=== PATIENT | male | born 1960 | race Caucasian/White ===

== ENCOUNTER 2020-06-05 09:44 | Emergency (ER) | payer OTHER, SELFPAY ==
--- NOTE | 2020-06-05 08:49 | ED_ITS ---
HPI - Chest Pain General Chief Complaint: Chest Pain Stated Complaint: chest pain Time Seen by Provider: 06/05/20 10:30 Source: patient and EMS Mode of arrival: EMS Limitations: no limitations History of Present Illness MD complaint: chest pain Pertinent past history: other (PE) Onset (ago): minute(s) (60) Timing of current episode: constant Prior episodes: Yes Onset: during rest Pain location: left chest Pain radiation: none Severity: moderate Quality: sharp Relieving factors: nothing Exacerbating factors: nothing Context: other (INR 1.6 recently on 06/02 ) Associated symptoms: dyspnea Treatment prior to arrival: none Risk Factors Pulmonary embolism risk factors: history of pulmonary embolism Related Data Allergies Allergy/AdvReac Type Severity Reaction Status Date / Time codeine [CODEINE] Allergy Severe SEVERE Verified 06/05/20 08:52 PAIN/HYPOXIA W/HIGH DOSES meningococcal vaccine A,C,Y Allergy Intermediate HIVES Verified 06/05/20 08:52 and W-1 [MENINGOCOCCAL VACCINE A,C,Y AND W-1] SALMON Allergy Severe LT Uncoded 05/20/20 14:47 HEMIPARESIS salmon AdvReac Unknown hives Uncoded 04/22/20 00:00 Review of Systems Review of Systems: Constitutional : No Fever, No Chills ENT/Mouth : No sore throat, No Rhinorrhea, No Swallowing Difficulty Eyes: No Eye Pain, No Swelling, No Redness Cardiovascular : positive Chest Pain, positive SOB, No Orthopnea, positive Edema (chronic) Respiratory : No Cough, No Sputum, No Wheezing, positive dyspnea Gastrointestinal : No Nausea, No Vomiting, No Diarrhea, No abdominal Pain, No Hematochezia, No Melena Genitourinary : No Dysuria, No Urinary Frequency, No Hematuria Musculoskeletal : No joint pain, No Myalgias Skin : No Skin Lesions, No rash Neuro : No Weakness, No Numbness, No Dizziness, No Headache Psych : No Anxiety/Panic, No Depression Heme/Lymph: No Bruising, No Lymphadenopathy Endocrine : No Polyuria, No Polydipsia All other systems reviewed and are negative [facility] Past Medical History Medical History (Updated 06/05/20 @ 12:39 by Lisa Kenney DO) Depression DVT (deep venous thrombosis) HIV (human immunodeficiency virus infection) HTN (hypertension) Klinefelter syndrome Leg fracture, left Pulmonary embolus S/P ORIF (open reduction internal fixation) fracture Social History Social History (Updated 06/05/20 @ 08:51 by Lisa Kenney DO) Alcohol intake: unknown Smoking Status: Former smoker Smoked in Last 30 Days: No Use of substances other than those prescribed or required for medical reasons: No Advance Directives: No Advance Directives Information Provided: No Physical Exam Vital Signs and I&O and Narrative: Vital Signs and I&O: Vital Signs Temp 97.5 F 06/05/20 08:53 Pulse 54 06/05/20 08:53 Resp 10 L 06/05/20 08:53 BP 139/79 06/05/20 08:53 Pulse Ox 100 06/05/20 08:53 Intake & Output 06/04/20 06/05/20 06/05/20 18:59 06:59 18:59 Weight 125.191 kg Body Mass Index 31.8 Appearance: Alert. Oriented X3. No acute distress. Eyes: Pupils equal, round and reactive to light. ENT: Pharynx normal. Neck: Normal inspection. Neck supple. CVS: bradycardic. Pulses normal. Respiratory: No respiratory distress. Breath sounds normal. Abdomen: Soft and nontender. Skin: Skin warm and dry. Normal skin color. Normal skin turgor. Extremities: No lower extremity edema. mild non pitting LE edema ankles Neuro: Oriented X 3. No motor deficit. No sensory deficit. Course Reevaluation(s) Reevaluation #1: repeat troponin negative MDM - Chest Pain MDM Narrative Medical decision making narrative: patient with hx of DVT and PE recent INR 1.6 on 06/02 had abrupt onset L sided chest pain and dyspnea feels like prior PE, given this will need troponin x 2 and CTA:PE to r/o PE given high probability at this time HD stable has chronic bradycardia Lab Data Result diagrams: 06/05/20 09:18 06/05/20 09:18 Labs: Lab Results 06/05/20 06/05/20 06/05/20 Range/Units 09:18 09:18 09:18 WBC 4.2 L (4.8-10.8) X10*3/uL RBC 4.46 L (4.60-5.80) X10*6/uL Hgb 14.5 (14.0-18.0) g/dl Hct 42.8 (42-52) % MCV 96.0 (80-98) fL MCH 32.5 (27.0-33.0) pg MCHC 33.9 (31.0-36.0) g/dl RDW 12.4 (11.0-16.0) % Plt Count 150 L (160-400) X10*3/uL MPV 10.2 (9.4-12.4) fL Immature Gran % (Auto) 0.5 H (0.0-0.4) % Neut % (Auto) 59.7 (45-73) % Lymph % (Auto) 29.4 (20-40) % [place] % (Auto) 7.8 (2-11) % Eos % (Auto) 1.9 (0-4) % Baso % (Auto) 0.7 (0-2) % Neut # (Auto) 2.5 (2.0-8.3) X10*3/uL Lymph # (Auto) 1.2 (1.2-4.9) X10*3/uL [place] # (Auto) 0.3 (0.1-1.2) X10*3/uL Eos # (Auto) 0.1 (0.0-0.4) X10*3/uL Baso # (Auto) 0.0 (0.0-0.2) X10*3/uL Abs Immat Gran (auto) 0.02 (0.00-0.03) X10*3/uL Absolute Nucleated RBC 0.000 (0.0-0.012) X10*3/uL Nucleated RBC % (auto) 0.0 (0.0-0.2) /100WBC PT 33.6 H (10.8-13.0) SEC INR 2.8 H (0.9-1.1) APTT 42.9 H (24.1-38.0) SEC Sodium 141 (135-145) mmol/L Potassium 3.9 (3.3-5.1) mmol/l Chloride 107 (96-108) mmol/L Carbon Dioxide 28 (22-29) mmol/L Anion Gap 10 L (12-20) BUN 13 (9-16) mg/dL Creatinine 0.85 (0.5-1.4) mg/dL Estim Creat Clear Calc 138.8 Estimated GFR > 60 Random Glucose 132 H (60-115) mg/dL Calcium 8.6 (8.4-10.2) mg/dL Magnesium 2.1 (1.6-2.6) mg/dL Total Bilirubin 0.8 (0.0-1.0) mg/dL Direct Bilirubin 0.4 (0.0-0.5) mg/dL AST 50 H (5-37) U/L ALT 34 (0-40) U/L Alkaline Phosphatase 55 (39-117) U/L Troponin I High Sens (<3.5-35.0) ng/L B-Natriuretic Peptide (<100) pg/mL Total Protein 6.4 L (6.5-8.0) g/dL Albumin 3.9 (3.5-5.0) g/dL Lipase 35 (8-78) U/L 06/05/20 06/05/20 Range/Units 09:19 12:58 WBC (4.8-10.8) X10*3/uL RBC (4.60-5.80) X10*6/uL Hgb (14.0-18.0) g/dl Hct (42-52) % MCV (80-98) fL MCH (27.0-33.0) pg MCHC (31.0-36.0) g/dl RDW (11.0-16.0) % Plt Count (160-400) X10*3/uL MPV (9.4-12.4) fL Immature Gran % (Auto) (0.0-0.4) % Neut % (Auto) (45-73) % Lymph % (Auto) (20-40) % [place] % (Auto) (2-11) % Eos % (Auto) (0-4) % Baso % (Auto) (0-2) % Neut # (Auto) (2.0-8.3) X10*3/uL Lymph # (Auto) (1.2-4.9) X10*3/uL [place] # (Auto) (0.1-1.2) X10*3/uL Eos # (Auto) (0.0-0.4) X10*3/uL Baso # (Auto) (0.0-0.2) X10*3/uL Abs Immat Gran (auto) (0.00-0.03) X10*3/uL Absolute Nucleated RBC (0.0-0.012) X10*3/uL Nucleated RBC % (auto) (0.0-0.2) /100WBC PT (10.8-13.0) SEC INR (0.9-1.1) APTT (24.1-38.0) SEC Sodium (135-145) mmol/L Potassium (3.3-5.1) mmol/l Chloride (96-108) mmol/L Carbon Dioxide (22-29) mmol/L Anion Gap (12-20) BUN (9-16) mg/dL Creatinine (0.5-1.4) mg/dL Estim Creat Clear Calc Estimated GFR Random Glucose (60-115) mg/dL Calcium (8.4-10.2) mg/dL Magnesium (1.6-2.6) mg/dL Total Bilirubin (0.0-1.0) mg/dL Direct Bilirubin (0.0-0.5) mg/dL AST (5-37) U/L ALT (0-40) U/L Alkaline Phosphatase (39-117) U/L Troponin I High Sens < 3.5 < 3.5 (<3.5-35.0) ng/L B-Natriuretic Peptide 39 (<100) pg/mL Total Protein (6.5-8.0) g/dL Albumin (3.5-5.0) g/dL Lipase (8-78) U/L ECG Data ECG #1: Attestation: I personally reviewed and interpreted this ECG as follows: ECG interpretation date: 06/05/20 ECG interpretation time: 08:52 Interpretation: Rate: 47 Rhythm: sinus bradycardia [place]: normal Normal P waves. Normal JANE. Normal QRS complex. ST T wave : normal qTC: normal no ischemia The study has been interpreted contemporaneously by me. . Discharge Plan Discharge Clinical Impression: Atypical chest pain Patient Disposition: Home, Self-Care Instructions: Chest Pain (ED) Additional Instructions: INR 2.8 Referrals: Abdirahman Howell, [facility] [Primary Care Provider] - 3 days (if not better)
[2020-06-05 08:53] VITALS: BP 139/79; PULSE 54; RESP 10; TEMP 36.4; O2SAT 100; BMI 31.8
--- NOTE | 2020-06-05 08:55 | CT_ITS ---
EXAMINATION: CT CHEST PE STUDY CLINICAL INFORMATION: Pain and dyspnea. History of PE. COMPARISON: Chest x-ray dated 07/25/2017. TECHNIQUE: Prior to contrast administration, localization images were obtained. After the administration of 65 and mL of intravenous Omnipaque 350, multidetector CT volume acquisition of the chest was performed. 3-D postprocessing was performed with multiplanar reconstructions and MIP images obtained at the acquisition workstation under concurrent physician supervision. DLP: 390.35 mGy-cm. FINDINGS: Pulmonary arteries: The bolus timing on this study was acceptable for visualization of the pulmonary arterial tree. There are no intraluminal pulmonary arterial filling defects present to suggest pulmonary embolism in the main pulmonary artery, right and left main pulmonary artery, lobar and segmental branches. Lungs: Several scattered calcified granulomas are seen in the lungs. There is also a tiny 2 mm solid noncalcified nodule seen peripherally in the lateral segment of the right middle lobe (series 6, image 267) of doubtful clinical significance, possibly a noncalcified granuloma. No suspicious pulmonary nodules, masses, pleural effusion or pneumothorax. Mild dependent atelectasis in the lung bases bilaterally. The central airways are patent. Aorta and heart: The heart is normal in size. The aorta is normal. There is no pericardial effusion Lymphatic structures: There is no lymphadenopathy. Upper abdomen: Postcholecystectomy ellen are seen in the gallbladder fossa. Limited evaluation of the upper abdominal viscera demonstrates no focal abnormality. Bones: Moderate vertebral spondylosis in the mid and lower thoracic spine. IMPRESSION: 1. No evidence of pulmonary embolism. 2. Evidence of granulomatous lung disease. There is also a tiny 2 mm solid noncalcified pulmonary nodule in the lateral segment of the right middle lobe, possibly a noncalcified granuloma. Per the Fleischner criteria, if the patient has no underlying risk factors, no additional follow-up is required. If the patient has underlying risk factors, optional CT scan follow-up in 12 months could be obtained. VTE: Negative This CT examination was performed using dose optimization techniques as appropriate, variously including the following: *Automated exposure control *Adjustment of mA and/or kV according to patient size (this includes techniques or standardized protocols for targeted exams where dose is matched to indication/reason for exam; i.e. extremities or head) *Use of iterative reconstruction technique
--- NOTE | 2020-06-05 08:55 | ECG_ITS ---
Test Reason : CHEST PAIN Blood Pressure : / mmHG Vent. Rate : 047 BPM Atrial Rate : 047 BPM P-R Int : 186 ms QRS Dur : 096 ms QT Int : 454 ms P-R-T Axes : 015 031 043 degrees QTc Int : 401 ms Sinus bradycardia Otherwise normal ECG When compared with ECG of 31-DEC-2018 16:16, Vent. rate has decreased BY 45 BPM Nonspecific T wave abnormality no longer evident in Inferior leads T wave amplitude has increased in Lateral leads Referred By: Lisa Kenney Electronically Signed By:JANEEN GODDARD
[2020-06-05 09:25] LABS: MANUAL DIFF FLAG NO
[2020-06-05 09:27] VITALS: PULSE 54
[2020-06-05 09:27] LABS: Basophils Percent Auto 0.7 % (0-2); Eosinophils Absolute Auto 0.1 X10*3/uL (0.0-0.4); Eosinophils Percent Auto 1.9 % (0-4); Hematocrit 42.8 % (42-52); Hemoglobin 14.5 g/dl (14.0-18.0); Imm Gran Abs Auto 0.02 X10*3/uL (0.00-0.03); Imm Gran Pct Auto 0.5 % (0.0-0.4); Lymphocytes Absolute Auto 1.2 X10*3/uL (1.2-4.9); Lymphocytes Percent Auto 29.4 % (20-40); Mean Corpuscular HGB Conc 33.9 g/dl (31.0-36.0); Mean Corpuscular Hemoglobin 32.5 pg (27.0-33.0); Mean Platelet Volume 10.2 fL (9.4-12.4); Monocytes Absolute Auto 0.3 X10*3/uL (0.1-1.2); Monocytes Percent Auto 7.8 % (2-11); Neutrophils Absolute Auto 2.5 X10*3/uL (2.0-8.3); Neutrophils Percent Auto 59.7 % (45-73); Platelet Count 150 X10*3/uL (160-400); Red Blood Count 4.46 X10*6/uL (4.60-5.80); Red Cell Distribution Width 12.4 % (11.0-16.0); White Blood Count 4.2 X10*3/uL (4.8-10.8)
[2020-06-05 09:33] LABS: INTERNATIONAL NORM RATIO 2.8 (0.9-1.1); Prothrombin Time 33.6 SEC (10.8-13.0)
[2020-06-05 09:35] LABS: Partial Thromboplastin Time 42.9 SEC (24.1-38.0)
[2020-06-05 09:54] LABS: B Type Natriuretic Peptide 39 pg/mL (<100); Troponin-I High Sensitivity < 3.5 ng/L (<3.5-35.0)
[2020-06-05 09:55] LABS: Alanine Aminotransferase 34 U/L (0-40); Albumin Level 3.9 g/dL (3.5-5.0); Alkaline Phosphatase 55 U/L (39-117); Anion Gap 10 (12-20); Aspartate Amino Transferase 50 U/L (5-37); Bilirubin Direct 0.4 mg/dL (0.0-0.5); Bilirubin Total 0.8 mg/dL (0.0-1.0); Blood Urea Nitrogen 13 mg/dL (9-16); Calcium 8.6 mg/dL (8.4-10.2); Carbon Dioxide 28 mmol/L (22-29); Chloride 107 mmol/L (96-108); Creatinine Clr Calc Pharmacy 138.8; Estimated Glomerular Filt Rate > 60; Glucose Random 132 mg/dL (60-115); Lipase 35 U/L (8-78); Magnesium 2.1 mg/dL (1.6-2.6); Potassium 3.9 mmol/l (3.3-5.1); Sodium 141 mmol/L (135-145); Total Protein 6.4 g/dL (6.5-8.0)
[2020-06-05] MEDS: iohexoL 350 MG/ML 100 ML INFUS..BTL IV (10:25)
[2020-06-05 13:37] LABS: Troponin-I High Sensitivity < 3.5 ng/L (<3.5-35.0)
== END 2020-06-05 15:11 | disposition home or self-care (01) ==
PROVIDERS: Emergency Provider Emergency Medicine; PCP Nurse Practitioner Family
DX: R07.89 Other chest pain (principal); I10 Essential (primary) hypertension; Z86.718 Personal history of other venous thrombosis and embolism; Z21 Asymptomatic human immunodeficiency virus [HIV] infection status
CPT/HCPCS: 36415; 71275; 80048; 80076; 83690; 83735; 83880; 84484; 85025; 85610; 85730; 93005; 93010; 99284

== ENCOUNTER 2020-07-09 18:57 | Emergency (ER) | payer OTHER, SELFPAY ==
[2020-07-09 21:21] VITALS: BP 135/76; PULSE 75; RESP 16; TEMP 36.8; O2SAT 99; BMI 32.3
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
--- NOTE | 2020-07-09 22:38 | ED.EXTPRO ---
HPI - Extremity Problem General Chief complaint: Extremity Problem Stated complaint: dvt? Time Seen by Provider: 07/09/20 22:26 Source: patient Mode of arrival: ambulatory Limitations: no limitations History of Present Illness HPI Narrative: patient's history of DVT on Coumadin with INR of 2.33 weeks ago came here for right lower extremity redness around the denise area for last 3 days no fever no chills patient is HIV positive with undetectable viral load and normal CD4 count no swelling of the leg calf area and no significant pain no open wound in the leg MD Complaint: extremity pain Onset (ago): day(s) (3) Pain Consistency: constant Location: right and lower extremity Quality: dull Radiation: none Relieving factors: nothing Associated symptoms: denies other symptoms Related Data Previous Rx's Medication Instructions Recorded cephalexin [Keflex] 500 mg PO QID #40 cap 07/09/20 doxycycline hyclate 100 mg PO BID #20 cap 07/09/20 Allergies Allergy/AdvReac Type Severity Reaction Status Date / Time codeine [CODEINE] Allergy Severe SEVERE Verified 06/05/20 08:52 PAIN/HYPOXIA W/HIGH DOSES meningococcal vaccine A,C,Y Allergy Intermediate HIVES Verified 06/05/20 08:52 and W-1 [MENINGOCOCCAL VACCINE A,C,Y AND W-1] SALMON Allergy Severe LT Uncoded 05/20/20 14:47 HEMIPARESIS salmon AdvReac Unknown hives Uncoded 04/22/20 00:00 Review of Systems Review of Systems: REVIEW OF SYSTEMS: Pertinent positives and negatives are stated above in the history. GEN: no fevers, chills, fatigue HEENT: no nasal congestion, sore throat, ear pain NEURO: no headache, dizziness, focal weakness PULM: no cough, shortness of breath CV: no chest pain, palpitations, LE edema ABD: no abdominal pain, nausea, vomiting, diarrhea : no dysuria, urgency, frequency SKIN: erythematous rash right leg ROS otherwise negative x 10 PMFSH Past Medical History Medical History Depression DVT (deep venous thrombosis) HIV (human immunodeficiency virus infection) HTN (hypertension) Klinefelter syndrome Leg fracture, left Pulmonary embolus S/P ORIF (open reduction internal fixation) fracture Surgical History No pertinent past surgical history Family History Family History Father No problems noted. Mother No problems noted. Social History Social History Alcohol intake: unknown Smoking Status: Former smoker Advance Directives: No Advance Directives Information Provided: Yes Physical Exam Vital Signs: Vital Signs: Last Vital Signs Temp 98.2 F 07/09/20 21:21 Pulse 75 07/09/20 21:21 Resp 16 07/09/20 21:21 BP 135/76 07/09/20 21:21 Pulse Ox 99 07/09/20 21:21 Body Mass Index 32.3 Appearance: Alert. Oriented X3. No acute distress. Eyes: Pupils equal, round and reactive to light. ENT: Pharynx normal. Neck: Normal inspection. Neck supple. CVS: Normal heart rate and rhythm. Pulses normal. Respiratory: No respiratory distress. Breath sounds normal. Abdomen: Soft and nontender. Skin: Skin warm and dry. Normal skin color. Normal skin turgor. Extremities: No lower extremity edema. Good range of movement so small area of redness in the upper part of right leg denise with no significant swelling no open wound no calf tenderness Neuro: Oriented X 3. No motor deficit. No sensory deficit. MDM - Extremity (Nontraumatic) MDM Narrative Medical decision making narrative: patient with mild cellulitis of the right leg with normal therapeutic INR no signs of DVT no open wound no signs of significant infection will give him p.o. antibiotic doxycycline Keflex advised to follow up as outpatient Discharge Plan Discharge Clinical Impression: Cellulitis Patient Disposition: Home, Self-Care Instructions: Cellulitis (ED) Additional Instructions: take antibiotics as advised keep your right leg elevated. Report to the ER if fever or increased swelling or worsening of redness of right leg Prescriptions: New doxycycline hyclate 100 mg capsule 100 mg PO BID Qty: 20 RF: 0 cephalexin [Keflex] 500 mg capsule 500 mg PO QID Qty: 40 RF: 0
[2020-07-09] MEDS: cephALEXin 500 MG CAPSULE PO (23:18)
== END 2020-07-09 23:13 | disposition home or self-care (01) ==
PROVIDERS: Emergency Provider Internal Medicine; PCP Nurse Practitioner Family
DX: L03.115 Cellulitis of right lower limb (principal); Z86.718 Personal history of other venous thrombosis and embolism; Z79.01 Long term (current) use of anticoagulants; Z79.899 Other long term (current) drug therapy
CPT/HCPCS: 99283

== ENCOUNTER 2020-07-14 10:13 | Outpatient (REF) | payer OTHER, SELFPAY ==
[2020-07-14 12:21] LABS: MANUAL DIFF FLAG NO
[2020-07-14 12:43] LABS: Basophils Percent Auto 0.8 % (0-2); Eosinophils Absolute Auto 0.1 X10*3/uL (0.0-0.4); Eosinophils Percent Auto 2.6 % (0-4); Hematocrit 41.3 % (42-52); Hemoglobin 14.1 g/dl (14.0-18.0); Imm Gran Abs Auto 0.01 X10*3/uL (0.00-0.03); Imm Gran Pct Auto 0.3 % (0.0-0.4); Lymphocytes Absolute Auto 1.6 X10*3/uL (1.2-4.9); Lymphocytes Percent Auto 41.5 % (20-40); Mean Corpuscular HGB Conc 34.1 g/dl (31.0-36.0); Mean Corpuscular Hemoglobin 32.6 pg (27.0-33.0); Mean Corpuscular Volume 95.6 fL (80-98); Mean Platelet Volume 10.3 fL (9.4-12.4); Monocytes Absolute Auto 0.3 X10*3/uL (0.1-1.2); Monocytes Percent Auto 8.5 % (2-11); Neutrophils Absolute Auto 1.8 X10*3/uL (2.0-8.3); Neutrophils Percent Auto 46.3 % (45-73); Platelet Count 198 X10*3/uL (160-400); Red Blood Count 4.32 X10*6/uL (4.60-5.80); Red Cell Distribution Width 12.8 % (11.0-16.0); White Blood Count 3.9 X10*3/uL (4.8-10.8)
[2020-07-14 13:03] LABS: Alanine Aminotransferase 22 U/L (0-40); Albumin Level 3.8 g/dL (3.5-5.0); Alkaline Phosphatase 50 U/L (39-117); Aspartate Amino Transferase 22 U/L (5-37); Bilirubin Direct 0.2 mg/dL (0.0-0.5); Bilirubin Total 0.5 mg/dL (0.0-1.0); Blood Urea Nitrogen 16 mg/dL (9-16); Estimated Glomerular Filt Rate > 60; Glucose Random 94 mg/dL (60-115); Total Protein 6.4 g/dL (6.5-8.0)
[2020-07-14 13:11] LABS: Anion Gap 11 (12-20); Calcium 8.5 mg/dL (8.4-10.2); Carbon Dioxide 28 mmol/L (22-29); Chloride 102 mmol/L (96-108); Potassium 4.3 mmol/l (3.3-5.1); Sodium 137 mmol/L (135-145)
[2020-07-14 13:37] LABS: Syphilis Screen Reactive (Nonreactive)
[2020-07-15 17:07] LABS: Absolute CD3 Count 1227 cells/uL (840-3060); Absolute CD4 Count 782 cells/uL (490-1740); Absolute CD8 Count 453 cells/uL (180-1170); Absolute Lymphocytes 1666 cells/uL (850-3900); CD4 CD8 Ratio 1.72 (0.86-5.00); Percent CD3 Cells 74 % (57-85); Percent CD4 Cells 47 % (30-61); Percent CD8 Cells 27 % (12-42)
[2020-07-17 13:12] LABS: HIV RNA PCR Qn Copies <20 NOT DETECTED copies/mL (NOT DETECTED); HIV RNA PCR Qn Log Copies <1.30 NOT DETECTED (NOT DETECTED)
== END 2020-07-14 10:14 | disposition home or self-care (01) ==
LOC: HO.LAB 10:13
PROVIDERS: Absent Provider Internal Medicine; PCP Nurse Practitioner Family; Visit Provider Internal Medicine
DX: Z21 Asymptomatic human immunodeficiency virus [HIV] infection status (principal)
CPT/HCPCS: 36415; 80048; 80076; 85025; 85610; 86359; 86360; 86592; 86780; 87536

== ENCOUNTER 2020-07-15 12:26 | Outpatient (REF) | payer OTHER, SELFPAY ==
[2020-07-15 13:10] LABS: Hematocrit 43.3 % (42-52); Hemoglobin 14.5 g/dl (14.0-18.0); Mean Corpuscular HGB Conc 33.5 g/dl (31.0-36.0); Mean Corpuscular Hemoglobin 32.5 pg (27.0-33.0); Mean Corpuscular Volume 97.1 fL (80-98); Mean Platelet Volume 10.2 fL (9.4-12.4); Platelet Count 187 X10*3/uL (160-400); Red Blood Count 4.46 X10*6/uL (4.60-5.80); Red Cell Distribution Width 12.9 % (11.0-16.0); White Blood Count 4.9 X10*3/uL (4.8-10.8)
[2020-07-15 14:00] LABS: Prostate Specific Antigen 2.81 ng/mL (<0.05-4.0)
[2020-07-19 19:11] LABS: Testosterone, Free 82.7 pg/mL (35.0-155.0); Testosterone, Total 559 ng/dL (250-1100)
== END 2020-07-15 12:27 | disposition home or self-care (01) ==
LOC: HO.LAB 12:26
PROVIDERS: PCP Nurse Practitioner Family; Visit Provider Urology
DX: E29.1 Testicular hypofunction (principal)
CPT/HCPCS: 36415; 84153; 84402; 84403; 85027

== ENCOUNTER 2020-07-26 08:31 | Outpatient (REF) | payer OTHER, SELFPAY ==
--- NOTE | 2020-07-26 08:36 | XR_ITS ---
EXAMINATION: RIGHT HIP AND KNEE X-RAY CLINICAL INFORMATION: Pain COMPARISON: None TECHNIQUE: 4 views of the right knee. 2 views of the right hip. FINDINGS: Right knee: Bone alignment is normal. No fracture or dislocation is seen. There is mild arthritis at the medial femoral tibial joint with joint space narrowing and osteophyte formation. There is a no joint effusion. Right hip: Bone alignment is normal. No fracture or dislocation is seen. There is moderate arthritis of the right hip joint with joint space narrowing and osteophyte formation. Soft tissues are unremarkable. XR/XR knee RT 4V IMPRESSION: Right knee: Mild arthritis at the medial femoral tibial joint. Right hip: Moderate arthritis.
--- NOTE | 2020-07-26 08:36 | XR_ITS ---
EXAMINATION: RIGHT HIP AND KNEE X-RAY CLINICAL INFORMATION: Pain COMPARISON: None TECHNIQUE: 4 views of the right knee. 2 views of the right hip. FINDINGS: Right knee: Bone alignment is normal. No fracture or dislocation is seen. There is mild arthritis at the medial femoral tibial joint with joint space narrowing and osteophyte formation. There is a no joint effusion. Right hip: Bone alignment is normal. No fracture or dislocation is seen. There is moderate arthritis of the right hip joint with joint space narrowing and osteophyte formation. Soft tissues are unremarkable. XR/XR hip RT min 2V IMPRESSION: Right knee: Mild arthritis at the medial femoral tibial joint. Right hip: Moderate arthritis.
[2020-07-26 11:37] LABS: Alanine Aminotransferase 27 U/L (0-40); Albumin Level 3.9 g/dL (3.5-5.0); Alkaline Phosphatase 56 U/L (39-117); Anion Gap 9 (12-20); Aspartate Amino Transferase 25 U/L (5-37); Bilirubin Total 0.7 mg/dL (0.0-1.0); Blood Urea Nitrogen 10 mg/dL (9-16); Calcium 8.4 mg/dL (8.4-10.2); Carbon Dioxide 31 mmol/L (22-29); Chloride 103 mmol/L (96-108); Estimated Glomerular Filt Rate > 60; Glucose Random 95 mg/dL (60-115); Potassium 3.9 mmol/l (3.3-5.1); Sodium 139 mmol/L (135-145); Total Protein 6.5 g/dL (6.5-8.0)
[2020-07-26 11:55] LABS: Prostate Specific Antigen Scr 2.51 ng/mL (<0.05-4.0); TSH reflex Free T4 1.15 mIU/mL (0.32-4.0)
== END 2020-07-26 08:32 | disposition home or self-care (01) ==
LOC: HO.HMGCLDS 08:31
PROVIDERS: PCP Nurse Practitioner Family; Visit Provider Nurse Practitioner Family
DX: L03.90 Cellulitis, unspecified (principal); M25.551 Pain in right hip; M25.561 Pain in right knee; M25.562 Pain in left knee; M25.552 Pain in left hip
CPT/HCPCS: 73502; 73564; 80053; 84153; 84443

== ENCOUNTER 2020-08-09 15:00 | Outpatient (RCR) | payer OTHER, SELFPAY | END 2020-08-12 23:55 | disposition home or self-care (01) | LOC: HO.PAOS 15:00 | PROVIDERS: Visit Provider Psychologist | DX: F43.10 Post-traumatic stress disorder, unspecified (principal); F33.1 Major depressive disorder, recurrent, moderate | CPT/HCPCS: 90832; 90834 ==

== ENCOUNTER → 2020-08-25 10:02 | Outpatient (BNVA) | payer OTHER, SELFPAY | PROVIDERS: PCP Nurse Practitioner Family; Visit Provider Internal Medicine | DX: I26.99 Other pulmonary embolism without acute cor pulmonale (principal); Z79.01 Long term (current) use of anticoagulants; Z51.81 Encounter for therapeutic drug level monitoring | CPT/HCPCS: 85610; 99211 ==

== ENCOUNTER 2020-09-02 11:00 | Outpatient (RCR) | payer OTHER, SELFPAY ==
--- NOTE | 2020-08-11 12:33 | MHC.PT.EP ---
[facility] [place] Office [place] Office [place] Office [address] Skyler Ferreira [address] [phone] F: [phone] F: [phone] F: [phone] F: [phone] Physical Therapy Plan of Care Date of Evaluation: 08/11/20 Date of Surgery: Diagnosis: This is a 60 yo male presenting to skilled PT with a script for pain in R hip. Assessment: This is a 60 yo male presenting to skilled PT with a script for pain in R hip. Patient had a telehealth video (08/09) for R hip pain that has been radiating to the R knee. He has a history of arthritis in R hip (moderate) and R knee (mild) diagnosed via x-ray and was referred to PT. He reports that he also has spinal stenosis and states that he has chunks of my disc missing. He has tried PT, acupuncture, yoga, cupping, rolfing just to name a few things and pain has remained. He [place] [facility] [place] states [place]. Today he comes in reporting that his pain is located at the L lateral hip pain (described as achy) that radiates into the quad. He also reports B knees feel numb and swollen in the morning. His pain is constant and all the time. Functionally, he is limited with walking (can walk about 3 blocks) and yoga (used to like to do both but has not been able to do these things for 3 years). He is also limited in sleeping, standing (20 mins max), driving and household/work related tasks. His hip and knee pain has been a little more recently compared to his back. He is very anti surgery. He has a tens unit that he uses occasionally at home, uses CBD and marijuana for pain due to blood thinners and mineral bills for pain management at this time. He has a cane that he uses as needed. Assessment reveals pain that ranges from 3-10/10. He demos decreased lumbar and hip ROM, decreased hip and core strength, decreased gait and function associated with walking, standing, ADLs and driving. He is a good candidate for skilled PT 2x/wk for 5 wks based on age, physical and functional limitations and PT POC. Frequency and Duration: The patient will be seen 2x/wk for 5wks Short Term Goals: I in HEP Demo proper squatting mechanics without pain Demo proper core stab without cuing from PT Assisted Goals: Normal hip ROM and strength Improve LEFs by at least 10 points Improve pain to no more than 2/10 at the worst Demo normal gait pattern without pain Treatment Plan: Modalities to reduce pain, spasms and effusion. Manual therapy to restore motion and function. Therapeutic exercise to improve strength and flexibility. Neuromuscular re-education for posture and balance. Therapeutic activities to return to functional activities of daily living. Please sign and return to therapist. Thank you for your referral.
--- NOTE | 2020-09-06 16:32 | MHC.PT.DC ---
[facility] [place] Office [place] Office [place] Office [address] Skyler Ferreira [address] [phone] F: [phone] F: [phone] F: [phone] F: [phone] Physical Therapy Discharge Report Diagnosis: This is a 60 yo male presenting to skilled PT with a script for pain in R hip. Date of Surgery: Date of Evaluation: 08/11/20 Date of Discharge: 09/06/20 Treatments to Date: 4 Cancellations to Date: 2 No Shows to Date: 3 Discharge Status: Independent with HEP Visit Non-compliance Discharge Summary: Patient comes in after driving to [place] with little increase in pain. Unsure if patient is compliant with HEP, does not remember exercises and needs PT cuing at the last session. Fatigues quickly with dying bugs and shows decreased core strength with ther-ex. Finished with bolster under knees for lumbar traction and MH across low back which patient enjoyed. DC at this time due to lack of compliance with physical therapy appointments. DC to HEP Electronically signed by: Nena Ureña PT Please sign and return to therapist. Thank you for your referral.
== END 2020-09-06 16:33 | disposition home or self-care (01) ==
LOC: HO.PTCHIC 11:00
PROVIDERS: PCP Nurse Practitioner Family; Visit Provider Nurse Practitioner Family
DX: M25.551 Pain in right hip (principal)
CPT/HCPCS: 85610; 97110; 97140; 97162; 99211

== ENCOUNTER → 2020-10-12 10:15 | Outpatient (BNVA) | payer OTHER, SELFPAY | PROVIDERS: PCP Nurse Practitioner Family; Visit Provider Internal Medicine | DX: I26.99 Other pulmonary embolism without acute cor pulmonale (principal); Z51.81 Encounter for therapeutic drug level monitoring; Z79.01 Long term (current) use of anticoagulants | CPT/HCPCS: 85610; 99211 ==

== ENCOUNTER 2020-11-02 11:33 | Outpatient (REF) | payer OTHER, SELFPAY ==
[2020-11-02 14:30] LABS: Alanine Aminotransferase 21 U/L (0-40); Alkaline Phosphatase 53 U/L (39-117); Anion Gap 9 (12-20); Aspartate Amino Transferase 18 U/L (5-37); Bilirubin Total 1.1 mg/dL (0.0-1.0); Blood Urea Nitrogen 16 mg/dL (9-16); Calcium 8.8 mg/dL (8.4-10.2); Carbon Dioxide 30 mmol/L (22-29); Chloride 106 mmol/L (96-108); Cholesterol 194 mg/dL; Estimated Glomerular Filt Rate > 60; Glucose Fasting 96 mg/dL (60-99); HDL Cholesterol 44 mg/dL; LDL Cholesterol Calculated 132 mg/dl; Potassium 4.4 mmol/L (3.3-5.1); Sodium 141 mmol/L (135-145); Total Protein 6.6 g/dL (6.5-8.0); Triglycerides 93 mg/dL
[2020-11-02 14:53] LABS: TSH reflex Free T4 0.89 uIU/mL (0.32-4.0)
[2020-11-02 15:00] LABS: Prostate Specific Antigen Scr 3.17 ng/mL (<0.05-4.0)
[2020-11-03 08:40] LABS: Syphilis Screen Reactive (Nonreactive)
[2020-11-04 20:51] LABS: C. trachomatis RNA TMA NOT DETECTED (NOT DETECTED); N. gonorrhoeae RNA TMA NOT DETECTED (NOT DETECTED)
[2020-11-09 12:31] LABS: RPR Quantitative Non-Reactive (Nonreactive)
[2020-11-09 12:32] LABS: T.Pallidum Particle Agg Test Reactive (Nonreactive)
== END 2020-11-02 11:34 | disposition home or self-care (01) ==
LOC: HO.HMGCLDS 11:33
PROVIDERS: PCP Nurse Practitioner Family; Visit Provider Nurse Practitioner Family
DX: Z11.3 Encounter for screening for infections with a predominantly sexual mode of transmission (principal); Z12.5 Encounter for screening for malignant neoplasm of prostate
CPT/HCPCS: 36415; 80053; 80061; 84153; 84443; 86592; 86780; 87491; 87591

== ENCOUNTER → 2020-11-24 08:44 | Outpatient (BNVA) | payer OTHER, SELFPAY | PROVIDERS: PCP Nurse Practitioner Family; Visit Provider Internal Medicine | DX: I26.99 Other pulmonary embolism without acute cor pulmonale (principal); Z51.81 Encounter for therapeutic drug level monitoring; Z79.01 Long term (current) use of anticoagulants | CPT/HCPCS: 85610; 99211 ==

== ENCOUNTER → 2020-11-26 13:22 | Outpatient (BNVA) | payer OTHER, SELFPAY | PROVIDERS: PCP Nurse Practitioner Family; Visit Provider Internal Medicine | DX: I26.99 Other pulmonary embolism without acute cor pulmonale (principal); Z51.81 Encounter for therapeutic drug level monitoring; Z79.01 Long term (current) use of anticoagulants | CPT/HCPCS: 85610; 99211 ==

== ENCOUNTER → 2020-11-29 13:31 | Outpatient (BNVA) | payer OTHER, SELFPAY | PROVIDERS: PCP Nurse Practitioner Family; Visit Provider Internal Medicine | DX: I26.99 Other pulmonary embolism without acute cor pulmonale (principal); Z51.81 Encounter for therapeutic drug level monitoring; Z79.01 Long term (current) use of anticoagulants | CPT/HCPCS: 85610; 99211 ==

== ENCOUNTER → 2020-12-01 08:33 | Outpatient (BNVA) | payer OTHER, SELFPAY | PROVIDERS: PCP Nurse Practitioner Family; Visit Provider Internal Medicine | DX: I26.99 Other pulmonary embolism without acute cor pulmonale (principal); Z51.81 Encounter for therapeutic drug level monitoring; Z79.01 Long term (current) use of anticoagulants | CPT/HCPCS: 85610; 99211 ==

== ENCOUNTER → 2020-12-03 09:24 | Outpatient (BNVA) | payer OTHER, SELFPAY | PROVIDERS: PCP Nurse Practitioner Family; Visit Provider Internal Medicine | DX: I26.99 Other pulmonary embolism without acute cor pulmonale (principal); Z51.81 Encounter for therapeutic drug level monitoring; Z79.01 Long term (current) use of anticoagulants | CPT/HCPCS: 85610; 99211 ==

== ENCOUNTER 2020-12-13 11:34 | Outpatient (REF) | payer OTHER, SELFPAY ==
[2020-12-13 12:16] LABS: MANUAL DIFF FLAG NO
[2020-12-13 12:20] LABS: Basophils Percent Auto 0.8 % (0-2); Eosinophils Absolute Auto 0.1 X10*3/uL (0.0-0.4); Eosinophils Percent Auto 2.2 % (0-4); Hematocrit 42.5 % (42-52); Hemoglobin 14.9 g/dl (14.0-18.0); Lymphocytes Absolute Auto 1.7 X10*3/uL (1.2-4.9); Lymphocytes Percent Auto 46.4 % (20-40); Mean Corpuscular HGB Conc 35.1 g/dl (31.0-36.0); Mean Corpuscular Hemoglobin 33.7 pg (27.0-33.0); Mean Corpuscular Volume 96.2 fL (80-98); Monocytes Absolute Auto 0.3 X10*3/uL (0.1-1.2); Monocytes Percent Auto 7.8 % (2-11); Neutrophils Absolute Auto 1.5 X10*3/uL (2.0-8.3); Neutrophils Percent Auto 42.8 % (45-73); Platelet Count 180 X10*3/uL (160-400); Red Blood Count 4.42 X10*6/uL (4.60-5.80); White Blood Count 3.6 X10*3/uL (4.8-10.8)
[2020-12-13 13:16] LABS: Alanine Aminotransferase 34 U/L (0-40); Alkaline Phosphatase 51 U/L (39-117); Anion Gap 11 (12-20); Aspartate Amino Transferase 29 U/L (5-37); Bilirubin Direct 0.3 mg/dL (0.0-0.5); Bilirubin Total 0.7 mg/dL (0.0-1.0); Blood Urea Nitrogen 19 mg/dL (9-16); Calcium 8.9 mg/dL (8.4-10.2); Carbon Dioxide 27 mmol/L (22-29); Chloride 107 mmol/L (96-108); Estimated Glomerular Filt Rate > 60; Glucose Random 97 mg/dL (60-115); Potassium 4.4 mmol/L (3.3-5.1); Sodium 141 mmol/L (135-145); Total Protein 6.6 g/dL (6.5-8.0)
[2020-12-13 13:37] LABS: Syphilis Screen Reactive (Nonreactive)
[2020-12-14 13:36] LABS: Absolute CD3 Count 1161 cells/uL (840-3060); Absolute CD4 Count 729 cells/uL (490-1740); Absolute CD8 Count 446 cells/uL (180-1170); Absolute Lymphocytes 1699 cells/uL (850-3900); CD4 CD8 Ratio 1.64 (0.86-5.00); Percent CD3 Cells 68 % (57-85); Percent CD4 Cells 43 % (30-61); Percent CD8 Cells 26 % (12-42)
[2020-12-15 16:01] LABS: HIV RNA PCR Qn Copies <20 NOT DETECTED copies/mL (NOT DETECTED); HIV RNA PCR Qn Log Copies <1.30 NOT DETECTED (NOT DETECTED)
[2020-12-20 11:38] LABS: RPR Quantitative Non-Reactive (Nonreactive); T.Pallidum Particle Agg Test Reactive (Nonreactive)
== END 2020-12-13 11:35 | disposition home or self-care (01) ==
LOC: HO.LAB 11:34
PROVIDERS: PCP Internal Medicine; Visit Provider Internal Medicine
DX: Z21 Asymptomatic human immunodeficiency virus [HIV] infection status (principal)
CPT/HCPCS: 36415; 80048; 80076; 85025; 86359; 86360; 86592; 86780; 87536

== ENCOUNTER → 2020-12-17 09:01 | Outpatient (BNVA) | payer OTHER, SELFPAY | PROVIDERS: PCP Nurse Practitioner Family; Visit Provider Internal Medicine | DX: I26.99 Other pulmonary embolism without acute cor pulmonale (principal); Z79.01 Long term (current) use of anticoagulants; Z51.81 Encounter for therapeutic drug level monitoring | CPT/HCPCS: 85610; 99211; 99212 ==

== ENCOUNTER → 2020-12-27 09:00 | Outpatient (BNVA) | payer OTHER, SELFPAY | PROVIDERS: PCP Nurse Practitioner Family; Visit Provider Internal Medicine | DX: I26.99 Other pulmonary embolism without acute cor pulmonale (principal); Z51.81 Encounter for therapeutic drug level monitoring; Z79.01 Long term (current) use of anticoagulants | CPT/HCPCS: 85610; 99211 ==

== ENCOUNTER → 2021-01-28 08:48 | Outpatient (BNVA) | payer OTHER, SELFPAY | PROVIDERS: PCP Nurse Practitioner Family; Visit Provider Internal Medicine | DX: I26.99 Other pulmonary embolism without acute cor pulmonale (principal); Z51.81 Encounter for therapeutic drug level monitoring; Z79.01 Long term (current) use of anticoagulants | CPT/HCPCS: 85610; 99212 ==

== ENCOUNTER → 2021-02-01 09:38 | Outpatient (BNVA) | payer OTHER, SELFPAY | PROVIDERS: PCP Nurse Practitioner Family; Visit Provider Internal Medicine | DX: I26.99 Other pulmonary embolism without acute cor pulmonale (principal); Z51.81 Encounter for therapeutic drug level monitoring; Z79.01 Long term (current) use of anticoagulants | CPT/HCPCS: 85610; 99211 ==

== ENCOUNTER → 2021-02-17 09:30 | Outpatient (BNVA) | payer OTHER, SELFPAY | PROVIDERS: PCP Nurse Practitioner Family; Visit Provider Internal Medicine | DX: I26.99 Other pulmonary embolism without acute cor pulmonale (principal); Z51.81 Encounter for therapeutic drug level monitoring; Z79.01 Long term (current) use of anticoagulants | CPT/HCPCS: 85610; 99211 ==

== ENCOUNTER → 2021-02-21 10:09 | Outpatient (BNVA) | payer OTHER, SELFPAY | PROVIDERS: PCP Nurse Practitioner Family; Visit Provider Internal Medicine | DX: I26.99 Other pulmonary embolism without acute cor pulmonale (principal); Z51.81 Encounter for therapeutic drug level monitoring; Z79.01 Long term (current) use of anticoagulants | CPT/HCPCS: 85610; 99211 ==

== ENCOUNTER → 2021-02-25 10:14 | Outpatient (BNVA) | payer OTHER, SELFPAY | PROVIDERS: PCP Nurse Practitioner Family; Visit Provider Internal Medicine | DX: I26.99 Other pulmonary embolism without acute cor pulmonale (principal); Z51.81 Encounter for therapeutic drug level monitoring; Z79.01 Long term (current) use of anticoagulants | CPT/HCPCS: 85610; 99211 ==

== ENCOUNTER → 2021-03-08 10:46 | Outpatient (BNVA) | payer OTHER, SELFPAY | PROVIDERS: PCP Nurse Practitioner Family; Visit Provider Internal Medicine | DX: I26.99 Other pulmonary embolism without acute cor pulmonale (principal); Z51.81 Encounter for therapeutic drug level monitoring; Z79.01 Long term (current) use of anticoagulants | CPT/HCPCS: 85610; 99211 ==

== ENCOUNTER 2021-05-16 14:54 | Outpatient (REF) | payer OTHER, SELFPAY ==
[2021-05-16 16:09] LABS: Syphilis Screen Reactive (Nonreactive)
[2021-05-20 14:59] LABS: RPR Quantitative Non-Reactive (Nonreactive); T.Pallidum Particle Agg Test Reactive (Nonreactive)
== END 2021-05-16 14:55 | disposition home or self-care (01) ==
LOC: HO.LAB 14:54
PROVIDERS: PCP Nurse Practitioner Family; Visit Provider Internal Medicine
DX: Z11.3 Encounter for screening for infections with a predominantly sexual mode of transmission (principal)
CPT/HCPCS: 36415; 86592; 86780

== ENCOUNTER → 2021-06-27 15:51 | Outpatient (BNVA) | payer OTHER, SELFPAY | PROVIDERS: Visit Provider Internal Medicine ==

== ENCOUNTER 2021-06-30 11:29 | Emergency (ER) | payer OTHER, SELFPAY ==
--- NOTE | ~2021-06-30 | CT_ITS ---
EXAMINATION: CT ANGIOGRAM OF THE CHEST WITH AND WITHOUT CONTRAST (CT PULMONARY ANGIOGRAM FOR PE) CLINICAL INFORMATION: Reason for Exam Chest pain, SOB, on Xarelto, elev D-dimer h/o PE COMPARISON: June 05, 2020 TECHNIQUE: Prior to contrast administration, noncontrast localization images were obtained. Subsequently, multidetector volumetric imaging was performed from the thoracic inlet to below the diaphragms following the administration of 65 mL Omnipaque 350 intravenous contrast. No contrast reaction reported Sagittal, coronal, and MIP oblique sagittal reformatted images were obtained on the CT workstation, uploaded to PACS, and reviewed. This CT examination was performed using dose optimization techniques as appropriate, variously including the following: *Automated exposure control *Adjustment of mA and/or kV according to patient size (this includes techniques or standardized protocols for targeted exams where dose is matched to indication/reason for exam; i.e. extremities or head) *Use of iterative reconstruction technique Total exam dose-length product 177 mGy-cm FINDINGS: QUALITY OF STUDY/CONTRAST BOLUS: Satisfactory. PULMONARY ARTERIES: No central or segmental pulmonary emboli. THORACIC AORTA: No aneurysm or dissection. LUNG: Central airways are patent. No significant bronchial wall thickening is seen. No bronchiectasis is noted. No confluent parenchymal disease identified. A few bilateral calcified granulomas are present. There is some dependent atelectasis present bilaterally. There is discoid scarring is seen within the right middle lobe. A few scattered sub-4 mm densities are present. There is a 4 mm noncalcified nodule seen within the right middle lobe on image 355 of [phone] in series #8. PLEURA: No pleural effusion or pneumothorax. MEDIASTINUM: The heart is mildly enlarged.. No pericardial effusion. No hilar or mediastinal lymphadenopathy. No evidence of septal bowing or right heart strain. CHEST WALL/AXILLA: No axillary or internal mammary lymphadenopathy. OSSEOUS STRUCTURES: No acute or suspicious osseous abnormality. UPPER ABDOMEN: Unremarkable. No reflux of contrast into the hepatic veins to suggest elevated right heart pressures. Status post cholecystectomy. CT/CT angio chest PE protocol IMPRESSION: No evidence of acute pulmonary artery embolus. No evidence of thoracic aortic dissection. Old granulomatous disease. VTE: negative
[2021-06-30 11:36] VITALS: BP 102/62; PULSE 89; RESP 18; TEMP 36.4; O2SAT 99
--- NOTE | 2021-06-30 11:40 | ECG_ITS ---
Test Reason : SOB Blood Pressure : / mmHG Vent. Rate : 093 BPM Atrial Rate : 093 BPM P-R Int : 146 ms QRS Dur : 090 ms QT Int : 358 ms P-R-T Axes : 007 043 040 degrees QTc Int : 445 ms Normal sinus rhythm Normal ECG Heart rate has increased Referred By: Generic ED Physician Electronically Signed By:TONY ZAFAR MD
[2021-06-30 12:22] VITALS: BP 124/84; PULSE 99; RESP 26; TEMP 36.6; O2SAT 100
[2021-06-30] MEDS: LORazepam 2 MG/ML VIAL 1 MG IVPUSH (12:37)
--- NOTE | 2021-06-30 12:37 | ED.GENADULT ---
HPI - General Adult General Chief complaint: Dyspnea Stated complaint: diff breathing Time Seen by Provider: 06/30/21 12:19 Source: patient Mode of arrival: EMS Limitations: no limitations History of Present Illness HPI narrative: 61-year-old male who presents emergency department for evaluation of shortness of breath, lightheadedness, dizziness, cramping in his hands and feet bilaterally. The patient states he has a shift and he was at work. He states that he had a sudden onset of shortness of breath. He states he felt dizzy, lightheaded and then developed numbness in his hands and feet. He states that he felt he was going to pass out. The patient has a history multiple pulmonary emboli. He also is HIV positive. States he has been compliant with his Xarelto however is pharmacy was not able to get his HIV medications he has been off these medicines for approximately 1 week. The patient was transported by ambulance. On initial evaluation, the patient is hyperventilating, he has carpal pedal spasms. He is pleasant, cooperative but does appear to be anxious. Related Data Home Medications Medication Instructions Recorded Confirmed ascorbic acid (vitamin C) 500 mg 500 mg PO DAILY 07/20/20 06/20/21 tablet (Vitamin C) cholecalciferol (vitamin D3) 25 25 mcg PO DAILY 07/20/20 06/20/21 mcg (1,000 unit) tablet (Vitamin D3) chromium 200 mcg capsule 200 mcg PO DAILY 07/20/20 06/20/21 cyanocobalamin (vitamin B-12) 100 100 mcg PO DAILY 07/20/20 06/20/21 mcg tablet (Vitamin B-12) testosterone 20.25 mg/1.25 gram 3 pump TOPICAL DAILY 07/20/20 06/20/21 (1.62 %) transdermal gel pump zinc 100 mg tablet 100 mg PO DAILY 07/20/20 06/20/21 syringe with needle 1 mL 27 x 1/2 #1 ea 07/22/20 06/20/21 sertraline 25 mg tablet 25 mg PO DAILY 11/29/20 06/20/21 Previous Rx's Medication Instructions Recorded warfarin 5 mg tablet 5 mg PO DAILY #90 tab 07/14/20 trazodone 50 mg tablet 50 mg PO BEDTIME PRN 90 Days #90 07/15/20 tab tamsulosin 0.4 mg capsule (Flomax) 0.4 mg PO DAILY 90 Days #90 cap 11/29/20 testosterone cypionate 200 mg/mL 90 mg SUBCUT QWEEK 28 Days #2 ml 01/18/21 intramuscular oil (Depo-Testosterone) rivaroxaban 15 mg (42)-20 mg (9) See Rx Instructions .ROUTE 05/19/21 tablets in a starter pack (Xarelto .COMPLEX #1 ea DVT-PE Treat 30d Start) rivaroxaban 20 mg tablet 20 mg PO DAILY #90 tab 05/19/21 sertraline 50 mg tablet 50 mg PO DAILY #90 tab 06/13/21 dolutegravir 50 mg tablet (Tivicay) 50 mg PO DAILY 30 Days #30 tab 06/27/21 emtricitabine 200 mg-tenofovir 1 tab PO DAILY 30 Days #30 tab 06/27/21 alafenamide fumarate 25 mg tablet (Descovy) Allergies Allergy/AdvReac Type Severity Reaction Status Date / Time codeine [CODEINE] Allergy Severe SEVERE Verified 06/30/21 11:36 PAIN/HYPOXIA W/HIGH DOSES meningococcal vaccine A,C,Y Allergy Intermediate HIVES Verified 06/30/21 11:36 and W-1 [MENINGOCOCCAL VACCINE A,C,Y AND W-1] salmon oil Allergy Unknown hives Verified 06/30/21 11:36 SALMON Allergy Severe LT Uncoded 06/20/21 11:08 HEMIPARESIS Review of Systems Review of Systems: Yes all other systems are reviewed and are negative PMFSH Past Medical History Medical History DVT (deep venous thrombosis) HIV (human immunodeficiency virus infection) HTN (hypertension) Klinefelter syndrome Leg fracture, left On continuous oral anticoagulation Pulmonary embolus Right knee pain Surgical History History of angioplasty of vein History of umbilical hernia repair Hx of cholecystectomy Hx of left knee surgery S/P ORIF (open reduction internal fixation) fracture Family History Family History Father No problems noted. Mother No problems noted. Social History Social History Are you a primary animal care supervisor to a significant other at home: No Do you presently have visiting nurse or other home services: No Alcohol intake: former Patient Tobacco Use Status: Former Tobacco user Quit Date: 2004 Tobacco use type: Cigarette Cigarette Packs Per Day: 2 Substance Use Type: Marijuana Advance Directives: No Advance Directives Information Provided: Yes Physical Exam Vital Signs: Vital Signs: Last Vital Signs Temp 97.9 F 06/30/21 16:00 Pulse 80 06/30/21 16:00 Resp 15 06/30/21 16:00 BP 133/80 06/30/21 16:00 Pulse Ox 96 06/30/21 16:00 Body Mass Index 30.0 Const: Other: Very pleasant, cooperative male, he is hyperventilating, he has erythema of his face, he is able to talk in full sentences, he does appear to have spasm of his hands and feet. HENMT: Head: Yes normal to inspection, Yes normocephalic and Yes atraumatic Ears: external ears normal General nose exam: Normal external nose present Face and sinus: Yes normal facial exam Mouth: Normal oral and palatal mucosa present Throat: Yes posterior oropharynx normal Eyes: General: appearance normal, both eyes and all related structures Pupils: Equal, round and reactive pupils present Neck: Neck: Yes normal visual inspection, Yes no lymphadenopathy, Yes trachea midline and Yes supple Chest: Chest palpation & inspection: normal inspection of the chest and normal palpation of entire chest wall Resp: Effort & Inspection: normal respiratory effort and able to speak in complete sentences Auscultation: clear to auscultation bilaterally Cardio: Rate: regular rate Rhythm: regular rhythm Heart sounds: S1 normal heart sound present, S2 normal heart sound present and no murmurs GI: Inspection: Yes normal to inspection Palpation (GI): Soft to palpation, nontender and no guarding Auscultation: normal bowel sounds : General: Yes no CVA tenderness Back/Spine/Pelvis: Back: no CVA tenderness Skin: General skin exam: no rashes or lesions noted Neuro: Cranial nerves: Yes CN's II-XII intact bilaterally and Yes Equal, round and reactive pupils present Cognition (Neuro): normal cognition Motor exam (neuro): 5/5 motor strength present throughout Extrem: General: Yes normal to inspection Psych: Appearance: grossly normal Speech and movement: Normal speech and movement present Affect: normal affect Attitude: cooperative Thought process: Normal thought process present Thought content: Normal thought content present Course Course Course Narrative: 61-year-old male who presents emergency department for evaluation of sudden onset of shortness of breath, lightheadedness, dizziness, numbness in his hands and feet , the symptoms started while he was at work. Presentation to the emergency department the patient is hyperventilating. He does appear to be anxious. Vital signs revealed tachypnea with a respiratory rate of 26 otherwise vital signs were normal with an O2 saturation of 100% on room air. Lung exam unremarkable. I did order a laboratory evaluation includes CBC, troponin, liver panel COVID-19, PT/INR, PTT, D-dimer, urinalysis, EKG and chest x-ray. Patient was ordered to get Ativan 1 mg IV for anxiety and hyperventilation. 1655: The patient's laboratory evaluation revealed an elevated D-dimer of [address] pulmonary angiogram PE protocol did not reveal any pulmonary emboli, patient does have some granulomatous disease but otherwise CT scan was unremarkable. I did discuss these findings with the patient . The patient's presentation is consistent with hyperventilation syndrome. The patient was discharged home with printed and verbal instructions. Medical Decision Making Lab Data Result diagrams: 06/30/21 12:30 06/30/21 12:30 Labs: Lab Results 06/30/21 06/30/21 06/30/21 Range/Units 12:30 12:30 12:30 WBC 8.2 (4.8-10.8) X10*3/uL RBC 4.95 (4.60-5.80) X10*6/uL Hgb 16.3 (14.0-18.0) g/dl Hct 46.6 (42-52) % MCV 94.1 (80-98) fL MCH 32.9 (27.0-33.0) pg MCHC 35.0 (31.0-36.0) g/dl RDW 12.5 (11.0-16.0) % Plt Count 235 D (160-400) X10*3/uL MPV 10.0 (9.4-12.4) fL Immature Gran % (Auto) 0.4 (0.0-0.4) % Neut % (Auto) 53.8 (45-73) % Lymph % (Auto) 38.5 (20-40) % [place] % (Auto) 6.3 (2-11) % Eos % (Auto) 0.6 (0-4) % Baso % (Auto) 0.4 (0-2) % Lymph # (Auto) 3.2 (1.2-4.9) X10*3/uL [place] # (Auto) 0.5 (0.1-1.2) X10*3/uL Eos # (Auto) 0.1 (0.0-0.4) X10*3/uL Baso # (Auto) 0.0 (0.0-0.2) X10*3/uL Abs Immat Gran (auto) 0.03 (0.00-0.03) X10*3/uL Absolute Neuts (auto) 4.4 (2.0-8.3) X10*3/uL Absolute Nucleated RBC 0.000 (0.0-0.012) X10*3/uL Nucleated RBC % (auto) 0.0 (0.0-0.2) /100WBC PT (9.9-13.0) SEC INR (0.9-1.1) APTT (24.1-38.0) SEC D-Dimer NG/ML Sodium 141 (135-145) mmol/L Potassium 4.5 (3.3-5.1) mmol/L Chloride 108 (96-108) mmol/L Carbon Dioxide 18 L (22-29) mmol/L Anion Gap 20 (12-20) BUN 18 H (9-16) mg/dL Creatinine 1.37 (0.5-1.4) mg/dL Estim Creat Clear Calc 82.7 Estimated GFR 53 Random Glucose 106 (60-115) mg/dL Calcium 9.7 D (8.4-10.2) mg/dL Total Bilirubin 1.4 H (0.0-1.0) mg/dL Direct Bilirubin 0.4 (0.0-0.5) mg/dL AST 27 (5-37) U/L ALT 18 (0-40) U/L Alkaline Phosphatase 56 (39-117) U/L Troponin I High Sens 5.2 (<3.5-35.0) ng/L B-Natriuretic Peptide 22 (<100) pg/mL Total Protein 7.9 (6.5-8.0) g/dL Albumin 4.4 (3.5-5.0) g/dL Urine Color Urine Appearance Urine pH (5.0-8.0) Ur Specific [place] (1.005-1.025) Urine Protein (NEG-TRACE) MG/DL Urine Glucose (UA) (NEG) MG/DL Urine Ketones (NEG) MG/DL Urine Blood (NEG) Urine Nitrite (NEG) Ur Leukocyte Esterase (NEG) COVID-19 (EBEN) (Negative) COVID-19 Clin Com 06/30/21 06/30/21 06/30/21 Range/Units 12:30 12:31 16:28 WBC (4.8-10.8) X10*3/uL RBC (4.60-5.80) X10*6/uL Hgb (14.0-18.0) g/dl Hct (42-52) % MCV (80-98) fL MCH (27.0-33.0) pg MCHC (31.0-36.0) g/dl RDW (11.0-16.0) % Plt Count (160-400) X10*3/uL MPV (9.4-12.4) fL Immature Gran % (Auto) (0.0-0.4) % Neut % (Auto) (45-73) % Lymph % (Auto) (20-40) % [place] % (Auto) (2-11) % Eos % (Auto) (0-4) % Baso % (Auto) (0-2) % Lymph # (Auto) (1.2-4.9) X10*3/uL [place] # (Auto) (0.1-1.2) X10*3/uL Eos # (Auto) (0.0-0.4) X10*3/uL Baso # (Auto) (0.0-0.2) X10*3/uL Abs Immat Gran (auto) (0.00-0.03) X10*3/uL Absolute Neuts (auto) (2.0-8.3) X10*3/uL Absolute Nucleated RBC (0.0-0.012) X10*3/uL Nucleated RBC % (auto) (0.0-0.2) /100WBC PT 18.9 H (9.9-13.0) SEC INR 1.6 H (0.9-1.1) APTT 35.2 (24.1-38.0) SEC D-Dimer 593 NG/ML Sodium (135-145) mmol/L Potassium (3.3-5.1) mmol/L Chloride (96-108) mmol/L Carbon Dioxide (22-29) mmol/L Anion Gap (12-20) BUN (9-16) mg/dL Creatinine (0.5-1.4) mg/dL Estim Creat Clear Calc Estimated GFR Random Glucose (60-115) mg/dL Calcium (8.4-10.2) mg/dL Total Bilirubin (0.0-1.0) mg/dL Direct Bilirubin (0.0-0.5) mg/dL AST (5-37) U/L ALT (0-40) U/L Alkaline Phosphatase (39-117) U/L Troponin I High Sens (<3.5-35.0) ng/L B-Natriuretic Peptide (<100) pg/mL Total Protein (6.5-8.0) g/dL Albumin (3.5-5.0) g/dL Urine Color YELLOW Urine Appearance CLEAR Urine pH 6.0 (5.0-8.0) Ur Specific [place] 1.010 (1.005-1.025) Urine Protein TRACE (NEG-TRACE) MG/DL Urine Glucose (UA) NEG (NEG) MG/DL Urine Ketones 5 (NEG) MG/DL Urine Blood NEG (NEG) Urine Nitrite NEG (NEG) Ur Leukocyte Esterase NEG (NEG) COVID-19 (EBEN) Negative (Negative) COVID-19 Clin Com See Note Discharge Plan Discharge Clinical Impression: Acute hyperventilation syndrome Patient Disposition: Home, Self-Care Instructions: Hyperventilation (ED) Additional Instructions: Your blood work was unremarkable except for an elevated D-dimer. This is not a specific marker however whenever a D-dimer is elevated were concerned about blood clots in her lungs, we order a CT scan. The CT scan of your chest did not reveal any blood clots in your lungs which is very reassuring. Your symptoms and presentation are consistent with hyperventilation syndrome. Continue your medications as prescribed by your doctor. Follow-up with your doctor in 2 days. Please return to the emergency department if your symptoms get worse or if you develop any symptoms that are concerning to you. Prescriptions: No Action trazodone 50 mg tablet 50 mg PO BEDTIME PRN (Reason: insomnia) 90 Days Qty: 90 RF: 0 tamsulosin [Flomax] 0.4 mg capsule 0.4 mg PO DAILY 90 Days Qty: 90 RF: 2 testosterone cypionate [Depo-Testosterone] 200 mg/mL oil 90 mg subcut QWEEK 28 Days Qty: 2 RF: 5 Xarelto DVT-PE Treat 30d Start 15 mg (42)- 20 mg (9) Tablets,Dose Pack See Rx Instructions .ROUTE .COMPLEX Qty: 1 RF: 0 sertraline 50 mg tablet 50 mg PO DAILY Qty: 90 RF: 1 rivaroxaban 20 mg Tablet 20 mg PO DAILY Qty: 90 RF: 4 testosterone 20.25 mg/1.25 gram (1.62 %) gel in metered-dose pump 3 pump topical DAILY RF: 0 zinc 100 mg Tablet 100 mg PO DAILY RF: 0 cyanocobalamin (vitamin B-12) [Vitamin B-12] 100 mcg Tablet 100 mcg PO DAILY RF: 0 ascorbic acid (vitamin C) [Vitamin C] 500 mg Tablet 500 mg PO DAILY RF: 0 chromium 200 mcg Capsule 200 mcg PO DAILY RF: 0 cholecalciferol (vitamin D3) [Vitamin D3] 25 mcg (1,000 unit) Tablet 25 mcg PO DAILY RF: 0 (DME) BD Tuberculin Syringe 1 mL 27 x 1/2 syringe See Rx Instructions ea .ROUTE .MEDSUPPLY Qty: 1 RF: 0 sertraline 25 mg tablet 25 mg PO DAILY RF: 0 warfarin 5 mg tablet 5 mg PO DAILY Qty: 90 RF: 0 [place] 200-25 mg tablet 1 tab PO DAILY 30 Days Qty: 30 RF: 5 Tivicay 50 mg tablet 50 mg PO DAILY 30 Days Qty: 30 RF: 5
[2021-06-30 12:38] LABS: MANUAL DIFF FLAG NO
[2021-06-30 12:41] LABS: Basophils Percent Auto 0.4 % (0-2); Eosinophils Absolute Auto 0.1 X10*3/uL (0.0-0.4); Eosinophils Percent Auto 0.6 % (0-4); Hematocrit 46.6 % (42-52); Hemoglobin 16.3 g/dl (14.0-18.0); Imm Gran Abs Auto 0.03 X10*3/uL (0.00-0.03); Imm Gran Pct Auto 0.4 % (0.0-0.4); Lymphocytes Absolute Auto 3.2 X10*3/uL (1.2-4.9); Lymphocytes Percent Auto 38.5 % (20-40); Mean Corpuscular Hemoglobin 32.9 pg (27.0-33.0); Mean Corpuscular Volume 94.1 fL (80-98); Monocytes Absolute Auto 0.5 X10*3/uL (0.1-1.2); Monocytes Percent Auto 6.3 % (2-11); Neutrophils Absolute Auto 4.4 X10*3/uL (2.0-8.3); Neutrophils Percent Auto 53.8 % (45-73); Platelet Count 235 X10*3/uL (160-400); Red Blood Count 4.95 X10*6/uL (4.60-5.80); Red Cell Distribution Width 12.5 % (11.0-16.0); White Blood Count 8.2 X10*3/uL (4.8-10.8)
[2021-06-30 12:47] LABS: INTERNATIONAL NORM RATIO 1.6 (0.9-1.1); Prothrombin Time 18.9 SEC (9.9-13.0)
[2021-06-30 12:49] LABS: D Dimer 593 NG/ML; Partial Thromboplastin Time 35.2 SEC (24.1-38.0)
[2021-06-30 13:00] LABS: B Type Natriuretic Peptide 22 pg/mL (<100); Troponin-I High Sensitivity 5.2 ng/L (<3.5-35.0)
[2021-06-30 13:02] LABS: COVID-19 Test Negative (Negative)
[2021-06-30 13:08] LABS: Anion Gap 20 (12-20); Blood Urea Nitrogen 18 mg/dL (9-16); Calcium 9.7 mg/dL (8.4-10.2); Carbon Dioxide 18 mmol/L (22-29); Chloride 108 mmol/L (96-108); Creatinine Clr Calc Pharmacy 82.7; Estimated Glomerular Filt Rate 53; Glucose Random 106 mg/dL (60-115); Potassium 4.5 mmol/L (3.3-5.1); Sodium 141 mmol/L (135-145)
[2021-06-30 13:34] LABS: Alanine Aminotransferase 18 U/L (0-40); Albumin Level 4.4 g/dL (3.5-5.0); Alkaline Phosphatase 56 U/L (39-117); Aspartate Amino Transferase 27 U/L (5-37); Bilirubin Direct 0.4 mg/dL (0.0-0.5); Bilirubin Total 1.4 mg/dL (0.0-1.0); Total Protein 7.9 g/dL (6.5-8.0)
[2021-06-30] MEDS: iohexoL 350 MG/ML 100 ML INFUS..BTL 65 ML IV (15:30)
[2021-06-30 16:00] VITALS: BP 133/80; PULSE 80; RESP 15; TEMP 36.6; O2SAT 96
[2021-06-30 16:35] LABS: Appearance Urine CLEAR; Color Urine YELLOW; Glucose Urine UA NEG (NEG); Leukocyte Esterase Urine NEG (NEG); Nitrite Urine NEG (NEG); Urine Blood NEG (NEG); Urine Ketones 5 MG/DL (NEG); Urine Protein TRACE MG/DL (NEG-TRACE)
== END 2021-06-30 17:07 | disposition home or self-care (01) ==
PROVIDERS: Emergency Provider Emergency Medicine Emergency Medical Services; PCP Nurse Practitioner Family
DX: R06.4 Hyperventilation (principal); R06.02 Shortness of breath; B20 Human immunodeficiency virus [HIV] disease; Z86.718 Personal history of other venous thrombosis and embolism; Z79.01 Long term (current) use of anticoagulants; Z79.899 Other long term (current) drug therapy; Z87.891 Personal history of nicotine dependence; Z20.822 Contact with and (suspected) exposure to COVID-19
CPT/HCPCS: 36415; 71275; 80048; 80076; 81003; 83880; 84484; 85025; 85379; 85610; 85730; 87635; 93005; 96374; 99284; J2060; Q9967

== ENCOUNTER 2021-07-22 08:57 | Outpatient (REF) | payer OTHER, SELFPAY | END 2021-07-22 08:58 | disposition home or self-care (01) | LOC: HO.HMGCLDS 08:57 | PROVIDERS: Visit Provider Internal Medicine | DX: Z20.822 Contact with and (suspected) exposure to COVID-19 (principal) | CPT/HCPCS: C9803; U0003; U0005 ==

== ENCOUNTER 2021-09-05 12:06 | Outpatient (REF) | payer OTHER, SELFPAY ==
[2021-09-05 13:12] LABS: Alanine Aminotransferase 27 U/L (0-40); Albumin Level 4.1 g/dL (3.5-5.0); Alkaline Phosphatase 70 U/L (39-117); Anion Gap 9 (12-20); Aspartate Amino Transferase 24 U/L (5-37); Bilirubin Total 0.7 mg/dL (0.0-1.0); Blood Urea Nitrogen 19 mg/dL (9-16); Calcium 9.8 mg/dL (8.4-10.2); Carbon Dioxide 31 mmol/L (22-29); Chloride 105 mmol/L (96-108); Cholesterol 176 mg/dL; Estimated Glomerular Filt Rate > 60; Glucose Fasting 101 mg/dL (60-99); HDL Cholesterol 42 mg/dL; LDL Cholesterol Calculated 89 mg/dl; Potassium 4.3 mmol/L (3.3-5.1); Sodium 141 mmol/L (135-145); Total Protein 7.1 g/dL (6.5-8.0); Triglycerides 228 mg/dL; Uric Acid 5.2 mg/dL (3.4-7.0)
[2021-09-05 13:34] LABS: Prostate Specific Antigen Scr 3.18 ng/mL (<0.05-4.0); TSH reflex Free T4 1.06 uIU/mL (0.32-4.0)
[2021-09-05 13:45] LABS: Folate 9.2 ng/mL (> or = 4.0); Vitamin B12 609 pg/mL (200-900)
[2021-09-05 18:07] LABS: Appearance Urine CLEAR; Color Urine YELLOW; Glucose Urine UA NEG (NEG); Leukocyte Esterase Urine NEG (NEG); Nitrite Urine NEG (NEG); Specific Gravity - Urine >= 1.030 (1.005-1.025); Urine Blood NEG (NEG); Urine Ketones NEG (NEG); Urine Protein NEG (NEG-TRACE)
== END 2021-09-05 12:07 | disposition home or self-care (01) ==
LOC: HO.LAB 12:06
PROVIDERS: Absent Provider Internal Medicine; PCP Nurse Practitioner Family; Visit Provider Nurse Practitioner Family
DX: Z00.00 Encounter for general adult medical examination without abnormal findings (principal); Z12.5 Encounter for screening for malignant neoplasm of prostate; M79.673 Pain in unspecified foot; E53.8 Deficiency of other specified B group vitamins
CPT/HCPCS: 36415; 80053; 80061; 81003; 82607; 82746; 84153; 84443; 84550

== ENCOUNTER → 2021-09-07 08:33 | Outpatient (REF) | payer OTHER, SELFPAY ==
--- NOTE | 2021-09-07 08:36 | CA_ITS ---
Transthoracic Echocardiogram Patient (Last, First, Middle): Doroteo Nails J Gender: Male Date of : 1960 Age: 61 Procedure Date: 09/07/2021 Procedure Type: Transthoracic Echocardiogram Location: OP Height: 198.12 cm Weight: 106.6 kg BSA: 2.42 m2 Heart Rate: bpm BP: 132 / 80 mmHg [employer]: BON Smith MD: Abdirahman Howell [facility] [employer]ator: Jerry Farrell MD Symptoms: R01.1 - Cardiac murmur, unspecified Study Quality: Fair ECG Rhythm: Sinus Conclusions: - 1. Normal LV systolic and diastolic function 2. Normal cardiac valvular Doppler 3. Normal RV systolic pressure 4. No gross pericardial effusion Findings Left Ventricle Normal left ventricular size and systolic function. There is mildly increased left ventricular wall thickness. The visually estimated ejection fraction is between 55-60%. Spectral Doppler is indicative of a normal filling pattern. Right Ventricle Normal right ventricular cavity size and systolic function. Atria Both atria are normal in size. There is no evidence of interatrial shunt. Aortic Valve There is mild calcification of the aortic valve. There is no aortic valve stenosis. There is no aortic valve regurgitation. Mitral Valve There is mild anterior mitral leaflet thickening. There is mild mitral annular calcification. There is trace mitral valve regurgitation. There is no mitral valve stenosis. Pulmonic Valve The pulmonic valve was not well visualized. Tricuspid Valve Likely normal tricuspid valve structure and function. There is trace tricuspid valve regurgitation. The right ventricular systolic pressure is normal. The right ventricular systolic pressure is 21 mmHg. There is no evidence of pulmonary hypertension. Great Vessels All visible segments of the aorta are normal in size. The pulmonary artery was not well visualized. Venous The inferior vena cava is normal in size and collapses greater than 50% with inspiration. Pericardium/Pleural There is no evidence of pericardial effusion. Prior Study Comparison No prior study available for comparison. Measurements 2D Linear Measurements IVSd: 1.22 0.6-0.9/0.6-1.0 cm LVIDd: 5.29 3.9-5.3/4.2-5.9 cm LVIDd Index: 2.19 2.4-3.2/2.2-3.1 cm/m2 LVIDs: 3.32 2.0-3.6 cm LVPWd: 1.12 0.7-1.1 cm Ao Root: 3.40 2.1-3.5 cm LA Diam: 3.80 2.7-3.8/3.0-4.0 cm LAIDs Index: 1.57 1.5-2.3 cm/m2 LV Mass: 308.01 67-162/88-224 g LV Mass Index: 127.27 43-95/49-115 g/m2 LVOT Diam: 2.40 3.0+(-)1.3 cm 2D Systolic Function EF 4C: 53.90 >55% EF 2C: 61.80 >55% EF BiP: 57.40 >55% Mitral Valve MV Pk E: 0.90 MV PK A: 0.70 MV Decel Time: 335.00 E/A: 1.30 E'Lateral: 10.30 E'Medial: 8.70 E/E' Med: 10.40 E/E' Lat: 8.80 PHT: 98.00 MVA PHT: 2.24 Decel [place]: 2.70 Aortic Valve AoV Pk Ivan: 2.12 AoV Mn Ivan: 1.52 AoV VTI: 0.42 AoV Pk Grad: 18.00 Aov Mn Grad: 10.00 TELMA Cont.VTI: 3.25 LVOT LVOT Pk Ivan: 1.45 LVOT Mn Ivan: 1.06 LVOT VTI: 0.30 LVOT Pk Grad: 8.00 LVOT Mn Grad: 5.00 LVOT Diam: 2.40 LVOT Area: 4.52 Diastolic Function MV Pk E: 0.90 MV Pk A: 0.70 E/A: 1.30 E'Medial: 8.70 E/E' Med: 10.40 E' Laterial: 10.30 E/E' Lat: 8.80 Right Ventricle TAPSE (mm): 2.44 TVS' Ivan: 13.40 Tricuspid Valve TR Pk Ivan: 2.13 TR Pk Grad: 18.00 RA Press: 3.00 RVSP: 21.00 Great Vessels Aorta Ao Root-2D: 3.40 2.0-3.7 cm Ao Asc: 3.70 2.1-3.4 cm Ao Arch: 3.10 Updated in Other Vendor System with Status of Final Jerry Farrell MD electronically signed on 09/07/2021 1:37:10 PM with status of Final
== END ==
LOC: HO.CARD 08:33
PROVIDERS: Visit Provider Nurse Practitioner Family
DX: R01.1 Cardiac murmur, unspecified (principal)
CPT/HCPCS: 93306

== ENCOUNTER 2021-10-04 09:30 | Outpatient (REF) | payer OTHER, SELFPAY ==
[2021-10-04 11:18] LABS: MANUAL DIFF FLAG NO
[2021-10-04 12:08] LABS: Basophils Percent Auto 0.5 % (0-2); Eosinophils Absolute Auto 0.1 X10*3/uL (0.0-0.4); Eosinophils Percent Auto 1.8 % (0-4); Hematocrit 41.9 % (42.0-52.0); Hemoglobin 13.9 g/dl (14.0-18.0); Imm Gran Abs Auto 0.02 X10*3/uL (0.00-0.03); Imm Gran Pct Auto 0.3 % (0.0-0.4); Lymphocytes Absolute Auto 1.9 X10*3/uL (1.2-4.9); Lymphocytes Percent Auto 30.4 % (20-40); Mean Corpuscular HGB Conc 33.2 g/dl (31.0-36.0); Mean Corpuscular Hemoglobin 31.8 pg (27.0-33.0); Mean Corpuscular Volume 95.9 fL (80.0-98.0); Mean Platelet Volume 10.1 fL (9.4-12.4); Monocytes Absolute Auto 0.6 X10*3/uL (0.1-1.2); Monocytes Percent Auto 9.9 % (2-11); Neutrophils Absolute Auto 3.6 x10*3/uL (2.0-8.3); Neutrophils Percent Auto 57.1 % (45-73); Platelet Count 219 X10*3/uL (160-400); Red Blood Count 4.37 X10*6/uL (4.60-5.80); Red Cell Distribution Width 12.8 % (11.0-16.0); White Blood Count 6.3 X10*3/uL (4.8-10.8)
[2021-10-04 12:36] LABS: Alanine Aminotransferase 28 U/L (0-40); Albumin Level 3.8 g/dL (3.5-5.0); Alkaline Phosphatase 78 U/L (39-117); Anion Gap 9 (12-20); Aspartate Amino Transferase 24 U/L (5-37); Bilirubin Total 0.8 mg/dL (0.0-1.0); Blood Urea Nitrogen 20 mg/dL (9-16); Calcium 9.7 mg/dL (8.4-10.2); Carbon Dioxide 31 mmol/L (22-29); Chloride 107 mmol/L (96-108); Estimated Glomerular Filt Rate > 60; Glucose Random 100 mg/dL (60-115); Potassium 4.7 mmol/L (3.3-5.1); Sodium 142 mmol/L (135-145); Total Protein 7.3 g/dL (6.5-8.0)
[2021-10-04 12:55] LABS: Thyroid Stimulating Hormone 0.58 uIU/mL (0.32-4.0)
== END 2021-10-04 09:31 | disposition home or self-care (01) ==
LOC: HO.LAB 09:30
PROVIDERS: PCP Nurse Practitioner Family; Visit Provider Physician Assistant
DX: K59.09 Other constipation (principal); K62.5 Hemorrhage of anus and rectum; Z79.01 Long term (current) use of anticoagulants
CPT/HCPCS: 36415; 80053; 84443; 85025; 99202

== ENCOUNTER 2021-10-04 11:27 | Outpatient (REF) | payer OTHER, SELFPAY ==
[2021-10-04 11:48] LABS: Binax Internal Control QC Valid; Binax Now Covid-19 Ag Negative (Negative)
== END 2021-10-04 11:28 | disposition home or self-care (01) ==
LOC: HO.LAB 11:27
PROVIDERS: PCP Nurse Practitioner Family; Visit Provider Internal Medicine
DX: Z13.89 Encounter for screening for other disorder (principal)

== ENCOUNTER 2021-12-14 11:56 | Day surgery (SDC) | payer OTHER, SELFPAY ==
[2021-12-08 17:25] VITALS: BMI 27.0
--- NOTE | 2021-12-13 12:50 | HO.ANESPROP2 ---
Documented by User: Britt Torres NP 12/13/21 12:52 HPI - Anesthesia Eval Consult details Narrative: 61yo M for Colonoscopy Xarelto for Factor V/hx DVT PMFSH Active Problems Active Problems: All Active Problems (Updated 10/20/21 @ 15:38 by Abdirahman Howell, [facility]) Rectal bleeding (Acute) GI bleed (Acute) Dyslipidemia (Acute) Plantar warts (Acute) Foot pain (Acute) Systolic murmur (Acute) B12 deficiency (Acute) Screening PSA (prostate specific antigen) (Acute) Physical exam (Acute) HIV (human immunodeficiency virus infection) (Acute) Current use of anticoagulant therapy (Acute) Hypogonadism in male (Acute) Left hip pain (Acute) Left knee pain (Acute) Cellulitis (Acute) Right hip pain (Acute) Screening examination for sexually transmitted disease (Acute) Chronic back pain (Acute) Screening PSA (prostate specific antigen) (Acute) History of DVT (deep vein thrombosis) (Chronic) Right knee pain (Acute) Past Medical History Medical History DVT (deep venous thrombosis) Factor 5 Leiden mutation, heterozygous HIV (human immunodeficiency virus infection) HTN (hypertension) Klinefelter syndrome Leg fracture, left On continuous oral anticoagulation Pulmonary embolus Right knee pain Family History Family History Father No problems noted. Mother No problems noted. Surgical History Surgical History History of angioplasty of vein History of umbilical hernia repair Hx of cholecystectomy Hx of left knee surgery S/P ORIF (open reduction internal fixation) fracture Social History Social History Housing: House Are you a primary administrator health care facility to a significant other at home: No Do you presently have visiting nurse or other home services: No Alcohol intake: former Patient Tobacco Use Status: Former Tobacco user Quit Date: 2004 Tobacco use type: Cigarette Cigarette Packs Per Day: 2 Smoked in Last 30 Days: No e-Cigarette/Vaping Use: Never Used Second Hand Smoke Exposure: Yes Use of substances other than those prescribed or required for medical reasons: Yes Substance Use Type: Marijuana Substance Use Frequency: Daily Are you DNR?: No Advance Directives: No Advance Directives Information Provided: Yes service: Yes (Down ) Current occupational status: employed Current occupation: [employer] Current occupational exposures/hazards: No Meds Allergies Allergy/AdvReac Type Severity Reaction Status Date / Time codeine [CODEINE] Allergy Severe SEVERE Verified 12/14/21 12:16 PAIN/HYPOXIA W/HIGH DOSES meningococcal vaccine A,C,Y Allergy Intermediate HIVES Verified 12/14/21 12:16 and W-1 [MENINGOCOCCAL VACCINE A,C,Y AND W-1] salmon oil Allergy Unknown hives Verified 12/14/21 12:16 SALMON Allergy Severe LT Uncoded 06/20/21 11:08 HEMIPARESIS Home Medications Medication Instructions Recorded Confirmed Last Taken Type ascorbic acid (vitamin C) 500 mg 500 mg PO DAILY 07/20/20 07/12/21 Unknown History tablet (Vitamin C) cholecalciferol (vitamin D3) 25 25 mcg PO DAILY 07/20/20 07/12/21 Unknown History mcg (1,000 unit) tablet (Vitamin D3) chromium 200 mcg capsule 200 mcg PO DAILY 07/20/20 07/12/21 Unknown History cyanocobalamin (vitamin B-12) 100 100 mcg PO DAILY 07/20/20 07/12/21 Unknown History mcg tablet (Vitamin B-12) zinc 100 mg tablet 100 mg PO DAILY 07/20/20 07/12/21 Unknown History syringe with needle 1 mL 27 x 1/2 #1 ea 07/22/20 06/20/21 Unknown History Exam Exam Date and Time: December 13, 2021 1250 Height,Weight and Vital Signs: Height 6 ft 6 in Weight 106.141 kg Pertinent Lab Results Pertinent Lab Results: Laboratory Tests 10/04/21 10/04/21 11:16 11:16 WBC 6.3 Hgb 13.9 L Hct 41.9 L Plt Count 219 Sodium 142 Potassium 4.7 Chloride 107 Carbon Dioxide 31 H BUN 20 H Creatinine 0.91 Assessment and Plan Assessment Anesthesia Assessment: Chart Reviewed Documented by User: Angella Knott MD 12/14/21 12:38 [facility] Past Medical History Medical History DVT (deep venous thrombosis) Factor 5 Leiden mutation, heterozygous HIV (human immunodeficiency virus infection) HTN (hypertension) Klinefelter syndrome Leg fracture, left On continuous oral anticoagulation Pulmonary embolus Right knee pain Family History Family History Father No problems noted. Mother No problems noted. Surgical History Surgical History History of angioplasty of vein History of umbilical hernia repair Hx of cholecystectomy Hx of left knee surgery S/P ORIF (open reduction internal fixation) fracture History of Problems with Anesthesia: No Social History Social History Housing: House Are you a primary administrator health care facility to a significant other at home: No Do you presently have visiting nurse or other home services: No Alcohol intake: former Patient Tobacco Use Status: Former Tobacco user Quit Date: 2004 Tobacco use type: Cigarette Cigarette Packs Per Day: 2 Smoked in Last 30 Days: No e-Cigarette/Vaping Use: Never Used Second Hand Smoke Exposure: Yes Use of substances other than those prescribed or required for medical reasons: Yes Substance Use Type: Marijuana Substance Use Frequency: Daily Are you DNR?: No Advance Directives: No Advance Directives Information Provided: Yes service: Yes (Down ) Current occupational status: employed Current occupation: [employer] Current occupational exposures/hazards: No Meds Allergies Allergy/AdvReac Type Severity Reaction Status Date / Time codeine [CODEINE] Allergy Severe SEVERE Verified 12/14/21 12:16 PAIN/HYPOXIA W/HIGH DOSES meningococcal vaccine A,C,Y Allergy Intermediate HIVES Verified 12/14/21 12:16 and W-1 [MENINGOCOCCAL VACCINE A,C,Y AND W-1] salmon oil Allergy Unknown hives Verified 12/14/21 12:16 SALMON Allergy Severe LT Uncoded 06/20/21 11:08 HEMIPARESIS Home Medications Medication Instructions Recorded Confirmed Last Taken Type ascorbic acid (vitamin C) 500 mg 500 mg PO DAILY 07/20/20 07/12/21 Unknown History tablet (Vitamin C) cholecalciferol (vitamin D3) 25 25 mcg PO DAILY 07/20/20 07/12/21 Unknown History mcg (1,000 unit) tablet (Vitamin D3) chromium 200 mcg capsule 200 mcg PO DAILY 07/20/20 07/12/21 Unknown History cyanocobalamin (vitamin B-12) 100 100 mcg PO DAILY 07/20/20 07/12/21 Unknown History mcg tablet (Vitamin B-12) zinc 100 mg tablet 100 mg PO DAILY 07/20/20 07/12/21 Unknown History syringe with needle 1 mL 27 x 1/2 #1 ea 07/22/20 06/20/21 Unknown History Exam Airway Mallampati Class: II TM Dist: >3cm Neck ROM: Full Denture: Upper Loose/Missing/Broken Teeth: Yes and Upper Heart: RRR Lungs: CTA Assessment and Plan Assessment Anesthesia Assessment: Anesthesia Plan Discussed Final Anesthetic Review History of Problems with Anesthesia: No NPO: Yes ASA Class: III Final Preanesthetic Review: Meds/Allgs Chart Reviewed, Consent Obtained/Reviewed and Anes Risks/Benef Reviewed Patient Risk: Intermediate Procedure Risk: Low Anesthetic Plan Anesthetic Plan: MAC: Disposition: Standard PACU
[2021-12-14 12:21] VITALS: BP 135/74; PULSE 59; RESP 16; TEMP 36.7; O2SAT 99
[2021-12-14 12:27] VITALS: BMI 29.5
[2021-12-14] MEDS: Lactated Ringers 1,000 ML 100 ML IVCONT (12:42)
--- NOTE | 2021-12-14 12:59 | P.HPSUR_ITS ---
Pre-Procedural Eval Section A Date of Service: 12/14/21 Section B Chief Complaint: rectal bleeding Relevant Family History (Specify if Yes): No Relevant Social History: None Present Medications: see Short Stay Collaborative assessment Medical History: Significant History (DVT (deep venous thrombosis) Factor 5 Leiden mutation, heterozygous HIV (human immunodeficiency virus infection) HTN (hypertension) Klinefelter syndrome Leg fracture, left On continuous oral anticoagulation Pulmonary embolus Right knee pain) History of Previous Operations: Relevant previous surgery/procedure and date(s) (History of angioplasty of vein History of umbilical hernia repair Hx of cholecystectomy Hx of left knee surgery S/P ORIF (open reduction internal fixation) fracture) Allergies: Allergies Allergy/AdvReac Type Severity Reaction Status Date / Time codeine [CODEINE] Allergy Severe SEVERE Verified 12/14/21 12:16 PAIN/HYPOXIA W/HIGH DOSES meningococcal vaccine A,C,Y Allergy Intermediate HIVES Verified 12/14/21 12:16 and W-1 [MENINGOCOCCAL VACCINE A,C,Y AND W-1] salmon oil Allergy Unknown hives Verified 12/14/21 12:16 SALMON Allergy Severe LT Uncoded 06/20/21 11:08 HEMIPARESIS Review of Systems Sugical H&P ROS: Negative: Constitution, Cardiovascular, Respiratory, Neurological, Psychiatric, Hem-Onc, Allergic/Immunologic, Gastrointestinal, Genitourinary, Musculoskeletal, Integumentary, Endocrine and Eyes/Ears/Nose/ Throat Exam Surgical H&P Exam: Normal: HEENT, Normal: Heart, Normal: Lungs, Normal: Extremities, Normal: Abdomen, Normal: Skin and Normal: Neurological Plan Diagnosis/Plan: Unchanged I have reviewed the history and physical and performed a pertinent physical examination on my patient. No changes have occurred unless specified.
--- NOTE | 2021-12-14 13:00 | PM.OP ---
Brief Operative Note Date of Service: 12/14/21 Pre-op diagnosis: rectal bleeding Post-op diagnosis: same Procedure: see op note Surgeon: Low Melton MD Anesthesia: MAC Was an Demurrage Man used for this Procedure?: No Estimated blood loss (mL): 0 Condition: stable Disposition: PACU
--- NOTE | 2021-12-14 13:01 | P.OP_ITS ---
Operative Note Operative Note Date of Service: 12/14/21 Narrative: Operative Information Procedure Description: Colonoscopy Indication: rectal bleeding Anesthesia: MAC COLONOSCOPY Instrument: Olympus variable stiffness pediatric scope 190L Colonoscopy Monitoring: Vital signs and clinical assessment, continuous EKG monitoring, Pulse oximetry, Carbon Dioxide monitoring and blood pressure monitoring were done throughout the procedure. Colon withdrawal time was 17 minutes. Procedure: The patient was placed in the left lateral decubitis position and pre-procedure medications were administered. After a digital rectal examination of the ano-rectum, the video colonoscope was inserted into the rectum and advanced through the colon to the cecum/TI. The colonoscope was slowly withdrawn in a retrograde panoramic fashion and the colon mucosa was carefully examined including a retroflexed view of the rectum. Findings and interventions are described below. Procedure Difficulty: easy Findings: Terminal Ileum-normal right sided retroflexion was normal Cecum:normal Ascending Colon: normal Transverse Colon -normal Descending Colon:normal Sigmoid Colon: normal Rectum: Retroflexion with small inflammed internal hemorrhoids, grade I, some induration around the distal rectoanal area, so biopsy taken. in proximal rectum 11-13 mm sessile polyp removed with cold snare. X2 clips applied for hemostasis. Anorectum - normal Colon preparation: [place] Bowel Preparation Scale Right colon; 3 Transverse colon: 3 Left colon; 2 (0 = Unprepared colon segment with mucosa not seen due to solid stool that cannot be cleared. 1 = Portion of mucosa of the colon segment seen, but other areas of the colon segment not well seen due to staining, residual stool and/or opaque liquid. 2 = Minor amount of residual staining, small fragments of stool and/or opaque liquid, but mucosa of colon segment seen well. 3 = Entire mucosa of colon segment seen well with no residual staining, small fragments of stool or opaque liquid) Impression and Post Procedure Diagnosis: polyp internal hemorrhoids Plan: High fiber diet leaflet Avoid straining at stool, epsom salts and sitz bath, anusol supps or cream Repeat Colonoscopy in 3-5 years or earlier if clinically indicated make sure he is up to date with anal pap smears Above findings were reviewed with the patient and relevant handouts were provided if indicated.
[2021-12-14 13:44] VITALS: BP 117/76; PULSE 60; RESP 16; TEMP 36.3; O2SAT 99
[2021-12-14 14:04] VITALS: BP 151/90; PULSE 51; RESP 18; TEMP 36.3; O2SAT 99
== END 2021-12-14 14:20 ==
LOC: HO.SSS 11:56
PROVIDERS: PCP Nurse Practitioner Family; Visit Provider Internal Medicine Gastroenterology
PROC: 0DJD8ZZ Inspection of Lower Intestinal Tract, Via Natural or Artificial Opening Endoscopic (ICD-10-PCS; CPT 45378; principal; 2021-12-14 13:10)
DX: K62.5 Hemorrhage of anus and rectum (principal); D12.8 Benign neoplasm of rectum; K64.0 First degree hemorrhoids; Q98.4 Klinefelter syndrome, unspecified; B20 Human immunodeficiency virus [HIV] disease; I10 Essential (primary) hypertension; I82.409 Acute embolism and thrombosis of unspecified deep veins of unspecified lower extremity; I26.99 Other pulmonary embolism without acute cor pulmonale; Z79.01 Long term (current) use of anticoagulants; Z88.8 Allergy status to other drugs, medicaments and biological substances; Z86.16 Personal history of COVID-19; Z98.890 Other specified postprocedural states; Z87.891 Personal history of nicotine dependence
CPT/HCPCS: 45385; 45380; 88305

== ENCOUNTER 2021-12-26 11:11 | Emergency (ER) | payer OTHER, SELFPAY ==
--- NOTE | ~2021-12-26 | CT_ITS ---
EXAM: Noncontrast CT scan of the head and cervical spine. INDICATION: Fall. Head injury. Positive anticoagulation. COMPARISON: Head CT 07/25/2017 TECHNIQUE: Axial slices were obtained from skull base to vertex and displayed. This was followed by helical, multislice, multidetector axial images from the occiput to the upper thorax. Coronal and sagittal reformats of the cervical spine in addition to coronal reformats of the head were obtained at the technologist workstation. DLP: 765 mGy-cm FINDINGS: HEAD: There is no evidence of acute intracranial hemorrhage or territorial infarction. No abnormal mass effect or midline shift is appreciated. Flores-white differentiation is well preserved. No extra-axial fluid collections. The ventricular system and cortical sulci are normal in size. There are mild areas of low density in the periventricular and subcortical white matter, most consistent with sequelae of microvascular ischemic change. The osseous structures and soft tissues are normal. The visualized paranasal sinuses and mastoid air cells are well aerated. SPINE: The cervical spine is visualized in its entirety. There is minimal retrolisthesis of C4 on C5. Alignment is otherwise unremarkable. Normal C1/C2 articulation. Cervical vertebral body heights are maintained. There is mild narrowing of the C3/C4 and C4/C5 disc space height. Small osteophytes are noted predominantly from C3 through C5. Mild bilateral facet hypertrophy diffusely. Visualized lung apices are well aerated. CT/CT cervical spine wo con IMPRESSION: 1. No acute intracranial pathology. 2. No fractures or dislocations of the cervical spine. This CT examination was performed using dose optimization techniques as appropriate, variously including the following: *Automated exposure control *Adjustment of mA and/or kV according to patient size (this includes techniques or standardized protocols for targeted exams where dose is matched to indication/reason for exam; i.e. extremities or head) *Use of iterative reconstruction technique
--- NOTE | ~2021-12-26 | XR_ITS ---
EXAMINATION: XR WRIST, LEFT CLINICAL INFORMATION: Fall, trauma, pain COMPARISON: None TECHNIQUE: Left wrist is imaged in 4 views. FINDINGS: There is no fracture or dislocation or destructive process. The pronator quadratus fat pad appears normal. The ulnar variance is neutral. No joint narrowing or erosive change or chondrocalcinosis. Normal bony mineralization. XR/XR wrist LT min 3V IMPRESSION: No fracture or dislocation.
--- NOTE | ~2021-12-26 | XR_ITS ---
EXAMINATION: XR LUMBOSACRAL SPINE CLINICAL INFORMATION: Fall, trauma, pain COMPARISON: Radiographs lumbar spine 09/24/2019 TECHNIQUE: Three views of the lumbosacral spine. FINDINGS: There is vertebral segmentation anomaly with partial left sacralization at L5 similar to prior exam 09/24/2019. There is levocurvature lumbar spine with normal lumbar lordosis. There are prominent degenerative disc changes at L4-L5 and L5-S1 with asymmetric disc narrowing and endplate sclerosis and partly bridging osteophytes. The vertebral bodies and endplate contours are not well visualized on the lateral view due to the degenerative change and slight patient obliquity. There is no focal vertebral compression or spondylolisthesis. The SI joints and visualized sacrum are unremarkable. There are surgical clips right upper quadrant abdomen. There are 2 metallic anchor-like devices overlying the rectum of uncertain significance, each approximately 1.8 cm. Bowel gas unremarkable. XR/XR lumbar spine 2-3V IMPRESSION: -Congenital left hemisacralization L5. -Prominent degenerative disc changes L3-L4 and L4-L5. -No vertebral compression or spondylolisthesis. Lateral views are limited due to the lumbar curvature and degenerative changes. -Two metallic anchor-like devices overlying the rectum of uncertain significance.
[2021-12-26 11:24] VITALS: BP 139/70; PULSE 88; RESP 18; TEMP 36.1; O2SAT 98; BMI 28.8
--- NOTE | 2021-12-26 12:22 | ED.FALL ---
HPI - Fall General Chief Complaint: Fall Stated Complaint: l arm inj at work Time Seen by Provider: 12/26/21 11:31 Source: patient Mode of arrival: ambulatory Limitations: no limitations History of Present Illness HPI Narrative: Patient presents to the emergency department after mechanical slip and fall while at work. 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 He does report that he struck his head on the ground but there is no loss of consciousness. He is anticoagulated on Xarelto. He reports generalized head discomfort, denies any neck pain, lightheadedness, dizziness, vision changes, numbness or tingling of the extremities, generalized weakness. Denies chest pain, palpitations, shortness of breath, difficulty breathing, nausea, vomiting, abdominal pain. Reporting pain described as burning and swelling to the left wrist without decreased range of motion. Left elbow discomfort without loss of range of motion. Right knee pain without swelling, redness or loss of range of motion. Related Data Home Medications Medication Instructions Recorded Confirmed ascorbic acid (vitamin C) 500 mg 500 mg PO DAILY 07/20/20 07/12/21 tablet (Vitamin C) cholecalciferol (vitamin D3) 25 25 mcg PO DAILY 07/20/20 07/12/21 mcg (1,000 unit) tablet (Vitamin D3) chromium 200 mcg capsule 200 mcg PO DAILY 07/20/20 07/12/21 cyanocobalamin (vitamin B-12) 100 100 mcg PO DAILY 07/20/20 07/12/21 mcg tablet (Vitamin B-12) zinc 100 mg tablet 100 mg PO DAILY 07/20/20 07/12/21 syringe with needle 1 mL 27 x 1/2 #1 ea 07/22/20 06/20/21 Previous Rx's Medication Instructions Recorded rivaroxaban 15 mg (42)-20 mg (9) See Rx Instructions .ROUTE 05/19/21 tablets in a starter pack (Xarelto .COMPLEX #1 ea DVT-PE Treat 30d Start) rivaroxaban 20 mg tablet 20 mg PO DAILY #90 tab 05/19/21 sertraline 50 mg tablet 50 mg PO DAILY #90 tab 06/13/21 dolutegravir 50 mg tablet (Tivicay) 50 mg PO DAILY 30 Days #30 tab 06/27/21 emtricitabine 200 mg-tenofovir 1 tab PO DAILY 30 Days #30 tab 06/27/21 alafenamide fumarate 25 mg tablet (Descovy) tamsulosin 0.4 mg capsule (Flomax) 0.4 mg PO DAILY 90 Days #90 cap 07/08/21 testosterone cypionate 200 mg/mL 90 mg (0.45 mL) SUBCUT QWEEK 28 07/12/21 intramuscular oil Days #2 ml (Depo-Testosterone) atorvastatin 20 mg tablet 20 mg PO BEDTIME 90 Days #90 tab 09/17/21 triamcinolone acetonide 0.5 % 1 appl TOPICAL DAILY 30 Days #15 g 09/17/21 topical cream bisacodyl 10 mg rectal suppository 10 mg NC DAILY PRN 30 Days #12 ea 09/20/21 bisacodyl 5 mg tablet,delayed 10 mg PO ONCE 1 Days #2 tab 10/07/21 release (Dulcolax (bisacodyl)) polyethylene glycol 3350 17 238 g PO ONCE 1 Days #238 g 10/07/21 gram/dose oral powder (Miralax) trazodone 50 mg tablet 50 mg PO BEDTIME PRN 90 Days #90 12/11/21 tab Allergies Allergy/AdvReac Type Severity Reaction Status Date / Time codeine [CODEINE] Allergy Severe SEVERE Verified 12/14/21 12:16 PAIN/HYPOXIA W/HIGH DOSES meningococcal vaccine A,C,Y Allergy Intermediate HIVES Verified 12/14/21 12:16 and W-1 [MENINGOCOCCAL VACCINE A,C,Y AND W-1] salmon oil Allergy Unknown hives Verified 12/14/21 12:16 SALMON Allergy Severe LT Uncoded 06/20/21 11:08 HEMIPARESIS Review of Systems Review of Systems: Constitutional: No weight loss, fever, chills, weakness or fatigue. Skin: No rash or itching. Eye: No vision changes Cardiovascular: No chest pain, chest pressure or chest discomfort. No palpitations Respiratory: No shortness of breath, cough or sputum production. Gastrointestinal: No anorexia, nausea, vomiting or diarrhea. No abdominal pain Genitourinary: No burning micturition. No urinary frequency or incontinence. Musculoskeletal: Positive left wrist pain. Positive left elbow pain. Positive right knee pain. Positive lower back pain Neurologic: Positive headache. No dizziness. No lightheadedness. No syncope. No loss of consciousness. No numbness. No tingling. No bowel or bladder dysfunction Yes all other systems are reviewed and are negative COUNTS INCLUDE 234 BEDS AT THE [facility] Past Medical History Attestation statement: The following information was validated with the patient. Source: old records reviewed Medical History DVT (deep venous thrombosis) Factor 5 Leiden mutation, heterozygous HIV (human immunodeficiency virus infection) HTN (hypertension) Klinefelter syndrome Leg fracture, left On continuous oral anticoagulation Pulmonary embolus Right knee pain Surgical History History of angioplasty of vein History of umbilical hernia repair Hx of cholecystectomy Hx of colonoscopy Hx of left knee surgery S/P ORIF (open reduction internal fixation) fracture Family History Family History Father No problems noted. Mother No problems noted. Social History Social History Housing: House Are you a primary child care associate to a significant other at home: No Do you presently have visiting nurse or other home services: No Alcohol intake: former Patient Tobacco Use Status: Former Tobacco user Quit Date: 2004 Tobacco use type: Cigarette Cigarette Packs Per Day: 2 e-Cigarette/Vaping Use: Never Used Second Hand Smoke Exposure: Yes Substance Use Type: Marijuana Advance Directives: No Advance Directives Information Provided: No service: Yes ([employer] ) Current occupational status: employed Current occupation: [employer] Current occupational exposures/hazards: No Physical Exam Vital Signs: Vital Signs: Last Vital Signs Temp 97.0 F 12/26/21 11:24 Pulse 88 12/26/21 11:24 Resp 18 12/26/21 12:55 BP 139/70 12/26/21 11:24 Pulse Ox 98 12/26/21 11:24 BMI result Body Mass Index 28.8 Vital signs have been reviewed as normal and appeared to be correct. Blood pressure normal.? Heart rate normal.? Respiration rate normal. Temperature normal.? Oxygen saturation normal. Appearance: Alert.?Oriented to person, place and time. No acute distress.?Normal affect. Head: Normocephalic, atraumatic Eyes: Pupils equal, round and reactive to light.?EOMi. No Nystagmus ENT: Pharynx normal.?? Neck: Normal inspection.? Neck supple.??No palpable midline C-spine tenderness, step-offs, deformities CVS: Heart sounds normal. Normal heart rate and rhythm.? Pulses normal.?? Respiratory: No respiratory distress.? Lung sounds clear to auscultation bilaterally?? Abdomen: Soft and non-tender. Normoactive bowel sounds. Skin: Skin warm and dry.? Normal skin color.? Normal skin turgor.?? Back: Palpable midline lumbar and paraspinal tenderness. No step-offs or deformities Extremities: Left volar wrist with erythema, warmth, mild localized swelling, 2+ radial pulses palpable, full AROM, neurovascularly intact distally. Right knee with no obvious deformity, abrasions, erythema, full AROM. Neuro: Moves all extremities spontaneously. Sensation intact bilaterally. CN II-XII intact. No focal neuro deficits. Ambulates with normal steady gait. Course Course Course Narrative: Patient is a 61-year-old male with a past medical history of DVT/PE, factor 5 Leiden mutation on Xarelto, HIV, hypertension, Klinefelter syndrome, spinal stenosis. He presents to the emergency department today for evaluation after a mechanical slip and fall. Given that he is anticoagulated and there was head strike will obtain CT of the head and cervical spine to evaluate for ICH/SAH/cervical fracture dislocation. XR of the lumbar spine to evaluate fracture dislocation. X ray of the left wrist to be obtained to evaluate for fracture dislocation. Ice applied to the left wrist. Will provide Tylenol for pain at this time. Disposition pending results. Reevaluation(s) Reevaluation #1: CT of the head reveals no acute intracranial pathology, CT of the cervical spine without any acute fracture dislocation. X-ray obtained of the left wrist without acute fracture or dislocation, consistent with sprain of the left wrist, advised RICE and wrist splint. lumbar spine x-ray reveals prominent degenerative disc changes. Reviewed all findings with patient, advised outpatient follow-up with primary care provider as needed, reasons to return to the emergency department were discussed, provided with a return to work note and 2 days. Patient was discharged home in stable condition all questions were answered. Time: 15:02 MDM - Fall Medical Records Attestation: I reviewed the patient's medical records. Imaging Data XR lumbar spine: Radiologist's impression: XR/XR lumbar spine 2-3V IMPRESSION: -Congenital left hemisacralization L5. -Prominent degenerative disc changes L3-L4 and L4-L5. -No vertebral compression or spondylolisthesis. Lateral views are limited due to the lumbar curvature and degenerative changes. -Two metallic anchor-like devices overlying the rectum of uncertain significance. XR L wrist: Radiologist's impression: FINDINGS: There is no fracture or dislocation or destructive process. The pronator quadratus fat pad appears normal. The ulnar variance is neutral. No joint narrowing or erosive change or chondrocalcinosis. Normal bony mineralization.? XR/XR wrist LT min 3V IMPRESSION: No fracture or dislocation. ? CT scan - head: Radiologist's impression: CT/CT head/brain wo con IMPRESSION: 1. No acute intracranial pathology. 2. No fractures or dislocations of the cervical spine. Discharge Plan Discharge Clinical Impression: Fall, Left wrist sprain Patient Disposition: Home, Self-Care Instructions: Wrist Sprain (ED) Additional Instructions: Use Tylenol as needed for pain. Apply ice to the left wrist. Follow-up with your primary care provider as needed. Return to the emergency department any new or worsening symptoms or concerns. Prescriptions: No Action Xarelto DVT-PE Treat 30d Start 15 mg (42)- 20 mg (9) Tablets,Dose Pack See Rx Instructions .ROUTE .COMPLEX Qty: 1 0RF Rx Instructions: Take one-15 mg tablet twice daily for 21 days, then one-20 mg tablet once daily; must take with meal/food sertraline 50 mg tablet 50 mg PO DAILY Qty: 90 1RF tamsulosin [Flomax] 0.4 mg capsule 0.4 mg PO DAILY 90 Days Qty: 90 1RF testosterone cypionate [Depo-Testosterone] 200 mg/mL oil 90 mg subcut QWEEK 28 Days Qty: 2 5RF triamcinolone acetonide 0.5 % cream 1 appl topical DAILY 30 Days Qty: 15 1RF atorvastatin 20 mg tablet 20 mg PO BEDTIME 90 Days Qty: 90 0RF bisacodyl 10 mg suppository 10 mg NC DAILY PRN (Reason: constipation) 30 Days Qty: 12 0RF trazodone 50 mg tablet 50 mg PO BEDTIME PRN (Reason: insomnia) 90 Days Qty: 90 0RF rivaroxaban 20 mg Tablet 20 mg PO DAILY Qty: 90 4RF Rx Instructions: must administer with evening meal zinc 100 mg Tablet 100 mg PO DAILY 0RF cyanocobalamin (vitamin B-12) [Vitamin B-12] 100 mcg Tablet 100 mcg PO DAILY 0RF ascorbic acid (vitamin C) [Vitamin C] 500 mg Tablet 500 mg PO DAILY 0RF chromium 200 mcg Capsule 200 mcg PO DAILY 0RF cholecalciferol (vitamin D3) [Vitamin D3] 25 mcg (1,000 unit) Tablet 25 mcg PO DAILY 0RF (DME) BD Tuberculin Syringe 1 mL 27 x 1/2 syringe See Rx Instructions ea .ROUTE .MEDSUPPLY Qty: 1 0RF Rx Instructions: As directed Descovy 200-25 mg tablet 1 tab PO DAILY 30 Days Qty: 30 5RF Tivicay 50 mg tablet 50 mg PO DAILY 30 Days Qty: 30 5RF bisacodyl [Dulcolax (bisacodyl)] 5 mg tablet,delayed release (DR/EC) 10 mg PO ONCE 1 Days Qty: 2 0RF Rx Instructions: Take 2 tablets by mouth at 12:00pm the day before your procedure. polyethylene glycol 3350 [Miralax] 17 gram/dose powder 238 g PO ONCE 1 Days Qty: 238 0RF Rx Instructions: Take as directed by mouth the day before your procedure. Stand Alone Forms: Work/School Release
[2021-12-26] MEDS: Acetaminophen 325 MG TABLET 975 MG PO (12:31)
[2021-12-26 12:55] VITALS: RESP 18
== END 2021-12-26 15:09 | disposition home or self-care (01) ==
PROVIDERS: Emergency Provider Emergency Medicine; PCP Nurse Practitioner Family
DX: S63.502A Unspecified sprain of left wrist, initial encounter (principal); S09.90XA Unspecified injury of head, initial encounter; M54.50 Low back pain, unspecified; M54.2 Cervicalgia; F17.210 Nicotine dependence, cigarettes, uncomplicated; W01.0XXA Fall on same level from slipping, tripping and stumbling without subsequent striking against object, initial encounter; Y93.9 Activity, unspecified; Y92.511 Restaurant or cafe as the place of occurrence of the external cause; Y99.0 Civilian activity done for income or pay; Z71.6 Tobacco abuse counseling; Z86.718 Personal history of other venous thrombosis and embolism; Z79.899 Other long term (current) drug therapy; Z79.01 Long term (current) use of anticoagulants
CPT/HCPCS: 29125; 70450; 72100; 72125; 73110; 99284

== ENCOUNTER → 2021-12-27 07:26 | Outpatient (BNVA) | payer OTHER, SELFPAY | PROVIDERS: PCP Nurse Practitioner Family; Visit Provider Physician Assistant | DX: D12.8 Benign neoplasm of rectum (principal); Z98.890 Other specified postprocedural states | CPT/HCPCS: 99202 ==

== ENCOUNTER → 2022-01-13 11:39 | Outpatient (BNVA) | payer OTHER, SELFPAY | PROVIDERS: PCP Nurse Practitioner Family; Visit Provider Urology | DX: Z13.89 Encounter for screening for other disorder (principal) ==

== ENCOUNTER 2022-01-18 08:45 | Outpatient (REF) | payer OTHER, SELFPAY ==
[2022-01-18 09:24] LABS: Estimated Average Glucose 105 mg/dL; Hemoglobin A1c % 5.3 %
[2022-01-18 09:47] LABS: Prostate Specific Antigen 3.72 ng/mL (<0.05-4.0)
[2022-01-24 12:56] LABS: Testosterone, Total 1405 ng/dL (250-1100)
== END 2022-01-18 08:46 | disposition home or self-care (01) ==
LOC: HO.LAB 08:45
PROVIDERS: PCP Nurse Practitioner Family; Visit Provider Urology
DX: Z12.5 Encounter for screening for malignant neoplasm of prostate (principal); E29.1 Testicular hypofunction
CPT/HCPCS: 36415; 83036; 84153; 84403; 85014

== ENCOUNTER 2022-07-04 08:49 | Outpatient (REF) | payer MEDICARE, SELFPAY ==
[2022-07-04 10:22] LABS: Prostate Specific Antigen 4.14 ng/mL (<0.05-4.0)
[2022-07-08 12:36] LABS: Testosterone, Total 471 ng/dL (250-1100)
== END 2022-07-04 08:50 | disposition home or self-care (01) ==
LOC: HO.LAB 08:49
PROVIDERS: PCP Nurse Practitioner Family; Visit Provider Urology
DX: Z12.5 Encounter for screening for malignant neoplasm of prostate (principal); E29.1 Testicular hypofunction
CPT/HCPCS: 36415; 84153; 84403

== ENCOUNTER 2022-08-21 16:18 | Emergency (ER) | payer MEDICARE, MEDICAID, SELFPAY ==
--- NOTE | ~2022-08-21 | US_ITS ---
EXAMINATION: US SCROTUM CLINICAL INFORMATION: Left testicular pain and swelling.. COMPARISON: None TECHNIQUE: A sonogram of the scrotum was performed assessing kan-scale appearance and color Doppler flow. Spectral Doppler analysis of the arterial and venous flow were performed in the testes bilaterally. FINDINGS: RIGHT: Right testicle measures 1.8 x 1.0 x 1.5 cm, volume 1.4 mL. The right testes is heterogeneous in echotexture with no focal testicular parenchymal lesions visualized. Spectral Doppler analysis of the arterial flow is normal in the right testis. The venous flow is not visualized well. Right epididymal head is normal in size. There is an anechoic cyst in the right epididymal body measuring 0.4 x 0.3 x 0.3 cm. No right hydrocele or varicocele is seen. Right epididymal Doppler flow is normal. LEFT: Left testicle measures 2.0 x 1.3 x 1.4 cm, volume 1.8 mL. No focal testicular parenchymal lesions are visualized. Spectral Doppler analysis of the arterial and venous flow is normal in the left testis. Left epididymal head is a slight increase in size with increased vascularity suspicious of epididymitis. No left hydrocele or varicocele is seen. There is left scrotal wall thickening. Right scrotal wall appears normal. US/US scrotum doppler IMPRESSION: Suspect left epididymitis. Increased left scrotal wall thickening compared to right. Heterogeneous bilateral testes without focal lesion or increased vascularity. Small right epididymal body cyst
--- NOTE | ~2022-08-21 | US_ITS ---
EXAMINATION: US SCROTUM CLINICAL INFORMATION: Left testicular pain and swelling.. COMPARISON: None TECHNIQUE: A sonogram of the scrotum was performed assessing kan-scale appearance and color Doppler flow. Spectral Doppler analysis of the arterial and venous flow were performed in the testes bilaterally. FINDINGS: RIGHT: Right testicle measures 1.8 x 1.0 x 1.5 cm, volume 1.4 mL. The right testes is heterogeneous in echotexture with no focal testicular parenchymal lesions visualized. Spectral Doppler analysis of the arterial flow is normal in the right testis. The venous flow is not visualized well. Right epididymal head is normal in size. There is an anechoic cyst in the right epididymal body measuring 0.4 x 0.3 x 0.3 cm. No right hydrocele or varicocele is seen. Right epididymal Doppler flow is normal. LEFT: Left testicle measures 2.0 x 1.3 x 1.4 cm, volume 1.8 mL. No focal testicular parenchymal lesions are visualized. Spectral Doppler analysis of the arterial and venous flow is normal in the left testis. Left epididymal head is a slight increase in size with increased vascularity suspicious of epididymitis. No left hydrocele or varicocele is seen. There is left scrotal wall thickening. Right scrotal wall appears normal. US/US scrotum IMPRESSION: Suspect left epididymitis. Increased left scrotal wall thickening compared to right. Heterogeneous bilateral testes without focal lesion or increased vascularity. Small right epididymal body cyst
--- NOTE | 2022-08-21 16:27 | ED.MALEGU ---
HPI - Male Genitourinary General Chief complaint: Urogenital-Male Stated complaint: urinating blood Related Data Home Medications Medication Instructions Recorded Confirmed ascorbic acid (vitamin C) 500 mg 500 mg PO DAILY 07/20/20 01/13/22 tablet (Vitamin C) cholecalciferol (vitamin D3) 25 25 mcg PO DAILY 07/20/20 01/13/22 mcg (1,000 unit) tablet (Vitamin D3) chromium 200 mcg capsule 200 mcg PO DAILY 07/20/20 01/13/22 cyanocobalamin (vitamin B-12) 100 100 mcg PO DAILY 07/20/20 01/13/22 mcg tablet (Vitamin B-12) zinc 100 mg tablet 100 mg PO DAILY 07/20/20 01/13/22 syringe with needle 1 mL 27 x 12 #1 ea 07/22/20 01/13/22 sildenafil 100 mg tablet 100 mg PO 07/17/22 tamsulosin 0.4 mg capsule 0.4 mg PO DAILY 07/17/22 terazosin 5 mg capsule 5 mg PO BEDTIME 07/17/22 Previous Rx's Medication Instructions Recorded rivaroxaban 15 mg (42)-20 mg (9) See Rx Instructions .Route 05/19/21 tablets in a starter pack (Xarelto .COMPLEX #1 ea DVT-PE Treatment 30-Day Starter) sertraline 50 mg tablet 50 mg PO DAILY #90 tabs 06/13/21 dolutegravir 50 mg tablet (Tivicay) 50 mg PO DAILY 30 days #30 tabs 06/27/21 emtricitabine 200 mg-tenofovir 1 tab PO DAILY 30 days #30 tabs 06/27/21 alafenamide fumarate 25 mg tablet (Descovy) bisacodyl 10 mg rectal suppository 10 mg ME DAILY PRN constipation 30 09/20/21 days #12 ea triamcinolone acetonide 0.5 % 1 appl topical DAILY 30 days #15 01/21/22 topical cream grams testosterone cypionate 200 mg/mL 90 mg (0.45 mL) subcut QWEEK 4 01/27/22 intramuscular oil weeks #2 mL (Depo-Testosterone) alfuzosin 10 mg tablet,extended 10 mg PO BEDTIME 30 days #30 tabs 05/26/22 release 24 hr rivaroxaban 20 mg tablet 20 mg PO DAILY #90 tabs 05/26/22 atorvastatin 20 mg tablet 20 mg PO BEDTIME 90 days #90 tabs 05/27/22 trazodone 50 mg tablet 50 mg PO BEDTIME PRN insomnia 90 05/27/22 days #90 tabs Allergies Allergy/AdvReac Type Severity Reaction Status Date / Time codeine [CODEINE] Allergy Severe SEVERE Verified 07/17/22 14:48 PAIN/HYPOXIA W/HIGH DOSES meningococcal vaccine A,C,Y Allergy Intermediate HIVES Verified 07/17/22 14:48 and W-1 [MENINGOCOCCAL VACCINE A,C,Y AND W-1] salmon oil Allergy Unknown hives Verified 07/17/22 14:48 SALMON Allergy Severe LT Uncoded 07/17/22 14:48 HEMIPARESIS PMFSH Past Medical History Medical History DVT (deep venous thrombosis) Factor 5 Leiden mutation, heterozygous HIV (human immunodeficiency virus infection) HTN (hypertension) Klinefelter syndrome Leg fracture, left On continuous oral anticoagulation Pulmonary embolus Right knee pain Surgical History History of angioplasty of vein History of umbilical hernia repair Hx of cholecystectomy Hx of colonoscopy Hx of left knee surgery S/P ORIF (open reduction internal fixation) fracture Family History Family History Father No problems noted. Mother No problems noted. Social History Social History Housing: House Are you a primary plant care worker to a significant other at home: No Do you presently have visiting nurse or other home services: No Alcohol intake: former Patient Tobacco Use Status: Former Tobacco user Quit Date: 2004 Tobacco use type: Cigarette Cigarette Packs Per Day: 2 e-Cigarette/Vaping Use: Never Used Second Hand Smoke Exposure: Yes Substance Use Type: Marijuana Advance Directives: No Advance Directives Information Provided: No service: Yes ([employer] ) Current occupational status: employed Current occupation: [employer] Current occupational exposures/hazards: No Physical Exam Vital Signs: Vital Signs: Last Vital Signs Temp 98.3 F 08/21/22 16:33 Pulse 72 08/21/22 16:33 Resp 20 08/21/22 16:33 BP 120/70 08/21/22 16:33 Pulse Ox 97 08/21/22 16:33 O2 Del Method 08/21/22 16:33 BMI result Body Mass Index 31.6 Course Course Course Narrative: RME: Patient is a 62-year-old male with a past medical history of DVT/PE on Xarelto, HIV, hypertension, Klinefelter syndrome who presents to the emergency department for hematuria, left testicular swelling, onset 3 days ago without pain, began having pain yesterday which is increasing today. Denies fevers, chills, nausea, vomiting, abdominal pain. Followed by Urology, Dr. Guerra, called their office today and advised to come to ED, currently prescribed terazosin and tamsulosin. Plan: Labs, urinalysis, scrotal ultrasound. Medical Decision Making Lab Data Result Diagrams: 08/21/22 18:54 08/21/22 18:54 Labs: Lab Results 08/21/22 08/21/22 08/21/22 Range/Units 18:54 18:54 18:54 WBC 5.9 (4.8-10.8) X10*3/uL RBC 4.00 L (4.60-5.80) X10*6/uL Hgb 13.0 L (14.0-18.0) g/dl Hct 38.5 L (42.0-52.0) % MCV 96.3 (80.0-98.0) fL MCH 32.5 (27.0-33.0) pg MCHC 33.8 (31.0-36.0) g/dl RDW 13.1 (11.0-16.0) % Plt Count 196 (160-400) X10*3/uL MPV 9.9 (9.4-12.4) fL Immature Gran % (Auto) 0.7 H (0.0-0.4) % Neut % (Auto) 56.6 (45-73) % Lymph % (Auto) 33.5 (20-40) % [place] % (Auto) 6.8 (2-11) % Eos % (Auto) 1.7 (0-4) % Baso % (Auto) 0.7 (0-2) % Lymph # (Auto) 2.0 (1.2-4.9) X10*3/uL [place] # (Auto) 0.4 (0.1-1.2) X10*3/uL Eos # (Auto) 0.1 (0.0-0.4) X10*3/uL Baso # (Auto) 0.0 (0.0-0.2) X10*3/uL Abs Immat Gran (auto) 0.04 H (0.00-0.03) X10*3/uL Absolute Neuts (auto) 3.4 (2.0-8.3) x10*3/uL Absolute Nucleated RBC 0.000 (0.0-0.012) X10*3/uL Nucleated RBC % (auto) 0.0 (0.0-0.2) /100WBC PT 15.0 H (10.0-13.1) SEC INR 1.3 H (0.9-1.1) APTT 31.9 (26.0-36.4) SEC Sodium 143 (135-145) mmol/L Potassium 4.1 (3.3-5.1) mmol/L Chloride 105 (96-108) mmol/L Carbon Dioxide 31 H (22-29) mmol/L Anion Gap 11 L (12-20) BUN 16 (9-16) mg/dL Creatinine 0.88 (0.5-1.4) mg/dL Estim Creat Clear Calc 123.7 Estimated GFR > 60 Random Glucose 117 H (60-115) mg/dL Calcium 9.2 (8.4-10.2) mg/dL Total Bilirubin 0.4 (0.0-1.0) mg/dL AST 17 (5-37) U/L ALT 22 (0-40) U/L Alkaline Phosphatase 68 (39-117) U/L Total Protein 6.7 (6.5-8.0) g/dL Albumin 3.9 (3.5-5.0) g/dL Discharge Plan Discharge Clinical Impression: Pain in testicle Patient Disposition: Elopement Prescriptions: No Action Xarelto DVT-PE Treat 30d Start 15 mg (42)- 20 mg (9) Tablets,Dose Pack See Rx Instructions .ROUTE .COMPLEX Qty: 1 0RF Rx Instructions: Take one-15 mg tablet twice daily for 21 days, then one-20 mg tablet once daily; must take with meal/food sertraline 50 mg tablet 50 mg PO DAILY Qty: 90 1RF bisacodyl 10 mg suppository 10 mg ME DAILY PRN (Reason: constipation) 30 Days Qty: 12 0RF triamcinolone acetonide 0.5 % cream 1 appl topical DAILY 30 Days Qty: 15 1RF testosterone cypionate [Depo-Testosterone] 200 mg/mL oil 90 mg subcut QWEEK 28 Days Qty: 2 5RF alfuzosin 10 mg tablet extended release 24 hr 10 mg PO BEDTIME 30 Days Qty: 30 1RF Rx Instructions: administer after the same meal each day rivaroxaban 20 mg Tablet 20 mg PO DAILY Qty: 90 4RF Rx Instructions: must administer with evening meal atorvastatin 20 mg tablet 20 mg PO BEDTIME 90 Days Qty: 90 0RF trazodone 50 mg tablet 50 mg PO BEDTIME PRN (Reason: insomnia) 90 Days Qty: 90 0RF zinc 100 mg Tablet 100 mg PO DAILY cyanocobalamin (vitamin B-12) [Vitamin B-12] 100 mcg Tablet 100 mcg PO DAILY ascorbic acid (vitamin C) [Vitamin C] 500 mg Tablet 500 mg PO DAILY chromium 200 mcg Capsule 200 mcg PO DAILY cholecalciferol (vitamin D3) [Vitamin D3] 25 mcg (1,000 unit) Tablet 25 mcg PO DAILY (DME) BD Tuberculin Syringe 1 mL 27 x 1/2 syringe See Rx Instructions .ROUTE .MEDSUPPLY Qty: 1 Rx Instructions: As directed Descovy 200-25 mg tablet 1 tab PO DAILY 30 Days Qty: 30 5RF Tivicay 50 mg tablet 50 mg PO DAILY 30 Days Qty: 30 5RF sildenafil 100 mg tablet 100 mg PO terazosin 5 mg capsule 5 mg PO BEDTIME tamsulosin 0.4 mg capsule 0.4 mg PO DAILY Discharge Date/Time: 08/21/22 22:39
[2022-08-21 16:33] VITALS: BP 120/70; PULSE 72; RESP 20; TEMP 36.8; O2SAT 97; BMI 31.6
[2022-08-21 19:01] LABS: Basophils Percent Auto 0.7 % (0-2); Eosinophils Absolute Auto 0.1 X10*3/uL (0.0-0.4); Eosinophils Percent Auto 1.7 % (0-4); Hematocrit 38.5 % (42.0-52.0); Imm Gran Abs Auto 0.04 X10*3/uL (0.00-0.03); Imm Gran Pct Auto 0.7 % (0.0-0.4); Lymphocytes Percent Auto 33.5 % (20-40); MANUAL DIFF FLAG NO; Mean Corpuscular HGB Conc 33.8 g/dl (31.0-36.0); Mean Corpuscular Hemoglobin 32.5 pg (27.0-33.0); Mean Corpuscular Volume 96.3 fL (80.0-98.0); Mean Platelet Volume 9.9 fL (9.4-12.4); Monocytes Absolute Auto 0.4 X10*3/uL (0.1-1.2); Monocytes Percent Auto 6.8 % (2-11); Neutrophils Absolute Auto 3.4 x10*3/uL (2.0-8.3); Neutrophils Percent Auto 56.6 % (45-73); Platelet Count 196 X10*3/uL (160-400); Red Cell Distribution Width 13.1 % (11.0-16.0); White Blood Count 5.9 X10*3/uL (4.8-10.8)
[2022-08-21 19:06] LABS: INTERNATIONAL NORM RATIO 1.3 (0.9-1.1)
[2022-08-21 19:09] LABS: Partial Thromboplastin Time 31.9 SEC (26.0-36.4)
[2022-08-21 19:49] LABS: Alanine Aminotransferase 22 U/L (0-40); Albumin Level 3.9 g/dL (3.5-5.0); Alkaline Phosphatase 68 U/L (39-117); Anion Gap 11 (12-20); Aspartate Amino Transferase 17 U/L (5-37); Bilirubin Total 0.4 mg/dL (0.0-1.0); Blood Urea Nitrogen 16 mg/dL (9-16); Calcium 9.2 mg/dL (8.4-10.2); Carbon Dioxide 31 mmol/L (22-29); Chloride 105 mmol/L (96-108); Creatinine Clr Calc Pharmacy 123.7; Estimated Glomerular Filt Rate > 60; Glucose Random 117 mg/dL (60-115); Potassium 4.1 mmol/L (3.3-5.1); Sodium 143 mmol/L (135-145); Total Protein 6.7 g/dL (6.5-8.0)
== END 2022-08-21 22:39 | disposition left against medical advice (07) ==
PROVIDERS: Nurse Practitioner Family; Emergency Provider Emergency Medicine; PCP Nurse Practitioner Family
DX: N50.812 Left testicular pain (principal); N50.811 Right testicular pain; R10.30 Lower abdominal pain, unspecified; R31.9 Hematuria, unspecified; Z79.01 Long term (current) use of anticoagulants; Z79.899 Other long term (current) drug therapy; Z87.891 Personal history of nicotine dependence
CPT/HCPCS: 36415; 76870; 80053; 85025; 85610; 85730; 93975; 99281; 99284

== ENCOUNTER → 2022-08-31 15:04 | Outpatient (BNVA) | payer MEDICARE, MEDICAID, SELFPAY | PROVIDERS: PCP Nurse Practitioner Family; Visit Provider Urology | DX: Q98.4 Klinefelter syndrome, unspecified (principal); B20 Human immunodeficiency virus [HIV] disease | CPT/HCPCS: 99212 ==

== ENCOUNTER 2022-10-19 09:59 | Outpatient (REF) | payer MEDICARE, MEDICAID, SELFPAY ==
[2022-10-19 11:24] LABS: MANUAL DIFF FLAG NO
[2022-10-19 11:30] LABS: Basophils Percent Auto 0.6 % (0-2); Eosinophils Absolute Auto 0.1 X10*3/uL (0.0-0.4); Eosinophils Percent Auto 1.2 % (0-4); Hematocrit 39.2 % (42.0-52.0); Hemoglobin 13.6 g/dl (14.0-18.0); Imm Gran Abs Auto 0.02 X10*3/uL (0.00-0.03); Imm Gran Pct Auto 0.4 % (0.0-0.4); Lymphocytes Absolute Auto 0.7 X10*3/uL (1.2-4.9); Lymphocytes Percent Auto 12.9 % (20-40); Mean Corpuscular HGB Conc 34.7 g/dl (31.0-36.0); Mean Corpuscular Hemoglobin 31.8 pg (27.0-33.0); Mean Corpuscular Volume 91.6 fL (80.0-98.0); Mean Platelet Volume 10.4 fL (9.4-12.4); Monocytes Percent Auto 19.1 % (2-11); Neutrophils Absolute Auto 3.4 x10*3/uL (2.0-8.3); Neutrophils Percent Auto 65.8 % (45-73); Platelet Count 185 X10*3/uL (160-400); Red Blood Count 4.28 X10*6/uL (4.60-5.80); White Blood Count 5.2 X10*3/uL (4.8-10.8)
[2022-10-19 12:10] LABS: Alanine Aminotransferase 168 U/L (0-40); Albumin Level 3.7 g/dL (3.5-5.0); Alkaline Phosphatase 103 U/L (39-117); Anion Gap 14 (12-20); Aspartate Amino Transferase 61 U/L (5-37); Blood Urea Nitrogen 25 mg/dL (9-16); Calcium 9.1 mg/dL (8.4-10.2); Carbon Dioxide 25 mmol/L (22-29); Chloride 103 mmol/L (96-108); Estimated Glomerular Filt Rate 55; Glucose Random 119 mg/dL (60-115); Potassium 3.1 mmol/L (3.3-5.1); Sodium 139 mmol/L (135-145); Total Protein 6.5 g/dL (6.5-8.0)
== END 2022-10-19 10:00 | disposition home or self-care (01) ==
LOC: HO.HMGCLDS 09:59
PROVIDERS: PCP Nurse Practitioner Family; Visit Provider Internal Medicine
DX: R19.7 Diarrhea, unspecified (principal); R42 Dizziness and giddiness; R11.0 Nausea
CPT/HCPCS: 36415; 80053; 85025

== ENCOUNTER 2022-11-01 16:00 | Outpatient (REF) | payer MEDICARE, MEDICAID, SELFPAY ==
[2022-11-01 18:07] LABS: CDiff Gene PCR NEGATIVE (Negative)
[2022-11-01 18:16] LABS: Leukocytes Stool Qualitative NEGATIVE (NEGATIVE)
== END 2022-11-01 16:01 | disposition home or self-care (01) ==
LOC: HO.LNP 16:00
PROVIDERS: Visit Provider Internal Medicine
DX: R19.7 Diarrhea, unspecified (principal); R42 Dizziness and giddiness; R11.0 Nausea
CPT/HCPCS: 87493; 89055

== ENCOUNTER 2022-11-15 08:41 | Outpatient (REF) | payer MEDICARE, MEDICAID, SELFPAY ==
--- NOTE | ~2022-11-15 | US_ITS ---
EXAMINATION: US ABDOMEN COMPLETE CLINICAL INFORMATION: Elevated liver enzymes. COMPARISON: X-ray K[facility] 01/04/2019. CT abdomen and pelvis 12/31/2018. TECHNIQUE: Real-time imaging of the abdominal viscera. Technically limited study secondary to body habitus. FINDINGS: Evaluation is limited secondary to patient body habitus and shadowing from overlying bowel gas. PANCREAS: The proximal pancreas is within normal limits. The tail is obscured by overlying bowel gas. ABDOMINAL AORTA: Visualized portions are normal. INFERIOR VENA CAVA: Visualized portions are normal. LIVER: The liver is normal in size. The liver contour is normal. Equivocal increased heterogeneity of the parenchyma. No focal hepatic lesion. There is no intrahepatic biliary duct dilatation seen. GALLBLADDER: Surgically absent. COMMON BILE DUCT: Borderline dilated measuring 0.8 cm in diameter, likely related with post cholecystectomy state and patient's age. RIGHT KIDNEY: Normal. No hydronephrosis. No renal calculi or focal parenchymal lesions. The kidney measures 10.4 cm in maximum dimension. LEFT KIDNEY: Normal. No hydronephrosis. No renal calculi or focal parenchymal lesions. The kidney measures 11.1 cm in maximum dimension. SPLEEN: Normal. The spleen measures 11.5 cm in maximum dimension. FREE FLUID: None. US/US abdomen complete IMPRESSION: 1. Equivocal increased heterogeneity of the liver parenchyma, which is nonspecific and could be seen in the setting of steatosis or hepatocellular disease. 2. Status post cholecystectomy.
== END 2022-11-15 08:42 | disposition home or self-care (01) ==
LOC: HO.US 08:41
PROVIDERS: PCP Nurse Practitioner Family; Visit Provider Nurse Practitioner Family
DX: R74.8 Abnormal levels of other serum enzymes (principal)
CPT/HCPCS: 76700

== ENCOUNTER → 2023-02-15 11:13 | Outpatient (BNVA) | payer MEDICARE, MEDICAID, SELFPAY | PROVIDERS: PCP Nurse Practitioner Family; Visit Provider Urology | DX: E29.1 Testicular hypofunction (principal); N52.01 Erectile dysfunction due to arterial insufficiency; Q98.4 Klinefelter syndrome, unspecified | CPT/HCPCS: Q3014 ==

== ENCOUNTER 2023-06-21 12:49 | Outpatient (AMB) | payer MEDICARE, MEDICAID, SELFPAY ==
--- NOTE | 2023-06-21 12:50 | MHC.PC.OV ---
Intake Visit Reasons: AWV Allergies codeine [CODEINE] Allergy (Severe, Verified 02/15/23 11:15) SEVERE PAIN/HYPOXIA W/HIGH DOSES meningococcal vaccine A,C,Y and W-1 [MENINGOCOCCAL VACCINE A,C,Y AND W-1] Allergy (Intermediate, Verified 02/15/23 11:15) HIVES salmon oil Allergy (Unknown, Verified 02/15/23 11:15) hives SALMON Allergy (Severe, Uncoded 02/15/23 11:15) LT HEMIPARESIS Tobacco use date assessed: 07/12/21 [facility] Medical History DVT (deep venous thrombosis) Factor 5 Leiden mutation, heterozygous HIV (human immunodeficiency virus infection) HTN (hypertension) Klinefelter syndrome Leg fracture, left On continuous oral anticoagulation Pulmonary embolus Right knee pain Surgical History History of angioplasty of vein History of umbilical hernia repair Hx of cholecystectomy Hx of colonoscopy Hx of left knee surgery S/P ORIF (open reduction internal fixation) fracture Family History Father No problems noted. Mother No problems noted. Social History Housing: House Are you a primary home care consultant to a significant other at home: No Do you presently have visiting nurse or other home services: No Alcohol intake: former Patient Tobacco Use Status: Former Tobacco user Quit Date: 2004 Tobacco use type: Cigarette Cigarette Packs Per Day: 2 e-Cigarette/Vaping Use: Never Used Second Hand Smoke Exposure: Yes Substance Use Type: Marijuana service: Yes ([employer] ) Current occupational status: employed Current occupation: [employer] Current occupational exposures/hazards: No Questionnaire Thrive Questionnaire Date Thrive assessed: 07/12/21 Physical exam (Primary Care) Tobacco/Smoking Status: Tobacco use Status Tobacco use date assessed 07/12/21 07/12/21 11:48 Patient Tobacco Use Status Former Tobacco user 10/19/22 09:24 Tobacco use type Cigarette 12/14/21 12:27 e-Cigarette/Vaping Use Never Used 07/12/21 11:48 Thrive Assessment: Date of Thrive Assessment Date Thrive assessed 07/12/21 07/12/21 11:54 Coding
[2023-06-21 12:56] VITALS: BP 100/60; PULSE 79; O2SAT 97; BMI 27.7
--- NOTE | 2023-06-21 12:58 | AM.OFFVISMDC ---
Intake Vital Signs 06/21/23 12:56 06/21/23 13:00 Height 6 ft 6 in Weight 240 lb BMI 27.7 27.7 BP 100/60 Blood Pressure Location Rt brachial Position Sitting Pulse 79 Pulse Source Pulse Oximeter Pulse Oximetry (%) 97 Intake Visit Reasons: AWV Allergies codeine [CODEINE] Allergy (Severe, Verified 06/21/23 12:56) SEVERE PAIN/HYPOXIA W/HIGH DOSES meningococcal vaccine A,C,Y and W-1 [MENINGOCOCCAL VACCINE A,C,Y AND W-1] Allergy (Intermediate, Verified 06/21/23 12:56) HIVES salmon oil Allergy (Unknown, Verified 06/21/23 12:56) hives SALMON Allergy (Severe, Uncoded 06/21/23 12:56) LT HEMIPARESIS Do you need a note to return to daycare/school/sports/work: No HPI AWV HPI Details Pt is here for an AWV. Denies fever, chills, and dizziness. [place] of care in scan pile. PPP will be scanned in chart and copy will be given to pt. Refused to fill out DNR/DNI and healthcare proxy. Pt sees a urologist. Refuses any vaccines. Pt would like a hearing test, will refer. Pt denies any symptoms, but did request STD testing [facility] Medical History (Reviewed 02/15/23 @ 11:15 by Constance Baez [facility]) DVT (deep venous thrombosis) Factor 5 Leiden mutation, heterozygous HIV (human immunodeficiency virus infection) HTN (hypertension) Klinefelter syndrome Leg fracture, left On continuous oral anticoagulation Pulmonary embolus Right knee pain Surgical History Hx of colonoscopy History of angioplasty of vein Hx of left knee surgery History of umbilical hernia repair Hx of cholecystectomy S/P ORIF (open reduction internal fixation) fracture Family History Father No problems noted. Mother No problems noted. Social History Housing: House Are you a primary personal care attendant to a significant other at home: No Do you presently have visiting nurse or other home services: No Alcohol intake: former Patient Tobacco Use Status: Former Tobacco user Quit Date: 2004 Tobacco use type: Cigarette Cigarette Packs Per Day: 2 e-Cigarette/Vaping Use: Never Used Second Hand Smoke Exposure: Yes Substance Use Type: Marijuana service: Yes ([employer] ) Current occupational status: employed Current occupation: [employer] Current occupational exposures/hazards: No Questionnaire Medicare Wellness Checkup [age] What gender do you identify with?: male During the past 4 weeks, how much have you been bothered by emotional problems such as feeling anxious, depressed, irritable, sad or downhearted, and blue?: moderately During the past 4 weeks, has your physical & emotional health limited your social activities with family, friends, neighbors, or groups?: moderately During the past 4 weeks, how much bodily pain have you generally had?: severe pain During the past 4 weeks, was someone available to help you if you needed & wanted help?: no, not at all During the past 4 weeks, what was the hardest physical activity you could do for at least 2 minutes?: moderate Can you get to places out of walking distance without help? (For eg., can you travel alone on buses, taxis or drive your car?): Yes Can you go shopping for groceries or clothes without someone's help?: Yes Can you prepare your own meals?: Yes Can you do your housework without help?: Yes Because of any health problems, do you need the help of another person with your personal care needs such as eating, bathing, dressing or getting around the house?: No Can you handle your own money without help?: No During the past 4 weeks, how would you rate your health in general?: good During the past 4 weeks how have things been going for you?: good & bad parts about equal During past 4 weeks, have you been bothered by the following: never: Problems using the telephone?, seldom: Falling or dizzy when standing up, sometimes: Trouble eating well? ( foods really expensive ) and Tiredness or fatigue? and often: Sexual problems? ( needs pills for erections ) and Teeth or denture problems? Have you fallen 2 or more times in the past year?: Yes Are you afraid of falling?: Yes Are you a smoker?: no During the past 4 weeks, how many drinks of wine, beer, or other alcoholic beverages did you have?: no alcohol at all Do you exercise for about 20 minutes 3 or more times a week?: yes, some of the time Have you been given information to help with the following?: yes: Hazards in your house that might hurt you? and yes: Keeping track of your medications? How often do you have trouble taking medicines the way you have been told to take them?: sometimes I take medicine as prescribed How confident are you that you can control & manage most of your health problems?: not very confident Mini Mental State Exam (MMSE) Orientation What is the (year) (season) (date) (day) (month)?: year (2022) Where are we (state) (county) (town or city) (hospital) (floor)?: state (ct) Registration Name of 3 unrelated objects clearly and slowly, then ask patient to repeat all 3 of them. (1st repeat determines score. Make sure they can repeat all three): object 1, object 2 and object 3 Attention & Calculation (CHOOSE ONE) Spell WORLD backwards (DLROW): 3 letters Recall Ask patient to repeat the 3 items from question #3.: object 1, object 2 and object 3 Language Show patient a wristwatch & ask what it is. Repeat for pencil.: watch and pencil Ask the patient to repeat the phrase 'No ifs, ands, or buts' after you.: correct Ask the patient to 'take a piece of paper with their right hand' 'fold paper in half' 'place paper on floor': take paper in right hand, fold paper in half and place paper on floor Print the sentence 'CLOSE YOUR EYES' on a piece. If patient actually closes eyes then score.: followed written direction Give patient a blank piece of paper & ask to write a sentence. Score if it contains a noun & verb.: sentence contains subject and verb Ask patient to copy figure of intersecting pentagons exactly. Score if all 10 angles & 2 intersects are included.: all 10 angles present & 2 are intersected Score Score: 20 Activity of Daily Living Bathing - sponge bath, tub bath or shower: receives no assistance (gets in/out by self, if usual bathing means Dressing - getting clothes from closets & drawers, including inner/outer garments & fasteners.: gets clothes & gets completely dressed without help Toileting - going to the 'toilet room' for urine/bowel elimination & cleaning self/arranging clothes: goes to toilet room, cleans self, arranges clothes without help Transfer: moves in & out of bed and chair without help (may use support object) Continence: controls urination/bowel movements completely by self Feeding: feeds self without help Total Score: 0 Information obtained from: patient Using telephone: independent Traveling: independent Shopping: independent Preparing meals: independent Housework: independent Taking medicine: independent Managing money: independent PHQ-9 Over the last 2 weeks, how often have you been bothered by any of the following problems? 1. Little interest or pleasure in doing things: more than half the days 2. Feeling down, depressed, or hopeless: several days 3. Trouble falling or staying asleep, or sleeping too much: not at all 4. Feeling tired or having little energy: several days 5. Poor appetite or overeating: several days 6. Feeling bad about yourself - or that you are a failure or have let yourself or your family down: not at all 7. Trouble concentrating on things, such as reading the newspaper or watching television: more than half the days 8. Moving or speaking so slowly that other people could have noticed. Or the opposite - being so fidgety or restless that you have been moving around a lot more than usual: more than half the days 9. Thoughts that you would be better off or of hurting yourself in some way: not at all Total score: 9 Depression Screening Interpretation: Negative Depression Screening Done: Yes 42703 - PHQ-9 Billing: Yes Source: Developed by Drs. Sedrick Wilde, Yovana Hicks, Ernesto Marks and colleagues, with an educational erendira from [email or web address]. Review of Systems Const Reports as per HPI Physical Exam Vital Signs: Last Vital Signs Pulse 79 06/21/23 12:56 BP 100/60 06/21/23 12:56 Pulse Ox 97 06/21/23 12:56 BMI result Body Mass Index 27.7 Const General: cooperative Orientation/consciousness: patient oriented x3 Neuro Other: - romberg, can tandem walk, can walk and turn, can rise from sitting to standing, passed whisper test General: patient oriented x3 Psych Appearance: grossly normal Mental Status: mental status grossly normal Speech and movement: Normal speech and movement present Affect: normal affect Attitude: cooperative Thought process: Normal thought process present Thought content: Normal thought content present Insight: Good insight present (Psych) Judgement: Good judgement present (Psych) Assessment & Plan Assessment & Plan (1) Screening examination for sexually transmitted disease: Code(s): Z11.3 - Encounter for screening for infections with a predominantly sexual mode of transmission Plan: STD testing ordered (2) Loss of hearing: Code(s): H91.90 - Unspecified hearing loss, unspecified ear Plan: Referred for hearing screen (3) Encounter for annual wellness visit (AWV) in Medicare patient: Code(s): Z00.00 - Encounter for general adult medical examination without abnormal findings Plan: Forms offered to pt, refused Plan The patient agreed to the use of a medical scientific officer for this encounter. Scribed for KIMMY López by Yenni Luong medical scientific officer, on 06/21/2023 at 13:10 EST Orders: Orders Syphilis Screen Today Z11.3 - Encounter for screening for infections with a predominantly sexual mode of transmission CT NG by PCR Today Z11.3 - Encounter for screening for infections with a predominantly sexual mode of transmission Hepatitis A,B,C Profile Today Z11.3 - Encounter for screening for infections with a predominantly sexual mode of transmission Referrals Speech and Hearing Referral H91.90 - Unspecified hearing loss, unspecified ear Quality Reporting (2019) Depression/Bipolar (159/160/161/177) PHQ-9: Total score: 9 Coding Level of Care Code Medicare First (G0438) Diagnoses Screening examination for sexually transmitted disease Z11.3 Loss of hearing H91.90 Encounter for annual wellness visit (AWV) in Medicare patient Z00.00 CPT Codes Advance Care Planning - Time spent: 1-15 minutes, not on file ([id number]) Advance Care Planning Forms completed: Health Care Proxy (refused), MOLST (refused) and Living will Time spent: 1-15 minutes, not on file
[2023-06-21 13:00] VITALS: BMI 27.7
== END 2023-06-21 13:43 | disposition home or self-care (01) ==
PROVIDERS: PCP Nurse Practitioner Family; Visit Provider Nurse Practitioner Family
DX: Z00.00 Encounter for general adult medical examination without abnormal findings (principal); Z11.3 Encounter for screening for infections with a predominantly sexual mode of transmission; H91.93 Unspecified hearing loss, bilateral
CPT/HCPCS: 1124F; G0438

== ENCOUNTER 2023-07-03 15:03 | Emergency (ER) | payer MEDICARE, SELFPAY ==
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
[2023-07-03 15:08] VITALS: BP 158/62; BP 184/66; PULSE 77; PULSE 78; RESP 19; TEMP 36.7; O2SAT 96; BMI 29.8
== END 2023-07-03 17:49 | disposition left against medical advice (07) ==
PROVIDERS: Emergency Provider Emergency Medicine
DX: S89.92XA Unspecified injury of left lower leg, initial encounter (principal); V13.4XXA Pedal cycle driver injured in collision with car, pick-up truck or van in traffic accident, initial encounter; M25.562 Pain in left knee; B20 Human immunodeficiency virus [HIV] disease; I10 Essential (primary) hypertension; Q98.4 Klinefelter syndrome, unspecified; D68.51 Activated protein C resistance; F12.90 Cannabis use, unspecified, uncomplicated; Z86.711 Personal history of pulmonary embolism; Z86.718 Personal history of other venous thrombosis and embolism; Z87.891 Personal history of nicotine dependence; Z79.01 Long term (current) use of anticoagulants; Z79.899 Other long term (current) drug therapy; Y93.55 Activity, bike riding; Y92.414 Local residential or business street as the place of occurrence of the external cause; Y99.9 Unspecified external cause status
CPT/HCPCS: 70450; 73564; 99281; 99284

== ENCOUNTER 2023-08-31 14:46 | Outpatient (REF) | payer MEDICARE, SELFPAY ==
[2023-08-31 15:05] LABS: Hematocrit 38.2 % (42.0-52.0); Hemoglobin 13.1 g/dl (14.0-18.0); Mean Corpuscular HGB Conc 34.3 g/dl (31.0-36.0); Mean Corpuscular Hemoglobin 31.7 pg (27.0-33.0); Mean Corpuscular Volume 92.5 fL (80.0-98.0); Mean Platelet Volume 9.9 fL (9.4-12.4); Platelet Count 155 X10*3/uL (160-400); Red Blood Count 4.13 X10*6/uL (4.60-5.80); Red Cell Distribution Width 13.2 % (11.0-16.0); White Blood Count 5.8 X10*3/uL (4.8-10.8)
[2023-08-31 15:56] LABS: Prostate Specific Antigen 0.65 ng/mL (<0.05-4.0)
[2023-09-05 11:33] LABS: Testosterone, Total 21 ng/dL (250-1100)
== END 2023-08-31 14:47 | disposition home or self-care (01) ==
LOC: HO.LAB 14:46
PROVIDERS: Absent Provider Nurse Practitioner Family; PCP Nurse Practitioner Family; Visit Provider Urology
DX: E29.1 Testicular hypofunction (principal); Z12.5 Encounter for screening for malignant neoplasm of prostate
CPT/HCPCS: 36415; 84153; 84403; 85027

== ENCOUNTER 2023-09-04 15:58 | Outpatient (REF) | payer MEDICARE, SELFPAY ==
[2023-09-04 16:16] LABS: MANUAL DIFF FLAG NO
[2023-09-04 16:21] LABS: Basophils Percent Auto 0.6 % (0-2); Eosinophils Absolute Auto 0.1 X10*3/uL (0.0-0.4); Eosinophils Percent Auto 1.2 % (0-4); Hematocrit 36.8 % (42.0-52.0); Hemoglobin 12.8 g/dl (14.0-18.0); Imm Gran Abs Auto 0.01 X10*3/uL (0.00-0.03); Imm Gran Pct Auto 0.2 % (0.0-0.4); Lymphocytes Absolute Auto 2.2 X10*3/uL (1.2-4.9); Lymphocytes Percent Auto 44.6 % (20-40); Mean Corpuscular HGB Conc 34.8 g/dl (31.0-36.0); Mean Corpuscular Hemoglobin 31.8 pg (27.0-33.0); Mean Corpuscular Volume 91.5 fL (80.0-98.0); Mean Platelet Volume 9.4 fL (9.4-12.4); Monocytes Absolute Auto 0.4 X10*3/uL (0.1-1.2); Monocytes Percent Auto 7.9 % (2-11); Neutrophils Absolute Auto 2.2 x10*3/uL (2.0-8.3); Neutrophils Percent Auto 45.5 % (45-73); Platelet Count 168 X10*3/uL (160-400); Red Blood Count 4.02 X10*6/uL (4.60-5.80); Red Cell Distribution Width 13.1 % (11.0-16.0); White Blood Count 4.8 X10*3/uL (4.8-10.8)
[2023-09-05 04:40] LABS: Syphilis Screen Reactive (Nonreactive)
[2023-09-05 05:11] LABS: HBS Num1 > 1000.00 mIU/mL (0-7.99); HBc Num1 6.47 S/CO (0.00-0.79); HBsAGNum1 0.25 S/CO (0.00-0.99); Hepatitis A Antibody IgM 0.15 Index (0-0.79); Hepatitis B Surface Antigen Negative (Negative); ~Hepatitis A Antibody IgM Nonreactive (Nonreactive); ~Hepatitis B Surface Antibody REACTIVE (Nonreactive); ~Hepatitis C Antibody Nonreactive (Nonreactive)
[2023-09-05 05:54] LABS: HBc Num2 6.58 S/CO; HBc Num3 6.38 S/CO; Hepatitis B Core Antibody Reactive (Nonreactive)
[2023-09-10 15:30] LABS: RPR Quantitative Reactive 1:1 (Nonreactive); T.Pallidum Particle Agg Test Reactive (Nonreactive)
== END 2023-09-04 15:59 | disposition home or self-care (01) ==
LOC: HO.LAB 15:58
PROVIDERS: PCP Nurse Practitioner Family; Visit Provider Nurse Practitioner Family
DX: D64.9 Anemia, unspecified (principal); R74.8 Abnormal levels of other serum enzymes; Z20.2 Contact with and (suspected) exposure to infections with a predominantly sexual mode of transmission; Z11.59 Encounter for screening for other viral diseases; Z72.89 Other problems related to lifestyle
CPT/HCPCS: 36415; 85025; 86592; 86704; 86706; 86709; 86780; 86803; 87340

== ENCOUNTER 2023-10-31 09:50 | Outpatient (AMB) | payer MEDICARE, SELFPAY ==
--- NOTE | 2023-10-31 10:27 | A.OFFVIS_ITS ---
Intake Intake Visit Reasons: follow up labs(set) Intake Note: Patient presents today for a follow-up Meds- Testosterone, Terazosin, Tadalafil, Tamsulosin Allergies to Antibiotic- No Known Allergies Blood Thinner- None Post Void Residual: Patient Symptoms: Patient stated he has not been using the testosterone in 3 months, due to the pharmacy dispensing wrong dose (per patient), the dose has been fluctuating until the pharmacy does not want to dispense anymore. Patient needs refills on Tamsulosin an d the dose to be increased due to the current dose is not working. Masticator Required: No Accompanied by: Self / Same As Patient Allergies codeine [CODEINE] Allergy (Severe, Verified 10/31/23 10:32) SEVERE PAIN/HYPOXIA W/HIGH DOSES meningococcal vaccine A,C,Y and W-1 [MENINGOCOCCAL VACCINE A,C,Y AND W-1] Allergy (Intermediate, Verified 10/31/23 10:32) HIVES salmon oil Allergy (Unknown, Verified 10/31/23 10:32) hives SALMON Allergy (Severe, Uncoded 10/31/23 10:32) LT HEMIPARESIS Medication List - Last Reconciled 10/31/23 by Sunny Guerra MD alfuzosin ER 10 mg PO BEDTIME 30 days ascorbic acid (vitamin C) (Vitamin C) 500 mg PO DAILY atorvastatin 20 mg PO BEDTIME 90 days bisacodyl 10 mg IA DAILY PRN 30 days cholecalciferol (vitamin D3) (Vitamin D3) 25 mcg PO DAILY chromium 200 mcg PO DAILY cyanocobalamin (vitamin B-12) (Vitamin B-12) 100 mcg PO DAILY dolutegravir (Tivicay) 50 mg PO DAILY 30 days emtricitabine-tenofovir alafen 200-25 mg (Descovy) 1 tab PO DAILY 30 days needle (disp) 18 G (BD Regular [place]) To draw up medication needle (disp) 22 G To inject Testosterone prednisone 20 mg PO DAILY 5 days rivaroxaban (Xarelto DVT-PE Treatment 30-Day Starter) Take one-15 mg tablet twice daily for 21 days, then one-20 mg tablet once daily; must take with meal/food rivaroxaban 20 mg PO DAILY sertraline 50 mg PO DAILY sildenafil 100 mg PO sulfamethoxazole-trimethoprim 800-160 mg (Bactrim DS) 1 tab PO BID 14 days syringe (disposable) (BD Luer-Ellen Syringe) Testosterone injection weekly syringe with needle As directed tadalafil 20 mg PO ONCE PRN 30 days tadalafil 10 mg PO DAILY 90 days tamsulosin 0.4 mg PO DAILY terazosin 5 mg PO BEDTIME testosterone cypionate (Depo-Testosterone) 90 mg (0.45 mL) subcut QWEEK 4 weeks trazodone 50 mg PO BEDTIME PRN 90 days triamcinolone acetonide 0.5% 1 appl topical DAILY 30 days zinc 100 mg PO DAILY HPI HPI Comments History of Present Illness Details Doroteo GANDHI is a very pleasant male. He is a patient of Dr. Ahumada. He is seen for the following urologic conditions - lower urinary tract symptoms - hypogonadism - Klinefelter syndrome - erectile dysfunction Six-month review 08/25 T 21 Refilled testosterone New syringes and needles provided Discussed erectile issues Has had prior information regarding penile prosthetic, vacuum pump Will try maximizing daily tadalafil with on demand Hypogonadism:?Has had some fatigue secondary to COVID stress ?Can increase testosterone to 0.45 per week ?Also discussed ED ?Had difficulty with Cialis in past, Viagra 200 mg non effective ?Has use Tri Mix previously Injection Day : Sunday Lab Day: Sun/ ? He presents today for?further evaluation and followup of his hypogonadism.? Initial symptoms include? erectile dysfunction ?Yes ? decreased libido ?Yes ? change in mood/depression ?Yes ? in muscle size/strength ?Yes ? increased fatigue/malaise ?Yes ? increased abdominal fat ?No ? tender breasts/gynecomastia ?No ? hair loss ?No ? osteopenia ?No ? The onset of symptoms has been?gradual.? Associate conditions include? obstructive sleep apnea ?No ? CAD ?No ? obesity ?No ? stress - financial, family, employment ?No ? heavy alcohol or illicit drug use ?No ? Laboratory results?04/21 PSA 2 ?06/21 T 83 - of T for 4 weeks ?12/21 T475, 01/22 P 3.7 T 1400, 07/25 T 471 P 4.1 ? Current therapy includes?injectable exogenous testosterone ?06/21 weekly injection ?12/21 0.4cc subcut ? Prior therapy includes?testosterone, injectable.? Diagnosis based on history and laboratory results?combined testicular insufficiency.? Lower Urinary Tract Symptoms:? Current visit is for?further evaluation of, lower urinary tract symptoms, predominate obstructive symptoms.? Current treatment includes?alpha natividad.? Prostate Symptom Score?10/22 , , Moderate (9-19), Bother 3.? Symptoms include?10/22 , incomplete emptying, weak stream, nocturia (>2), and are progressing.? Associated conditions? CAD ?No ? CVA ?No ? diabetes ?No ? elevated PSA ?No ? erectile dysfunction ?No ? hematuria ?No ? renal insufficiency ?No ? urge incontinence ?No ? urinary retention ?No ? urinary tract infection ?No ? psychiatric diagnosis ?No ? Treatment plan?continue with current medications PFSH Medical History Factor 5 Leiden mutation, heterozygous Right knee pain On continuous oral anticoagulation Leg fracture, left Klinefelter syndrome Pulmonary embolus HTN (hypertension) HIV (human immunodeficiency virus infection) DVT (deep venous thrombosis) Surgical History Hx of colonoscopy History of angioplasty of vein Hx of left knee surgery History of umbilical hernia repair Hx of cholecystectomy S/P ORIF (open reduction internal fixation) fracture Family History Father No problems noted. Mother No problems noted. Social History Housing: House Are you a primary student career development specialist to a significant other at home: No Do you presently have visiting nurse or other home services: No Alcohol intake: former Patient Tobacco Use Status: Former Tobacco user Quit Date: 2004 Tobacco use type: Cigarette Cigarette Packs Per Day: 2 e-Cigarette/Vaping Use: Never Used Second Hand Smoke Exposure: Yes Substance Use Type: Marijuana service: Yes ([employer] ) Current occupational status: employed Current occupation: [employer] Current occupational exposures/hazards: No Review of Systems Const Denies chills and Denies fever(s) Card Reports no additional complaints and Denies syncope Resp Denies cough GI Denies abdominal pain and Denies heartburn Reports as per HPI and Denies change in libido Neuro Denies syncope Psych Denies change in libido Endo Denies change in libido Physical Exam Const General: cooperative, healthy appearing, comfortable and no acute distress Orientation/consciousness: patient oriented x3 HEENT Face and sinus: Yes normal facial exam Mouth: moist mucous membranes Neck Neck: Yes normal visual inspection, Yes full ROM and Yes trachea midline Chest Chest palpation & inspection: normal inspection of the chest Resp Effort & Inspection: normal respiratory effort, able to speak in complete sentences and no respiratory distress GI Inspection: Yes normal to inspection Back/Spine/Pelvis Cervical Spine: normal cervical lordosis Thoracic/Lumbar Spine: thoracic and lumbar spine normal to inspection Skin General skin exam: no rashes or lesions noted Neuro General: patient oriented x3, gait normal, tone normal and moves all extremities Extrem General: Yes normal to inspection and Yes capillary refill normal Assessment & Plan Assessment & Plan (1) Erectile dysfunction due to arterial insufficiency: Code(s): N52.01 - Erectile dysfunction due to arterial insufficiency (2) Klinefelter syndrome: Code(s): Q98.4 - Klinefelter syndrome, unspecified Plan Six-month follow-up lab work Orders: Orders Complete Blood Count no Diff 6 Months E29.1 - Testicular hypofunction Prostate Specific Antigen 6 Months E29.1 - Testicular hypofunction Testosterone, Total 6 Months E29.1 - Testicular hypofunction Patient Instructions: Imaging studies, laboratory and physical exam results were discussed and reviewed in detail. No major barriers to patient understanding were identified. An opportunity to ask questions regarding the treatment plan was provided. All questions were answered. The patient expressed understanding and agreement with the above treatment plan. The patient is aware they should contact our office by phone for worsening of their current condition or the appearance of new urologic symptoms. Compliance is encouraged with any medications and followup testing that is ordered. It is a privilege to participate in the urologic care of your patient. If you have any questions or concerns regarding treatment for the above conditions, or other urologic issues, please do not hesitate to contact me. The office telephone contact is [phone]. This note is constructed using voice recognition software. While every effort has been made to ensure accuracy heart specialist errors may have been included. Yours sincerely, Dr Sunny Guerra MD, [facility] Providers of Expert, Compassionate Care for the Genitourinary System Coding Level of Care Code Est Pt Level 4 (30873) Diagnoses Erectile dysfunction due to arterial insufficiency N52.01 Klinefelter syndrome Q98.4
== END 2023-10-31 11:07 | disposition home or self-care (01) ==
PROVIDERS: Visit Provider Urology
DX: N52.01 Erectile dysfunction due to arterial insufficiency (principal); Q98.4 Klinefelter syndrome, unspecified
CPT/HCPCS: 99214

== ENCOUNTER → 2023-10-31 09:50 | Outpatient (BNVA) | payer MEDICARE, SELFPAY | PROVIDERS: Visit Provider Urology | DX: N52.01 Erectile dysfunction due to arterial insufficiency (principal); Q98.4 Klinefelter syndrome, unspecified | CPT/HCPCS: 99212 ==

== ENCOUNTER 2023-11-06 10:50 | Outpatient (AMB) | payer MEDICARE, SELFPAY ==
--- NOTE | 2023-11-06 11:15 | MHC.OFFVIS ---
Intake Vital Signs 11/06/23 11:17 Height 6 ft 4 in Weight 245 lb BMI 29.8 Intake Visit Reasons: per patient had injury to knee want checked Intake Note: Follow up Left LE issues s/p Hx of Right Venaseal 08/02/2018, Left GSV RFA 06/07/18, Left LE micro w/ wound debridement and skin sub 10/28/18 and Left LE debridement 08/12/18. About 3 mo ago Left LE numbness, skin discoloration and some issues he had prior to VV treatments Accompanied by: Self / Same As Patient Allergies codeine [CODEINE] Allergy (Severe, Verified 11/06/23 11:21) SEVERE PAIN/HYPOXIA W/HIGH DOSES meningococcal vaccine A,C,Y and W-1 [MENINGOCOCCAL VACCINE A,C,Y AND W-1] Allergy (Intermediate, Verified 11/06/23 11:21) HIVES salmon oil Allergy (Unknown, Verified 11/06/23 11:21) hives SALMON Allergy (Severe, Uncoded 11/06/23 11:21) LT HEMIPARESIS HPI per patient had injury to knee want checked HPI Details Very pleasant 63-year-old gentleman presents for evaluation regarding venous disease. Had actually seen us back in 2019 where he had a left lower extremity pretibial ulcer. At that time he was treated for venous disease. He now notes increasing swelling and pain of the lower extremities. Of note he does have a prior history of DVT/PE He is being maintained on Xarelto. He now presents to us for vascular evaluation. [facility] Medical History Factor 5 Leiden mutation, heterozygous Right knee pain On continuous oral anticoagulation Leg fracture, left Klinefelter syndrome Pulmonary embolus HTN (hypertension) HIV (human immunodeficiency virus infection) DVT (deep venous thrombosis) Surgical History Hx of colonoscopy History of angioplasty of vein Hx of left knee surgery History of umbilical hernia repair Hx of cholecystectomy S/P ORIF (open reduction internal fixation) fracture Family History Father No problems noted. Mother No problems noted. Social History Housing: House Are you a primary specialist wound care to a significant other at home: No Do you presently have visiting nurse or other home services: No Alcohol intake: former Patient Tobacco Use Status: Former Tobacco user Quit Date: 2004 Tobacco use type: Cigarette Cigarette Packs Per Day: 2 e-Cigarette/Vaping Use: Never Used Second Hand Smoke Exposure: Yes Substance Use Type: Marijuana service: Yes ([employer] ) Current occupational status: employed Current occupation: [employer] Current occupational exposures/hazards: No Review of Systems Const Reports as per HPI ENT Reports no additional complaints Card Denies chest pain, Denies chest pain at rest and Denies chest pain with activity Resp Denies chest congestion and Denies cough GI Reports no additional complaints Musc Details: pain over varicosities, aching of lower extremities, swelling, cramping, heaviness and tiredness, itching Denies abnormal gait Skin/Breast Reports pruritus and Denies wounds Neuro Reports no additional complaints and Denies abnormal gait Psych Denies no additional complaints Physical Exam Vital Signs: BMI result Body Mass Index 29.8 Const General: cooperative, healthy appearing and comfortable Orientation/consciousness: oriented to person, oriented to place and oriented to time Neck Carotids: no bruits Chest Chest palpation & inspection: normal inspection of the chest and normal palpation of entire chest wall Resp Effort & Inspection: normal respiratory effort and able to speak in complete sentences Cardio Rate: regular rate Heart sounds: S1 normal heart sound present and S2 normal heart sound present Peripheral pulses: Peripheral pulses 2+ throughout GI Inspection: Yes normal to inspection Skin Other: +2 edema, large rope-like varicosities greater than 4 mm CEAP Classification C4 - skin color changes Ep - Etiology Primary As - superficial veins P - reflux General skin exam: dry skin Neuro General: oriented to person, oriented to place and oriented to time Extrem Right lower extremity: full ROM, normal capillary refill and edema Left lower extremity: full ROM, normal capillary refill and edema Psych Mental Status: mental status grossly normal Assessment & Plan Assessment & Plan (1) Varicose veins of right lower extremity with inflammation: Code(s): I83.11 - Varicose veins of right lower extremity with inflammation Plan: In short patient has recurrent venous disease. We did discuss routine conservative measures including compression, elevation, exercise. I have taken the liberty of ordering venous insufficiency testing. Will follow up with us after testing. Thank you for allowing us to assist in his care. If there are any questions or concerns please do not hesitate to contact us. Orders: Orders US venous insuf bilat 1 Week I83.11 - Varicose veins of right lower extremity with inflammation Coding Level of Care Code New Pt Level 4 (26995) Diagnoses Varicose veins of right lower extremity with inflammation I83.11
[2023-11-06 11:17] VITALS: BMI 29.8
== END 2023-11-06 11:37 | disposition home or self-care (01) ==
PROVIDERS: PCP Nurse Practitioner Family; Visit Provider Surgery Vascular Surgery
DX: I83.11 Varicose veins of right lower extremity with inflammation (principal)
CPT/HCPCS: 99213

== ENCOUNTER → 2023-11-06 10:50 | Outpatient (BNVA) | payer MEDICARE, OTHER, SELFPAY | PROVIDERS: PCP Nurse Practitioner Family; Visit Provider Surgery Vascular Surgery | DX: I83.11 Varicose veins of right lower extremity with inflammation (principal) | CPT/HCPCS: 99212 ==

== ENCOUNTER 2023-11-16 10:36 | Outpatient (REF) | payer MEDICARE, OTHER, SELFPAY ==
--- NOTE | ~2023-11-16 | US_ITS ---
EXAMINATION: US LOWER EXTREMITY VENOUS (REFLUX EXAM), BILATERAL CLINICAL INFORMATION: Chronic venous insufficiency with lower extremity varicose veins and pain. History of right lower extremity venous radial and left lower extremity radiofrequency ablation COMPARISON: Ultrasounds from 05/01/2017 and 03/21/2018 TECHNIQUE: Color flow triplex imaging and compression Doppler was performed to evaluate both the deep and the superficial systems bilaterally. To evaluate the superficial system, the examination was performed in the upright position. Color-flow Doppler ultrasound and compression ultrasound were utilized. In addition, maneuvers were utilized to demonstrate reflux. FINDINGS: 1. DEEP VENOUS ULTRASOUND OF THE RIGHT LOWER EXTREMITY: Common Femoral Vein: Compressible, normal respiratory variation and augmented flow. Femoral Vein: Compressible, normal color flow and augmentation. Popliteal Vein: Compressible, normal augmentation. Deep Reflux: There is no evidence of reflux in the deep system in either the common femoral vein, superficial femoral or the popliteal vein. There is no evidence of a Lucia's cyst. 2. SUPERFICIAL ULTRASOUND WITH DOPPLER OF RIGHT LOWER EXTREMITY: GREAT SAPHENOUS VEIN: Saphenofemoral Junction: 0.7 cm; Reflux: 0 ms Proximal Thigh: 0.7 cm; Reflux: 1504 ms Mid Thigh: Occluded Distal Thigh: Partially occluded with recanalization. Measuring 0.7 cm; Reflux: 1992 ms At Knee: Partially occluded with recanalization. Measuring 0.7 cm; Reflux: 2308 ms Proximal Calf: Partially occluded with recanalization. Measuring 0.6 cm; Reflux: 884 ms Mid Calf: 0.3 cm; Reflux: 2316 ms Distal Calf: 0.4 cm; Reflux: 2456 ms DUPLICATED MEDIAL GREAT SAPHENOUS VEIN: Diameter: None imaged Reflux: NA DUPLICATED LATERAL GREAT SAPHENOUS VEIN: Diameter: 0.5 cm Reflux: 1284 ms SMALL SAPHENOUS VEIN: Saphenopopliteal Junction: 0.5 cm; Reflux: 0 ms Proximal: 0.3 cm; Reflux: 0 ms Distal: 0.4 cm; Reflux: 0 ms VEIN OF GIACOMINI: Size: NA Reflux: NA PERFORATORS: Location: Proximal calf extending to the great saphenous vein Size: 0.3 cm Reflux: 2296 ms VARICOSITIES: Location: Large varicosity arising from the residual great saphenous vein in the proximal thigh extending throughout the thigh Size: 0.5 to 0.8 cm Reflux: Ranging from 988 ms to 2388 ms VARICOSITIES: Location: Varicose veins in the distal thigh, knee and calf off the residual great saphenous vein Size: Ranging from 0.3 to 0.6 cm Reflux: Ranging from 2384 ms to 2640 ms 3. DEEP VENOUS ULTRASOUND OF THE LEFT LOWER EXTREMITY: Common Femoral Vein: Compressible, normal respiratory variation and augmented flow. Femoral Vein: Compressible, normal color flow and augmentation. Popliteal Vein: Partially compressible with linear synechiae consistent with chronic deep venous thrombosis which is unchanged compared to multiple prior exams Deep Reflux: Deep venous reflux is seen in the mid superficial femoral vein and popliteal veins ranging from 1428 ms to 1916 ms There is no evidence of a Lucia's cyst. 4. SUPERFICIAL ULTRASOUND WITH DOPPLER OF LEFT LOWER EXTREMITY: GREAT SAPHENOUS VEIN: Saphenofemoral Junction: 0.7 cm; Reflux: 0 ms Proximal Thigh: 0.4 cm; Reflux: 2144 ms Mid Thigh: Partially occluded with recanalized flow. Measuring 0.5 cm; Reflux: 1540 ms Distal Thigh: 0.5 cm; Reflux: 1888 ms At Knee: 0.3 cm; Reflux: 0 ms Proximal Calf: 0.4 cm; Reflux: 1252 ms Mid Calf: Noncompressible Distal Calf: Noncompressible DUPLICATED MEDIAL GREAT SAPHENOUS VEIN: Diameter: 0.5 cm Reflux: 1664 ms DUPLICATED LATERAL GREAT SAPHENOUS VEIN: Diameter: None imaged. Reflux: NA SMALL SAPHENOUS VEIN: Saphenopopliteal Junction: 0.3 cm; Reflux: 0 ms Proximal: 0.4 cm; Reflux: 0 ms Distal: 0.3 cm; Reflux: 916 ms VEIN OF GIACOMINI: Size: NA Reflux: NA PERFORATORS: Location: None imaged Size: NA Reflux: NA VARICOSITIES: Location: Posterior calf off the mid and distal small saphenous vein Size: 0.4 cm Reflux: 492 ms VARICOSITIES: Location: Medial thigh extending into the proximal calf off the medial duplicated great saphenous vein Size: Ranging from 0.3 to 0.5 cm Reflux: Ranging from 1276 ms to 2040 ms VARICOSITIES: Location: Medial thigh off the residual great saphenous vein Size: 0.3 to 0.5 cm Reflux: 1600 ms US/US venous insuf bilat IMPRESSION: Right: Recanalization flow within the great saphenous vein with reflux as described above. Dilated lateral duplicated great saphenous vein within the thigh with severe reflux. There are multiple varicose veins throughout the thigh and calf arising from the residual great saphenous vein and lateral duplicated great saphenous vein as described above Left: Recanalized flow within the great saphenous vein with reflux as described above. Dilated medial duplicated great saphenous vein with severe reflux as described above. Segmental reflux in the distal small saphenous vein. Multiple varicose veins arising from of the small saphenous vein, medial duplicated great saphenous vein and residual great saphenous vein. Stable chronic deep venous thrombosis in the left popliteal vein. Deep venous reflux seen in the left superficial femoral vein and popliteal vein as described above
== END 2023-11-16 10:37 | disposition home or self-care (01) ==
LOC: HO.US 10:36
PROVIDERS: PCP Nurse Practitioner Family; Visit Provider Surgery Vascular Surgery
DX: I83.11 Varicose veins of right lower extremity with inflammation (principal)
CPT/HCPCS: 93970

== ENCOUNTER 2023-12-11 12:49 | Outpatient (AMB) | payer MEDICARE, OTHER, SELFPAY ==
[2023-12-11 12:56] VITALS: BMI 30.4
--- NOTE | 2023-12-11 12:56 | A.OFFVIS_ITS ---
Intake Vital Signs 12/11/23 12:56 Height 6 ft 4 in Weight 250 lb BMI 30.4 Intake Visit Reasons: follow up 11/16/2023 Intake Note: Pt presents to the office today for a follow up 11/16/23. Pt states he is still getting numbness in his feet sometimes and he also states he has skin discoloration. Allergies codeine [CODEINE] Allergy (Severe, Verified 12/11/23 12:57) SEVERE PAIN/HYPOXIA W/HIGH DOSES meningococcal vaccine A,C,Y and W-1 [MENINGOCOCCAL VACCINE A,C,Y AND W-1] Allergy (Intermediate, Verified 12/11/23 12:57) HIVES salmon oil Allergy (Unknown, Verified 12/11/23 12:57) hives SALMON Allergy (Severe, Uncoded 12/11/23 12:57) LT HEMIPARESIS HPI follow up 11/16/2023 HPI Details Very pleasant 63-year-old gentleman presents for follow-up regarding venous insufficiency. He has had actually prior bilateral venous procedures and he has had significant varicosities that have recurred. Now presents to us for follow-up. [facility] Medical History Factor 5 Leiden mutation, heterozygous Right knee pain On continuous oral anticoagulation Leg fracture, left Klinefelter syndrome Pulmonary embolus HTN (hypertension) HIV (human immunodeficiency virus infection) DVT (deep venous thrombosis) Surgical History Hx of colonoscopy History of angioplasty of vein Hx of left knee surgery History of umbilical hernia repair Hx of cholecystectomy S/P ORIF (open reduction internal fixation) fracture Family History Father No problems noted. Mother No problems noted. Social History Housing: House Are you a primary healthcare administrative assistant to a significant other at home: No Do you presently have visiting nurse or other home services: No Alcohol intake: former Patient Tobacco Use Status: Former Tobacco user Quit Date: 2004 Tobacco use type: Cigarette Cigarette Packs Per Day: 2 e-Cigarette/Vaping Use: Never Used Second Hand Smoke Exposure: Yes Substance Use Type: Marijuana service: Yes ([employer] ) Current occupational status: employed Current occupation: [employer] Current occupational exposures/hazards: No Review of Systems Const Reports as per HPI ENT Reports no additional complaints Card Denies chest pain, Denies chest pain at rest and Denies chest pain with activity Resp Denies chest congestion and Denies cough GI Reports no additional complaints Musc Details: pain over varicosities, aching of lower extremities, swelling, cramping, heaviness and tiredness, itching Denies abnormal gait Skin/Breast Reports pruritus and Denies wounds Neuro Reports no additional complaints and Denies abnormal gait Psych Denies no additional complaints Physical Exam Vital Signs: BMI result Body Mass Index 30.4 Const General: cooperative, healthy appearing and comfortable Orientation/consciousness: oriented to person, oriented to place and oriented to time Neck Carotids: no bruits Chest Chest palpation & inspection: normal inspection of the chest and normal palpation of entire chest wall Resp Effort & Inspection: normal respiratory effort and able to speak in complete sentences Cardio Rate: regular rate Heart sounds: S1 normal heart sound present and S2 normal heart sound present Peripheral pulses: Peripheral pulses 2+ throughout GI Inspection: Yes normal to inspection Skin Other: +2 edema, large rope-like varicosities greater than 4 mm CEAP Classification C4 - skin color changes Ep - Etiology Primary As - superficial veins P - reflux General skin exam: dry skin Neuro General: oriented to person, oriented to place and oriented to time Extrem Right lower extremity: full ROM, normal capillary refill and edema Left lower extremity: full ROM, normal capillary refill and edema Psych Mental Status: mental status grossly normal Results Reviewed Results Reviewed: Brief summary of venous insufficiency testing is as follows: right great saphenous vein: Positive right small saphenous vein: negative right accessory vein: none present left great saphenous vein: Positive left small saphenous vein: negative left accessory vein: none present Please note there is no evidence of any venous aneurysms or significant tortuosity Assessment & Plan Assessment & Plan (1) Varicose veins of right lower extremity with inflammation: Comment: July 2018 - right great saphenous vein Cyanoacralate ablation Code(s): I83.11 - Varicose veins of right lower extremity with inflammation Plan: See below (2) Varicose veins of left lower extremity with inflammation: Comment: June 2018 - left great saphenous vein radiofrequency ablation Code(s): I83.12 - Varicose veins of left lower extremity with inflammation Plan: This patient has varicose veins with inflammation. They continue to be a source of discomfort for the patient. The patient has tried conservative treatment with compression, leg elevation and exercise program for over 3 months time. They have been compliant with all treatment. This has provided minimal relief for the patient. I do not anticipate this course of treatment will alter the underlying etiology. The patient has been scheduled for lower extremity venous treatment inclusive of --- left great saphenous vein Cyanoacralate ablation. Risks, benefits, and complications of this procedure has been discussed in detail with the patient including but not limited to bleeding, infection, and the development of a DVT. The patient has demonstrated a clear understanding and has consented. We will schedule the patient as soon as polly noel. Thank you for allowing us to participate in this patient's care. If there are any questions or concerns please do not hesitate to contact us. Coding Level of Care Code Est Pt Level 4 (28713) Diagnoses Varicose veins of right lower extremity with inflammation I83.11 Varicose veins of left lower extremity with inflammation I83.12
== END 2023-12-11 13:40 | disposition home or self-care (01) ==
PROVIDERS: PCP Nurse Practitioner Family; Visit Provider Surgery Vascular Surgery
DX: I83.11 Varicose veins of right lower extremity with inflammation (principal); I83.12 Varicose veins of left lower extremity with inflammation
CPT/HCPCS: 99214

== ENCOUNTER → 2023-12-11 12:49 | Outpatient (BNVA) | payer MEDICARE, OTHER, SELFPAY | PROVIDERS: PCP Nurse Practitioner Family; Visit Provider Surgery Vascular Surgery | DX: I83.11 Varicose veins of right lower extremity with inflammation (principal); I83.12 Varicose veins of left lower extremity with inflammation | CPT/HCPCS: 99212 ==

== ENCOUNTER 2023-12-14 12:05 | Outpatient (AMB) | payer MEDICARE, OTHER, SELFPAY ==
--- NOTE | 2023-12-14 12:36 | MHC.OFFVIS ---
Intake Vital Signs 12/14/23 12:37 Height 6 ft 4 in Weight 240 lb BMI 29.2 Intake Visit Reasons: Left GSV Venaseal Accompanied by: Self / Same As Patient Allergies codeine [CODEINE] Allergy (Severe, Verified 12/14/23 12:37) SEVERE PAIN/HYPOXIA W/HIGH DOSES meningococcal vaccine A,C,Y and W-1 [MENINGOCOCCAL VACCINE A,C,Y AND W-1] Allergy (Intermediate, Verified 12/14/23 12:37) HIVES salmon oil Allergy (Unknown, Verified 12/14/23 12:37) hives SALMON Allergy (Severe, Uncoded 12/11/23 12:57) LT HEMIPARESIS PFSH Medical History Factor 5 Leiden mutation, heterozygous Right knee pain On continuous oral anticoagulation Leg fracture, left Klinefelter syndrome Pulmonary embolus HTN (hypertension) HIV (human immunodeficiency virus infection) DVT (deep venous thrombosis) Surgical History Hx of colonoscopy History of angioplasty of vein Hx of left knee surgery History of umbilical hernia repair Hx of cholecystectomy S/P ORIF (open reduction internal fixation) fracture Family History Father No problems noted. Mother No problems noted. Social History Housing: House Are you a primary coronary care unit nurse to a significant other at home: No Do you presently have visiting nurse or other home services: No Alcohol intake: former Patient Tobacco Use Status: Former Tobacco user Quit Date: 2004 Tobacco use type: Cigarette Cigarette Packs Per Day: 2 e-Cigarette/Vaping Use: Never Used Second Hand Smoke Exposure: Yes Substance Use Type: Marijuana service: Yes ([employer] ) Current occupational status: employed Current occupation: [employer] Current occupational exposures/hazards: No Physical Exam Vital Signs: BMI result Body Mass Index 29.2 Office Procedures Vascular Office Procedure Details Details: Diagnosis: Left Leg varicose veins with inflammation Procedure: Endovenous Ablation of the left Great Saphenous Vein with VenaSeal Closure System Anesthesia: Local infiltration 5 cc, Estimated Blood Loss: min Specimen: none Duplex ultrasound was used to map out the insufficient saphenous vein, and access was determined and marked on the overlying skin. The depth and diameter of the vein(s) to be treated was documented. The patient was placed supine on the procedure table and the leg was prepped and draped using sterile technique. Ultasound guidance was again used to localize the access site. 1% lidocaine was injected as a local anesthetic in the subcutaneous tissues at the target location in the GSV in the lower leg. Using ultrasound guidance, access was gained at this location with the 19 gauge thin walled access needle and followed by introduction of a short guidewire, location confirmed with ultrasound. A small, 3 mm incision was made at the access site to allow for introduction and placement of the 7 Fr x7cm introducer/dilator. The dilator and guidewire were removed. The 0.035 guidewire from the VenaSeal kit was then introduced and positioned at the saphenofemoral junction using ultrasound guidance. The 80 cm 7 Fr introducer sheath/dilator was positioned 5cm from the saphenofemoral junction. The guidewire and dilator were removed, and the remaining sheath was flushed with sterile saline, with the syringe remaining in place prior to the next steps. The cyanoacrylate adhesive was precisely primed into the 5 F delivery catheter and this catheter/syringe combination was attached within the dispenser gun. This assembly was introduced through the 7F sheath and positioned 5 cm caudal of the saphenofemoral junction under ultrasound guidance. The steps from the IFU were followed for dispensing amounts, locations and compression times, 2 aliquots proximally with 3 minutes of compression, and 1 aliquot every 3 cm distally with 30 sec of compression along the course of the vessel. Following the last injection and compression sequence, the catheter and introducer sheath were pulled out from the access site. Hemostasis was achieved with manual compression and an adhesive bandage was applied to the incision. Ultrasound confirmed complete coaptation and closure of the treated segments of the GSV, and the absence of any DVT at the saphenofemoral junction. Treatment time was approximately 8 minutes and the vein length treated was 50 cm. The drapes were removed and the patient cleaned and prepared for discharge. Post op ultrasound check is scheduled for 48-72 hours and the patient was given written post-op instructions. [id number] - Endoven Ther Chem Adhes 1st All charges added?: Procedure code (CPT) selection complete Assessment & Plan Assessment & Plan (1) Varicose veins of left lower extremity with inflammation: Comment: June 2018 - left great saphenous vein radiofrequency ablation 12/14/2023 - left great saphenous vein Cyanoacralate ablation Code(s): I83.12 - Varicose veins of left lower extremity with inflammation Plan: See op note Coding Level of Care Code Procedure Only Diagnoses Varicose veins of left lower extremity with inflammation I83.12 CPT Codes Details - Vascular 3: 97615 - Endoven Ther Chem Adhes 1st ([id number])
[2023-12-14 12:37] VITALS: BMI 29.2
== END 2023-12-14 14:00 | disposition home or self-care (01) ==
PROVIDERS: PCP Nurse Practitioner Family; Visit Provider Surgery Vascular Surgery
DX: I83.12 Varicose veins of left lower extremity with inflammation (principal)
CPT/HCPCS: 36482

== ENCOUNTER → 2023-12-14 12:05 | Outpatient (BNVA) | payer MEDICARE, OTHER, SELFPAY | PROVIDERS: PCP Nurse Practitioner Family; Visit Provider Surgery Vascular Surgery | DX: I83.12 Varicose veins of left lower extremity with inflammation (principal) | CPT/HCPCS: 36482 ==

== ENCOUNTER 2023-12-25 14:16 | Outpatient (REF) | payer MEDICARE, OTHER, SELFPAY ==
--- NOTE | ~2023-12-25 | US_ITS ---
EXAMINATION: US VENOUS ULTRASOUND WITH DOPPLER LOWER EXTREMITY, LEFT CLINICAL INFORMATION: Left LE s/p Left GSV Venaseal COMPARISON: Venous insufficiency exam bilateral November 16, 2023. TECHNIQUE: Ultrasound of the deep veins is performed from the hip to the calf with compression sonography and color and pulse Doppler assessment. Spectral analysis with color-flow imaging is performed. FINDINGS: Venaseal present in the greater saphenous vein 1.6 cm from the superficial femoral vein junction. There is normal venous compression and respiratory variation and augmented flow. The visualized common femoral vein, superficial femoral vein, profunda femoral vein, popliteal vein, and the trifurcation region shows no evidence of deep venous thrombosis. There is no significant popliteal fossa cyst. If the patient's symptoms persist, followup ultrasound in 5 days 7 days might be of value to exclude proximal propagation from a non-visualized calf vein. US/US venous duplex LE LT IMPRESSION: No DVT demonstrated in the left lower extremity.
== END 2023-12-25 14:17 | disposition home or self-care (01) ==
LOC: HO.US 14:16
PROVIDERS: PCP Nurse Practitioner Family; Visit Provider Surgery Vascular Surgery
DX: M79.605 Pain in left leg (principal)
CPT/HCPCS: 93971

== ENCOUNTER 2024-01-15 09:05 | Outpatient (AMB) | payer MEDICARE, OTHER, SELFPAY ==
--- NOTE | 2024-01-15 09:06 | MHC.OFFVIS ---
Vital Signs 01/15/24 09:10 Height 6 ft 4 in Weight 241 lb BMI 29.3 Intake Visit Reasons: Follow up Left SSV Venaseal 12/14/2023 Intake Note: Patient presents for follow up left ssv venaseal. No complaints. Accompanied by: Self / Same As Patient Allergies codeine [CODEINE] Allergy (Severe, Verified 01/15/24 09:07) SEVERE PAIN/HYPOXIA W/HIGH DOSES meningococcal vaccine A,C,Y and W-1 [MENINGOCOCCAL VACCINE A,C,Y AND W-1] Allergy (Intermediate, Verified 01/15/24 09:07) HIVES salmon oil Allergy (Unknown, Verified 01/15/24 09:07) hives SALMON Allergy (Severe, Uncoded 12/11/23 12:57) LT HEMIPARESIS HPI HPI Follow up Left SSV Venaseal 12/14/2023: Details: Very pleasant 63-year-old gentleman who has undergone multiple venous procedures by us presents for follow-up status post left small saphenous vein ablation. Reports overall good result from the ablation. He does have prominent varicosities which have been a source of pain and discomfort for him. He now presents to us for follow-up. [facility] Medical History Factor 5 Leiden mutation, heterozygous Right knee pain On continuous oral anticoagulation Leg fracture, left Klinefelter syndrome Pulmonary embolus HTN (hypertension) HIV (human immunodeficiency virus infection) DVT (deep venous thrombosis) Surgical History Hx of colonoscopy History of angioplasty of vein Hx of left knee surgery History of umbilical hernia repair Hx of cholecystectomy S/P ORIF (open reduction internal fixation) fracture Family History Father No problems noted. Mother No problems noted. Social History Housing: House Are you a primary caretaker grounds to a significant other at home: No Do you presently have visiting nurse or other home services: No Alcohol intake: former Patient Tobacco Use Status: Former Tobacco user Quit Date: 2004 Tobacco use type: Cigarette Cigarette Packs Per Day: 2 e-Cigarette/Vaping Use: Never Used Second Hand Smoke Exposure: Yes Substance Use Type: Marijuana service: Yes ([employer] ) Current occupational status: employed Current occupation: [employer] Current occupational exposures/hazards: No Review of Systems Const Reports as per HPI ENT Reports no additional complaints Card Denies chest pain, Denies chest pain at rest and Denies chest pain with activity Resp Denies chest congestion and Denies cough GI Reports no additional complaints Musc Details: pain over varicosities, aching of lower extremities, swelling, cramping, heaviness and tiredness, itching Denies abnormal gait Skin/Breast Reports pruritus and Denies wounds Neuro Reports no additional complaints and Denies abnormal gait Psych Denies no additional complaints Physical Exam Vital Signs: BMI result Body Mass Index 29.3 Const General: cooperative, healthy appearing and comfortable Orientation/consciousness: oriented to person, oriented to place and oriented to time Neck Carotids: no bruits Chest Chest palpation & inspection: normal inspection of the chest and normal palpation of entire chest wall Resp Effort & Inspection: normal respiratory effort and able to speak in complete sentences Cardio Rate: regular rate Heart sounds: S1 normal heart sound present and S2 normal heart sound present Peripheral pulses: Peripheral pulses 2+ throughout GI Inspection: Yes normal to inspection Skin Other: +2 edema, large rope-like varicosities greater than 4 mm right calf and thigh CEAP Classification C4 - skin color changes Ep - Etiology Primary As - superficial veins P - reflux General skin exam: dry skin Neuro General: oriented to person, oriented to place and oriented to time Extrem Right lower extremity: full ROM, normal capillary refill and edema Left lower extremity: full ROM, normal capillary refill and edema Psych Mental Status: mental status grossly normal Assessment & Plan Assessment & Plan (1) Varicose veins of left lower extremity with inflammation: Comment: June 2018 - left great saphenous vein radiofrequency ablation 12/14/2023 - left great saphenous vein Cyanoacralate ablation Code(s): I83.12 - Varicose veins of left lower extremity with inflammation Category: Medical Plan: See below (2) Varicose veins of right lower extremity with inflammation: Comment: July 2018 - right great saphenous vein Cyanoacralate ablation Code(s): I83.11 - Varicose veins of right lower extremity with inflammation Category: Medical Plan: This patient has varicose veins with inflammation. They continue to be a source of discomfort for the patient. The patient has tried conservative treatment with compression, leg elevation and exercise program for over 3 months time. They have been compliant with all treatment. This has provided minimal relief for the patient. I do not anticipate this course of treatment will alter the underlying etiology. The patient has been scheduled for lower extremity venous treatment inclusive of --- right leg microphlebectomy. Risks, benefits, and complications of this procedure has been discussed in detail with the patient including but not limited to bleeding, infection, and the development of a DVT. The patient has demonstrated a clear understanding and has consented. We will schedule the patient as soon as possible. Thank you for allowing us to participate in this patient's care. If there are any questions or concerns please do not hesitate to contact us. Coding Level of Care Code Est Pt Level 4 (36722) Diagnoses Varicose veins of left lower extremity with inflammation I83.12 Varicose veins of right lower extremity with inflammation I83.11
[2024-01-15 09:10] VITALS: BMI 29.3
== END 2024-01-15 10:06 | disposition home or self-care (01) ==
PROVIDERS: PCP Nurse Practitioner Family; Visit Provider Surgery Vascular Surgery
DX: I83.12 Varicose veins of left lower extremity with inflammation (principal); I83.11 Varicose veins of right lower extremity with inflammation
CPT/HCPCS: 99214

== ENCOUNTER → 2024-01-15 09:05 | Outpatient (BNVA) | payer MEDICARE, OTHER, SELFPAY | PROVIDERS: PCP Nurse Practitioner Family; Visit Provider Surgery Vascular Surgery | DX: I83.12 Varicose veins of left lower extremity with inflammation (principal); I83.11 Varicose veins of right lower extremity with inflammation; Z98.890 Other specified postprocedural states | CPT/HCPCS: 99212 ==

== ENCOUNTER 2024-02-25 08:54 | Day surgery (SDC) | payer MEDICARE, OTHER, SELFPAY ==
[2024-01-31 15:28] VITALS: BMI 29.3
--- NOTE | 2024-02-21 13:45 | HO.ANESPROP2 ---
Documented by User: Britt Torres NP 02/21/24 13:47 HPI - Anesthesia Eval Consult details Narrative: 63yo M for Right MicroPhlebectomy Xarelto for Factor V/Hx DVT and PE PMFSH Active Problems Active Problems: All Active Problems Varicose veins of left lower extremity with inflammation (Acute) Varicose veins of right lower extremity with inflammation (Acute) Exposure to syphilis (Acute) Anemia (Acute) Encounter for annual wellness visit (AWV) in Medicare patient (Acute) Loss of hearing (Acute) Erectile dysfunction due to arterial insufficiency (Acute) Elevated liver enzymes (Acute) Nausea (Acute) Dizziness (Acute) Diarrhea (Acute) Klinefelter syndrome (Acute) Tubular adenoma (Acute) Family hx of ALS (amyotrophic lateral sclerosis) (Acute) Rectal bleeding (Acute) GI bleed (Acute) Dyslipidemia (Acute) Plantar warts (Acute) Foot pain (Acute) Systolic murmur (Acute) B12 deficiency (Acute) Screening PSA (prostate specific antigen) (Acute) Physical exam (Acute) HIV (human immunodeficiency virus infection) (Acute) Current use of anticoagulant therapy (Acute) Hypogonadism in male (Acute) Left hip pain (Acute) Left knee pain (Acute) Cellulitis (Acute) Right hip pain (Acute) Screening examination for sexually transmitted disease (Acute) Chronic back pain (Acute) Screening PSA (prostate specific antigen) (Acute) History of DVT (deep vein thrombosis) (Chronic) Right knee pain (Acute) Past Medical History Medical History (Updated 02/25/24 @ 11:31 by Latasha Licona MD) Factor 5 Leiden mutation, heterozygous Right knee pain On continuous oral anticoagulation Leg fracture, left Klinefelter syndrome Pulmonary embolus HTN (hypertension) HIV (human immunodeficiency virus infection) DVT (deep venous thrombosis) Family History Family History Father No problems noted. Mother No problems noted. Surgical History Surgical History Hx of colonoscopy History of angioplasty of vein Hx of left knee surgery History of umbilical hernia repair Hx of cholecystectomy S/P ORIF (open reduction internal fixation) fracture History of Problems with Anesthesia: No Social History Social History Housing: House Are you a primary career consultant to a significant other at home: No Do you presently have visiting nurse or other home services: No Alcohol intake: former Patient Tobacco Use Status: Former Tobacco user Tobacco use type: Cigarette Cigarette Packs Per Day: 2 e-Cigarette/Vaping Use: Never Used Second Hand Smoke Exposure: Yes Substance Use Type: Marijuana Advance Directives: No Advance Directives Information Provided: Yes service: Yes ([employer] ) Current occupational status: employed Current occupation: [employer] Current occupational exposures/hazards: No Meds Allergies Allergy/AdvReac Type Severity Reaction Status Date / Time codeine [CODEINE] Allergy Severe SEVERE Verified 02/25/24 09:48 PAIN/HYPOXIA W/HIGH DOSES meningococcal vaccine A,C,Y Allergy Intermediate HIVES Verified 02/25/24 09:48 and W-1 [MENINGOCOCCAL VACCINE A,C,Y AND W-1] salmon oil Allergy Unknown hives Verified 02/25/24 09:48 SALMON Allergy Severe LT Uncoded 02/25/24 09:48 HEMIPARESIS Home Medications ?Medication ?Instructions ?Recorded ?Confirmed ?Last Taken ?Type ascorbic acid (vitamin C) 500 mg 500 mg PO DAILY 07/20/20 02/25/24 Unknown History tablet (Vitamin C) cholecalciferol (vitamin D3) 25 25 mcg PO DAILY 07/20/20 02/25/24 Unknown History mcg (1,000 unit) tablet (Vitamin D3) chromium 200 mcg capsule 200 mcg PO DAILY 07/20/20 02/25/24 Unknown History cyanocobalamin (vitamin B-12) 100 100 mcg PO DAILY 07/20/20 02/25/24 Unknown History mcg tablet (Vitamin B-12) zinc 100 mg tablet 100 mg PO DAILY 07/20/20 02/25/24 Unknown History syringe with needle 1 mL 27 x 1/2 #1 ea 07/22/20 10/31/23 Unknown History sildenafil 100 mg tablet 100 mg PO 07/17/22 10/31/23 Unknown History tamsulosin 0.4 mg capsule 0.4 mg PO DAILY 07/17/22 02/25/24 Unknown History Exam Height,Weight and Vital Signs: Height 6 ft 4 in Weight 109.316 kg Pertinent Lab Results Pertinent Lab Results: Laboratory Tests 09/04/23 16:14 WBC 4.8 Hgb 12.8 L Hct 36.8 L Plt Count 168 Assessment and Plan Assessment Anesthesia Assessment: Chart Reviewed Final Anesthetic Review History of Problems with Anesthesia: No Documented by User: Latasha Licona MD 02/25/24 11:37 [facility] Active Problems Active Problems: All Active Problems Varicose veins of left lower extremity with inflammation (Acute) Varicose veins of right lower extremity with inflammation (Acute) Exposure to syphilis (Acute) Anemia (Acute) Encounter for annual wellness visit (AWV) in Medicare patient (Acute) Loss of hearing (Acute) Erectile dysfunction due to arterial insufficiency (Acute) Elevated liver enzymes (Acute) Nausea (Acute) Dizziness (Acute) Diarrhea (Acute) Klinefelter syndrome (Acute) Tubular adenoma (Acute) Family hx of ALS (amyotrophic lateral sclerosis) (Acute) Rectal bleeding (Acute) GI bleed (Acute) Dyslipidemia (Acute) Plantar warts (Acute) Foot pain (Acute) Systolic murmur (Acute) B12 deficiency (Acute) Screening PSA (prostate specific antigen) (Acute) Physical exam (Acute) HIV (human immunodeficiency virus infection) (Acute) Current use of anticoagulant therapy (Acute) for h/o DVT x3 and pulmonary embolus. On xarelto. Last dose 02/23/24 Hypogonadism in male (Acute) Left hip pain (Acute) Left knee pain (Acute) Cellulitis (Acute) Right hip pain (Acute) Screening examination for sexually transmitted disease (Acute) Chronic back pain (Acute) Screening PSA (prostate specific antigen) (Acute) History of DVT (deep vein thrombosis) (Chronic) Right knee pain (Acute) H/o drug abuse- cocaine, crystal meth, hashish many years ago. Now daily marijuana. Last used yesterday H/o admission for depression Past Medical History Medical History (Updated 02/25/24 @ 11:31 by Latasha Licona MD) Factor 5 Leiden mutation, heterozygous Right knee pain On continuous oral anticoagulation Leg fracture, left Klinefelter syndrome Pulmonary embolus HTN (hypertension) HIV (human immunodeficiency virus infection) DVT (deep venous thrombosis) Family History Family History Father No problems noted. Mother No problems noted. Family history of problems with anesthesia: No Surgical History Surgical History Hx of colonoscopy History of angioplasty of vein Hx of left knee surgery History of umbilical hernia repair Hx of cholecystectomy S/P ORIF (open reduction internal fixation) fracture History of Problems with Anesthesia: No Social History Social History Housing: House Are you a primary career consultant to a significant other at home: No Do you presently have visiting nurse or other home services: No Alcohol intake: former Patient Tobacco Use Status: Former Tobacco user Tobacco use type: Cigarette Cigarette Packs Per Day: 2 e-Cigarette/Vaping Use: Never Used Second Hand Smoke Exposure: Yes Substance Use Type: Marijuana Advance Directives: No Advance Directives Information Provided: Yes service: Yes ([employer] ) Current occupational status: employed Current occupation: [employer] Current occupational exposures/hazards: No Meds Allergies Allergy/AdvReac Type Severity Reaction Status Date / Time codeine [CODEINE] Allergy Severe SEVERE Verified 02/25/24 09:48 PAIN/HYPOXIA W/HIGH DOSES meningococcal vaccine A,C,Y Allergy Intermediate HIVES Verified 02/25/24 09:48 and W-1 [MENINGOCOCCAL VACCINE A,C,Y AND W-1] salmon oil Allergy Unknown hives Verified 02/25/24 09:48 SALMON Allergy Severe LT Uncoded 02/25/24 09:48 HEMIPARESIS Home Medications ?Medication ?Instructions ?Recorded ?Confirmed ?Last Taken ?Type ascorbic acid (vitamin C) 500 mg 500 mg PO DAILY 07/20/20 02/25/24 Unknown History tablet (Vitamin C) cholecalciferol (vitamin D3) 25 25 mcg PO DAILY 07/20/20 02/25/24 Unknown History mcg (1,000 unit) tablet (Vitamin D3) chromium 200 mcg capsule 200 mcg PO DAILY 07/20/20 02/25/24 Unknown History cyanocobalamin (vitamin B-12) 100 100 mcg PO DAILY 07/20/20 02/25/24 Unknown History mcg tablet (Vitamin B-12) zinc 100 mg tablet 100 mg PO DAILY 07/20/20 02/25/24 Unknown History syringe with needle 1 mL 27 x 1/2 #1 ea 07/22/20 10/31/23 Unknown History sildenafil 100 mg tablet 100 mg PO 07/17/22 10/31/23 Unknown History tamsulosin 0.4 mg capsule 0.4 mg PO DAILY 07/17/22 02/25/24 Unknown History Exam Height,Weight and Vital Signs: Height 6 ft 4 in Weight 109.316 kg Vital Signs Temp Pulse Resp BP Pulse Ox O2 Del Method 02/25/24 09:56 99.6 F 72 16 143/81 H 94 Room Air Airway Mallampati Class: II TM Dist: >3cm Neck ROM: Full Denture: Upper Loose/Missing/Broken Teeth: Yes (Full denture top. Only few teeth bottom front. Denies any broken or loose) Heart: RRR with loud systolic murmur Lungs: CTAB Assessment and Plan Assessment Anesthesia Assessment: Anesthesia Plan Discussed and Chart Reviewed Final Anesthetic Review Family History of Problems with Anesthesia: No History of Problems with Anesthesia: No NPO: Yes ASA Class: III Final Preanesthetic Review: No Changes in Pt Med Stat, Meds/Allgs Chart Reviewed, Consent Obtained/Reviewed and Anes Risks/Benef Reviewed Patient Risk: Intermediate Procedure Risk: Low Assessment/Block/Sedation in SS: Assess/Block/Sedation-SS Anesthetic Plan Anesthetic Plan: GA Disposition: Standard PACU
--- NOTE | 2024-02-25 07:36 | MHC.SHP ---
Pre-Procedural Eval Section A - 24 Hr Update-Section A only Date of Service: 02/25/24 The patient is an INPATIENT: No Changes since office visit: Yes Patient answered all questions The patient has been examined within 24 hours of the surgical procedure. The History & Physical has been completed within 30 days and I have reviewed it.: Yes Section B - Complete if H&P > 30 days Chief Complaint: Varicose veins of left lower extremity with inflam Allergies: Allergies Allergy/AdvReac Type Severity Reaction Status Date / Time codeine [CODEINE] Allergy Severe SEVERE Verified 01/15/24 09:07 PAIN/HYPOXIA W/HIGH DOSES meningococcal vaccine A,C,Y Allergy Intermediate HIVES Verified 01/15/24 09:07 and W-1 [MENINGOCOCCAL VACCINE A,C,Y AND W-1] salmon oil Allergy Unknown hives Verified 01/15/24 09:07 SALMON Allergy Severe LT Uncoded 12/11/23 12:57 HEMIPARESIS Plan I have reviewed the history and physical and performed a pertinent physical examination on my patient. No changes have occurred unless specified. Time Spent With Patient Time: Total time managing care of this patient today ____ minutes.
[2024-02-25 09:56] VITALS: BP 143/81; PULSE 72; RESP 16; TEMP 37.6; O2SAT 94
--- NOTE | 2024-02-25 12:12 | W.PM.OPN ---
Operative Note Operative Note Date of Service: 02/25/24 Narrative: Operative note by [facility] Preoperative diagnosis: Right leg varicose veins with inflammation Postoperative diagnosis: Same Procedure:1. Right leg microphlebectomy X27 2. Ligation of venous clusters of right leg x2 Surgeon:Rishi Smith M.D. Cosmetic Manager: None Anesthesia: General Specimens: 1 Drains: None Estimated blood loss: 100 mL Indications: Pleasant 63-year-old gentleman with history of venous disease has significantly large varicosities throughout the right leg. They have been a source of pain and discomfort for him. Now presents for removal of these varicose veins. The patient has signed the informed consent after reviewing risks, complications, benefits, and alternatives previously discussed with the patient. The patient was given the opportunity to ask any additional questions or voice any concerns. All questions were answered to the patient's satisfaction. Procedure in detail: Varicose veins were marked in the standing position on the right leg and the patient was then placed in the supine position. The right lower extremity was prepared and draped to allow knee flexion in the sterile field. The patient had large superficial varicose veins with significant symptoms of pain. It was therefore determined to perform microphlebectomies of the clusters of varicose veins. The patient had bulging varicose veins which were previously marked in the standing position. A small stab incision was made longitudinally directly overlying the varicose vein in the calf and the varicose vein was grasped with a hemostat aided by a vein hook. It was then dissected as far proximally and distally as possible and avulsed. A total of 27 stab incisions were made and the procedure of stab phlebectomies was repeated 27 times. Once this was accomplished there was a large venous cluster from the right medial thigh and the right anterior tibial surface. We 1st approached the right medial thigh we made an incision using an 11 blade got down to the base ligated this with a 3-0 Polysorb suture. And residual varicosities were removed. In a similar fashion on the anterior tibial surface a large cluster was identified we ligated the base and remove the residual varicosities. Pressure was used for hemostasis. Hemostasis was checked and stab incision sites were closed with steri-strips and sterile dressing was given with gauze and krilex wrap followed by an edgar bandage. There were no complications and blood loss was minimal. Post-Op instructions were given and a follow-up appointment was recommended. This note is constructed using voice recognition software. While every effort has been made to ensure accuracy, pickling machine operator errors may have been included. Thank you for allowing me to participate in the care of your patient. Yours sincerely, Rishi Smith MD, FACS, R.P.V.I.
[2024-02-25 12:17] VITALS: BP 153/80; PULSE 58; RESP 12; TEMP 36.6; O2SAT 99
[2024-02-25 12:22] VITALS: BP 150/79; PULSE 59; RESP 12; O2SAT 99
[2024-02-25 12:27] VITALS: BP 148/75; PULSE 58; RESP 14; O2SAT 98
[2024-02-25 12:32] VITALS: BP 156/79; PULSE 59; RESP 16; O2SAT 98
[2024-02-25 12:47] VITALS: BP 130/94; PULSE 63; RESP 16; TEMP 36.6; O2SAT 98
== END 2024-02-25 13:26 | disposition home or self-care (01) ==
PROVIDERS: PCP Nurse Practitioner Family; Visit Provider Surgery Vascular Surgery
PROC: (CPT 37766; principal; 2024-02-25 10:50)
DX: I83.11 Varicose veins of right lower extremity with inflammation (principal); Z88.5 Allergy status to narcotic agent; D68.51 Activated protein C resistance; I82.409 Acute embolism and thrombosis of unspecified deep veins of unspecified lower extremity; B20 Human immunodeficiency virus [HIV] disease; I26.99 Other pulmonary embolism without acute cor pulmonale; Q98.4 Klinefelter syndrome, unspecified; I10 Essential (primary) hypertension; Z79.899 Other long term (current) drug therapy; Z79.01 Long term (current) use of anticoagulants; Z98.890 Other specified postprocedural states; Z87.891 Personal history of nicotine dependence
CPT/HCPCS: 37766; 37785; 88304; A4364; J0131; J0690; J1100; J1885; J2250; J2405; J2704; J2795; J3010

== ENCOUNTER → 2024-02-25 08:54 | Outpatient (BNV) | payer MEDICARE, OTHER, SELFPAY | PROVIDERS: PCP Nurse Practitioner Family; Visit Provider Surgery Vascular Surgery | DX: I83.11 Varicose veins of right lower extremity with inflammation (principal) | CPT/HCPCS: 37766; 37785 ==

== ENCOUNTER 2024-03-13 14:50 | Outpatient (AMB) | payer MEDICARE, OTHER, SELFPAY ==
--- NOTE | 2024-03-13 15:26 | A.OFFVIS_ITS ---
Vital Signs 03/13/24 15:30 Height 6 ft 4 in Weight 234 lb BMI 28.5 BP 152/82 H Blood Pressure Location Lt brachial Position Sitting Pulse 75 Intake Visit Reasons: wound check (Sarah pt) Intake Note: Patient is seen in office for wound check, refer by Dr Smith. Pt c/o: admits to redness, swelling, increase pain, had sugery with Dr Smith on 02/28/24, currently on antbx since Sunday, pass out, denies fever, chills, nausea, vomit [employer] Required: No Accompanied by: Self / Same As Patient Allergies codeine [CODEINE] Allergy (Severe, Verified 03/13/24 15:30) SEVERE PAIN/HYPOXIA W/HIGH DOSES meningococcal vaccine A,C,Y and W-1 [MENINGOCOCCAL VACCINE A,C,Y AND W-1] Allergy (Intermediate, Verified 03/13/24 15:30) HIVES salmon oil Allergy (Unknown, Verified 03/13/24 15:30) hives SALMON Allergy (Severe, Uncoded 03/13/24 15:30) LT HEMIPARESIS Medication List - Last Reconciled 03/14/24 by Abdirahman Cardona MD alfuzosin ER 10 mg PO BEDTIME 30 days ascorbic acid (vitamin C) (Vitamin C) 500 mg PO DAILY cephalexin 500 mg PO Q8H 10 days cholecalciferol (vitamin D3) (Vitamin D3) 25 mcg PO DAILY chromium 200 mcg PO DAILY cyanocobalamin (vitamin B-12) (Vitamin B-12) 100 mcg PO DAILY dolutegravir (Tivicay) 50 mg PO DAILY 30 days doxycycline hyclate 100 mg PO BID emtricitabine-tenofovir alafen 200-25 mg (Descovy) 1 tab PO DAILY 30 days needle (disp) 18 G (BD Regular Bevel [place]) To draw up medication needle (disp) 22 G To inject Testosterone rivaroxaban 20 mg PO DAILY sertraline 50 mg PO DAILY sildenafil 100 mg PO syringe (disposable) (BD Luer-Ellen Syringe) Testosterone injection weekly syringe with needle As directed tadalafil 10 mg PO DAILY 90 days tadalafil 20 mg PO ONCE PRN 30 days tamsulosin 0.4 mg PO DAILY terazosin 5 mg PO BEDTIME testosterone cypionate (Depo-Testosterone) 90 mg (0.45 mL) subcut QWEEK 4 weeks trazodone 50 mg PO BEDTIME PRN 90 days triamcinolone acetonide 0.5% 1 appl topical DAILY 30 days zinc 100 mg PO DAILY HPI Comments Details: 63-year-old male patient returning for wound check following phlebectomy of right leg. He noted increased redness, pain and swelling in the right leg over the past week. He was started on Keflex last weekend with some improvement but continued redness and pain. He has difficulty walking due to the pain. One of the incisions is noted to have opened in his producing some discharge. [facility] Medical History Factor 5 Leiden mutation, heterozygous Right knee pain On continuous oral anticoagulation Leg fracture, left Klinefelter syndrome Pulmonary embolus HTN (hypertension) HIV (human immunodeficiency virus infection) DVT (deep venous thrombosis) Surgical History Hx of colonoscopy History of angioplasty of vein Hx of left knee surgery History of umbilical hernia repair Hx of cholecystectomy S/P ORIF (open reduction internal fixation) fracture Family History Father No problems noted. Mother No problems noted. Social History Housing: House Are you a primary career placement services counselor to a significant other at home: No Do you presently have visiting nurse or other home services: No Alcohol intake: former Patient Tobacco Use Status: Former Tobacco user Tobacco use type: Cigarette Cigarette Packs Per Day: 2 e-Cigarette/Vaping Use: Never Used Second Hand Smoke Exposure: Yes Substance Use Type: Marijuana service: Yes ([employer] ) Current occupational status: employed Current occupation: [employer] Current occupational exposures/hazards: No Physical Exam Vital Signs: Last Vital Signs Pulse 75 03/13/24 15:30 BP 152/82 H 03/13/24 15:30 BMI result Body Mass Index 28.5 Const General: cooperative Nutritional Appearance: well nourished Orientation/consciousness: patient oriented x3 Resp Effort & Inspection: normal respiratory effort Neuro General: patient oriented x3 Extrem Other: Right leg with multiple phlebectomy incisions with intact Steri-Strips. There is a wide area of erythema along the denise extending laterally with no palpable fluctuance. There is tenderness to palpation. Erythema extends to just above the ankle and just below the knee. No calf tenderness is noted. Findings are suggestive of a cellulitis. Assessment & Plan Assessment & Plan (1) Varicose veins of left lower extremity with inflammation: Comment: June 2018 - left great saphenous vein radiofrequency ablation 12/14/2023 - left great saphenous vein Cyanoacralate ablation Code(s): I83.12 - Varicose veins of left lower extremity with inflammation Category: Medical Plan 63-year-old male patient status post right leg phlebectomy now with cellulitis. There was some improvement with the Keflex however he continues to have a wide area of erythema and tenderness. I will broaden his coverage add doxycycline. He will return in 1 week for wound examination. He should keep his leg elevated as much as possible when not ambulating. He expressed understanding and agrees with the plan. Medications: New doxycycline hyclate 100 mg PO BID 30 tabs 0RF I83.12 - Varicose veins of left lower extremity with inflammation Coding Level of Care Code Est Pt Level 3 (22699) Diagnoses Varicose veins of left lower extremity with inflammation I83.12
[2024-03-13 15:30] VITALS: BP 152/82; PULSE 75; BMI 28.5
== END 2024-03-13 15:39 | disposition home or self-care (01) ==
PROVIDERS: PCP Nurse Practitioner Family; Visit Provider Surgery
DX: I83.12 Varicose veins of left lower extremity with inflammation (principal)
CPT/HCPCS: 99213

== ENCOUNTER → 2024-03-13 14:50 | Outpatient (BNVA) | payer MEDICARE, OTHER, SELFPAY | PROVIDERS: PCP Nurse Practitioner Family; Visit Provider Surgery | DX: I83.12 Varicose veins of left lower extremity with inflammation (principal); Z79.2 Long term (current) use of antibiotics | CPT/HCPCS: 99212 ==

== ENCOUNTER 2024-03-20 13:54 | Outpatient (AMB) | payer MEDICARE, OTHER, SELFPAY ==
[2024-03-20 13:55] VITALS: BMI 28.5
--- NOTE | 2024-03-20 13:55 | MHC.OFFVIS ---
Vital Signs 03/20/24 13:55 Height 6 ft 4 in Weight 234 lb BMI 28.5 Intake Visit Reasons: Follow Up 02/24 Micro OR Intake Note: follow up Right LE Micro 02/25/24, pt was seen by general surgery and given Abx Accompanied by: Self / Same As Patient Allergies codeine [CODEINE] Allergy (Severe, Verified 03/20/24 14:02) SEVERE PAIN/HYPOXIA W/HIGH DOSES meningococcal vaccine A,C,Y and W-1 [MENINGOCOCCAL VACCINE A,C,Y AND W-1] Allergy (Intermediate, Verified 03/20/24 14:02) HIVES salmon oil Allergy (Unknown, Verified 03/20/24 14:02) hives SALMON Allergy (Severe, Uncoded 03/20/24 14:02) LT HEMIPARESIS HPI HPI Follow Up 02/24 Micro OR: Details: Complex 63-year-old gentleman presents for follow-up status post phlebectomy of the right leg. He had increased redness and discomfort. Had actually seen my covering physician Dr. Cardona in the interim. He was placed on Keflex in addition he was started on doxycycline. He reports in general the redness and discomfort have significantly decreased. Does still have a fair amount of edema on the leg. There are still some Steri-Strips intact. Now presents for postprocedure follow-up. [facility] Medical History Factor 5 Leiden mutation, heterozygous Right knee pain On continuous oral anticoagulation Leg fracture, left Klinefelter syndrome Pulmonary embolus HTN (hypertension) HIV (human immunodeficiency virus infection) DVT (deep venous thrombosis) Surgical History Hx of colonoscopy History of angioplasty of vein Hx of left knee surgery History of umbilical hernia repair Hx of cholecystectomy S/P ORIF (open reduction internal fixation) fracture Family History Father No problems noted. Mother No problems noted. Social History Housing: House Are you a primary school childcare attendant to a significant other at home: No Do you presently have visiting nurse or other home services: No Alcohol intake: former Patient Tobacco Use Status: Former Tobacco user Tobacco use type: Cigarette Cigarette Packs Per Day: 2 e-Cigarette/Vaping Use: Never Used Second Hand Smoke Exposure: Yes Substance Use Type: Marijuana service: Yes ([employer] ) Current occupational status: employed Current occupation: [employer] Current occupational exposures/hazards: No Review of Systems Const All systems reviewed & are unremarkable except as noted in HPI and below Reports no additional complaints ENT Reports Normal hearing present Card Denies chest pain, Denies chest pain at rest, Denies chest pain with activity and Denies pedal edema Resp Denies cough GI Denies abdominal pain Musc Denies abnormal gait, Denies muscle cramps and Denies radiating pain into limb Skin/Breast Denies skin ulcer and Denies wounds Neuro Reports Normal hearing present and Denies abnormal gait Psych Reports no additional complaints Physical Exam Vital Signs: BMI result Body Mass Index 28.5 Const General: cooperative, healthy appearing and comfortable Orientation/consciousness: oriented to person, oriented to place and oriented to time HEENT Head: Yes normal to inspection Neck Neck: Yes normal visual inspection Carotids: no bruits Chest Chest palpation & inspection: normal inspection of the chest Resp Effort & Inspection: normal respiratory effort and able to speak in complete sentences Auscultation: clear to auscultation bilaterally, no crackles, no rales, no rhonchi and no wheezes Cardio Rate: regular rate Rhythm: regular rhythm Heart sounds: S1 normal heart sound present and S2 normal heart sound present Bruits: no carotid bruits Peripheral pulses: Peripheral pulses 2+ throughout GI Inspection: Yes normal to inspection Skin Other: Right lower extremity +2 edema. Steri-Strips were removed along with 2 sutures that were remaining. There is some dry excoriated skin along with very mild reactive skin minimal erythema. Wounds: no wounds Hair: normal Neuro General: oriented to person, oriented to place and oriented to time Cranial nerves: Yes CN's II-XII intact bilaterally and Yes Normal hearing present Cognition (Neuro): normal cognition Motor exam (neuro): 5/5 motor strength present throughout Extrem Other: venous exam: No significant superficial varicosities or spider telangiectasias, minimal edema General: No clubbing, No cyanosis and No edema Psych Appearance: grossly normal Mental Status: mental status grossly normal Speech and movement: Normal speech and movement present Assessment & Plan Assessment & Plan (1) Varicose veins of right lower extremity with inflammation: Comment: July 2018 - right great saphenous vein Cyanoacralate ablation 02/25/2024 - right leg microphlebectomy Code(s): I83.11 - Varicose veins of right lower extremity with inflammation Category: Medical Plan: In short patient is seems to be improving with his right lower extremity microphlebectomy. The antibiotic regimen appears to have controlled whatever questionable infection there was. I did discuss with him that a lot of these are normal findings. We did discuss conservative measures including compression elevation and mild exercise as tolerated. I did approve him to start with some yoga but no extensive bike riding. In addition we did give him tubigrips. I did discuss with him need for elevation. Will complete his regimen of antibiotics. I do not believe that this should be a further issue but he will follow up with us in approximately 2 weeks time to ensure that this is progressing well. Thank you for allowing us to assist in his care. If there are any questions or concerns please do not hesitate to contact us. Coding Level of Care Code Est Pt Level 4 (44430) Diagnoses Varicose veins of right lower extremity with inflammation I83.11
== END 2024-03-20 14:27 | disposition home or self-care (01) ==
PROVIDERS: PCP Nurse Practitioner Family; Visit Provider Surgery Vascular Surgery
DX: I83.11 Varicose veins of right lower extremity with inflammation (principal)
CPT/HCPCS: 99024

== ENCOUNTER → 2024-03-20 13:54 | Outpatient (BNVA) | payer MEDICARE, OTHER, SELFPAY | PROVIDERS: PCP Nurse Practitioner Family; Visit Provider Surgery Vascular Surgery | DX: I83.11 Varicose veins of right lower extremity with inflammation (principal) | CPT/HCPCS: 99212 ==

== ENCOUNTER 2024-03-28 16:29 | Outpatient (REF) | payer MEDICARE, OTHER, SELFPAY ==
[2024-03-28 17:07] LABS: Hematocrit 41.6 % (42.0-52.0); Hemoglobin 14.3 g/dl (14.0-18.0); Mean Corpuscular HGB Conc 34.4 g/dl (31.0-36.0); Mean Corpuscular Hemoglobin 32.6 pg (27.0-33.0); Mean Platelet Volume 10.3 fL (9.4-12.4); Platelet Count 211 X10*3/uL (160-400); Red Blood Count 4.38 X10*6/uL (4.60-5.80); Red Cell Distribution Width 13.7 % (11.0-16.0); White Blood Count 5.4 X10*3/uL (4.8-10.8)
[2024-04-05 15:54] LABS: Testosterone, Total 2727 ng/dL (250-1100)
== END 2024-03-28 16:30 | disposition home or self-care (01) ==
LOC: HO.LAB 16:29
PROVIDERS: PCP Nurse Practitioner Family; Visit Provider Urology
DX: E29.1 Testicular hypofunction (principal); Z12.5 Encounter for screening for malignant neoplasm of prostate
CPT/HCPCS: 36415; 84153; 84403; 85027

== ENCOUNTER 2024-04-03 09:51 | Outpatient (AMB) | payer MEDICARE, OTHER, SELFPAY ==
--- NOTE | 2024-04-03 10:49 | A.OFFVIS_ITS ---
Intake Visit Reasons: 6M Follow Up-PSA/Testosterone(Pending) Intake Note: Patient is Present for Follow Up PSA/Testosterone/Med Review Urology Medication: Tadalafil, Sildenafil, Terazosin,Testosterone,alfuzosin Antibiotic Allergies: Blood Thinners: Rivaroxaban Patient states that he will like to discuss medications, reports he experiences alot of frequency during nighttime and medications has not been helping C Web Developer Required: No Allergies codeine [CODEINE] Allergy (Severe, Verified 06/23/24 13:24) SEVERE PAIN/HYPOXIA W/HIGH DOSES meningococcal vaccine A,C,Y and W-1 [MENINGOCOCCAL VACCINE A,C,Y AND W-1] Allergy (Intermediate, Verified 06/23/24 13:24) HIVES salmon oil Allergy (Unknown, Verified 06/23/24 13:24) hives SALMON Allergy (Severe, Uncoded 05/28/24 10:19) LT HEMIPARESIS HPI Comments Details: Doroteo GANDHI is a very pleasant male. He is a patient of Dr. Ahumada. He is seen for the following urologic conditions - lower urinary tract symptoms - hypogonadism - Klinefelter syndrome - erectile dysfunction Six-month review Issue with injection timing 03/26 T 2700 PSA 5.9 Refilled testosterone New syringes and needles provided Discussed erectile issues Has had prior information regarding penile prosthetic, vacuum pump Will try maximizing daily tadalafil with on demand Hypogonadism:?Has had some fatigue secondary to COVID stress ?Can increase testosterone to 0.45 per week ?Also discussed ED ?Had difficulty with Cialis in past, Viagra 200 mg non effective ?Has use Tri Mix previously Injection Day : Sunday Lab Day: Sun/ ? He presents today for?further evaluation and followup of his hypogonadism.? Initial symptoms include? erectile dysfunction ?Yes ? decreased libido ?Yes ? change in mood/depression ?Yes ? in muscle size/strength ?Yes ? increased fatigue/malaise ?Yes ? increased abdominal fat ?No ? tender breasts/gynecomastia ?No ? hair loss ?No ? osteopenia ?No ? The onset of symptoms has been?gradual.? Associate conditions include? obstructive sleep apnea ?No ? CAD ?No ? obesity ?No ? stress - financial, family, employment ?No ? heavy alcohol or illicit drug use ?No ? Laboratory results?04/21 PSA 2 ?06/21 T 83 - of T for 4 weeks ?12/21 T475, 01/22 P 3.7 T 1400, 07/25 T 471 P 4.1 ? Current therapy includes?injectable exogenous testosterone ?06/21 weekly injection ?12/21 0.4cc subcut ? Prior therapy includes?testosterone, injectable.? Diagnosis based on history and laboratory results?combined testicular insufficiency.? Lower Urinary Tract Symptoms:? Current visit is for?further evaluation of, lower urinary tract symptoms, predominate obstructive symptoms.? Current treatment includes?alpha natividad.? Prostate Symptom Score?10/22 , , Moderate (9-19), Bother 3.? Symptoms include?10/22 , incomplete emptying, weak stream, nocturia (>2), and are progressing.? Associated conditions? CAD ?No ? CVA ?No ? diabetes ?No ? elevated PSA ?No ? erectile dysfunction ?No ? hematuria ?No ? renal insufficiency ?No ? urge incontinence ?No ? urinary retention ?No ? urinary tract infection ?No ? psychiatric diagnosis ?No ? Treatment plan?continue with current medications [facility] Medical History (Updated 06/23/24 @ 14:05 by Abdirahman Howell, [facility]) Factor 5 Leiden mutation, heterozygous Right knee pain On continuous oral anticoagulation Leg fracture, left Klinefelter syndrome Pulmonary embolus HTN (hypertension) HIV (human immunodeficiency virus infection) DVT (deep venous thrombosis) Surgical History Hx of colonoscopy History of angioplasty of vein Hx of left knee surgery History of umbilical hernia repair Hx of cholecystectomy S/P ORIF (open reduction internal fixation) fracture Family History Father No problems noted. Mother No problems noted. Social History Housing: House Are you a primary health care administrator to a significant other at home: No Do you presently have visiting nurse or other home services: No Alcohol intake: former Patient Tobacco Use Status: Former Tobacco user Tobacco use type: Cigarette Cigarette Packs Per Day: 2 e-Cigarette/Vaping Use: Never Used Second Hand Smoke Exposure: Yes Substance Use Type: Marijuana service: Yes ([employer] ) Current occupational status: employed Current occupation: [employer] Current occupational exposures/hazards: No Review of Systems Const Denies chills and Denies fever(s) Card Reports no additional complaints and Denies syncope Resp Denies cough GI Denies abdominal pain and Denies heartburn Reports as per HPI and Denies change in libido Neuro Denies syncope Psych Denies change in libido Endo Denies change in libido Physical Exam Const General: cooperative, healthy appearing, comfortable and no acute distress Orientation/consciousness: patient oriented x3 HEENT Face and sinus: Yes normal facial exam Mouth: moist mucous membranes Neck Neck: Yes normal visual inspection, Yes full ROM and Yes trachea midline Chest Chest palpation & inspection: normal inspection of the chest Resp Effort & Inspection: normal respiratory effort, able to speak in complete sentences and no respiratory distress GI Inspection: Yes normal to inspection Back/Spine/Pelvis Cervical Spine: normal cervical lordosis Thoracic/Lumbar Spine: thoracic and lumbar spine normal to inspection Skin General skin exam: no rashes or lesions noted Neuro General: patient oriented x3, gait normal, tone normal and moves all extremities Extrem General: Yes normal to inspection and Yes capillary refill normal Assessment & Plan Assessment & Plan (1) Erectile dysfunction due to arterial insufficiency: Code(s): N52.01 - Erectile dysfunction due to arterial insufficiency Category: Medical (2) Hypogonadism in male: Code(s): E29.1 - Testicular hypofunction Category: Medical (3) Klinefelter syndrome: Code(s): Q98.4 - Klinefelter syndrome, unspecified Category: Medical Plan Six-month follow-up labs Patient Instructions: Imaging studies, laboratory and physical exam results were discussed and reviewed in detail. No major barriers to patient understanding were identified. An opportunity to ask questions regarding the treatment plan was provided. All questions were answered. The patient expressed understanding and agreement with the above treatment plan. The patient is aware they should contact our office by phone for worsening of their current condition or the appearance of new urologic symptoms. Compliance is encouraged with any medications and followup testing that is ordered. It is a privilege to participate in the urologic care of your patient. If you have any questions or concerns regarding treatment for the above conditions, or other urologic issues, please do not hesitate to contact me. The office telephone contact is [phone]. This note is constructed using voice recognition software. While every effort has been made to ensure accuracy production support supervisor errors may have been included. Yours sincerely, Dr Sunny Guerra MD, [facility] - Urology Providers of Expert, Compassionate Care for the Genitourinary System Coding Level of Care Code Est Pt Level 3 (50262) Diagnoses Erectile dysfunction due to arterial insufficiency N52.01 Hypogonadism in male E29.1 Klinefelter syndrome Q98.4
== END 2024-04-03 11:59 | disposition home or self-care (01) ==
PROVIDERS: Visit Provider Urology
DX: N52.01 Erectile dysfunction due to arterial insufficiency (principal); E29.1 Testicular hypofunction; Q98.4 Klinefelter syndrome, unspecified
CPT/HCPCS: 99213

== ENCOUNTER → 2024-04-03 09:51 | Outpatient (BNVA) | payer MEDICARE, OTHER, SELFPAY | PROVIDERS: Visit Provider Urology | DX: N52.9 Male erectile dysfunction, unspecified (principal); E29.1 Testicular hypofunction | CPT/HCPCS: 99212 ==

== ENCOUNTER 2024-04-24 10:40 | Outpatient (AMB) | payer MEDICARE, OTHER, SELFPAY ==
--- NOTE | 2024-04-24 10:47 | MHC.OFFVIS ---
Intake Visit Reasons: 4 week leg check Intake Note: Patient presents for 4 week leg check. States his legs are feeling better . He is experiencing knee pain. Wounds are healing just fine . Allergies codeine [CODEINE] Allergy (Severe, Verified 04/24/24 10:51) SEVERE PAIN/HYPOXIA W/HIGH DOSES meningococcal vaccine A,C,Y and W-1 [MENINGOCOCCAL VACCINE A,C,Y AND W-1] Allergy (Intermediate, Verified 04/24/24 10:51) HIVES salmon oil Allergy (Unknown, Verified 04/24/24 10:51) hives SALMON Allergy (Severe, Uncoded 04/03/24 10:55) LT HEMIPARESIS HPI HPI 4 week leg check: Details: Very pleasant 64-year-old gentleman presents for follow-up status post phlebectomy. He had increased redness and discomfort and had undergone a course of antibiotics. At the current time it appears to be all resolved. He appears to be doing significantly better. Now for routine follow-up. [facility] Medical History Factor 5 Leiden mutation, heterozygous Right knee pain On continuous oral anticoagulation Leg fracture, left Klinefelter syndrome Pulmonary embolus HTN (hypertension) HIV (human immunodeficiency virus infection) DVT (deep venous thrombosis) Surgical History Hx of colonoscopy History of angioplasty of vein Hx of left knee surgery History of umbilical hernia repair Hx of cholecystectomy S/P ORIF (open reduction internal fixation) fracture Family History Father No problems noted. Mother No problems noted. Social History Housing: House Are you a primary medicare interviewer to a significant other at home: No Do you presently have visiting nurse or other home services: No Alcohol intake: former Patient Tobacco Use Status: Former Tobacco user Tobacco use type: Cigarette Cigarette Packs Per Day: 2 e-Cigarette/Vaping Use: Never Used Second Hand Smoke Exposure: Yes Substance Use Type: Marijuana service: Yes ([employer] ) Current occupational status: employed Current occupation: [employer] Current occupational exposures/hazards: No Review of Systems Const All systems reviewed & are unremarkable except as noted in HPI and below Reports no additional complaints ENT Reports Normal hearing present Card Denies chest pain, Denies chest pain at rest, Denies chest pain with activity and Denies pedal edema Resp Denies cough GI Denies abdominal pain Musc Denies abnormal gait, Denies muscle cramps and Denies radiating pain into limb Skin/Breast Denies skin ulcer and Denies wounds Neuro Reports Normal hearing present and Denies abnormal gait Psych Reports no additional complaints Physical Exam Const General: cooperative, healthy appearing and comfortable Orientation/consciousness: oriented to person, oriented to place and oriented to time HEENT Head: Yes normal to inspection Neck Neck: Yes normal visual inspection Carotids: no bruits Chest Chest palpation & inspection: normal inspection of the chest Resp Effort & Inspection: normal respiratory effort and able to speak in complete sentences Auscultation: clear to auscultation bilaterally, no crackles, no rales, no rhonchi and no wheezes Cardio Rate: regular rate Rhythm: regular rhythm Heart sounds: S1 normal heart sound present and S2 normal heart sound present Bruits: no carotid bruits Peripheral pulses: Peripheral pulses 2+ throughout GI Inspection: Yes normal to inspection Skin Other: Skin incisions all appeared healed. No evidence of erythema. Wounds: no wounds Hair: normal Neuro General: oriented to person, oriented to place and oriented to time Cranial nerves: Yes CN's II-XII intact bilaterally and Yes Normal hearing present Cognition (Neuro): normal cognition Motor exam (neuro): 5/5 motor strength present throughout Extrem Other: venous exam: No significant superficial varicosities or spider telangiectasias, minimal edema General: No clubbing, No cyanosis and No edema Psych Appearance: grossly normal Mental Status: mental status grossly normal Speech and movement: Normal speech and movement present Assessment & Plan Assessment & Plan (1) Varicose veins of left lower extremity with inflammation: Comment: June 2018 - left great saphenous vein radiofrequency ablation 12/14/2023 - left great saphenous vein Cyanoacralate ablation Code(s): I83.12 - Varicose veins of left lower extremity with inflammation Category: Medical Plan: The patient has done extremely well with all venous treatments. Patient's may often experience postprocedure phlebitic episodes and I have discussed with the patient use of warm compresses and NSAIDS if tolerated for pain discomfort. In addition, I have discussed continued conservative measures including use of compression, leg elevation, and exercise. The patient was also given an information sheet regarding appropriate use of compression stockings and future purchases. Thank you for allowing us to care for your patient with venous disease. (2) Varicose veins of right lower extremity with inflammation: Comment: July 2018 - right great saphenous vein Cyanoacralate ablation 02/25/2024 - right leg microphlebectomy Code(s): I83.11 - Varicose veins of right lower extremity with inflammation Category: Medical Plan: See above Coding Level of Care Code Est Pt Level 3 (73073) Diagnoses Varicose veins of left lower extremity with inflammation I83.12 Varicose veins of right lower extremity with inflammation I83.11
== END 2024-04-24 11:11 | disposition home or self-care (01) ==
PROVIDERS: PCP Nurse Practitioner Family; Visit Provider Surgery Vascular Surgery
DX: I83.12 Varicose veins of left lower extremity with inflammation (principal); I83.11 Varicose veins of right lower extremity with inflammation
CPT/HCPCS: 99024

== ENCOUNTER → 2024-04-24 10:40 | Outpatient (BNVA) | payer MEDICARE, OTHER, SELFPAY | PROVIDERS: PCP Nurse Practitioner Family; Visit Provider Surgery Vascular Surgery | DX: I83.12 Varicose veins of left lower extremity with inflammation (principal); I83.11 Varicose veins of right lower extremity with inflammation; Z98.890 Other specified postprocedural states | CPT/HCPCS: 99212 ==

== ENCOUNTER 2024-04-30 10:37 | Outpatient (AMB) | payer MEDICARE, OTHER, SELFPAY ==
--- NOTE | 2024-04-30 10:54 | A.OFFVIS_ITS ---
Intake Visit Reasons: cysto Intake Note: Patient is Present for Cystoscopy Urology Med: Tadalafil, Terazosin, Alfuzosin, Sildenafil Antibiotic Allergy: None Blood Thinner: Rivaroxaban URO- G Disposable Cystoscope lot: [id number] exp: 10/18/2026 Thread Singer Required: No Accompanied by: Self / Same As Patient Allergies codeine [CODEINE] Allergy (Severe, Verified 04/30/24 11:05) SEVERE PAIN/HYPOXIA W/HIGH DOSES meningococcal vaccine A,C,Y and W-1 [MENINGOCOCCAL VACCINE A,C,Y AND W-1] Allergy (Intermediate, Verified 04/30/24 11:05) HIVES salmon oil Allergy (Unknown, Verified 04/30/24 11:05) hives SALMON Allergy (Severe, Uncoded 04/30/24 11:05) LT HEMIPARESIS HPI Comments Details: Doroteo GANDHI is a very pleasant male. He is a patient of Dr. Ahumada. He is seen for the following urologic conditions - lower urinary tract symptoms - hypogonadism - Klinefelter syndrome - long-term testosterone - erectile dysfunction Has been on medications bladder stability Cystoscopy today shows trabeculation grade 2, mucosal irritation particularly anterior prostate surface Recommend 3 months of low-dose Bactrim Does have elevated PSA which would be consistent with persistent inflammation Discussed high testosterone was taken 24 hours after initial injection On daily tadalafil Would like to add on demand sildenafil Prescription provided Hypogonadism:?Has had some fatigue secondary to COVID stress ?Can increase testosterone to 0.45 per week ?Also discussed ED ?Had difficulty with Cialis in past, Viagra 200 mg non effective ?Has use Tri Mix previously Injection Day : Sunday Lab Day: Sun/ ? He presents today for?further evaluation and followup of his hypogonadism.? Initial symptoms include? erectile dysfunction ?Yes ? decreased libido ?Yes ? change in mood/depression ?Yes ? in muscle size/strength ?Yes ? increased fatigue/malaise ?Yes ? increased abdominal fat ?No ? tender breasts/gynecomastia ?No ? hair loss ?No ? osteopenia ?No ? The onset of symptoms has been?gradual.? Associate conditions include? obstructive sleep apnea ?No ? CAD ?No ? obesity ?No ? stress - financial, family, employment ?No ? heavy alcohol or illicit drug use ?No ? Laboratory results?04/21 PSA 2 ?06/21 T 83 - of T for 4 weeks ?12/21 T475, 01/22 P 3.7 T 1400, 07/25 T 471 P 4.1 ? Current therapy includes?injectable exogenous testosterone ?06/21 weekly injection ?12/21 0.4cc subcut ? Prior therapy includes?testosterone, injectable.? Diagnosis based on history and laboratory results?combined testicular insufficiency.? Lower Urinary Tract Symptoms:? Current visit is for?further evaluation of, lower urinary tract symptoms, predominate obstructive symptoms.? Current treatment includes?alpha natividad.? Prostate Symptom Score?10/22 , , Moderate (9-19), Bother 3.? Symptoms include?10/22 , incomplete emptying, weak stream, nocturia (>2), and are progressing.? Treatment plan?continue with current medications Cystoscopy 04/2624 grade 2 trabeculation, cystitis - trial three-month Bactrim - discussed bladder stability medications [facility] Medical History Factor 5 Leiden mutation, heterozygous Right knee pain On continuous oral anticoagulation Leg fracture, left Klinefelter syndrome Pulmonary embolus HTN (hypertension) HIV (human immunodeficiency virus infection) DVT (deep venous thrombosis) Surgical History Hx of colonoscopy History of angioplasty of vein Hx of left knee surgery History of umbilical hernia repair Hx of cholecystectomy S/P ORIF (open reduction internal fixation) fracture Family History Father No problems noted. Mother No problems noted. Social History Housing: House Are you a primary summer child caregiver to a significant other at home: No Do you presently have visiting nurse or other home services: No Alcohol intake: former Patient Tobacco Use Status: Former Tobacco user Tobacco use type: Cigarette Cigarette Packs Per Day: 2 e-Cigarette/Vaping Use: Never Used Second Hand Smoke Exposure: Yes Substance Use Type: Marijuana service: Yes ([employer] ) Current occupational status: employed Current occupation: [employer] Current occupational exposures/hazards: No Review of Systems Const Denies chills and Denies fever(s) Card Reports no additional complaints and Denies syncope Resp Denies cough GI Denies abdominal pain and Denies heartburn Reports as per HPI and Denies change in libido Neuro Denies syncope Psych Denies change in libido Endo Denies change in libido Physical Exam Const General: cooperative, healthy appearing, comfortable and no acute distress Orientation/consciousness: patient oriented x3 HEENT Face and sinus: Yes normal facial exam Mouth: moist mucous membranes Neck Neck: Yes normal visual inspection, Yes full ROM and Yes trachea midline Chest Chest palpation & inspection: normal inspection of the chest Resp Effort & Inspection: normal respiratory effort, able to speak in complete sentences and no respiratory distress GI Inspection: Yes normal to inspection Back/Spine/Pelvis Cervical Spine: normal cervical lordosis Thoracic/Lumbar Spine: thoracic and lumbar spine normal to inspection Skin General skin exam: no rashes or lesions noted Neuro General: patient oriented x3, gait normal, tone normal and moves all extremities Extrem General: Yes normal to inspection and Yes capillary refill normal Office Procedures Cystoscopy Consent Discussed risk and benefit or proposed procedure with the patient. Information consent for procedure given to the patient. Discussed technical aspects, risks, benefits and alternatives in full. Addressed all of the patient's questions and concerns regarding the procedure. The patient demonstrated knowledge and understanding. They wish to proceed with this procedure. Preparation The patient was prepped in the usual manner. A devulcanizer charger was present and in the room. Genitalia was prepped with betadine solution in a sterile manner. Lidocaine Jelly 2% was placed into the urethra and 16Fr flexible Olympus cystoscope was inserted into the meatus after adequate lubrication. Procedure Cystoscopy performed using a disposable Urovue digital 16 Kittitian cystoscope. Meatus circumcised - Khurram Benedicto ring defect Urethra anteroposterior through normal Prostatic Urethra unremarkable short secondary to Klinefelter's Bladder examination with retroflexion of cystoscope Bladder Orifices normal shape and position Bladder Capacity median Trabeculations grade 2 Cellule Formation - Diverticulum Formation - Mucosal Erythema has some injected mucosa particularly round anterior aspect prostate Bladder Tumor - [id number] DISPOSABLE SCOPE URO-G FLEXIBLE SCOPE Procedure code (CPT) selection complete Office Meds lidocaine HCl 2 % mucosal jelly in applicator Performing Provider: Sunny Guerra MD Performing Location: [facility] Administered by: Paul Mcelroy LPN on 04/30/24 11:23 Dose Route Admin Location Dispensed Lot Number Expiration Date ND Chemical Manager 10 mL intra-urethral 10 mL nitrofurantoin monohydrate/macrocrystals 100 mg capsule Performing Provider: Sunny Guerra MD Performing Location: [facility] Administered by: Paul Mcelroy LPN on 04/30/24 11:23 Dose Route Admin Location Dispensed Lot Number Expiration Date NDC Chemical Manager 100 mg PO 1 cap naproxen 500 mg tablet Performing Provider: Sunny Guerra MD Performing Location: [facility] Administered by: Paul Mcelroy LPN on 04/30/24 11:23 Dose Route Admin Location Dispensed Lot Number Expiration Date ND Chemical Manager 500 mg PO 1 tab Results AMB Urinalysis, Automated UA Leukoctes 0 Masood/uL Last Edit by ARISTIDES Leyva on 04/30/24 11:18 UA Nitrite Negative Last Edit by ARISTIDES Leyva on 04/30/24 11:18 UA Urobilinogen 0.2 mg/dL Last Edit by ARISTIDES Leyva on 04/30/24 11:1 8 UA Protein 15 mg/dL Last Edit by TAIWO LeyvaA on 04/30/24 11:18 UA pH 6.0 Last Edit by Constance Baez RMA on 04/30/24 11:18 UA Blood 0 Rolly/uL Last Edit by Constance Baez, RMA on 04/30/24 11:18 UA Specific [place] 1.020 Last Edit by Constance Baez, RMA on 04/30/24 11: 18 UA Ketone Negative Last Edit by Constance Baez RMA on 04/30/24 11:18 UA Bilirubin 0 mg/dL Last Edit by Constance Baez RMA on 04/30/24 11:18 UA Glucose 0 mg/dL Last Edit by Constance Baez A on 04/30/24 11:18 Results Reviewed Results Reviewed: Laboratory Last Values Urine pH (Auto) 6.0 04/30/24 11:12 Specific [place] (Auto) 1.020 04/30/24 11:12 Urine Protein (Auto) 15 mg/dL 04/30/24 11:12 Glucose (UA)(Auto) 0 mg/dL 04/30/24 11:12 Urine Ketones (Auto) Negative 04/30/24 11:12 Urine Blood (Auto) 0 Rolly/uL 04/30/24 11:12 Urine Nitrite (Auto) Negative 04/30/24 11:12 Urine Bilirubin (Auto) 0 mg/dL 04/30/24 11:12 Urine Urobilinogen (Auto) 0.2 mg/dL 04/30/24 11:12 Leukocyte Esterase (Auto) 0 Masood/uL 04/30/24 11:12 Assessment & Plan Assessment & Plan (1) Cystitis: Code(s): N30.90 - Cystitis, unspecified without hematuria Category: Medical Plan Three-month follow-up Orders: Orders AMB Urinalysis Automated Today Z13.9 - Encounter for screening, unspecified AMB Cystoscopy Today E29.1 - Testicular hypofunction Medications: New sulfamethoxazole-trimethoprim 400-80 mg (Bactrim) 1 tab PO BEDTIME 90 days 90 tabs 0RF N30.90 - Cystitis, unspecified without hematuria, N39.0 - Urinary tract infection, site not specified sildenafil administer 60 minutes before intended activity 100 mg PO ONCE 30 days PRN 30 tabs 1RF sexual activity N52.01 - Erectile dysfunction due to arterial insu fficiency Patient Instructions: Imaging studies, laboratory and physical exam results were discussed and reviewed in detail. No major barriers to patient understanding were identified. An opportunity to ask questions regarding the treatment plan was provided. All questions were answered. The patient expressed understanding and agreement with the above treatment plan. The patient is aware they should contact our office by phone for worsening of their current condition or the appearance of new urologic symptoms. Compliance is encouraged with any medications and followup testing that is ordered. It is a privilege to participate in the urologic care of your patient. If you have any questions or concerns regarding treatment for the above conditions, or other urologic issues, please do not hesitate to contact me. The office telephone contact is [phone]. This note is constructed using voice recognition software. While every effort has been made to ensure accuracy termite treater errors may have been included. Yours sincerely, Dr Sunny Guerra MD, [facility] - Urology Providers of Expert, Compassionate Care for the Genitourinary System Coding Level of Care Code Est Pt Level 4 (54232) Diagnoses Cystitis N30.90 CPT Codes Cystoscopy - CPT: 34992-Pyptaixunr ([id number])
== END 2024-04-30 11:47 | disposition home or self-care (01) ==
PROVIDERS: Visit Provider Urology
DX: N30.90 Cystitis, unspecified without hematuria (principal); E29.1 Testicular hypofunction; Z13.9 Encounter for screening, unspecified
CPT/HCPCS: 52000; 99214

== ENCOUNTER → 2024-04-30 10:37 | Outpatient (BNVA) | payer MEDICARE, OTHER, SELFPAY | PROVIDERS: Visit Provider Urology | DX: N30.90 Cystitis, unspecified without hematuria (principal); N52.01 Erectile dysfunction due to arterial insufficiency | CPT/HCPCS: 52000; 81003; 99212 ==

== ENCOUNTER 2024-05-28 09:37 | Outpatient (AMB) | payer MEDICARE, OTHER, SELFPAY ==
[2024-05-28 09:38] VITALS: BP 138/90; PULSE 87; O2SAT 96; BMI 29.3
--- NOTE | 2024-05-28 09:38 | A.OFFPC_ITS ---
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 Accompanied by: Self / Same As Patient Allergies codeine [CODEINE] Allergy (Severe, Verified 05/28/24 10:19) SEVERE PAIN/HYPOXIA W/HIGH DOSES meningococcal vaccine A,C,Y and W-1 [MENINGOCOCCAL VACCINE A,C,Y AND W-1] Allergy (Intermediate, Verified 05/28/24 10:19) HIVES salmon oil Allergy (Unknown, Verified 05/28/24 10:19) hives SALMON Allergy (Severe, Uncoded 05/28/24 10:19) LT HEMIPARESIS Medication List - Last Reconciled 05/28/24 by ERIC Borges- alfuzosin ER 10 mg PO BEDTIME 30 days ascorbic acid (vitamin C) (Vitamin C) 500 mg PO DAILY cholecalciferol (vitamin D3) (Vitamin D3) 25 mcg PO DAILY chromium 200 mcg PO DAILY cyanocobalamin (vitamin B-12) (Vitamin B-12) 100 mcg PO DAILY dolutegravir (Tivicay) 50 mg PO DAILY 30 days emtricitabine-tenofovir alafen 200-25 mg (Descovy) 1 tab PO DAILY 30 days needle (disp) 18 G (BD Regular [employer]) To draw up medication needle (disp) 22 G To inject Testosterone rivaroxaban 20 mg PO DAILY sertraline 50 mg PO DAILY sildenafil 100 mg PO ONCE PRN 30 days sulfamethoxazole-trimethoprim 400-80 mg (Bactrim) 1 tab PO BEDTIME syringe (disposable) (BD Luer-Ellen Syringe) Testosterone injection weekly syringe with needle As directed tadalafil 10 mg PO DAILY 90 days tamsulosin 0.4 mg PO DAILY terazosin 5 mg PO BEDTIME testosterone cypionate (Depo-Testosterone) 90 mg (0.45 mL) subcut QWEEK 4 weeks trazodone 50 mg PO BEDTIME PRN 90 days zinc 100 mg PO DAILY Tobacco use date assessed: 05/28/24 Dental Screening Dental Screen Date: 05/28/24 Did you have a dental visit in the last 12 months?: Yes Did you have a dental problem in the last 6 months where you did not have access to dental care?: No Was dental information given to patient?: Patient has dentist HPI Back, hip and knee pain HPI Details Pt reports for the past 6 months he has anterior right hip pain. Worse with weight bearing, it feels like it is going to pop out, the pain is so bad . #2 He further reports right knee pain, constant mellow pain pt describes. Pt reports intermittent swelling of his right knee. Pt further reports clicking of his right knee with associated pain, i haven't done yoga in 3 months because of the pain, i cant get up . [facility] Medical History Factor 5 Leiden mutation, heterozygous Right knee pain On continuous oral anticoagulation Leg fracture, left Klinefelter syndrome Pulmonary embolus HTN (hypertension) HIV (human immunodeficiency virus infection) DVT (deep venous thrombosis) Surgical History Hx of colonoscopy History of angioplasty of vein Hx of left knee surgery History of umbilical hernia repair Hx of cholecystectomy S/P ORIF (open reduction internal fixation) fracture Family History Father No problems noted. Mother No problems noted. Social History Housing: House Are you a primary youth career specialist to a significant other at home: No Do you presently have visiting nurse or other home services: No Alcohol intake: former Patient Tobacco Use Status: Former Tobacco user Tobacco use type: Cigarette Cigarette Packs Per Day: 2 e-Cigarette/Vaping Use: Never Used Second Hand Smoke Exposure: Yes Substance Use Type: Marijuana service: Yes ([employer] ) Current occupational status: employed Current occupation: [employer] Current occupational exposures/hazards: No Questionnaire PHQ-9 Over the last 2 weeks, how often have you been bothered by any of the following problems? 06918 - PHQ-9 Billing: Patient declined-do not bill Source: Developed by Drs. Sedrick L. AndryYovana anthony, Ernesto Marks and colleagues, with an educational erendira from [employer]. Thrive Questionnaire Date Thrive assessed: 05/28/24 I am a: Patient What is your living situation today?: I choose not to answer this question Within the past 12 months, did the food you bought not last and you didn't have the money to get more?: I choose not to answer this question Within the past 12 months, did you worry whether your food would run out before you got money to buy more?: I choose not to answer this question Do you have trouble paying for medicines?: I choose not to answer this question Do you have trouble getting transportation to medical appointments?: I choose not to answer this question Do you have trouble paying your heating and electricity bill?: I choose not to answer this question Do you have trouble taking care of your child, family member or friend?: I choose not to answer this question Do you have trouble with day-to-day activities such as bathing, preparing meals, shopping, managing finances, etc.?: I choose not to answer this question Are you currently unemployed and looking for a job?: I choose not to answer this question Are you interested in more education?: I choose not to answer this question Please select the resources that you would like help with: None Currently or been in a relationship where the following occur: I choose not to answer THRIVE Score: 0 AUDIT C Alcohol Use Questionnaire (AUDIT-C) 1. How often do you have a drink containing alcohol?: Never Total Score: 0 Score Reviewed/Action Taken: Yes ARINA-7 AMB Questionnaire ARINA-7 Date ARINA - 7 assessed: 05/28/24 Source: Developed by Drs. Sedrick Wilde, Yovana Hicks, Ernesto Marks and colleagues, with an educational erendira from [employer]. ARINA-7 Assessment Billing ARINA-7 Assessment Tool: pt declined-do not bill Physical exam (Primary Care) Vital Signs: Last Vital Signs Pulse 87 05/28/24 09:38 BP 138/90 H 05/28/24 09:38 Pulse Ox 96 05/28/24 09:38 Oxygen Delivery Method Room Air 05/28/24 09:38 BMI result Body Mass Index 29.3 Tobacco/Smoking Status: Tobacco use Status Tobacco use date assessed 05/28/24 05/28/24 09:43 Patient Tobacco Use Status Former Tobacco user 05/28/24 09:43 Tobacco use type Cigarette 05/28/24 09:43 e-Cigarette/Vaping Use Never Used 05/28/24 09:43 Thrive Assessment: Date of Thrive Assessment Date Thrive assessed 05/28/24 05/28/24 09:43 Currently or been in a relationship where the following occur: I choose not to answer Const General: cooperative Orientation/consciousness: oriented to person Resp Effort & Inspection: normal respiratory effort Auscultation: clear to auscultation bilaterally Cardio Rate: regular rate Rhythm: regular rhythm Heart sounds: S1 normal heart sound present and S2 normal heart sound present Neuro General: oriented to person Extrem Other: right hip pain with pt in supine position with moving right knee to chest. no popping or clicking noted. unable to perform lydia's test due to pain. swelling to right knee noted. Right lower extremity: knee (neg lachmans, extension and flexion causes pain) Details: Cayetano's Test and crepitus Psych Appearance: grossly normal Affect: normal affect Attitude: cooperative Thought process: Normal thought process present Thought content: Normal thought content present Insight: Good insight present (Psych) Judgement: Good judgement present (Psych) Assessment and Plan Assessment & Plan (1) Right knee pain: Code(s): M25.561 - Pain in right knee (2) Right hip pain: Code(s): M25.551 - Pain in right hip Orders: Orders XR hip RT min 2V Today M25.551 - Pain in right hip XR knee RT 3V Today M25.561 - Pain in right knee Coding Level of Care Code Est Pt Level 3 (14256) Diagnoses Right knee pain M25.561 Right hip pain M25.551
== END 2024-05-28 14:08 | disposition home or self-care (01) ==
PROVIDERS: Visit Provider Nurse Practitioner Family
DX: M25.561 Pain in right knee (principal); M25.551 Pain in right hip

== ENCOUNTER → 2024-05-28 09:37 | Outpatient (BNVA) | payer MEDICARE, OTHER, SELFPAY | PROVIDERS: Visit Provider Nurse Practitioner Family ==

== ENCOUNTER 2024-05-28 10:19 | Outpatient (REF) | payer MEDICARE, OTHER, SELFPAY ==
--- NOTE | ~2024-05-28 | XR_ITS ---
EXAMINATION: XR KNEE, RIGHT CLINICAL INFORMATION: M25.561 - Pain in right knee COMPARISON: July 26, 2020 TECHNIQUE: Four views of the right knee. FINDINGS: Submitted for interpretation on August 04, 2024. No acute cortical disruption or malalignment. No lytic or blastic lesions. Osteopenia versus osteoporosis. No suprapatellar bursa joint effusion. XR/XR knee RT 4V IMPRESSION: No acute fracture or dislocation. Electronically signed by: Adonis Pitt MD 08/04/2024 01:18 PM EST
--- NOTE | ~2024-05-28 | XR_ITS ---
EXAMINATION: XR HIP, RIGHT CLINICAL INFORMATION: M25.551 - Pain in right hip COMPARISON: X-ray dated July 26, 2020 TECHNIQUE: Two views of the right hip. FINDINGS: Submitted for interpretation on August 04, 2024. There is foreshortening of the epiphysis and neck and osteophyte formation of the right femur without acute cortical disruption or malalignment. Asymmetric joint space narrowing, right coxofemoral joint. No lytic or blastic lesions. XR/XR hip RT min 2V IMPRESSION: Osteoarthrosis. No acute fracture or dislocation, right hip. Electronically signed by: Adonis Pitt MD 08/04/2024 03:20 PM XIMENA
== END 2024-05-28 10:20 | disposition home or self-care (01) ==
LOC: HO.HMGCX 10:19
PROVIDERS: PCP Nurse Practitioner Family; Visit Provider Nurse Practitioner Family
DX: M25.561 Pain in right knee (principal); M25.551 Pain in right hip
CPT/HCPCS: 73502; 73564; 99212

== ENCOUNTER → 2024-05-28 10:24 | Outpatient (BNV) | payer MEDICARE, OTHER, SELFPAY | PROVIDERS: PCP Nurse Practitioner Family; Visit Provider Radiology Diagnostic Radiology | DX: M25.561 Pain in right knee (principal); M25.551 Pain in right hip | CPT/HCPCS: 73502; 73564 ==

== ENCOUNTER 2024-06-23 12:59 | Outpatient (AMB) | payer MEDICARE, OTHER, SELFPAY ==
--- NOTE | 2024-06-23 13:19 | A.OFFVIS_ITS ---
"Intake Vital Signs 06/23/24 13:22 Height 6 ft 4 in Weight 242 lb BMI 29.5 BP 138/82 Blood Pressure Location Rt brachial Position Sitting Pulse 80 Pulse Source Pulse Oximeter Pulse Oximetry (%) 98 Oxygen Delivery Method Room Air Intake Visit Reasons: SWV G0439 Intake Note: pt is here for MWV White Sugar Boiler Required: No Accompanied by: Self / Same As Patient Allergies codeine [CODEINE] Allergy (Severe, Verified 06/23/24 13:24) SEVERE PAIN/HYPOXIA W/HIGH DOSES meningococcal vaccine A,C,Y and W-1 [MENINGOCOCCAL VACCINE A,C,Y AND W-1] Allergy (Intermediate, Verified 06/23/24 13:24) HIVES salmon oil Allergy (Unknown, Verified 06/23/24 13:24) hives SALMON Allergy (Severe, Uncoded 05/28/24 10:19) LT HEMIPARESIS Do you need a note to return to daycare/school/sports/work: No HPI SWV G0439 HPI Details Pt is here for an SWV. Denies fever, chills, and dizziness. [place] of care in scan pile. PPP will be scanned in chart and copy will be given to pt. HPI Comments History of Present Illness Details HTN: Blood pressure is stable. Denies chest pain, shortness of breath, headache, dizziness, and blurred vision. Pt reports hearing loss. Will refer for hearing screen. Pt also reports blurred vision. Will refer to optometry. [facility] Medical History (Updated 06/23/24 @ 14:05 by Abdirahman Howell, [facility]) Factor 5 Leiden mutation, heterozygous Right knee pain On continuous oral anticoagulation Leg fracture, left Klinefelter syndrome Pulmonary embolus HTN (hypertension) HIV (human immunodeficiency virus infection) DVT (deep venous thrombosis) Surgical History Hx of colonoscopy History of angioplasty of vein Hx of left knee surgery History of umbilical hernia repair Hx of cholecystectomy S/P ORIF (open reduction internal fixation) fracture Family History Father No problems noted. Mother No problems noted. Social History Housing: House Are you a primary physician locums urgent care to a significant other at home: No Do you presently have visiting nurse or other home services: No Alcohol intake: former Patient Tobacco Use Status: Former Tobacco user Tobacco use type: Cigarette Cigarette Packs Per Day: 2 e-Cigarette/Vaping Use: Never Used Second Hand Smoke Exposure: Yes Substance Use Type: Marijuana service: Yes (Traveler | VIP ) Current occupational status: employed Current occupation: [employer] Current occupational exposures/hazards: No Questionnaire Medicare Wellness Checkup What [age] What gender do you identify with?: male During the past 4 weeks, how much have you been bothered by emotional problems such as feeling anxious, depressed, irritable, sad or downhearted, and blue?: slightly During the past 4 weeks, has your physical & emotional health limited your social activities with family, friends, neighbors, or groups?: slightly During the past 4 weeks, how much bodily pain have you generally had?: severe pain During the past 4 weeks, was someone available to help you if you needed & wanted help?: no, not at all During the past 4 weeks, what was the hardest physical activity you could do for at least 2 minutes?: light Can you get to places out of walking distance without help? (For eg., can you travel alone on buses, taxis or drive your car?): Yes Can you go shopping for groceries or clothes without someone's help?: No Can you prepare your own meals?: Yes Can you do your housework without help?: No Because of any health problems, do you need the help of another person with your personal care needs such as eating, bathing, dressing or getting around the house?: No Can you handle your own money without help?: No During the past 4 weeks, how would you rate your health in general?: very good During the past 4 weeks how have things been going for you?: pretty well Are you having difficulties driving your car?: sometimes Do you always fasten your seat belt when you are in a car?: yes, usually During past 4 weeks, have you been bothered by the following: never: Trouble eating well? and Problems using the telephone?, seldom: Falling or dizzy when standing up and Tiredness or fatigue? and always: Sexual problems? and Teeth or denture problems? Have you fallen 2 or more times in the past year?: Yes Are you afraid of falling?: Yes Are you a smoker?: no During the past 4 weeks, how many drinks of wine, beer, or other alcoholic beverages did you have?: no alcohol at all Do you exercise for about 20 minutes 3 or more times a week?: yes, most of the time Have you been given information to help with the following?: yes: Hazards in your house that might hurt you? and yes: Keeping track of your medications? How often do you have trouble taking medicines the way you have been told to take them?: I always take medicine as prescribed How confident are you that you can control & manage most of your health problems?: very confident What is your race?: White Mini Mental State Exam (MMSE) Orientation What is the (year) (season) (date) (day) (month)?: year, season, date, day and month Where are we (state) (county) (town or city) (hospital) (floor)?: state, county, town or city, hospital/clinic and floor Registration Name of 3 unrelated objects clearly and slowly, then ask patient to repeat all 3 of them. (1st repeat determines score. Make sure they can repeat all three): object 1, object 2 and object 3 Attention & Calculation (CHOOSE ONE) Spell WORLD backwards (DLROW): 4 letters Recall Ask patient to repeat the 3 items from question #3.: object 1, object 2 and object 3 Language Show patient a wristwatch & ask what it is. Repeat for pencil.: watch and pencil Ask the patient to repeat the phrase 'No ifs, ands, or buts' after you.: correct Ask the patient to 'take a piece of paper with their right hand' 'fold paper in half' 'place paper on floor': take paper in right hand, fold paper in half and place paper on floor Print the sentence 'CLOSE YOUR EYES' on a piece. If patient actually closes eyes then score.: followed written direction Give patient a blank piece of paper & ask to write a sentence. Score if it contains a noun & verb.: sentence contains subject and verb Ask patient to copy figure of intersecting pentagons exactly. Score if all 10 angles & 2 intersects are included.: all 10 angles present & 2 are intersected Score Score: 29 Activity of Daily Living Bathing - sponge bath, tub bath or shower: receives no assistance (gets in/out by self, if usual bathing means Dressing - getting clothes from closets & drawers, including inner/outer garments & fasteners.: gets clothes & gets completely dressed without help Toileting - going to the 'toilet room' for urine/bowel elimination & cleaning self/arranging clothes: goes to toilet room, cleans self, arranges clothes without help Transfer: moves in & out of bed and chair without help (may use support object) Continence: controls urination/bowel movements completely by self Total Score: 0 Information obtained from: patient Using telephone: independent Traveling: independent Shopping: independent Preparing meals: independent Housework: independent Taking medicine: independent Managing money: independent PHQ-9 Over the last 2 weeks, how often have you been bothered by any of the following problems? 47154 - PHQ-9 Billing: Patient declined-do not bill Source: Developed by Drs. Sedrick Wilde, Yovana Hicks, Ernesto Marks and colleagues, with an educational erendira from [employer]. Review of Systems Const Reports as per HPI Physical Exam Vital Signs: Last Vital Signs Pulse 80 06/23/24 13:22 BP 138/82 06/23/24 13:22 Pulse Ox 98 06/23/24 13:22 Oxygen Delivery Method Room Air 06/23/24 13:22 BMI result Body Mass Index 29.5 Const General: cooperative Orientation/consciousness: patient oriented x3 Resp Effort & Inspection: normal respiratory effort Auscultation: clear to auscultation bilaterally Cardio Rate: regular rate Rhythm: regular rhythm Heart sounds: S1 normal heart sound present, S2 normal heart sound present and Murmur heart sound present systolic Neuro Other: - romberg, can tandem walk, can walk and turn, can rise from sitting to standing, did not pass whisper test General: patient oriented x3 Extrem Right lower extremity: no edema Left lower extremity: no edema Psych Appearance: grossly normal Mental Status: mental status grossly normal Speech and movement: Normal speech and movement present Affect: normal affect Attitude: cooperative Thought process: Normal thought process present Thought content: Normal thought content present Insight: Good insight present (Psych) Judgement: Good judgement present (Psych) Immunizations pneumoc 20-jefferson conj-dip cr(PF) 0.5 mL IM syringe Performing Provider: KIMMY Borges Performing Location: [facility] Administered by: Pan Mario CMA on 06/23/24 14:20 Dose Route Admin Location Dispensed Lot Number Expiration Date NDC Outdoor Education Teacher 0.5 mL IM Left Deltoid 0.5 mL [id number] 08/22/25 8894-9116-08 WYETH/PFIZER VIS Given Date VIS Provided VIS Publication Date 06/23/24 Single Vaccine 21 Eligibility Eligibility Date Funding Source Not [facility] Eligible 06/23/24 Private Assessment & Plan Assessment & Plan (1) HTN (hypertension): Code(s): I10 - Essential (primary) hypertension Plan: Stable, labs ordered (2) Loss of hearing: Code(s): H91.90 - Unspecified hearing loss, unspecified ear Plan: Referred for hearing screen (3) Blurred vision: Code(s): H53.8 - Other visual disturbances Plan: Referred to optometry Plan The patient agreed to the use of a medical records supervisor for this encounter. Scribed for KIMMY López by Yenni Luong medical records supervisor, on 06/23/2024 at 13:40 EST. Orders: Orders Comprehensive [place]. Panel Fast Today I10 - Essential (primary) hypertension TSH reflex Free T4 Today I10 - Essential (primary) hypertension Lipid Panel Today I10 - Essential (primary) hypertension Pneumococcal 20 Immunization Today Z23 - Encounter for immunization Complete Blood Count Auto Diff Today I10 - Essential (primary) hypertension UA CC w/rflx Micro + Cult Today I10 - Essential (primary) hypertension Referrals Speech and Hearing Referral H91.90 - Unspecified hearing loss, unspecified ear Optometry Referral H53.8 - Other visual disturbances Coding Level of Care Code Medicare Subsequent (G0439) Est Pt Level 3 (22822) Diagnoses HTN (hypertension) I10 Loss of hearing H91.90 Blurred vision H53.8 CPT Codes Advance Care Planning - Time spent: 1-15 minutes, on File ([id number]) Advance Care Planning Forms completed: Health Care Proxy (refused), MOLST and Living will (pt reported i did that already ) Time spent: 1-15 minutes, on File Actual minutes spent: 15"
[2024-06-23 13:22] VITALS: BP 138/82; PULSE 80; O2SAT 98; BMI 29.5
== END 2024-06-23 15:58 | disposition home or self-care (01) ==
PROVIDERS: Visit Provider Nurse Practitioner Family
DX: Z00.00 Encounter for general adult medical examination without abnormal findings (principal); I10 Essential (primary) hypertension; H91.93 Unspecified hearing loss, bilateral; H53.8 Other visual disturbances; Z23 Encounter for immunization

== ENCOUNTER → 2024-06-23 12:59 | Outpatient (BNVA) | payer MEDICARE, OTHER, SELFPAY | PROVIDERS: Visit Provider Nurse Practitioner Family | DX: I10 Essential (primary) hypertension (principal); H91.90 Unspecified hearing loss, unspecified ear; H53.8 Other visual disturbances; Z23 Encounter for immunization | CPT/HCPCS: 90471; 90677; 99212 ==

== ENCOUNTER 2024-08-04 11:17 | Outpatient (REF) | payer OTHER, MEDICARE, SELFPAY ==
[2024-08-08 16:27] LABS: Testosterone, Free 136.4 pg/mL (35.0-155.0); Testosterone, Total 1392 ng/dL (250-1100)
== END 2024-08-04 11:18 | disposition home or self-care (01) ==
LOC: HO.LAB 11:17
PROVIDERS: PCP Nurse Practitioner Family; Visit Provider Urology
DX: E29.1 Testicular hypofunction (principal)
CPT/HCPCS: 36415; 84402; 84403

== ENCOUNTER 2024-08-08 11:18 | Outpatient (AMB) | payer OTHER, MEDICARE, SELFPAY ==
--- NOTE | 2024-08-08 11:19 | MHC.OFFVIS ---
Intake Visit Reasons: [facility] Testo(lab?) Intake Note: Patient is Present for [facility] TESTO Urology Med: Tadalafil, Terazosin, Alfuzosin, Sildenafil,VITAMIN B12,TESTOSTERONE Antibiotic Allergy: None Blood Thinner: Rivaroxaban General Car Yard Supervisor Required: No Accompanied by: Self / Same As Patient Allergies codeine [CODEINE] Allergy (Severe, Verified 06/23/24 13:24) SEVERE PAIN/HYPOXIA W/HIGH DOSES meningococcal vaccine A,C,Y and W-1 [MENINGOCOCCAL VACCINE A,C,Y AND W-1] Allergy (Intermediate, Verified 06/23/24 13:24) HIVES salmon oil Allergy (Unknown, Verified 06/23/24 13:24) hives SALMON Allergy (Severe, Uncoded 05/28/24 10:19) LT HEMIPARESIS HPI Comments Details: Doroteo GANDHI is a very pleasant male. He is a patient of Dr. Ahumada. He is seen for the following urologic conditions - lower urinary tract symptoms - hypogonadism - Klinefelter syndrome - long-term testosterone - erectile dysfunction Telemedicine Evaluation 15 min Consultation [employer] Carla Video Has had difficulty with injectable testosterone Had previously been on gel which came off secondary to insurance Upon review today should qualify for gel Prescription provided Three-month follow-up labs for confirmation Has been on medications bladder stability Prior cystoscopy shows trabeculation grade 2, mucosal irritation particularly anterior prostate surface Improvement from low-dose Bactrim On daily tadalafil Would like to add on demand sildenafil Prescription provided Hypogonadism:?Has had some fatigue secondary to COVID stress ?Can increase testosterone to 0.45 per week ?Also discussed ED ?Had difficulty with Cialis in past, Viagra 200 mg non effective ?Has use Tri Mix previously Injection Day : Sunday Lab Day: Sun/ ? He presents today for?further evaluation and followup of his hypogonadism.? Initial symptoms include? erectile dysfunction ?Yes ? decreased libido ?Yes ? change in mood/depression ?Yes ? in muscle size/strength ?Yes ? increased fatigue/malaise ?Yes ? increased abdominal fat ?No ? tender breasts/gynecomastia ?No ? hair loss ?No ? osteopenia ?No ? The onset of symptoms has been?gradual.? Associate conditions include? obstructive sleep apnea ?No ? CAD ?No ? obesity ?No ? stress - financial, family, employment ?No ? heavy alcohol or illicit drug use ?No ? Laboratory results?04/21 PSA 2 ?06/21 T 83 - of T for 4 weeks ?12/21 T475, 01/22 P 3.7 T 1400, 07/25 T 471 P 4.1 ? Current therapy includes?injectable exogenous testosterone ?06/21 weekly injection ?12/21 0.4cc subcut ? Prior therapy includes?testosterone, injectable.? Diagnosis based on history and laboratory results?combined testicular insufficiency.? Lower Urinary Tract Symptoms:? Current visit is for?further evaluation of, lower urinary tract symptoms, predominate obstructive symptoms.? Current treatment includes?alpha natividad.? Prostate Symptom Score?10/22 , , Moderate (9-19), Bother 3.? Symptoms include?10/22 , incomplete emptying, weak stream, nocturia (>2), and are progressing.? Treatment plan?continue with current medications [facility] Medical History (Updated 06/23/24 @ 14:05 by Abdirahman Howell, [facility]) Factor 5 Leiden mutation, heterozygous Right knee pain On continuous oral anticoagulation Leg fracture, left Klinefelter syndrome Pulmonary embolus HTN (hypertension) HIV (human immunodeficiency virus infection) DVT (deep venous thrombosis) Surgical History Hx of colonoscopy History of angioplasty of vein Hx of left knee surgery History of umbilical hernia repair Hx of cholecystectomy S/P ORIF (open reduction internal fixation) fracture Family History Father No problems noted. Mother No problems noted. Social History Housing: House Are you a primary hospice care transitions coordinator to a significant other at home: No Do you presently have visiting nurse or other home services: No Alcohol intake: former Patient Tobacco Use Status: Former Tobacco user Tobacco use type: Cigarette Cigarette Packs Per Day: 2 e-Cigarette/Vaping Use: Never Used Second Hand Smoke Exposure: Yes Substance Use Type: Marijuana service: Yes ([employer] ) Current occupational status: employed Current occupation: [employer] Current occupational exposures/hazards: No Review of Systems Const All systems reviewed & are unremarkable except as noted in HPI and below Reports no additional complaints Resp Reports no additional complaints GI Reports no additional complaints Reports as per HPI Musc Reports no additional complaints Physical Exam Telemedicine evaluation Appropriate responses Regular breathing rate and rhythm HEENT Head: Yes normal to inspection Ears: hearing grossly normal bilaterally Eyes General: appearance normal, both eyes and all related structures Neck Neck: Yes normal visual inspection Chest Chest palpation & inspection: normal inspection of the chest Resp Effort & Inspection: normal respiratory effort and able to speak in complete sentences Telehealth Telehealth Telehealth Platform: [facility] Location of provider rendering services: practice address Location of patient: address on file Patient Identification confirmed using: Name, : Yes Telehealth method: video Patient verbally consented to treatment: Yes Patient verbally consented to billing insurance company: Yes Patient informed of any privacy concerns related to visit: Yes Minutes spent on Phone/Video with Pt.: 15 Assessment & Plan Assessment & Plan (1) Erectile dysfunction due to arterial insufficiency: Code(s): N52.01 - Erectile dysfunction due to arterial insufficiency Category: Medical (2) Cystitis: Code(s): N30.90 - Cystitis, unspecified without hematuria Category: Medical (3) Klinefelter syndrome: Code(s): Q98.4 - Klinefelter syndrome, unspecified Category: Medical (4) Hypogonadism in male: Code(s): E29.1 - Testicular hypofunction Category: Medical Plan Three-month follow-up testosterone labs Orders: Orders Testosterone, Free/Total 08/04/24 E29.1 - Testicular hypofunction Testosterone, Total 08/04/24 E29.1 - Testicular hypofunction Testosterone, Total 3 Months E29.1 - Testicular hypofunction Complete Blood Count no Diff 3 Months E29.1 - Testicular hypofunction Prostate Specific Antigen 3 Months E29.1 - Testicular hypofunction Medications: New testosterone apply 1 packet daily 50 mg transdermal DAILY 30 days 150 grams 5RF E29.1 - Testicular hypofunction testosterone apply 2 pumps over max area - alternate shoulders on alternate days 2 pumps topical DAILY 30 days 75 grams 2RF E29.1 - Testicular hypofunction, R79.89 - Other specified abnormal findings of blood chemistry Refilled terazosin 5 mg PO BEDTIME 90 caps 3RF E29.1 - Testicular hypofunction Patient Instructions: Imaging studies, laboratory and physical exam results were discussed and reviewed in detail. No major barriers to patient understanding were identified. An opportunity to ask questions regarding the treatment plan was provided. All questions were answered. The patient expressed understanding and agreement with the above treatment plan. The patient is aware they should contact our office by phone for worsening of their current condition or the appearance of new urologic symptoms. Compliance is encouraged with any medications and followup testing that is ordered. It is a privilege to participate in the urologic care of your patient. If you have any questions or concerns regarding treatment for the above conditions, or other urologic issues, please do not hesitate to contact me. The office telephone contact is [phone]. This note is constructed using voice recognition software. While every effort has been made to ensure accuracy generation engineer errors may have been included. Yours sincerely, Dr Sunny Guerra MD, [facility] - Urology Providers of Expert, Compassionate Care for the Genitourinary System Coding Level of Care Code Tele Est Pt Level 3 (48724) Diagnoses Erectile dysfunction due to arterial insufficiency N52.01 Cystitis N30.90 Klinefelter syndrome Q98.4 Hypogonadism in male E29.1
--- OUTSIDE RECORDS SUMMARY | 2024-08-13 07:53 | XMS_ITS | Continuity of Care Document ---
Author Organization [facility] are Address [address] [place] [address] Phone Care Team Providers Care Lamp Stack Developer Name Role Phone Serafin Olivo MD Unavailable Unavailable Procedures Procedure Date Office/outpatient visit,[facility] 2008 Advance Directives Directive Yes / No Effective Date File Name No Information Encounters Encounter Description Practice Location Reason(s) For Visit Diagnoses Date Provider Office/outpatie nt visit,[facility], [address], [place], [id number], tel:[phone] DO IC PS No Information 009 Geovani Betancourt. [address] [place], [address]. tel:[phone] [facility], [address], [place], [id number], tel:[phone] DO IC PS No Information 008 Briana Gary. [address], [place], [id number], . tel:[phone] Family History Family Member Type Diagnosis Age At Onset No Information Payers Payer name Insurance type Covered constitution party ID Authoriza tion(s) Blue Shield Comm DO HMO CI [id number] Social History Type Description Quantity Date Captured Comments Sex Male Smoking Status No Information Chief Complaint And Reason For Visit No Information History Of Present Illness Encounter Date Complaint History Of Prese nt Illness No Information Instructions Date Instruction Additional Infor mation No Information Assessments Type Assessment Date No Information
--- OUTSIDE RECORDS SUMMARY | 2024-08-13 07:53 | XMS_ITS | Continuity of Care Document ---
Author Organization [facility] Address [address] [place] [address] Phone Care Team Providers Care Financial Planning Assistant Name Role Phone Leti Moe DO Unavailable Unavailable Procedures Procedure Date Extremity veins study, limited 16 Advance Directives Directive Yes / No Effective Date File Name No Information Encounters Encounter Description Practice Location Reason(s) For Visit Diagnoses Date Provider [facility], [address], [place], [place], [id number], [place] tel:[phone] [facility] No Information 2015 [address]. [address], [address], [place], [address], [place]. tel:[phone] Family History Family Member Type Diagnosis Age At Onset No Information Payers Payer name Insurance type Covered alliance party ID Authoriza timilton(s) [facility] [place] [id number] Social History Type Description Quantity Date Captured Comments Sex Male Smoking Status No Information Chief Complaint And Reason For Visit No Information History Of Present Illness Encounter Date Complaint History Of Prese nt Illness No Information Instructions Date Instruction Additional Infor mation No Information Assessments Type Assessment Date No Information
== END 2024-08-08 12:23 | disposition home or self-care (01) ==
LOC: HO.HUSH 11:18
PROVIDERS: PCP Nurse Practitioner Family; Visit Provider Urology
DX: N52.01 Erectile dysfunction due to arterial insufficiency (principal); N30.90 Cystitis, unspecified without hematuria; Q98.4 Klinefelter syndrome, unspecified
CPT/HCPCS: 99213

== ENCOUNTER → 2024-08-08 11:18 | Outpatient (BNVA) | payer OTHER, MEDICARE, SELFPAY | PROVIDERS: PCP Nurse Practitioner Family; Visit Provider Urology ==

== ENCOUNTER 2024-10-31 11:50 | Outpatient (REF) | payer OTHER, MEDICARE, SELFPAY ==
[2024-10-31 12:42] LABS: Hematocrit 43.1 % (42.0-52.0); Hemoglobin 14.7 g/dl (14.0-18.0); Mean Corpuscular HGB Conc 34.1 g/dl (31.0-36.0); Mean Corpuscular Hemoglobin 32.1 pg (27.0-33.0); Mean Corpuscular Volume 94.1 fL (80.0-98.0); Mean Platelet Volume 10.3 fL (9.4-12.4); Platelet Count 178 X10*3/uL (160-400); Red Blood Count 4.58 X10*6/uL (4.60-5.80); Red Cell Distribution Width 12.9 % (11.0-16.0); White Blood Count 4.4 X10*3/uL (4.8-10.8)
[2024-10-31 13:28] LABS: Prostate Specific Antigen 3.08 ng/mL (<0.05-4.0)
--- OUTSIDE RECORDS SUMMARY | 2024-10-31 14:10 | XMS_ITS | Data Portability ---
Author Organization [facility], Main Office Address [address] [place] [phone] Assessment Encounter Date Assessment Date Assessment LastModified by Organization Details LastModified Time 07/29/2024 07/29/2024 AUDIO. telehealth. 19 min pt home in [place] [email or web address] Not available 08/01/2024 13:07:28 Plan of Treatment Reminders Order Date Submit Date Provider Last Modified By Organization Details Last Modified Time Details Appointments None recorded. Lab CBC w/ diff 2023 [email or web address] [facility] (Centralized Electronic Ordering - All Locations), Patient Can Go To The Location Of Their Choice, [id number] 4 09:16:54 ALT (alanine aminotransf erase), serum or plasma 2023 024 [email or web address] [facility] (Centralized Electronic Ordering - All Locations), Patient Can Go To The Location Of Their Choice, [id number] 4 09:16:55 AST/SGOT (aspartate aminotransf erase), serum or plasma 2023 024 [email or web address] [facility] (Centralized Electronic Ordering - All Locations), Patient Can Go To The Location Of Their Choice, [address] 4 09:16:55 CT + NG DNA, PCR, unspecified specimen 2023 024 [email or web address] [facility] (Centralized Electronic Ordering - All Locations), Patient Can Go To The Location Of Their Choice, [address] 4 09:16:55 creatinine w/ estimated GFR (eGFR), serum or plasma 2023 024 [email or web address] [facility] (Centralized Electronic Ordering - All Locations), Patient Can Go To The Location Of Their Choice, 4 09:16:55 hepatitis C virus Ab, serum 2023 [email or web address] [facility] (Centralized Electronic Ordering - All Locations), Patient Can Go To The Location Of Their Choice, 4 09:16:55 HIV-1 RNA, quantitativ e, PCR, serum or plasma 2023 [email or web address] [facility] (Centralized Electronic Ordering - All Locations), Patient Can Go To The Location Of Their Choice, 4 09:16:55 RPR (rapid plasma reagin), serum 2023 [email or web address] [facility] (Centralized Electronic Ordering - All Locations), Patient Can Go To The Location Of Their Choice, 09:16:55 unlisted lab - genosure archive(R) 2023 [email or web address] [facility] (Centralized Electronic Ordering - All Locations), Patient Can Go To The Location Of Their Choice, 09:16:55 cd4 T-cells, blood 2023 [email or web address] [facility] (Centralized Electronic Ordering - All Locations), Patient Can Go To The Location Of Their Choice, 4 09:16:55 HBsAg (hepatitis B surface Ag), EIA, serum 2023 [email or web address] [facility] (Centralized Electronic Ordering - All Locations), Patient Can Go To The Location Of Their Choice, 4 09:16:55 chlamydia trachomatis + neisseria gonorrhoeae rRNA panel, EBEN+probe, nasopharynx 2023 [email or web address] [facility] (Centralized [facility] Ordering - All Locations), Patient Can Go To The Location Of Their Choice, 4 12:50:42 CT + NG RNA, PCR, unspecified specimen 2023 [email or web address] [facility] (Centralized Electronic Ordering - All Locations), Patient Can Go To The Location Of Their Choice, 4 12:49:44 chlamydia trachomatis + neisseria gonorrhoeae rRNA panel, EBEN+probe, nasopharynx 2023 [email or web address] [facility] (Centralized Electronic Ordering - All Locations), Patient Can Go To The Location Of Their Choice, [address] 4 09:54:58 CT + NG RNA, rectal 2023 [email or web address] [facility] (Centralized Electronic Ordering - All Locations), Patient Can Go To The Location Of Their Choice, [address] 4 14:31:08 ALT (alanine aminotransf erase), serum or plasma 2023 [email or web address] [facility] (Centralized Electronic Ordering - All Locations), Patient Can Go To The Location Of Their Choice, 09:54:57 AST/SGOT (aspartate aminotransf erase), serum or plasma 2023 [email or web address] [facility] (Centralized Electronic Ordering - All Locations), Patient Can Go To The Location Of Their Choice, [address] 09:54:57 CT + NG DNA, PCR, unspecified specimen 2023 [email or web address] [facility] (Centralized [facility] Ordering - All Locations), Patient Can Go To The Location Of Their Choice, 09:54:57 creatinine w/ estimated GFR (eGFR), serum or plasma 2023 [email or web address] [facility] (Centralized Electronic Ordering - All Locations), Patient Can Go To The Location Of Their Choice, 4 09:54:57 hepatitis C virus Ab, serum 2023 [email or web address] [facility] (Centralized Electronic Ordering - All Locations), Patient Can Go To The Location Of Their Choice, 4 09:54:58 HIV-1 RNA, quantitativ e, PCR, serum or plasma 2023 024 [email or web address] [facility] (Centralized Electronic Ordering - All Locations), Patient Can Go To The Location Of Their Choice, 4 09:54:58 RPR (rapid plasma reagin), serum 2023 024 [email or web address] [facility] ([facility]ized Electronic Ordering - All Locations), Patient Can Go To The Location Of Their Choice, [address] 4 09:54:58 T-cell regulatory subsets panel, blood 2023 024 [email or web address] [facility] ([facility]ized [facility] Ordering - All Locations), Patient Can Go To The Location Of Their Choice, [address] 4 09:54:58 bacterial vaginosis + vaginitis panel, vaginal 2023 024 [email or web address] [facility] (Centralized [facility] Ordering - All Locations), Patient Can Go To The Location Of Their Choice, [address] 4 14:35:00 HIV 1 proviral DNA, genotype, blood mononuclear cells - Archive proviral resistance test 2023 024 [email or web address] [facility] (Centralized Electronic Ordering - All Locations), Patient Can Go To The Location Of Their Choice, [address] 4 09:54:58 hsv (1+2) igg Ab, serum 2023 024 [email or web address] [facility] (Centralized Electronic Ordering - All Locations), Patient Can Go To The Location Of Their Choice, [address] 4 09:54:58 Referral None recorded. Procedures None recorded. Surgeries None recorded. Imaging None recorded. Medication Orders vitamin E mixed 400 unit capsule 2023 [facility], [address] [place] [address], [address], 4 12:01:45 doxycycline hyclate 100 mg capsule 2023 024 [facility], [address] [place] [address], [address], 4 17:55:39 Cabenuva 600 mg/3 mL-900 mg/3 mL IM suspension, extended release 2023 [address] [email or web address], [place], [address], 18:22:04 Patient TargetsNo targets recorded. Patient InstructionsNo instructions recorded. Reason for Referral None Reported. Results Created Date Observation Date Name Description Value Unit Range Abnormal Flag Note LastModifiedBy Organization Detail LastModifiedTime 04/10/20 24 04/11/2024 CHLAM YDIA DNA URINE chlamydia DNA urine NEGATI VE negati ve Not Available [facility] [address] [place] [address], [address], 04/11/2024 10:41:20 04/10/20 24 04/11/2024 GC DNA URINE GC DNA urine NEGATI VE negati ve Not Available [facility] [address] [place] [address], [address], 04/11/2024 10:41:21 04/10/20 24 04/11/2024 GC DNA URINE performing lab Perfor susan [facility], maribell arroyo r of [facility] h Of [address] [place] [address] Medic al Direc pepito jimenez MD Not Available [facility] [address] [place] [address], [address], 04/11/2024 10:41:21 04/10/20 24 04/11/2024 CHLAM YDIA DNA SWAB chlamydia DNA swab NEGATI VE negati ve This speci men type has not been evalu ated for this metho d. Inter pret resul ts with cauti on. Speci men is Oral Not Available [facility] [address] [place] [address], [address], 04/11/2024 11:05:18 04/10/20 24 04/11/2024 GC DNA SWAB GC DNA swab NEGATI VE negati ve This speci men type has not been evalu ated for this metho d. Inter pret resul ts with cauti on. Speci men is Oral Not Available [facility] [address] [place] [address], [address], 04/11/2024 11:05:19 04/10/20 24 04/11/2024 GC DNA SWAB performing lab Perfor susan [facility] atoremmy paige a membe r of [facility] [address] [place] [address] Medic al [facility] Not Available [facility] [address] [place] [address], [address], 04/11/2024 11:05:19 04/10/20 24 04/12/2024 CHLAM YDIA DNA SWAB chlamydia DNA swab TNP negati ve Unabl e to obtai n a valid resul t. Inter ferin g subst ances may be prese nt in this speci men. Submi t new speci men. Not Available [facility] [address] [place] [address], [address], 04/12/2024 08:07:56 04/10/20 24 04/12/2024 GC DNA SWAB GC DNA swab TNP negati ve Unabl e to obtai n a valid resul t. Inter ferin g subst ances may be prese nt in this speci men. Submi t new speci men. Not Available [facility] [address] [place] [address], [address], 04/12/2024 08:07:57 04/10/2004/12/2024 GC DNA SWAB performing lab Perfor susan [facility] kev paige a membe r of [facility] [address] [place] [address] Medic al [facility] MD Not Available [facility] [address] [place] [address], [address], 04/12/2024 08:07:57 05/06/20 24 05/07/2024 GLOM FILT RATE, ESTIM ATED creatinine 1.05 mg/dL 0.76-1 .27 normal Not Available [facility] ([facility]) [address] [facility], [place], [address], 05/09/2024 16:06:51 05/06/20 24 05/07/2024 GLOM FILT RATE, ESTIM ATED eGFR 80 mL/mi n/1.7 3 >59 normal Not Available [facility] ([facility]) [address] [place], [address], 05/09/2024 16:06:51 05/06/20 24 05/09/2024 RNA, REAL TIME PCR (NON- GRAPH ) HIV-1 RNA by PCR <20 copie s/mL HIV-1 RNA not detec gab The repor table range for this assay is 20 to 10,00 0,000 copie s HIV-1 RNA/m L. Not Available [facility] ([facility]) [address] [facility], [place], [address], 05/09/2024 16:06:52 05/06/20 24 05/09/2024 RNA, REAL TIME PCR (NON- GRAPH ) log10 HIV-1 RNA COMMEN T log10 copy/ mL Unabl e to calcu late resul t since non-n umeri c resul t obtai antonino for compo nent test. Not Available [facility] ([facility]) [address] [facility], [place], [address], 05/09/2024 16:06:52 05/06/20 24 05/07/2024 RPR, RFX QN RPR/C ONFIR M TP RPR Non Reacti ve non reacti ve Not Available [facility] ([facility]) [address] [place], [address], 05/09/2024 16:06:52 05/06/20 24 05/07/2024 AST (SGOT ) AST (SGOT) 20 IU/L 0-40 normal Not Available [facility] ([facility]) [address] [place], [address], 05/09/2024 16:06:52 05/06/20 24 05/07/2024 ALT (SGPT ) ALT (SGPT) 17 IU/L 0-44 normal Not Available [facility] ([facility]) [address] [place], [address], 05/09/2024 16:06:53 05/12/20 24 05/13/2024 CHLAM YDIA DNA URINE chlamydia DNA urine NEGATI VE negati ve Not Available [facility] [address] [place] [address], [address], 05/13/2024 10:03:08 05/12/20 24 05/13/2024 GC DNA URINE GC DNA urine NEGATI VE negati ve Not Available [facility] [address] [place] [address], [address], 05/13/2024 10:03:09 05/12/20 24 05/13/2024 GC DNA URINE performing lab Perfor susan [facility] at[facility], a membe r of [address] [place] [address] Medic al [facility] pepito jimenez MD Not Available [facility] [address] [place] [address], [address], 05/13/2024 10:03:09 05/12/20 24 05/13/2024 CHLAM YDIA DNA SWAB chlamydia DNA swab NEGATI VE negati ve This speci men type has not been evalu ated for this metho d. Inter pret resul ts with cauti on. Speci men is Oral Not Available [facility] [address] [place] [address], [address], 05/13/2024 10:19:09 05/12/20 24 05/13/2024 GC DNA SWAB GC DNA swab NEGATI VE negati ve This speci men type has not been evalu ated for this metho d. Inter pret resul ts with cauti on. Speci men is Oral Not Available [facility] [address] [place] [address], [address], 05/13/2024 10:19:10 05/12/20 24 05/13/2024 GC DNA SWAB performing lab Perfor susan [facility], a membe r of [facility] [address] [place] [address] Medic al Direc pepito jimenez MD Not Available [facility] [address], [place], [address], 05/13/2024 10:19:10 09/23/19 25 09/26/2024 PREP: RPR W/REF TATI TITER +TPAB RPR Non Reacti ve non reacti ve Not Available [facility] ([facility]) [address] [facility], [place], [address], 09/26/2024 08:08:12 09/23/19 25 09/26/2024 HCV ANTIB LAQUITA hep C virus Ab Non Reacti ve non reacti ve HCV antib laquita alone does not diffe renti ate betwe en previ ously resol karlo infec tion and activ e infec tion. Equiv ocal and React corrine HCV antib laquita resul ts shoul d be follo wed up with an HCV RNA test to suppo rt the diagn osis of activ e HCV infec tion. Not Available [facility] ([facility]) [address] [facility], [place], [address], 09/26/2024 08:08:13 09/23/1909/26/2024 HBSAG SCREE N HBsAg screen Negati ve negati ve Not Available [facility] ([facility]) [address] [facility], [place], [address], 09/26/2024 08:08:13 09/23/19 25 09/24/2024 CBC/D /PLT W/ REFLE X SIGRID TIN WBC 4.0 x10e3 /uL 3.4-10 .8 normal Not Available [facility] ([facility]) [address] [facility], [place], [address], 10/23/2024 13:10:16 09/23/1909/24/2024 CBC/D /PLT W/ REFLE X SIGRID TIN RBC 4.44 x10e6 /uL 4.14-5 .80 normal Not Available [facility] ([facility]) [address] [facility], [place], [address], 10/23/2024 13:10:16 09/23/19 25 09/24/2024 CBC/D /PLT W/ REFLE X SIGRID TIN hemoglobin 14.5 g/dL 13.0-1 7.7 normal Not Available [facility] ([facility]) [address] [facility], [place], [address], 10/23/2024 13:10:16 09/23/19 25 09/24/2024 CBC/D /PLT W/ REFLE X SIGRID TIN hematocrit 43.6 % 37.5-5 1.0 normal Not Available [facility] ([facility]) [address] [facility], [place], [address], 10/23/2024 13:10:16 09/23/19 25 09/24/2024 CBC/D /PLT W/ REFLE X SIGRID TIN MCV 98 fL 79-97 above high normal Not Available [facility] ([facility]) [address] [place], [address], 10/23/2024 13:10:16 09/23/19 25 09/24/2024 CBC/D /PLT W/ REFLE X SIGRID TIN MCH 32.7 pg 26.6-3 3.0 normal Not Available [facility] ([facility]) [address] [place], [address], 10/23/2024 13:10:16 09/23/19 25 09/24/2024 CBC/D /PLT W/ REFLE X SIGRID TIN MCHC 33.3 g/dL 31.5-3 5.7 normal Not Available [facility] ([facility]) [address] [place], [address], 10/23/2024 13:10:16 09/23/19 25 09/24/2024 CBC/D /PLT W/ REFLE X SIGRID TIN RDW 13.4 % 11.6-1 5.4 Not Available [facility] ([facility]) [address] [facility], [place], [address], 10/23/2024 13:10:16 09/23/19 25 09/24/2024 CBC/D /PLT W/ REFLE X SIGRID TIN platelets 177 x10e3 /uL 150-45 0 normal Not Available [facility] ([facility]) [address] [facility], [place], [address], 10/23/2024 13:10:16 09/23/19 25 09/24/2024 CBC/D /PLT W/ REFLE X SIGRID TIN neutrophils 57 % not estab. normal Not Available [facility] ([facility]) [address] [facility], [place], [address], 10/23/2024 13:10:16 09/23/19 25 09/24/2024 CBC/D /PLT W/ REFLE X SIGRID TIN lymphs 31 % not estab. normal Not Available [facility] ([facility]) [address] [facility], [place], [address], 10/23/2024 13:10:16 09/23/19 25 09/24/2024 CBC/D /PLT W/ REFLE X SIGRID TIN monocytes 9 % not estab. normal Not Available [facility] ([facility]) [address] [facility], [place], [address], 10/23/2024 13:10:16 09/23/19 25 09/24/2024 CBC/D /PLT W/ REFLE X SIGRID TIN eos 2 % not estab. normal Not Available [facility] ([facility]) [address] [facility], [place], [address], 10/23/2024 13:10:16 09/23/19 25 09/24/2024 CBC/D /PLT W/ REFLE X SIGRID TIN basos 1 % not estab. normal Not Available [facility] ([facility]) [address] [facility], [place], [address], 10/23/2024 13:10:16 09/23/19 25 09/24/2024 CBC/D /PLT W/ REFLE X SIGRID TIN immature cells [employer] Not Available [facility] ([facility]) [address] [place], [address], 10/23/2024 13:10:16 09/23/19 25 09/24/2024 CBC/D /PLT W/ REFLE X SIGRID TIN neutrophils (absolute) 2.3 x10e3 /uL 1.4-7. 0 normal Not Available [facility] ([facility]) [address] [place], [address], 10/23/2024 13:10:16 09/23/19 25 09/24/2024 CBC/D /PLT W/ REFLE X SIGRID TIN lymphs (absolute) 1.3 x10e3 /uL 0.7-3. 1 normal Not Available [facility] ([facility]) [address] [place], [address], 10/23/2024 13:10:16 09/23/19 25 09/24/2024 CBC/D /PLT W/ REFLE X SIGRID TIN monocytes(ab solute) 0.4 x10e3 /uL 0.1-0. 9 normal Not Available [facility] ([facility]) [address] [place], [address], 10/23/2024 13:10:16 09/23/19 25 09/24/2024 CBC/D /PLT W/ REFLE X SIGRID TIN eos (absolute) 0.1 x10e3 /uL 0.0-0. 4 normal Not Available [facility] ([facility]) [address] [place], [address], 10/23/2024 13:10:16 09/23/19 25 09/24/2024 CBC/D /PLT W/ REFLE X SIGRID TIN baso (absolute) 0.0 x10e3 /uL 0.0-0. 2 normal Not Available [facility] ([facility]) [address] [facility], [place], [address], 10/23/2024 13:10:16 09/23/19 25 09/24/2024 CBC/D /PLT W/ REFLE X SIGRID TIN immature granulocytes 0 % not estab. Not Available [facility] ([facility]) [address] [facility], [place], [address], 10/23/2024 13:10:16 09/23/19 25 09/24/2024 CBC/D /PLT W/ REFLE X SIGRID TIN immature grans (abs) 0.0 x10e3 /uL 0.0-0. 1 Not Available [facility] ([facility]) [address] [facility], [place], [address], 10/23/2024 13:10:16 09/23/19 25 09/24/2024 CBC/D /PLT W/ REFLE X SIGRID TIN NRBC [employer] Not Available [facility] ([facility]) [address] [facility], [place], [address], 10/23/2024 13:10:16 09/23/19 25 09/24/2024 CBC/D /PLT W/ REFLE X SIGRID TIN hematology comments: [employer] Not Available [facility] ([facility]) [address] [facility], [place], [address], 10/23/2024 13:10:16 09/23/19 25 09/24/2024 HELPE R T-LYM PH-CD 4 absolute cd 4 helper 562 /uL 359-15 19 Not Available [facility] ([facility]) [address] [facility], [place], [address], 10/23/2024 13:10:16 09/23/19 25 09/24/2024 HELPE R T-LYM PH-CD 4 % cd 4 pos. lymph. 43.2 % 30.8-5 8.5 Not Available [facility] ([facility]) [address] [facility], [place], [address], 10/23/2024 13:10:16 09/23/19 25 10/23/2024 GENOS URE ARCHI VE(R) pdf Not applic able Not Available [facility] [address] [facility] [place], [address], 10/23/2024 13:10:17 09/23/19 25 10/23/2024 GENOS URE ARCHI VE(R) HIV genosure archive TNP See comme nts GenoS ure Archi ve Resul ts: Non-R eport able HIV-1 Subty pe: Not Avail able Insuf ficie nt HIV-i nfect ed cells or cell- assoc iated DNA targe ts may be a cause of assay failu re. This may be relat ed to durat ion of virol ogic suppr essio n, immun e statu s, and other facto rs. Prime r incom patib ility or the prese nce of inhib itory subst ances in the blood may also contr ibute to assay failu re. Not Available [facility] [address] [place], [address], 10/23/2024 13:10:17 09/23/19 25 10/23/2024 GENOS URE ARCHI VE(R) HIV genosure archive Not applic able Not Available [facility] [address] [place], [address], 10/23/2024 13:10:17 09/23/19 25 10/23/2024 GENOS URE ARCHI VE(R) HIV genosure archive interp Commen t For more infor elfego farrell on inter preti ng melvina caputo t, dillon e visit [employer] or call [employer] at [phone] betwe en the hours of 6:30a m to 5:00p m PT Monda y marlenyu gh Yumiko y. GenoS ure Archi ve is a DNA seque ncing assay that uses next- gener ation seque ncing to tommie ze the prote ase (reyes o acids 1-99) , rever se trans cript ase (reyes o acids 1-400 ) and integ rase (reyes o acids 1-288 ) codin g regio ns deriv ed from HIV-1 cell assoc iated DNA. Subty pe is deter mined using the prote ase and rever se trans cript ase seque nce infor matio n. This test was devel oped and its perfo rmanc e rashaad cteri stics deter mined by [facility]. It has not been clear ed or appro karlo by the Food and Drug Admin istra tion. [email or web address]. is a subsi diary of Labor atory [employer] ratio n of Amally staley [employer] n[employer], using the brand [employer]. The resul ts shoul d not be used as the sole crite rubio for patie nt manag ement . This docum ent conta ins priva te and confi denti al healt h infor matio n prote cted by state and [place] law. If you have recei karol this docum ent in error , pleas e call [phone]. Not Available [employer] [address] [place] [address], [address], 10/23/2024 13:10:17 09/23/19 25 10/01/2024 GLOM FILT RATE, ESTIM ATED creatinine COMMEN T mg/dL Test not perfo rmed. Deter iorat ion occur red durin g speci men handl ing. [facility] is provi ding the patie nt with re-co llect ion instr uctio ns. Not Available [facility] ([facility]) [address] [facility], [place], [address], 10/23/2024 13:10:17 09/23/19 25 10/01/2024 GLOM FILT RATE, ESTIM ATED eGFR [employer] Not Available [facility] ([facility]) [address] [facility], [place], [address], 10/23/2024 13:10:17 09/23/19 25 09/26/2024 CHLAM YDIA/ GC AMPLI FICAT ION chlamydia trachomatis, EBEN COMMEN T [facility] was unabl e to colle ct suffi cient speci men to perfo rm the follo wing test( s), and is provi ding the patie nt with re-co llect ion instr uctio ns. Not Available [facility] ([facility]) [address] [facility], [place], [address], 10/23/2024 13:10:18 09/23/19 25 09/26/2024 CHLAM YDIA/ GC AMPLI FICAT ION neisseria gonorrhoeae, EBEN TNP Test not perfo rmed Not Available [facility] ([facility]) [address] [facility], [place], [address], 10/23/2024 13:10:18 09/23/19 25 09/25/2024 RNA, REAL TIME PCR (NON- GRAPH ) HIV-1 RNA by PCR <20 copie s/mL HIV-1 RNA not detec gab The repor table range for this assay is 20 to 10,00 0,000 copie s HIV-1 RNA/m L. Not Available [facility] ([facility]) [address] [facility], [place], [address], 10/23/2024 13:10:18 09/23/19 25 09/25/2024 RNA, REAL TIME PCR (NON- GRAPH ) log10 HIV-1 RNA COMMEN T log10 copy/ mL Unabl e to calcu late resul t since non-n umeri c resul t obtai antonino for compo nent test. Not Available [facility] ([facility]) [address] [facility], [place], [address], 10/23/2024 13:10:18 09/23/19 25 10/01/2024 AST (SGOT ) AST (SGOT) COMMEN T IU/L Test not perfo rmed. Deter iorat ion occur red durin g speci men handl ing. [facility] is provi ding the patie nt with re-co llect ion instr uctio ns. Not Available [facility] ([facility]) [address] [place], [address], 10/23/2024 13:10:18 09/23/19 25 10/01/2024 ALT (SGPT ) ALT (SGPT) COMMEN T IU/L Test not perfo rmed. Deter iorat ion occur red durin g speci men handl ing. [facility] is provi ding the patie nt with re-co llect ion instr uctio ns. Not Available [facility] ([facility]) [address] [place], [address], 10/23/2024 13:10:19 09/23/19 25 09/26/[address] PROBL EM request problem COMMEN T [facility] was unabl e to colle ct suffi cient speci men to perfo rm the follo wing test( s), and is provi ding the patie nt with re-co llect ion instr uctio ns. TEST: [id number] Chlam ydia/ GC Ampli ficat ion Not Available [facility] ([facility]) [address] [place], [address], 10/23/2024 13:10:19 09/23/19 25 10/01/[address] PROBL EM request problem COMMEN T Test not perfo rmed. Deter iorat ion occur red durin g speci men handl ing. [facility] is provi ding the patie nt with re-co llect ion instr uctio ns. TEST: 87001 0 Creat inine Panel : 14313 8 03094 3 AST (SGOT ) 69776 5 ALT (SGPT ) Not Available [facility] ([facility]) [address] [place], [address], 10/23/2024 13:10:20 Result Notes None recorded. Problems Name Problem SNOMED Code Status Onset Date Resolution Date Notes Provider Name and Address Organization Details Recorded Time History of syphilis [id number] 8 Active 2023 NR 05/2024 Idris Bales MD [address] [place] [address], [phone] [place] [address] - IDRIS BALES MD [facility] 4 12:14:18 Problem Notes None recorded. Medical Equipment None Reported. Medications Name Sig Start Date Stop Date Status Note LastModified by Organization Details LastModified Time vitamin e 400 unit softgel active Not Available Not Available Not Available terazosin 5 mg capsule TAKE ONE CAPSULE BY MOUTH EVERY EVENING AT BEDTIME active Not Available Not Available No t Available doxycycline hyclate 100 mg capsule doxycycline hyclate 100 mg capsule from TAKE 2 CAPSULES BY MOUTH WITHIN 24-72 HRS AFTER CONDOMLESS SEX. active Not Available Not Available No t Available trazodone 50 mg tablet TAKE ONE TABLET BY MOUTH DAILY AT BEDTIME NEEDED FOR INSOMNIA active Not Available Not Available No t Available sulfamethoxa zole 400 mg-trimethop rim 80 mg tablet active Not Available Not Available Not Available sildenafil 100 mg tablet TAKE 1 TABLET BY MOUTH ONCE NEEDED FOR SEXUAL ACTIVITY. ADMINISTER 60 MINUTES BEFORE INTENDED ACTIVITY active Not Available Not Available No t Available cephalexin 500 mg capsule TAKE ONE CAPSULE BY MOUTH EVERY 8 HOURS FOR 10 DAYS active Not Available Not Available No t Available testosterone cypionate 200 mg/mL intramuscula r oil INJECT 0.45ML 90MG) SUBCUTANEOU SLY EVERY WEEK FOR 4 WEEKS active Not Available Not Available No t Available doxycycline hyclate 100 mg tablet TAKE ONE TABLET BY MOUTH TWICE A DAY active Not Available Not Available No t Available tadalafil 10 mg tablet TAKE ONE TABLET BY MOUTH EVERY DAY NEEDED FOR SEXUAL ACTIVITY active Not Available Not Available No t Available BD Luer-Ellen Syringe 1 mL USE TO INJECT TESTOSTERON E WEEKLY active Not Available Not Available No t Available BD Regular Bevel [place] 22 gauge x 1 USE TO INJECT TESTOSTERON E DIRECTED active Not Available Not Available No t Available BD Regular Bevel [place] 18 gauge x 1 1/2 USE TO DRAW UP MEDICATION active Not Available Not Available N ot Available testosterone 20.25 mg/1.25 gram per pump act.(1.62 %) transdermal gel APPLY 2 PUMPS TOPICALLY DAILY OVER MAX AREA. ALTERNATE SHOULDERS ON ALTERNATE DAYS active Not Available Not Available No t Available Xarelto 20 mg tablet TAKE 1 TABLET BY MOUTH DAILY active Not Available Not Available Not Available vitamin E mixed 400 unit capsule Take 2 capsules by oral route, for fatty liver. 2023 active Not Available Not Available Not Avai lable Tivicay 50 mg tablet TAKE ONE TABLET BY MOUTH DAILY active Not Available Not Available Not Available Descovy 200 mg-25 mg tablet TAKE ONE TABLET BY MOUTH ONCE DAILY active Not Available Not Available No t Available Cabenuva 600 mg/3 mL-900 mg/3 mL IM suspension, extended release 3cc IM QM x2, then QOM active Not Available Not Available No t Available Vitals Date Recorded Body height Respiratory rate Body temperature Body mass index (BMI) Body weight Oxygen saturation Oxygen saturation in Arterial blood by Pulse oximetry Systolic blood pressure Diastolic blood pressure Provider Name and Address Organization Details Last Updated DateTime 4 198.12 cm 10 /min 98.6 [degF] 28.7 kg/m2 816198. 91 g 97 % 97 % 126 mm[Hg] 68 mm[Hg] Keisha BALES MD [facility] 4 13:16:09 Date Recorded Body height Respiratory rate Oxygen saturation Oxygen saturation in Arterial blood by Pulse oximetry Body mass index (BMI) Body weight Body temperature Systolic blood pressure Diastolic blood pressure Provider Name and Address Organization Details Last Updated DateTime 4 198.12 cm 10 /min 97 % 97 % 27 kg/m2 485238. 61 g 98 [degF] 140 mm[Hg] 74 mm[Hg] Keisha BALES MD [facility] 4 12:21:21 Social History None recorded. Functional Status None recorded. Mental Status None recorded. Family History Nothing Reported. Medical History No medical history recorded. Past Encounters Encounter ID Performer Location Encounter Start Date Encounter Closed Date Diagnosis/Indication Diagnosis SNOMED-CT Code Diagnosis ICD10 Code Diagnosis Note [id number] Idris Bales MD Main Office [address] [place] [address] 04/10/2024 13:00:41 04/10/2024 13:52:36 Human immunodeficiency virus infection 21395228 B20 Continue Descovy qd and Tivicay qdProviral resistance test orderedCab enuva will be ordered if susceptibi lity to componenet spt is able to come in to the office to get injections window visit reviewedpo tential side effects reviewed such as ISR among otherU=U reviewedPr eP reviewedAn al PAP next appointmen t Exposure t o sexually transmissible disorder 659281866 Z20.2 risk of exposure to communicab le disease. past hx syphilis DoxyPeP. pt interested in Doxycyclin e for prevention of bacterial STI's. Instructio ns on correct use reviewed. no more than 2 doses per day. condom use reviewed. pt aware of PreP availabili ty 3 site testing GC/chla,yd ia done. Change doxycyclin e hyclate 100 mg capsule from TAKE 2 CAPSULES BY MOUTH WITHIN 24-72 HRS AFTER CONDOMLESS SEX. History of syphilis 1087 684405 519336 Z86.19 tx w Bicillin 2019monito r RPRDOxyPER reviewed and prescribed [id number] Idris Bales MD Main Office [address] [place] [address] 05/12/2024 12:05:46 05/12/2024 12:36:01 Human immunodeficiency virus infection 29301084 B20 Continue Descovy qd and Tivicay qdProviral resistance test ordered; pendingCab enuva will be ordered if susceptibi lity to components ; pt is interested inclinical trials.pt is able to come in to the office to get injections window visit reviewedpo tential side effects reviewed such as ISR among otherU=U reviewedPr eP reviewedfl u vaccine and COVID19 vaccine recommende d; declines COVID19 Exposure t o sexually transmissible disorder 866219928 Z20.2 condom use.3 site testing GC/chla,yd ia done. declines rectal swab Change doxycyclin e hyclate 100 mg capsule from TAKE 2 CAPSULES BY MOUTH WITHIN 24-72 HRS AFTER CONDOMLESS SEX. Steatosis of liver 1007 K76.0 diet and exercise reviewedVi t E prescribed to decrease inflammati on/fat [id number] Idris Bales MD Main Office [address] [place] [address] 07/29/2024 12:21:44 07/29/2024 12:32:21 Human immunodeficiency virus infection 65371562 B20 Continue Descovy qd and Tivicay qdPt is interested in clinical trial.Cabe nuva is another option; Cabenuva will be ordered if susceptibi lity to components ;pt is able to come in to the office to get injections or study visitswind ow visit reviewedpo tential side effects reviewed such as ISR among otherU=U reviewedPr eP reviewedfl u vaccine and COVID19 vaccine recommende d; declines COVID19 Health Concerns Section Related Observation LastModified by Organization Detai ls LastModified Time None Recorded Concern Status LastModified by Organization Details LastModified Time None Recorded Advance Directives Directive None Recorded Payers Encounter Date Sequence Insurance Name Policy Number Policy Mckinnon Covered Member ID Mckinnon Member ID Guarantor Name 04/10/2024 2 [employer] (MEDICARE SUPPLEMENT) Doroteo Nails [id number] Doroteo Nails 04/10/2024 1 [place] [employer] Doroteo Nails [id number] Doroteo Nails 05/12/2024 2 [employer] (MEDICARE SUPPLEMENT) Doroteo Nails [id number] Doroteo Nails 05/12/2024 1 [place] [employer] Doroteo Nails [id number] Doroteo Nails 07/29/2024 2 [employer] (MEDICARE SUPPLEMENT) Doroteo Nails [id number] Doroteo Nails 07/29/2024 1 [place] [employer] Doroteo Nails [id number] Doroteo Nails Notes Date Note Type Note Provider Name and Address Organization Details Recorded Time 04/10/2024 text/html male patient wit h HIV infection dx 2011. MSMHx ATripla; with dreams as AE; on Tivicay 50mg po qd and Descovy 1 tab po qd for about 10 years. no other regimes. tolerates well; interested in injectables.no hx AIDS ; CD4 not below 200; no OI11/2022 HIV nondetected ; XS2=4611/2023 HIV VLnondetceted; AST/ALT 18/16 quant neg; GC/chlamydia neg; VX5=518yv hx viral resistance Hx DVT ; PTSD; klinefelter syndromeHx syphilis in January 2022 tx Bicillin IMno allergies to antibiotics or allergieshx allergy to some vaccinesallergies/int olerance to opiate pain killers: abd bloating and pain;hx Heart murmurvaricose veins and removal procedurepast substance use decades agotestosterone IM qwweight stable; hx fatty liverHSV 2019; oral HSV; no frequent flareupsno genital warts nor hPV hx.colonoscopy uptodatesmokes marijuanamed list reviewedno HCV; no HBVno hx anal PAP Idris Bales MD [address] [place] [address], [phone], NEETU BALES MD [facility] 04/10/2024 14:16:38 05/12/2024 text/html male patient wit h HIV infection dx 2011. MSMTivicay 50mg po qd and Descovy 1 tab po qdtolerates well;awaiting archive test: interested in injectables.also willing to participate in clinical trials with PO or injectables.11/2022 HIV nondetected ; AG8=9833/2023 HIV VLnondetceted; AST/ALT 18/16 quant neg; GC/chlamydia neg; PZ5=6226/2023 HIV VL nondetecetd; ALT/AST wnl; eGFR>60; RPR NR; eGFR>60; GC/chlamydia negawaiting final lab resultsno hx viral resistanceno current substance usetestosterone IM qwweight stable; hx fatty liverHSV 2019; oral HSV; no frequent flareupsno genital warts nor hPV hx.med list reviewedno HCV; no HBVsexually activeon DOxyPEP Idris Bales MD [address] [place] [address], [phone], NEETU BALES MD [facility] 05/12/2024 12:49:02 07/29/2024 text/html F/U HIVTivicay 5 0mg po qd and Descovy 1 tab po qdtolerates well;Interested in clinical trials.awaiting archive test: interested in injectables. healso willing to participate in clinical trials with PO or injectables.11/2022 HIV nondetected ; DR5=4690/2023 HIV VLnondetceted; AST/ALT 18/16 quant neg; GC/chlamydia neg; HG9=0200/2023 HIV VL nondetecetd; ALT/AST wnl; eGFR>60; RPR NR; eGFR>60; GC/chlamydia negawaiting final lab resultsno hx viral resistanceno current substance usetestosterone IM qwweight stable; hx fatty liverHSV 2019; oral HSV; no frequent flareupsno genital warts nor hPV hx.med list reviewedno HCV; no HBVsexually activeon DOxyPEP Idris Bales MD [address] [place] [address], [phone], NEETU BALES MD [facility] 08/01/2024 13:13:56
--- OUTSIDE RECORDS SUMMARY | 2024-10-31 14:10 | XMS_ITS | Clinical Summary ---
Author Organization [facility] [employer] Address [address] [address] [place] [address] Care Team Providers Care Paper Steamer Name Role Phone Unavailable Primary Care Provider Unavailabl e Social History Tobacco Use Types Packs/Day Years Used Date Smoking Tobacco: Never Assessed Sex and Gender Information Value Date Recorded Sex Assigned at Male 07/03/2022 10:32 AM EDT Legal Sex Male 10:32 AM EDT Gender Identity Male 10/10/2022 12:13 PM EST Sexual Orientation Odom 10/10/2022 12 :13 PM EST Plan of Treatment Health Maintenance Due Date Last Done Comments CT Colonography 1961 Colonoscopy 1961 Colorectal Cancer Screening 1961 Depression Screening 1961 FIT DNA/Cologuard 1961 FIT 1961 FOBT 1961 HIV Screening 1961 Lipid Panel 1961 SDOH Screening 1961 Sigmoidoscopy 1961 Alcohol/Substance Use Screening 1973 Tobacco Screening 1973 Hepatitis C Screening 1979 Zoster Vaccines (1 of 2) 2011 COVID-19 Vaccine (3 - season) 2024 01/26/2021, 12/29/2020 Influenza Vaccine (#1) 2024 9, 08/22/2019, 08/06/2018, Additional history exists DTaP/Tdap/Td Vaccines (3 - Td or Tdap) 09/04/2025 09/04/2015, 02/15/2010 RSV Patients and Patients Aged 60 years or older (1 - 1-dose 75+ series) 2036 Hepatitis A Vaccines Aged Out 07/11/2013, 06/26/20 12 No longer eligible based on patient's age to complete this topic Meningococcal Vaccine Aged Out 02/19/2014, 014 No longer eligible based on patient's age to complete this topic Hepatitis B Vaccines Completed 08/09/2015, 10/21/2014, 08/07/2014 Pneumococcal Vaccine: 50+ Years Completed 06/21/2017, 07/11/2013, 06/16/2012 HIB Vaccines Aged Out No longer eligi ble based on patient's age to complete this topic HPV Vaccines Aged Out No longer eligi ble based on patient's age to complete this topic IPV Vaccines Aged Out No longer eligi ble based on patient's age to complete this topic RSV under 20 months Aged Out No longe r eligible based on patient's age to complete this topic Rotavirus Vaccines Aged Out No longer eligible based on patient's age to complete this topic Insurance MEDICARE
[2024-11-08 11:08] LABS: Testosterone, Total 566 ng/dL (250-1100)
== END 2024-10-31 11:51 | disposition home or self-care (01) ==
LOC: HO.LAB 11:50
PROVIDERS: PCP Nurse Practitioner Family; Visit Provider Urology
DX: E29.1 Testicular hypofunction (principal); Z12.5 Encounter for screening for malignant neoplasm of prostate
CPT/HCPCS: 36415; 84153; 84403; 85027

== ENCOUNTER 2024-11-05 12:58 | Outpatient (AMB) | payer OTHER, MEDICARE, SELFPAY ==
--- NOTE | 2024-11-05 13:01 | A.OFFVIS_ITS ---
Intake Visit Reasons: 3m/PSA/MED REVIEW(TESTOSTERONE) PSA? Intake Note: Patient is present for 3m/psa/med review Urology Medication:none Antibiotic Allergy:none Blood Thinner:none Family And Divorce Legal Assistant Required: No Allergies codeine [CODEINE] Allergy (Severe, Verified 11/05/24 13:07) SEVERE PAIN/HYPOXIA W/HIGH DOSES meningococcal vaccine A,C,Y and W-1 [MENINGOCOCCAL VACCINE A,C,Y AND W-1] Allergy (Intermediate, Verified 11/05/24 13:07) HIVES salmon oil Allergy (Unknown, Verified 11/05/24 13:07) hives SALMON Allergy (Severe, Uncoded 11/05/24 13:07) LT HEMIPARESIS HPI Comments Details: Doroteo GANDHI is a very pleasant male. He is a patient of Dr. Ahumada. He is seen for the following urologic conditions - lower urinary tract symptoms - hypogonadism - Klinefelter syndrome - long-term testosterone - erectile dysfunction Telemedicine Evaluation 15 min Consultation Qwaq Carla Video Testosterone has responded well to gel Continue with current dosing Six-month follow-up lab work Has been on medications bladder stability Prior cystoscopy shows trabeculation grade 2, mucosal irritation particularly anterior prostate surface Improvement from low-dose Bactrim On daily tadalafil with on demand sildenafil Hypogonadism:?Has had some fatigue secondary to COVID stress ?Can increase testosterone to 0.45 per week ?Also discussed ED ?Had difficulty with Cialis in past, Viagra 200 mg non effective ?Has use Tri Mix previously Injection Day : Sunday Lab Day: Sun/ ? He presents today for?further evaluation and followup of his hypogonadism.? Initial symptoms include? erectile dysfunction ?Yes ? decreased libido ?Yes ? change in mood/depression ?Yes ? in muscle size/strength ?Yes ? increased fatigue/malaise ?Yes ? increased abdominal fat ?No ? tender breasts/gynecomastia ?No ? hair loss ?No ? osteopenia ?No ? The onset of symptoms has been?gradual.? Associate conditions include? obstructive sleep apnea ?No ? CAD ?No ? obesity ?No ? stress - financial, family, employment ?No ? heavy alcohol or illicit drug use ?No ? Laboratory results?04/21 PSA 2 ?06/21 T 83 - of T for 4 weeks ?12/21 T475, 01/22 P 3.7 T 1400, 07/25 T 471 P 4.1, 08/26 T 1392 ? Current therapy includes?injectable exogenous testosterone ?06/21 weekly injection ?12/21 0.4cc subcut ? Prior therapy includes?testosterone, injectable.? Diagnosis based on history and laboratory results?combined testicular insufficiency.? Lower Urinary Tract Symptoms:? Current visit is for?further evaluation of, lower urinary tract symptoms, predominate obstructive symptoms.? Current treatment includes?alpha natividad.? Prostate Symptom Score?10/22 , , Moderate (9-19), Bother 3.? Symptoms include?10/22 , incomplete emptying, weak stream, nocturia (>2), and are progressing.? Treatment plan?continue with current medications PFSH Medical History Factor 5 Leiden mutation, heterozygous Right knee pain On continuous oral anticoagulation Leg fracture, left Klinefelter syndrome Pulmonary embolus HTN (hypertension) HIV (human immunodeficiency virus infection) DVT (deep venous thrombosis) Surgical History Hx of colonoscopy History of angioplasty of vein Hx of left knee surgery History of umbilical hernia repair Hx of cholecystectomy S/P ORIF (open reduction internal fixation) fracture Family History Father No problems noted. Mother No problems noted. Social History Housing: House Are you a primary career and technology education teacher to a significant other at home: No Do you presently have visiting nurse or other home services: No Alcohol intake: former Patient Tobacco Use Status: Former Tobacco user Tobacco use type: Cigarette Cigarette Packs Per Day: 2 e-Cigarette/Vaping Use: Never Used Second Hand Smoke Exposure: Yes Substance Use Type: Marijuana service: Yes ([facility] ) Current occupational status: employed Current occupation: [employer] Current occupational exposures/hazards: No Review of Systems Const All systems reviewed & are unremarkable except as noted in HPI and below Reports no additional complaints Resp Reports no additional complaints GI Reports no additional complaints Reports as per HPI Musc Reports no additional complaints Physical Exam Telemedicine evaluation Appropriate responses Regular breathing rate and rhythm HEENT Head: Yes normal to inspection Ears: hearing grossly normal bilaterally Eyes General: appearance normal, both eyes and all related structures Neck Neck: Yes normal visual inspection Chest Chest palpation & inspection: normal inspection of the chest Resp Effort & Inspection: normal respiratory effort and able to speak in complete sentences Telehealth Telehealth Telehealth Platform: Qwaq Location of provider rendering services: practice address Location of patient: address on file Patient Identification confirmed using: Name, : Yes Telehealth method: video Patient verbally consented to treatment: Yes Patient verbally consented to billing insurance company: Yes Patient informed of any privacy concerns related to visit: Yes Minutes spent on Phone/Video with Pt.: 15 Assessment & Plan Assessment & Plan (1) Erectile dysfunction due to arterial insufficiency: Code(s): N52.01 - Erectile dysfunction due to arterial insufficiency Category: Medical (2) Klinefelter syndrome: Code(s): Q98.4 - Klinefelter syndrome, unspecified Category: Medical (3) Hypogonadism in male: Code(s): E29.1 - Testicular hypofunction Category: Medical Plan Continue testosterone Six-month follow-up office Orders: Orders Testosterone, Total 6 Months E29.1 - Testicular hypofunction Prostate Specific Antigen 6 Months E29.1 - Testicular hypofunction Complete Blood Count no Diff 6 Months E29.1 - Testicular hypofunction Medications: Discontinued testosterone apply 1 packet daily Discontinued Reason: Patient Completed Course 50 mg transdermal DAILY 30 days 150 grams 5RF E29.1 - Testicular hypofunction testosterone cypionate (Depo-Testosterone) Discontinued Reason: Patient Completed Course 90 mg (0.45 mL) subcut QWEEK 4 weeks 4 mL 5RF E29.1 - Testicular hypofunction, [id number] Patient Instructions: This note is constructed using voice recognition software. While every effort has been made to ensure accuracy privacy compliance manager errors may have been included. Imaging studies, laboratory and physical exam results were discussed and reviewed in detail. No major barriers to patient understanding were identified. An opportunity to ask questions regarding the treatment plan was provided. All questions were answered. The patient expressed understanding and agreement with the above treatment plan. The patient is aware they should contact our office by phone for worsening of their current condition or the appearance of new urologic symptoms. Compliance is encouraged with any medications and followup testing that is ordered. It is a privilege to participate in the urologic care of your patient. If you have any questions or concerns regarding treatment for the above conditions, or other urologic issues, please do not hesitate to contact me. The office telephone contact is [phone]. Sincerely, Dr Sunny Guerra MD, [facility] - Urology Compassionate Specialist Care for the Genitourinary System Coding Level of Care Code Tele Est Pt Level 3 (69690) Complex EM visit Add On G2211 Diagnoses Erectile dysfunction due to arterial insufficiency N52.01 Klinefelter syndrome Q98.4 Hypogonadism in male E29.1
--- OUTSIDE RECORDS SUMMARY | 2024-11-05 15:19 | XMS_ITS | Continuity of Care Document ---
Author Organization [facility] are Address [address] [place] [address] Phone Care Team Providers Care Supply Chain Coordinator Name Role Phone Serafin Olivo MD Unavailable Unavailable Procedures Procedure Date Office/outpatient visit,[facility] 2008 Advance Directives Directive Yes / No Effective Date File Name No Information Encounters Encounter Description Practice Location Reason(s) For Visit Diagnoses Date Provider Office/outpatie nt visit,[facility], [address], [place], [id number], tel:[phone] DO IC PS No Information 009 Geovani Betancourt. [address] [place], [address]. tel:[phone] [facility], [address], [place], [id number], tel:[phone] DO IC PS No Information 008 Briana Gary. [address], [place], [id number], . tel:[phone] Family History Family Member Type Diagnosis Age At Onset No Information Payers Payer name Insurance type Covered green party ID Authoriza tion(s) Blue Shield Comm DO HMO CI [id number] Social History Type Description Quantity Date Captured Comments Sex Male Smoking Status No Information Chief Complaint And Reason For Visit No Information History Of Present Illness Encounter Date Complaint History Of Prese nt Illness No Information Instructions Date Instruction Additional Infor mation No Information Assessments Type Assessment Date No Information
--- OUTSIDE RECORDS SUMMARY | 2024-11-05 15:19 | XMS_ITS | Continuity of Care Document ---
Author Organization [facility] Address [address] [place] [address] Phone Care Team Providers Care Human Resources Executive Assistant Name Role Phone Leti Moe DO Unavailable Unavailable Procedures Procedure Date Extremity veins study, limited 16 Advance Directives Directive Yes / No Effective Date File Name No Information Encounters Encounter Description Practice Location Reason(s) For Visit Diagnoses Date Provider [facility], [address], [place], [place], [id number], [place] tel:[phone] [facility] No Information 2015 Abhi Landeros. [address], [address], [place], [address], [place]. tel:[phone] Family History Family Member Type Diagnosis Age At Onset No Information Payers Payer name Insurance type Covered libertarian ID Authoriza timilton(s) [facility] [place] [id number] Social History Type Description Quantity Date Captured Comments Sex Male Smoking Status No Information Chief Complaint And Reason For Visit No Information History Of Present Illness Encounter Date Complaint History Of Prese nt Illness No Information Instructions Date Instruction Additional Infor mation No Information Assessments Type Assessment Date No Information
--- OUTSIDE RECORDS SUMMARY | 2024-11-05 15:19 | XMS_ITS | Clinical Summary ---
Author Organization [facility] [employer] Address [address] [facility] [address] [place] [address] Care Team Providers Care Boat Garnisher Name Role Phone Unavailable Primary Care Provider [...] age to complete this topic Insurance [place] [id number]
--- OUTSIDE RECORDS SUMMARY | 2024-11-05 15:19 | XMS_ITS | Data Portability ---
Author Organization NEETU CUNNINGHAM MD [facility], Main Office Address [address] [place] [id number] Assessment Encounter Date Assessment Date Assessment LastModified by Organization Details LastModified Time 07/29/2024 07/29/2024 AUDIO. telehealth. 19 min pt home in [place] [email or web address] Not available 08/01/2024 13:07:28 Plan of Treatment Reminders Order Date Submit Date Provider Last Modified By Organization Details Last Modified Time Details Appointments None recorded. Lab CBC w/ diff 2023 [email or web address] [facility] (Centralized Electronic Ordering - All Locations), Patient Can Go To The Location Of Their Choice, [address] 4 09:16:54 ALT (alanine aminotransf erase), serum or plasma 2023 024 [email or web address] [facility] (Centralized Electronic Ordering - All Locations), Patient Can Go To The Location Of Their Choice, [address] 4 09:16:55 AST/SGOT (aspartate aminotransf erase), serum or plasma 2023 024 [email or web address] [facility] (Centralized Electronic Ordering - All Locations), Patient Can Go To The Location Of Their Choice, [address] 4 09:16:55 CT + NG DNA, PCR, unspecified specimen 2023 024 [email or web address] [facility] (Centralized Electronic Ordering - All Locations), Patient Can Go To The Location Of Their Choice, [address] 4 09:16:55 creatinine w/ estimated GFR (eGFR), [...] Go To The Location Of Their Choice, [address]14 4 09:54:58 CT + NG RNA, rectal 2023 [email or web address] [facility] (Centralized Electronic Ordering - All Locations), Patient Can Go To The Location Of Their Choice, [address] 4 14:31:08 ALT (alanine aminotransf erase), serum or plasma 2023 [email or web address] [facility] (Centralized Electronic Ordering - All Locations), Patient Can Go To The Location Of Their Choice, 09:54:57 AST/SGOT (aspartate aminotransf erase), serum or plasma 2023 [email or web address] [facility] (Centralized Electronic Ordering - All Locations), Patient Can Go To The Location Of Their Choice, [address] 09:54:57 CT + NG DNA, PCR, unspecified [...] Go To The Location Of Their Choice, [address] 4 09:54:58 T-cell regulatory subsets panel, blood 2023 024 [email or web address] [facility] (Centralized Electronic Ordering - All Locations), Patient Can Go To The Location Of Their Choice, [address] 4 09:54:58 bacterial vaginosis + vaginitis panel, vaginal 2023 024 [email or web address] [facility] (Centralized Electronic Ordering - All Locations), Patient Can Go To The Location Of Their Choice, [address] 4 14:35:00 HIV 1 proviral DNA, genotype, blood mononuclear cells - Archive proviral resistance test 2023 024 [email or web address] [facility] (Centralized Electronic Ordering - All Locations), Patient Can Go To The Location Of Their Choice, [address] 4 09:54:58 hsv (1+2) igg Ab, serum 2023 024 [email or web address] [facility] (Centralized Electronic Ordering - All Locations), Patient Can Go To The Location Of Their Choice, [id number] 4 09:54:58 Referral None recorded. Procedures None recorded. Surgeries None recorded. Imaging None recorded. Medication Orders vitamin E mixed 400 unit capsule 2023 [facility], [address] [place] [address], [address], 4 12:01:45 doxycycline hyclate 100 mg capsule 2023 024 [facility], [address] [place] [address], [address], 4 17:55:39 Cabenuva 600 mg/3 mL-900 mg/3 mL IM suspension, extended release 2023 024 [email or web address], [place], [address], 18:22:04 Patient TargetsNo targets recorded. Patient InstructionsNo instructions recorded. Reason for Referral None Reported. Results Created Date Observation Date Name Description Value Unit Range Abnormal Flag Note LastModifiedBy Organization Detail LastModifiedTime 04/10/20 24 04/11/2024 CHLAM YDIA DNA URINE chlamydia DNA urine NEGATI VE negati ve Not Available [facility] [address] [place] [address], [address], 04/11/2024 10:41:20 04/10/20 24 04/11/2024 GC DNA URINE GC DNA urine NEGATI VE negati ve Not Available [facility] [address] [place] [address], [address], 04/11/2024 10:41:21 04/10/20 24 04/11/2024 GC DNA URINE performing lab Perfor susan [facility] ke[facility] es, maribell arroyo r of [facility] h Of [address] [place] [address] Medic al Direc pepito jimenez MD Not Available [facility] [address] [place] [address], [id number], 04/11/2024 10:41:21 04/10/20 24 04/11/2024 CHLAM YDIA DNA SWAB chlamydia DNA swab NEGATI VE negati ve This speci men type has not been evalu ated for this metho d. Inter pret resul ts with cauti on. Speci men is Oral Not Available [facility] [address] [place] [address], [address], 04/11/2024 11:05:18 04/10/20 24 04/11/2024 GC DNA SWAB GC DNA swab NEGATI VE negati ve This speci men type has not been evalu ated for this metho d. Inter pret resul ts with cauti on. Speci men is Oral Not Available [facility] [address] [place] [address], [address], 04/11/2024 11:05:19 04/10/20 24 04/11/2024 GC DNA SWAB performing lab Perfor susan [facility] atoremmy paige a membe r of [facility] [address] [place] [address] [facility] Available [facility] [address] [place] [address], [address], 04/11/2024 11:05:19 04/10/20 24 04/12/2024 CHLAM YDIA DNA SWAB chlamydia DNA swab TNP negati ve Unabl e to obtai n a valid resul t. Inter ferin g subst ances may be prese nt in this speci men. Submi t new speci men. Not Available [facility] [address] [place] [address], [address], 04/12/2024 08:07:56 04/10/20 24 04/12/2024 GC DNA SWAB GC DNA swab TNP negati ve Unabl e to obtai n a valid resul t. Inter ferin g subst ances may be prese nt in this speci men. Submi t new speci men. Not Available [facility] [address] [place] [address], [address], 04/12/2024 08:07:57 04/10/2004/12/2024 GC DNA SWAB performing lab Perfor susan [facility] kev paige a membe [facility] of [facility] [address] [place] [address] [facility] al [facility] Not Available [facility] [address] [place] [address], [address], 04/12/2024 08:07:57 05/06/20 24 05/07/2024 GLOM FILT RATE, ESTIM ATED creatinine 1.05 mg/dL 0.76-1 .27 normal Not Available [facility] ([facility]) [address] [facility] [place], [place], [address], 05/09/2024 16:06:51 05/06/20 24 05/07/2024 GLOM FILT RATE, ESTIM ATED eGFR 80 mL/mi n/1.7 3 >59 normal Not Available [facility] ([facility]) [address] [place], [address], 05/09/2024 16:06:51 05/06/20 24 05/09/2024 RNA, REAL TIME PCR (NON- GRAPH ) HIV-1 RNA by PCR <20 copie s/mL HIV-1 RNA not detec gab The repor table range for this assay is 20 to 10,00 0,000 copie s HIV-1 RNA/m L. Not Available [facility] ([facility]) [address] [facility] [place], [place], [address], 05/09/2024 16:06:52 05/06/20 24 05/09/2024 RNA, REAL TIME PCR (NON- GRAPH ) log10 HIV-1 RNA COMMEN T log10 copy/ mL Unabl e to calcu late resul t since non-n umeri c resul t obtai antonino for compo nent test. Not Available [facility] ([facility]) [address] [facility] [place], [place], [address], 05/09/2024 16:06:52 05/06/20 24 05/07/2024 RPR, RFX QN RPR/C ONFIR M TP RPR Non Reacti ve non reacti ve Not Available [facility] ([facility]) [address] [place], [address], 05/09/2024 16:06:52 05/06/20 24 05/07/2024 AST (SGOT ) AST (SGOT) 20 IU/L 0-40 normal Not Available [facility] ([facility]) [address] [place], [address], 05/09/2024 16:06:52 05/06/20 24 05/07/2024 ALT (SGPT ) ALT (SGPT) 17 IU/L 0-44 normal Not Available [facility] ([facility]) [address] [place], [address], 05/09/2024 16:06:53 05/12/20 24 05/13/2024 CHLAM YDIA DNA URINE chlamydia DNA urine NEGATI VE negati ve Not Available [facility] [address] [place] [address], [address], 05/13/2024 10:03:08 05/12/20 24 05/13/2024 GC DNA URINE GC DNA urine NEGATI VE negati ve Not Available [facility] [address] [place] [address], [address], 05/13/2024 10:03:09 05/12/20 24 05/13/2024 GC DNA URINE performing lab Perfor susan [facility] atori es, a membe r of [facility] [place] [address] Medic al [facility] pepito jimenez MD Not Available [facility] [address] [place] [address], [address], 05/13/2024 10:03:09 05/12/20 24 05/13/2024 CHLAM YDIA DNA SWAB chlamydia DNA swab NEGATI VE negati ve This speci men type has not been evalu ated for this metho d. Inter pret resul ts with cauti on. Speci men is Oral Not Available [facility] [address] [place] [address], [address], 05/13/2024 10:19:09 05/12/20 24 05/13/2024 GC DNA SWAB GC DNA swab NEGATI VE negati ve This speci men type has not been evalu ated for this metho d. Inter pret resul ts with cauti on. Speci men is Oral Not Available [facility] [address] [place] [address], [address], 05/13/2024 10:19:10 05/12/20 24 05/13/2024 GC DNA SWAB performing lab Perfor susan [facility], a membe r of [facility] [address] [place] [address] Medic al Direc pepito jimenez MD Not Available [employer] [address], [place], [address], 05/13/2024 10:19:10 09/23/19 25 09/26/2024 PREP: RPR W/REF TATI TITER +TPAB RPR Non Reacti ve non reacti ve Not Available [facility] ([facility]) [address] [facility] [place], [place], [address], 09/26/2024 08:08:12 09/23/19 25 09/26/2024 HCV ANTIB [...] e HCV infec tion. Not Available [facility] ([facility]) [address] [facility] [place], [place], [address], 09/26/2024 08:08:13 09/23/1909/26/2024 HBSAG SCREE N HBsAg screen Negati ve negati ve Not Available [facility] ([facility]) [address] [facility] [place], [place], [address], 09/26/2024 08:08:13 09/23/19 25 09/24/2024 CBC/D /PLT W/ REFLE X SIGRID TIN WBC 4.0 x10e3 /uL 3.4-10 .8 normal Not Available [facility] ([facility]) [address] [facility] [place], [place], [address], 10/23/2024 13:10:16 09/23/1909/24/2024 CBC/D /PLT W/ REFLE X SIGRID TIN RBC 4.44 x10e6 /uL 4.14-5 .80 normal Not Available [facility] ([facility]) [address] [facility] [place], [place], [address], 10/23/2024 13:10:16 09/23/19 25 09/24/2024 CBC/D /PLT W/ REFLE X SIGRID TIN hemoglobin 14.5 g/dL 13.0-1 7.7 normal Not Available [facility] ([facility]) [address] [facility] [place], [place], [address], 10/23/2024 13:10:16 09/23/19 25 09/24/2024 CBC/D /PLT W/ REFLE X SIGRID TIN hematocrit 43.6 % 37.5-5 1.0 normal Not Available [facility] ([facility]) [address] [facility] [place], [place], [address], 10/23/2024 13:10:16 09/23/19 25 09/24/2024 CBC/D /PLT W/ REFLE X SIGRID TIN MCV 98 fL 79-97 above high normal Not Available [facility] ([facility]) [address] [place], [address], 10/23/2024 13:10:16 09/23/19 25 09/24/2024 CBC/D /PLT W/ REFLE X SIGRID TIN MCH 32.7 pg 26.6-3 3.0 normal Not Available [facility] ([facility]) [address] [place], [address], 10/23/2024 13:10:16 09/23/19 25 09/24/2024 CBC/D /PLT W/ REFLE X SIGRID TIN MCHC 33.3 g/dL 31.5-3 5.7 normal Not Available [facility] ([facility]) [address] [place], [address], 10/23/2024 13:10:16 09/23/19 25 09/24/2024 CBC/D /PLT W/ REFLE X SIGRID TIN RDW 13.4 % 11.6-1 5.4 Not Available [facility] ([facility]) [address] [facility] [place], [place], [address], 10/23/2024 13:10:16 09/23/19 25 09/24/2024 CBC/D /PLT W/ REFLE X SIGRID TIN platelets 177 x10e3 /uL 150-45 0 normal Not Available [facility] ([facility]) [address] [facility] [place], [place], [address], 10/23/2024 13:10:16 09/23/19 25 09/24/2024 CBC/D /PLT W/ REFLE X SIGRID TIN neutrophils 57 % not estab. normal Not Available [facility] ([facility]) [address] [facility] [place], [place], [address], 10/23/2024 13:10:16 09/23/19 25 09/24/2024 CBC/D /PLT W/ REFLE X SIGRID TIN lymphs 31 % not estab. normal Not Available [facility] ([facility]) [address] [facility] [place], [place], [address], 10/23/2024 13:10:16 09/23/19 25 09/24/2024 CBC/D /PLT W/ REFLE X SIGRID TIN monocytes 9 % not estab. normal Not Available [facility] ([facility]) [address] [facility] [place], [place], [address], 10/23/2024 13:10:16 09/23/19 25 09/24/2024 CBC/D /PLT W/ REFLE X SIGRID TIN eos 2 % not estab. normal Not Available [facility] ([facility]) [address] [facility] [place], [place], [address], 10/23/2024 13:10:16 09/23/19 25 09/24/2024 CBC/D /PLT W/ REFLE X SIGRID TIN basos 1 % not estab. normal Not Available [facility] ([facility]) [address] [facility] [place], [place], [address], 10/23/2024 13:10:16 09/23/19 25 09/24/2024 CBC/D /PLT W/ REFLE X SIGRID TIN immature cells CAKE FORMER Not Available [facility] ([facility]) [address] [place], [address], 10/23/2024 13:10:16 09/23/19 25 09/24/2024 CBC/D /PLT W/ REFLE X SIGRID TIN neutrophils (absolute) 2.3 x10e3 /uL 1.4-7. 0 normal Not Available [facility] ([facility]) [address] [place], [address], 10/23/2024 13:10:16 09/23/19 25 09/24/2024 CBC/D /PLT W/ REFLE X SIGRID TIN lymphs (absolute) 1.3 x10e3 /uL 0.7-3. 1 normal Not Available [facility] ([facility]) [address] [place], [address], 10/23/2024 13:10:16 09/23/19 25 09/24/2024 CBC/D /PLT W/ REFLE X SIGRID TIN monocytes(ab solute) 0.4 x10e3 /uL 0.1-0. 9 normal Not Available [facility] ([facility]) [address] [place], [address], 10/23/2024 13:10:16 09/23/19 25 09/24/2024 CBC/D /PLT W/ REFLE X SIGRID TIN eos (absolute) 0.1 x10e3 /uL 0.0-0. 4 normal Not Available [facility] ([facility]) [address] [place], [address], 10/23/2024 13:10:16 09/23/19 25 09/24/2024 CBC/D /PLT W/ REFLE X SIGRID TIN baso (absolute) 0.0 x10e3 /uL 0.0-0. 2 normal Not Available [facility] ([facility]) [address] [facility] [place], [place], [address], 10/23/2024 13:10:16 09/23/19 25 09/24/2024 CBC/D /PLT W/ REFLE X SIGRID TIN immature granulocytes 0 % not estab. Not Available [facility] ([facility]) [address] [facility] [place], [place], [address], 10/23/2024 13:10:16 09/23/19 25 09/24/2024 CBC/D /PLT W/ REFLE X SIGRID TIN immature grans (abs) 0.0 x10e3 /uL 0.0-0. 1 Not Available [facility] ([facility]) [address] [facility] [place], [place], [address], 10/23/2024 13:10:16 09/23/19 25 09/24/2024 CBC/D /PLT W/ REFLE X SIGRID TIN NRBC CAKE FORMER Not Available [facility] ([facility]) [address] [facility] [place], [place], [address], 10/23/2024 13:10:16 09/23/19 25 09/24/2024 CBC/D /PLT W/ REFLE X SIGRID TIN hematology comments: CAKE FORMER Not Available [facility] ([facility]) [address] [facility] [place], [place], [address], 10/23/2024 13:10:16 09/23/19 25 09/24/2024 HELPE R T-LYM PH-CD 4 absolute cd 4 helper 562 /uL 359-15 19 Not Available [facility] ([facility]) [address] [facility] [place], [place], [address], 10/23/2024 13:10:16 09/23/19 25 09/24/2024 HELPE R T-LYM PH-CD 4 % cd 4 pos. lymph. 43.2 % 30.8-5 8.5 Not Available [facility] ([facility]) [address] [facility] [place], [place], [address], 10/23/2024 13:10:16 09/23/19 25 10/23/2024 GENOS URE ARCHI VE(R) pdf Not applic able Not Available [employer] [address] [facility], [place], [address], 10/23/2024 13:10:17 09/23/19 25 10/23/2024 GENOS URE [...] ibute to assay failu re. Not Available [employer] [address] [place], [address], 10/23/2024 13:10:17 09/23/19 25 10/23/2024 GENOS URE ARCHI VE(R) HIV genosure archive Not applic able Not Available [employer] [address] [place], [address], 10/23/2024 13:10:17 09/23/19 25 10/23/2024 GENOS URE ARCHI VE(R) HIV genosure archive interp Commen t For more infor elfego farrell on inter preti ng melvina caputo t, dillon e visit [employer] com or call [employer] [...] the Food and Drug Admin istra tion. [employer] is a subsi diary of [employer] at[employer] ratio n of Amally staley Holdi n[employer], using the brand [facility]. The resul ts shoul d not be used as the sole crite rubio for patie nt manag ement . This docum ent conta ins priva te and confi denti al healt h infor matio n prote cted by state and glenn al law. If you have recei karlo this docum ent in error , pleas e call [phone]. Not Available [employer] [address] [place] [address], [address], 10/23/2024 13:10:17 09/23/19 25 10/01/2024 GLOM FILT RATE, ESTIM ATED creatinine COMMEN T mg/dL Test not perfo rmed. Deter iorat ion occur red durin g speci men handl ing. [facility] is provi ding the patie nt with re-co llect ion instr uctio ns. Not Available [facility] ([facility]) [address] [facility] [place], [place], [address], 10/23/2024 13:10:17 09/23/19 25 10/01/2024 GLOM FILT RATE, ESTIM ATED eGFR CAKE FORMER Not Available [facility] ([facility]) [address] [facility] [place], [place], [address], 10/23/2024 13:10:17 09/23/19 25 09/26/2024 CHLAM YDIA/ GC AMPLI FICAT ION chlamydia trachomatis, EBEN COMMEN T [facility] was unabl e to colle ct suffi cient speci men to perfo rm the follo wing test( s), and is provi ding the patie nt with re-co llect ion instr uctio ns. Not Available [facility] ([facility]) [address] [facility] [place], [place], [address], 10/23/2024 13:10:18 09/23/19 25 09/26/2024 CHLAM YDIA/ GC AMPLI FICAT ION neisseria gonorrhoeae, EBEN TNP Test not perfo rmed Not Available [facility] ([facility]) [address] [facility] [place], [place], [address], 10/23/2024 13:10:18 09/23/19 25 09/25/2024 RNA, REAL TIME PCR (NON- GRAPH ) HIV-1 RNA by PCR <20 copie s/mL HIV-1 RNA not detec gab The repor table range for this assay is 20 to 10,00 0,000 copie s HIV-1 RNA/m L. Not Available [facility] ([facility]) [address] [facility] [place], [place], [address], 10/23/2024 13:10:18 09/23/19 25 09/25/2024 RNA, REAL TIME PCR (NON- GRAPH ) log10 HIV-1 RNA COMMEN T log10 copy/ mL Unabl e to calcu late resul t since non-n umeri c resul t obtai antonino for compo nent test. Not Available [facility] ([facility]) [address] [facility] [place], [place], [address], 10/23/2024 13:10:18 09/23/19 25 10/01/2024 AST (SGOT ) AST (SGOT) COMMEN T IU/L Test not perfo rmed. Deter iorat ion occur red durin g speci men handl ing. [facility] is provi ding the patie nt with re-co llect ion instr uctio ns. Not Available [facility] ([facility]) [address] [place], [address], 10/23/2024 13:10:18 09/23/19 25 10/01/2024 ALT (SGPT ) ALT (SGPT) COMMEN T IU/L Test not perfo rmed. Deter iorat ion occur red durin g speci men handl ing. [facility] is provi ding the patie nt with re-co llect ion instr uctio ns. Not Available [facility] ([facility]) [address] [place], [address], 10/23/2024 13:10:19 09/23/19 25 09/26/[address] PROBL EM request problem COMMEN T [facility] was unabl e to colle ct suffi cient speci men to perfo rm the follo wing test( s), and is provi ding the patie nt with re-co llect ion instr uctio ns. TEST: 47806 8 Chlam ydia/ GC Ampli ficat ion Not Available [facility] ([facility]) [address] [place], [address], 10/23/2024 13:10:19 09/23/19 25 10/01/[address] PROBL EM request problem COMMEN T Test not perfo rmed. Deter iorat ion occur red durin g speci men handl ing. [facility] is provi ding the patie nt with re-co llect ion instr uctio ns. TEST: 10010 0 Creat inine Panel : [id number] 8 63490 3 AST (SGOT ) 99713 5 ALT (SGPT ) Not Available [facility] ([facility]) [address] [place], [address], 10/23/2024 13:10:20 Result Notes None recorded. Problems Name Problem SNOMED Code Status Onset Date Resolution Date Notes Provider Name and Address Organization Details Recorded Time History of syphilis 713903355080486 8 Active 2023 NR 05/2024 Idris Bales MD [address] [place] [address], [phone] [place] [address] - IDRIS BALES MD [facility] 4 12:14:18 Problem Notes None recorded. [...] Available No t Available BD Regular Bevel [place] 22 gauge x 1 USE TO INJECT TESTOSTERON E DIRECTED active Not Available Not Available No t Available BD Regular Bevel [place] 18 gauge x 1 1/2 USE TO [...] cm 10 /min 98.6 [degF] 28.7 kg/m2 415273. 91 g 97 % 97 % 126 mm[Hg] 68 mm[Hg] Keisha BALES MD [facility] 4 13:16:09 Date Recorded Body height Respiratory rate Oxygen saturation Oxygen saturation in Arterial blood by Pulse oximetry Body mass index (BMI) Body weight Body temperature Systolic blood pressure Diastolic blood pressure Provider Name and Address Organization Details Last Updated DateTime 4 198.12 cm 10 /min 97 % 97 % 27 kg/m2 957293. 61 g 98 [degF] 140 mm[Hg] 74 mm[Hg] Keisha BALES MD [facility] 4 12:21:21 Social History None recorded. Functional Status None recorded. Mental Status None recorded. Family History Nothing Reported. Medical History No medical history recorded. Past Encounters Encounter ID Performer Location Encounter Start Date Encounter Closed Date Diagnosis/Indication Diagnosis SNOMED-CT Code Diagnosis ICD10 Code Diagnosis Note [id number] Idris Bales MD Main Office [address] [place] [address] 04/10/2024 13:00:41 04/10/2024 13:52:36 Human immunodeficiency virus infection 40282149 B20 Continue Descovy qd and Tivicay qdProviral resistance test orderedCab enuva will be ordered if susceptibi lity to componenet spt is able to come in to the office to get injections window visit reviewedpo tential side effects reviewed such as ISR among otherU=U reviewedPr eP reviewedAn al PAP next appointmen t Exposure t o sexually transmissible disorder 609771176 Z20.2 risk of exposure to communicab le [...] AFTER CONDOMLESS SEX. History of syphilis 1087 001468 326169 Z86.19 tx w Bicillin 2019monito r RPRDOxyPER reviewed and prescribed [id number] Idris Bales MD Main Office [address] [place] [address] 05/12/2024 12:05:46 05/12/2024 12:36:01 Human immunodeficiency virus infection 21917850 B20 Continue Descovy qd and Tivicay qdProviral [...] COVID19 Exposure t o sexually transmissible disorder 435777665 Z20.2 condom use.3 site testing GC/chla,yd ia done. declines rectal swab Change doxycyclin e hyclate 100 mg capsule from TAKE 2 CAPSULES BY MOUTH WITHIN 24-72 HRS AFTER CONDOMLESS SEX. Steatosis of liver 1007 K76.0 diet and exercise reviewedVi t E prescribed to decrease inflammati on/fat [id number] Idris Bales MD Main Office [address] [place] [address] 07/29/2024 12:21:44 07/29/2024 12:32:21 Human immunodeficiency virus infection 35174560 B20 Continue Descovy qd and Tivicay qdPt [...] 04/10/2024 2 [employer] (MEDICARE SUPPLEMENT) Doroteo Nails [id number] [employer] Nails 04/10/2024 1 MEDICARE B-[place]: [employer] Doroteo Nails [id number] [employer] 05/12/2024 2 [employer] (MEDICARE SUPPLEMENT) Doroteo Nails [id number] [employer] 05/12/2024 1 MEDICARE [place]: [employer]o Nails [id number] [employer] 07/29/2024 2 [employer] (MEDICARE SUPPLEMENT) Doroteo Nails [id number] [employer] 07/29/2024 1 MEDICARE [place]: [employer] Nails [id number] 7 [employer] Notes Date Note Type [...] below 200; no OI11/2022 HIV nondetected ; AW7=2806/2023 HIV VLnondetceted; AST/ALT 18/16 quant neg; GC/chlamydia neg; RJ2=588ze hx viral resistance Hx DVT ; PTSD; [...] HBVno hx anal PAP Idris Bales MD [address] [place] [address], [phone], NEETU BALES MD [facility] 04/10/2024 14:16:38 05/12/2024 text/html male patient wit h HIV infection dx 2011. MSMTivicay 50mg po qd and Descovy 1 tab po qdtolerates well;awaiting archive test: interested in injectables.also willing to participate in clinical trials with PO or injectables.11/2022 HIV nondetected ; RA1=9713/2023 HIV VLnondetceted; AST/ALT 18/16 quant neg; GC/chlamydia neg; JX0=6704/2023 HIV VL nondetecetd; ALT/AST wnl; eGFR>60; RPR NR; eGFR>60; GC/chlamydia negawaiting final lab resultsno hx viral resistanceno current substance usetestosterone IM qwweight stable; hx fatty liverHSV 2019; oral HSV; no frequent flareupsno genital warts nor hPV hx.med list reviewedno HCV; no HBVsexually activeon DOxyPEP Idris Bales MD [address] [place] [id number], [phone], NEETU BALES MD [facility] 05/12/2024 12:49:02 07/29/2024 text/html F/U HIVTivicay 5 0mg po qd and Descovy 1 tab po qdtolerates well;Interested in clinical trials.awaiting archive test: interested in injectables. healso willing to participate in clinical trials with PO or injectables.11/2022 HIV nondetected ; LY2=6398/2023 HIV VLnondetceted; AST/ALT 18/16 quant neg; GC/chlamydia neg; XP3=5355/2023 HIV VL nondetecetd; ALT/AST wnl; eGFR>60; RPR NR; eGFR>60; GC/chlamydia negawaiting final lab resultsno hx viral resistanceno current substance usetestosterone IM qwweight stable; hx fatty liverHSV 2019; oral HSV; no frequent flareupsno genital warts nor hPV hx.med list reviewedno HCV; no HBVsexually activeon DOxyPEP Idris Bales MD [address] [place] [address], [phone], NEETU BALES MD [facility] 08/01/2024 13:13:56
== END 2024-11-05 13:28 | disposition home or self-care (01) ==
PROVIDERS: PCP Nurse Practitioner Family; Visit Provider Urology
DX: N52.01 Erectile dysfunction due to arterial insufficiency (principal); Q98.4 Klinefelter syndrome, unspecified
CPT/HCPCS: 99213; G2211

== ENCOUNTER 2025-01-28 10:17 | Outpatient (REF) | payer OTHER, MEDICARE, SELFPAY ==
[2025-01-28 10:56] LABS: MANUAL DIFF FLAG NO
--- OUTSIDE RECORDS SUMMARY | 2025-01-28 11:16 | XMS_ITS | Data Portability ---
Author Organization [facility] - IDRIS CUNNINGHAM MD [facility], Main Office Address [address] [place] [id number] Assessment Encounter Date Assessment Date Assessment LastModified by Organization Details LastModified Time 07/29/2024 07/29/2024 AUDIO. telehealth. [facility] Not available 08/01/2024 13:07:28 Plan of Treatment Reminders Order Date Submit Date Provider Last Modified By Organization Details Last Modified Time Details Appointments B20 FOLLOW UP 2024 01:00P Jasmine Bales MD Not available Not available Not available Lab CBC w/ diff 2023 024 [email or web address] [facility] (Centralized Electronic Ordering - All Locations), Patient Can Go To The Location Of Their Choice, [id number] 08/05/2024 09:16:54 ALT (alanine aminotran sferase), serum or plasma 2023 024 [email or web address] [facility] (Centralized Electronic Ordering - All Locations), Patient Can Go To The Location Of Their Choice, [id number] 08/05/2024 09:16:55 AST/SGOT (aspartat e aminotran sferase), serum or plasma 2023 024 [email or web address] [facility] (Centralized Electronic Ordering - All Locations), Patient Can Go To The Location Of Their Choice, [id number] 08/05/2024 09:16:55 CT + NG DNA, PCR, unspecifi ed specimen 2023 024 [email or web address] [facility] (Centralized Electronic Ordering - All Locations), Patient Can Go To The Location Of Their Choice, [id number] 08/05/2024 09:16:55 creatinin e w/ estimated GFR (eGFR), serum or plasma 2023 [email or web address] [facility] (Centralized Electronic Ordering - All Locations), Patient Can Go To The Location Of Their Choice, [id number] 08/05/2024 09:16:55 hepatitis C virus Ab, serum 2023 [email or web address] [facility] (Centralized Electronic Ordering - All Locations), Patient Can Go To The Location Of Their Choice, 08/05/2024 09:16:55 HIV-1 RNA, quantitat corrine, PCR, serum or plasma 2023 [email or web address] [facility] (Centralized Electronic Ordering - All Locations), Patient Can Go To The Location Of Their Choice, 08/05/2024 09:16:55 RPR (rapid plasma reagin), serum 2023 [email or web address] [facility] (Centralized Electronic Ordering - All Locations), Patient Can Go To The Location Of Their Choice, 08/05/2024 09:16:55 unlisted lab - genosure archive(R ) 2023 [email or web address] [facility] (Centralized Electronic Ordering - All Locations), Patient Can Go To The Location Of Their Choice, 08/05/2024 09:16:55 cd4 T-cells, blood 2023 [email or web address] [facility] (Centralized Electronic Ordering - All Locations), Patient Can Go To The Location Of Their Choice, 08/05/2024 09:16:55 HBsAg (hepatiti s B surface Ag), EIA, serum 2023 [email or web address] [facility] (Centralized Electronic Ordering - All Locations), Patient Can Go To The Location Of Their Choice, 08/05/2024 09:16:55 chlamydia trachomat is + neisseria gonorrhoe ae rRNA panel, EBEN+probe , nasophary nx 2023 [email or web address] [facility] (Centralized Electronic Ordering - All Locations), Patient Can Go To The Location Of Their Choice, [id number] 05/12/2024 12:50:42 CT + NG RNA, PCR, unspecifi ed specimen 2023 024 [email or web address] [facility] (Centralized Electronic Ordering - All Locations), Patient Can Go To The Location Of Their Choice, 05/12/2024 12:49:44 chlamydia trachomat is + neisseria gonorrhoe ae rRNA panel, EBEN+probe , nasophary nx 2023 [email or web address] [facility] (Centralized Electronic Ordering - All Locations), Patient Can Go To The Location Of Their Choice, 04/17/2024 09:54:58 CT + NG RNA, rectal 2023 [email or web address] [facility] (Centralized Electronic Ordering - All Locations), Patient Can Go To The Location Of Their Choice, 04/10/2024 14:31:08 ALT (alanine aminotran sferase), serum or plasma 2023 [email or web address] [facility] (Centralized Electronic Ordering - All Locations), Patient Can Go To The Location Of Their Choice, 04/17/2024 09:54:57 AST/SGOT (aspartat e aminotran sferase), serum or plasma 2023 [email or web address] [facility] (Centralized Electronic Ordering - All Locations), Patient Can Go To The Location Of Their Choice, 04/17/2024 09:54:57 CT + NG DNA, PCR, unspecifi ed specimen 2023 [email or web address] [facility] ([facility]ized Electronic Ordering - All Locations), Patient Can Go To The Location Of Their Choice, 04/17/2024 09:54:57 creatinin e w/ estimated GFR (eGFR), serum or plasma 2023 [email or web address] [facility] ([facility]ized Electronic Ordering - All Locations), Patient Can Go To The Location Of Their Choice, 04/17/2024 09:54:57 hepatitis C virus Ab, serum 2023 024 [email or web address] [facility] ([facility]ized [facility] Ordering - All Locations), Patient Can Go To The Location Of Their Choice, 04/17/2024 09:54:58 HIV-1 RNA, quantitat corrine, PCR, serum or plasma 2023 024 [email or web address] [facility] (Centralized Electronic Ordering - All Locations), Patient Can Go To The Location Of Their Choice, [id number] 04/17/2024 09:54:58 RPR (rapid plasma reagin), serum 2023 024 [email or web address] [facility] ([facility]ized Electronic Ordering - All Locations), Patient Can Go To The Location Of Their Choice, 04/17/2024 09:54:58 T-cell regulator y subsets panel, blood 2023 024 [email or web address] [facility] (Centralized Electronic Ordering - All Locations), Patient Can Go To The Location Of Their Choice, 04/17/2024 09:54:58 bacterial vaginosis + vaginitis panel, vaginal 2023 024 [email or web address] [facility] (Centralized Electronic Ordering - All Locations), Patient Can Go To The Location Of Their Choice, 04/10/2024 14:35:00 HIV 1 proviral DNA, genotype, blood mononucle ar cells - Archive proviral resistanc e test 2023 [email or web address] [facility] (Centralized Electronic Ordering - All Locations), Patient Can Go To The Location Of Their Choice, 04/17/2024 09:54:58 hsv (1+2) igg Ab, serum 2023 024 [email or web address] [facility] (Centralized Electronic Ordering - All Locations), Patient Can Go To The Location Of Their Choice, 04/17/2024 09:54:58 Referral None recorded. Procedures None recorded. Surgeries None recorded. Imaging None recorded. Medication Orders vitamin E mixed 400 unit capsule 2023 [facility], [address] [place] [address], [id number], 05/27/2024 12:01:45 doxycycli ne hyclate 100 mg capsule 2023 [facility], [address] [place] [address], [id number], 05/26/2024 17:55:39 Cabenuva 600 mg/3 mL-900 mg/3 mL IM suspensio n, extended release 2023 [email or web address] , [address], [place], [address], 04/11/2024 18:22:04 Patient TargetsNo targets recorded. Patient InstructionsNo instructions recorded. Reason for Referral None Reported. Results Created Date Observation Date Name Description Value Unit Range Abnormal Flag Note LastModifiedBy Organization Detail LastModifiedTime 04/10/20 24 04/11/2024 CHLAM YDIA DNA URINE chlamydia DNA urine NEGATI VE negati ve Not Available [facility] [address] [place] [address], [id number], 04/11/2024 10:41:20 04/10/20 24 04/11/2024 GC DNA URINE GC DNA urine NEGATI VE negati ve Not Available [facility] [address] [place] [address], [address], 04/11/2024 10:41:21 04/10/20 24 04/11/2024 GC DNA URINE performing lab [facility] [address] [place] [address] Medic al Direc pepito jimenez MD Not Available [facility] [address] [place] [address], [address], 04/11/2024 10:41:21 04/10/20 24 04/11/2024 CHLAM YDIA DNA SWAB chlamydia DNA swab NEGATI VE negati ve This speci men type has not been evalu ated for this metho d. Inter pret resul ts with cauti on. Speci men is Oral Not Available [facility] [address] [place], [address], 04/11/2024 11:05:18 04/10/20 24 04/11/2024 GC DNA SWAB GC DNA swab NEGATI VE negati ve This speci men type has not been evalu ated for this metho d. Inter pret resul ts with cauti on. Speci men is Oral Not Available [facility] [address] [place] [address], [address], 04/11/2024 11:05:19 04/10/20 24 04/11/2024 GC DNA SWAB performing lab [facility], [facility] [address] [place] [address] Medic al Dire pepito jimenez MD Not Available [facility] [address] [place] [address], [address], 04/11/2024 11:05:19 04/10/20 24 04/12/2024 CHLAM YDIA DNA SWAB chlamydia DNA swab TNP negati ve Unabl e to obtai n a valid resul t. Inter ferin g subst ances may be prese nt in this speci men. Submi t new speci men. Not Available [facility] [address] [place] [address], [address], 04/12/2024 08:07:56 04/10/20 24 04/12/2024 GC DNA SWAB GC DNA swab TNP negati ve Unabl e to obtai n a valid resul t. Inter ferin g subst ances may be prese nt in this speci men. Submi t new speci men. Not Available [facility] [address] [place] [address], [address], 04/12/2024 08:07:57 04/10/20 24 04/12/2024 GC DNA SWAB performing lab [facility], a [facility] [address] [place] [address] Medic al Direirving jiemnez MD Not Available [facility] [address] [place] [address], [address], 04/12/2024 08:07:57 05/06/20 24 05/07/2024 GLOM FILT RATE, ESTIM ATED creatinine 1.05 mg/dL 0.76-1 .27 normal Not Available [facility] ([facility]) [address] [facility], [place], [address], 05/09/2024 16:06:51 05/06/20 24 05/07/2024 GLOM FILT RATE, ESTIM ATED eGFR 80 mL/mi n/1.7 3 >59 normal Not Available [facility] ([facility]) [address] [facility], [place], [address], 05/09/2024 16:06:51 05/06/20 24 05/09/2024 RNA, REAL TIME PCR (NON- GRAPH ) HIV-1 RNA by PCR <20 copie s/mL HIV-1 RNA not detec gab The repor table range for this assay is 20 to 10,00 0,000 copie s HIV-1 RNA/m L. Not Available [facility] ([facility]) [address] [facility], [place], [address], 05/09/2024 16:06:52 05/06/20 24 05/09/2024 RNA, REAL TIME PCR (NON- GRAPH ) log10 HIV-1 RNA COMMEN T log10 copy/ mL Unabl e to calcu late resul t since non-n umeri c resul t obtai antonino for compo nent test. Not Available [facility] ([facility]) [address] [facility], [place], [address], 05/09/2024 16:06:52 05/06/20 24 05/07/2024 RPR, RFX QN RPR/C ONFIR M TP RPR Non Reacti ve non reacti ve Not Available [facility] ([facility]) [address] [facility], [place], [address], 05/09/2024 16:06:52 05/06/20 24 05/07/2024 AST (SGOT ) AST (SGOT) 20 IU/L 0-40 normal Not Available [facility] ([facility]) [address] [place], [address], 05/09/2024 16:06:52 05/06/20 24 05/07/2024 ALT (SGPT ) ALT (SGPT) 17 IU/L 0-44 normal Not Available [facility] ([facility]) [address] [facility], [place], [address], 05/09/2024 16:06:53 05/12/20 24 05/13/2024 CHLAM YDIA DNA URINE chlamydia DNA urine NEGATI VE negati ve Not Available [facility] [address] [place], [address], 05/13/2024 10:03:08 05/12/20 24 05/13/2024 GC DNA URINE GC DNA urine NEGATI VE negati ve Not Available [facility] [address] [place] [address], [address], 05/13/2024 10:03:09 05/12/20 24 05/13/2024 GC DNA URINE performing lab [facility], a [facility] of [facility] [address] [place] [address] Medic al Direc pepito jimenez MD Not Available [facility] [address] [place] [address], [address], 05/13/2024 10:03:09 05/12/20 24 05/13/2024 CHLAM YDIA DNA SWAB chlamydia DNA swab NEGATI VE negati ve This speci men type has not been evalu ated for this metho d. Inter pret resul ts with cauti on. Speci men is Oral Not Available [facility] [address] [place], [address], 05/13/2024 10:19:09 05/12/20 24 05/13/2024 GC DNA SWAB GC DNA swab NEGATI VE negati ve This speci men type has not been evalu ated for this metho d. Inter pret resul ts with cauti on. Speci men is Oral Not Available [facility] [address] [place] [address], [address], 05/13/2024 10:19:10 05/12/20 24 05/13/2024 GC DNA SWAB performing lab [facility]for [facility], a membe r of [facility] [address] [place] [address] Medic al Direc pepito jimenez MD Not Available [facility] [address] [facility], [place], [address], 05/13/2024 10:19:10 09/23/19 25 09/26/2024 PREP: RPR W/REF TATI TITER +TPAB RPR Non Reacti ve non reacti ve Not Available [facility] ([facility]) [address] [facility], [place], [address], 09/26/2024 08:08:12 09/23/19 25 09/26/2024 HCV ANTIB [...] e HCV infec tion. Not Available [facility] ([facility]) [address] [facility], [place], [address], 09/26/2024 08:08:13 09/23/19 25 09/26/2024 HBSAG SCREE N HBsAg screen Negati ve negati ve Not Available [facility] ([facility]) [address] [facility], [place], [address], 09/26/2024 08:08:13 09/23/19 25 09/24/2024 CBC/D /PLT W/ REFLE X SIGRID TIN WBC 4.0 x10e3 /uL 3.4-10 .8 normal Not Available [facility] ([facility]) [address] [place], [address], 10/23/2024 13:10:16 09/23/19 25 09/24/2024 CBC/D /PLT W/ REFLE X SIGRID TIN RBC 4.44 x10e6 /uL 4.14-5 .80 normal Not Available [facility] ([facility]) [address] [place], [address], 10/23/2024 13:10:16 09/23/19 25 09/24/2024 CBC/D /PLT W/ REFLE X SIGRID TIN hemoglobin 14.5 g/dL 13.0-1 7.7 normal Not Available [facility] ([facility]) [address] [place], [address], 10/23/2024 13:10:16 09/23/19 25 09/24/2024 CBC/D /PLT W/ REFLE X SIGRID TIN hematocrit 43.6 % 37.5-5 1.0 normal Not Available [facility] ([facility]) [address] [place], [address], 10/23/2024 13:10:16 09/23/19 25 09/24/2024 CBC/D /PLT W/ REFLE X SIGRID TIN MCV 98 fL 79-97 above high normal Not Available [facility] ([facility]) [address] [place], [address], 10/23/2024 13:10:16 09/23/19 25 09/24/2024 CBC/D /PLT W/ REFLE X SIGRID TIN MCH 32.7 pg 26.6-3 3.0 normal Not Available [facility] ([facility]) [address] [place], [address], 10/23/2024 13:10:16 09/23/19 25 09/24/2024 CBC/D /PLT W/ REFLE X SIGRID TIN MCHC 33.3 g/dL 31.5-3 5.7 normal Not Available [facility] ([facility]) [address] [place], [address], 10/23/2024 13:10:16 09/23/19 25 09/24/2024 CBC/D /PLT W/ REFLE X SIGRID TIN RDW 13.4 % 11.6-1 5.4 Not Available [facility] ([facility]) [address] [facility], [place], [address], 10/23/2024 13:10:16 09/23/19 25 09/24/2024 CBC/D /PLT W/ REFLE X SIGRID TIN platelets 177 x10e3 /uL 150-45 0 normal Not Available [facility] ([facility]) [address] [facility], [place], [address], 10/23/2024 13:10:16 09/23/19 25 09/24/2024 CBC/D /PLT W/ REFLE X SIGRID TIN neutrophils 57 % not estab. normal Not Available [facility] ([facility]) [address] [facility], [place], [address], 10/23/2024 13:10:16 09/23/19 25 09/24/2024 CBC/D /PLT W/ REFLE X SIGRID TIN lymphs 31 % not estab. normal Not Available [facility] ([facility]) [address] [facility], [place], [address], 10/23/2024 13:10:16 09/23/19 25 09/24/2024 CBC/D /PLT W/ REFLE X SIGRID TIN monocytes 9 % not estab. normal Not Available [facility] ([facility]) [address] [facility], [place], [address], 10/23/2024 13:10:16 09/23/19 25 09/24/2024 CBC/D /PLT W/ REFLE X SIGRID TIN eos 2 % not estab. normal Not Available [facility] ([facility]) [address] [facility], [place], [address], 10/23/2024 13:10:16 09/23/19 25 09/24/2024 CBC/D /PLT W/ REFLE X SIGRID TIN basos 1 % not estab. normal Not Available [facility] ([facility]) [address] [place], [address], 10/23/2024 13:10:16 09/23/19 25 09/24/2024 CBC/D /PLT W/ REFLE X SIGRID TIN immature cells LOG DRIVER Not Available [facility] ([facility]) [address] [place], [address], 10/23/2024 13:10:16 09/23/19 25 09/24/2024 CBC/D /PLT W/ REFLE X SIGRID TIN neutrophils (absolute) 2.3 x10e3 /uL 1.4-7. 0 normal Not Available [facility] ([facility]) [address] [place], [address], 10/23/2024 13:10:16 09/23/19 25 09/24/2024 CBC/D /PLT W/ REFLE X SIGRID TIN lymphs (absolute) 1.3 x10e3 /uL 0.7-3. 1 normal Not Available [facility] ([facility]) [address] [place], [address], 10/23/2024 13:10:16 09/23/19 25 09/24/2024 CBC/D /PLT W/ REFLE X SIGRID TIN monocytes(ab solute) 0.4 x10e3 /uL 0.1-0. 9 normal Not Available [facility] ([facility]) [address] [place], [address], 10/23/2024 13:10:16 09/23/19 25 09/24/2024 CBC/D /PLT W/ REFLE X SIGRID TIN eos (absolute) 0.1 x10e3 /uL 0.0-0. 4 normal Not Available [facility] ([facility]) [address] [place], [address], 10/23/2024 13:10:16 09/23/19 25 09/24/2024 CBC/D /PLT W/ REFLE X SIGRID TIN baso (absolute) 0.0 x10e3 /uL 0.0-0. 2 normal Not Available [facility] ([facility]) [address] [facility], [place], [address], 10/23/2024 13:10:16 09/23/19 25 09/24/2024 CBC/D /PLT W/ REFLE X SIGRID TIN immature granulocytes 0 % not estab. Not Available [facility] ([facility]) [address] [facility], [place], [address], 10/23/2024 13:10:16 09/23/19 25 09/24/2024 CBC/D /PLT W/ REFLE X SIGRID TIN immature grans (abs) 0.0 x10e3 /uL 0.0-0. 1 Not Available [facility] ([facility]) [address] [facility], [place], [address], 10/23/2024 13:10:16 09/23/19 25 09/24/2024 CBC/D /PLT W/ REFLE X SIGRID TIN NRBC LOG DRIVER Not Available [facility] ([facility]) [address] [facility], [place], [address], 10/23/2024 13:10:16 09/23/19 25 09/24/2024 CBC/D /PLT W/ REFLE X SIGRID TIN hematology comments: LOG DRIVER Not Available [facility] ([facility]) [address] [facility], [place], [address], 10/23/2024 13:10:16 09/23/19 25 09/24/2024 HELPE R T-LYM PH-CD 4 absolute cd 4 helper 562 /uL 359-15 19 Not Available [facility] ([facility]) [address] [facility], [place], [address], 10/23/2024 13:10:16 09/23/19 25 09/24/2024 HELPE R T-LYM PH-CD 4 % cd 4 pos. lymph. 43.2 % 30.8-5 8.5 Not Available [facility] ([facility]) [address] [facility], [place], [address], 10/23/2024 13:10:16 09/23/19 25 10/23/2024 GENOS URE ARCHI VE(R) pdf Not applic able Not Available [facility] [address] [facility], [place], [address], 10/23/2024 13:10:17 09/23/19 25 10/23/2024 GENOS URE [...] ibute to assay failu re. Not Available [facility] [address] [place] [address], [place], [address], 10/23/2024 13:10:17 09/23/19 25 10/23/2024 GENOS URE ARCHI VE(R) HIV genosure archive Not applic able Not Available [facility] [address] [facility], [place], [address], 10/23/2024 13:10:17 09/23/19 25 10/23/2024 GENOS URE ARCHI VE(R) HIV genosure archive interp Commen t For more infor elfego n on inter preti ng melivna caputo t, pledianelys e visit [employer] or call [employer] at [phone] en the hours of 6:30a m to 5:00p m PT Monda y throu gh Yumiko y. GenoS ure Archi ve [...] the Food and Drug Admin istra tion. [employer]. is a subsi diary of [employer] [facility] ratio n of [employer] st[employer], using the brand [facility]. The resul ts shoul d not be used as the sole crite rubio for patie nt manag ement . This docum ent conta ins priva te and confi denti al healt h infor matio n prote cted by state and glenn al law. If you have recei karlo this docum ent in error , pleas e call . Not Available [facility] [address] [place] [address], [address], 10/23/2024 13:10:17 09/23/19 25 10/01/2024 GLOM FILT RATE, ESTIM ATED creatinine COMMEN T mg/dL Test not perfo rmed. Deter iorat ion occur red kaliin g speci men handl ing. [facility] is provi ding the patie nt with re-co llect ion instr uctio ns. Not Available [facility] ([facility]) [address] [facility], [place], [address], 10/23/2024 13:10:17 01/21/10/01/2024 GLOM FILT RATE, ESTIM ATED eGFR LOG DRIVER Not Available [facility] ([facility]) [address] [facility], [place], [address], 10/23/2024 13:10:17 09/23/19 25 09/26/2024 CHLAM YDIA/ GC AMPLI FICAT ION chlamydia trachomatis, EBEN COMMEN T [facility] was unabl e to colle ct suffi cient speci men to perfo rm the follo wing test( s), and is provi ding the patie nt with re-co llect ion instr uctio ns. Not Available [facility] ([facility]) [address] [facility], [place], [address], 10/23/2024 13:10:18 09/23/19 25 09/26/2024 CHLAM YDIA/ GC AMPLI FICAT ION neisseria gonorrhoeae, EBEN TNP Test not perfo rmed Not Available [facility] ([facility]) [address] [facility], [place], [address], 10/23/2024 13:10:18 09/23/19 25 09/25/2024 RNA, REAL TIME PCR (NON- GRAPH ) HIV-1 RNA by PCR <20 copie s/mL HIV-1 RNA not detec gab The repor table range for this assay is 20 to 10,00 0,000 copie s HIV-1 RNA/m L. Not Available [facility] ([facility]) [address] [facility], [place], [address], 10/23/2024 13:10:18 09/23/19 25 09/25/2024 RNA, REAL TIME PCR (NON- GRAPH ) log10 HIV-1 RNA COMMEN T log10 copy/ mL Unabl e to calcu late resul t since non-n umeri c resul t obtai antonino for compo nent test. Not Available [facility] ([facility]) [address] [facility], [place], [address], 10/23/2024 13:10:18 09/23/19 25 10/01/2024 AST (SGOT ) AST (SGOT) COMMEN T IU/L Test not perfo rmed. Deter iorat ion occur red durin g speci men handl ing. [facility] is provi ding the patie nt with re-co llect ion instr uctio ns. Not Available [facility] ([facility]) [address] [place], [address], 10/23/2024 13:10:18 09/23/19 25 10/01/2024 ALT (SGPT ) ALT (SGPT) COMMEN T IU/L Test not perfo rmed. Deter iorat ion occur red durin g speci men handl ing. [facility] is provi ding the patie nt with re-co llect ion instr uctio ns. Not Available [facility] ([facility]) [address] [place], [address], 10/23/2024 13:10:19 09/23/19 25 09/26/[address] PROBL EM request problem COMMEN T [facility] was unabl e to colle ct suffi cient speci men to perfo rm the follo wing test( s), and is provi ding the patie nt with re-co llect ion instr uctio ns. TEST: [id number] Chlam ydia/ GC Ampli ficat ion Not Available [facility] ([facility]) [address] [place], [address], 10/23/2024 13:10:19 09/23/19 25 10/01/[address] PROBL EM request problem COMMEN T Test not perfo rmed. Deter iorat ion occur red durin g speci men handl ing. [facility] is provi ding the patie nt with re-co llect ion instr uctio ns. TEST: [id number] Creat inine Panel : [id number] 3 AST (SGOT ) 14912 5 ALT (SGPT ) Not Available [facility] ([facility]) [address] [place], [address], 10/23/2024 13:10:20 Result Notes None recorded. Problems Name Problem SNOMED Code Status Onset Date Resolution Date Notes Provider Name and Address Organization Details Recorded Time History of syphilis [id number] 8 Active 2023 NR 05/2024 Idris Bales MD [address] [place] [address], [id number] [place] [address] IDRIS BALES MD [facility] 12:14:18 Problem Notes None recorded. Medical Equipment [...] MOUTH WITHIN 24-72 HRS AFTER CONDOMLESS SEX. 2024 active Not Available Not Available Not Avai lable trazodone 50 mg tablet TAKE ONE TABLET BY MOUTH DAILY AT BEDTIME NEEDED FOR INSOMNIA active Not Available Not Available No t Available sulfamethoxa zole 400 mg-trimethop rim 80 mg tablet active Not Available Not Available Not Available Remeron 15 mg tablet Take 1 tablet every day by oral route for 30 days, for depressionj /anxiety/in somnia. active Not Available Not Available No t Available sildenafil 100 mg tablet TAKE 1 TABLET 60 MINUTES BEFORE INTENDED ACTIVITY active Not [...] TAKE ONE TABLET BY MOUTH EVERY DAY FOR SEXUAL ACTIVITY active Not Available Not Available No t Available BD Luer-Ellen Syringe 1 mL USE TO INJECT TESTOSTERON E WEEKLY active Not Available Not Available No t Available BD Regular Bevel [place] 22 gauge x 1 USE TO INJECT TESTOSTERON E DIRECTED active Not Available Not Available No t Available BD Regular Bevel [place] 18 gauge x 1 1/2 USE TO DRAW UP MEDICATION active Not Available Not Available N ot Available testosterone 20.25 mg/1.25 gram per pump act.(1.62 %) transdermal gel APPLY 2 PUMPS TOPICALLY DAILY OVER MAX AREA. ALTERNATE SHOULDERS ON ALTERNATE DAYS active Not Available Not Available No t Available Xarelto 20 mg tablet TAKE ONE TABLET BY MOUTH EVERY DAY. MUST ADMINISTER WITH EVENING MEAL active Not Available Not Available No t Available vitamin E mixed 400 unit capsule Take 2 capsules by oral route, for fatty liver. 2023 active Not Available Not Available Not Avai lable Tivicay 50 mg tablet TAKE ONE TABLET BY MOUTH ONCE DAILY 2024 active Not Available Not Available Not Avai lable Descovy 200 mg-25 mg tablet TAKE ONE TABLET BY MOUTH ONCE DAILY 2024 active Not Available Not Available Not Avai lable Cabenuva 600 mg/3 mL-900 mg/3 mL IM [...] cm 10 /min 98.6 [degF] 28.7 kg/m2 317686. 91 g 97 % 97 % 126 mm[Hg] 68 mm[Hg] Keisha BALES MD [facility] 4 13:16:09 Date Recorded Body height Respiratory rate Oxygen saturation Oxygen saturation in Arterial blood by Pulse oximetry Body mass index (BMI) Body weight Body temperature Systolic blood pressure Diastolic blood pressure Provider Name and Address Organization Details Last Updated DateTime 4 198.12 cm 10 /min 97 % 97 % 27 kg/m2 537368. 61 g 98 [degF] 140 mm[Hg] 74 mm[Hg] Keisha BALES MD [facility] 4 12:21:21 Social History None recorded. Functional Status None recorded. Mental Status None recorded. Family History Nothing Reported. Medical History No medical history recorded. Past Encounters Encounter ID Performer Location Encounter Start Date Encounter Closed Date Diagnosis/Indication Diagnosis SNOMED-CT Code Diagnosis ICD10 Code Diagnosis Note [id number] Idris Bales MD Main Office [address] [place] [address] 04/10/2024 13:00:41 04/10/2024 13:52:36 Human immunodeficiency virus infection 98005575 B20 Continue Descovy qd and Tivicay qdProviral resistance test orderedCab enuva will be ordered if susceptibi lity to componenet spt is able to come in to the office to get injections window visit reviewedpo tential side effects reviewed such as ISR among otherU=U reviewedPr eP reviewedAn al PAP next appointmen t Exposure t o sexually transmissible disorder 646333708 Z20.2 risk of exposure to communicab le [...] AFTER CONDOMLESS SEX. History of syphilis 1087 158428 240183 Z86.19 tx w Bicillin 2019monito r RPRDOxyPER reviewed and prescribed [id number] Idris Bales MD Main Office [address] [place] [address] 05/12/2024 12:05:46 05/12/2024 12:36:01 Human immunodeficiency virus infection 83765486 B20 Continue Descovy qd and Tivicay qdProviral [...] COVID19 Exposure t o sexually transmissible disorder 014254222 Z20.2 condom use.3 site testing GC/chla,yd ia done. declines rectal swab Change doxycyclin e hyclate 100 mg capsule from TAKE 2 CAPSULES BY MOUTH WITHIN 24-72 HRS AFTER CONDOMLESS SEX. Steatotic liver disease 825887204 K76.0 diet and exercise reviewedVi t E prescribed to decrease inflammati on/fat [id number] Idris Bales MD Main Office [address] [place] [address] 07/29/2024 12:21:44 07/29/2024 12:32:21 Human immunodeficiency virus infection 20620050 B20 Continue Descovy qd and Tivicay qdPt [...] and COVID19 vaccine recommende d; declines COVID19 [id number] Idris Bales MD Main Office [address] [place] [address] 01/27/2025 14:15:31 01/27/2025 14:44:38 Human immunodeficiency virus infection 87011266 B20 Continue Descovy qd and Tivicay qdPt [...] and COVID19 vaccine recommende d; declines COVID19 Suspected clinical finding 494395682 Z20.2 condom use.3 site testing GC/chla,yd ia done. declines rectal swab Change doxycyclin e hyclate 100 mg capsule from TAKE 2 CAPSULES BY MOUTH WITHIN 24-72 HRS AFTER CONDOMLESS SEX. Moderate r ecurrent major depression 40267091 F33.1 Health Concerns Section Related Observation LastModified by Organization Detai ls LastModified Time None Recorded Concern Status LastModified by Organization Details LastModified Time None Recorded Advance Directives Directive None Recorded Payers Encounter Date Sequence Insurance Name Policy Number Policy Mck[place]on Covered Member ID Mckinnon Member ID Guarantor Name 04/10/2024 2 [employer] (MEDICARE SUPPLEMENT) Doroteo Nails [id number] Doroteo Nails 04/10/2024 1 [place]: [employer] Doroteo Nails [id number] Doroteo Nails 05/12/2024 2 [employer] (MEDICARE SUPPLEMENT) Doroteo Nails [id number] Doroteo Nails 05/12/2024 1 MEDIC[place]: [facility] Doroteo Nails [id number] Doroteo Nails 07/29/2024 2 [employer] (MEDICARE SUPPLEMENT) Doroteo Nails [id number] Doroteo Nails 07/29/2024 1 [place] [facility] Doroteo Nails [id number] Doroteo Nails Notes Date Note Type Note [...] below 200; no OI11/2022 HIV nondetected ; GN2=4819/2023 HIV VLnondetceted; AST/ALT 18/16 quant neg; GC/chlamydia neg; XR9=404gq hx viral resistance Hx DVT ; PTSD; klinefelter syndromeHx syphilis in January 2022 tx Bicillin IMno allergies to antibiotics or allergieshx allergy to some vaccinesallergies/int olerance to opiate pain killers: abd bloating and pain;hx Heart murmurvaricose veins and removal procedurepast substance use decades agotestosterone IM qwweight stable; hx fatty liverHSV 2018; oral HSV; no frequent flareupsno genital warts nor hPV hx.colonoscopy uptodatesmokes marijuanamed list reviewedno HCV; no HBVno hx anal PAP Idris Bales MD [address] [place] [address], [place], [address], [place] - IDRIS BALES MD [facility] 04/10/2024 14:16:38 05/12/2024 text/html male patient wit h HIV infection dx 2011. MSMTivicay 50mg po qd and Descovy 1 tab po qdtolerates well;awaiting archive test: interested in injectables.also willing to participate in clinical trials with PO or injectables.11/2022 HIV nondetected ; OA8=2987/4 HIV VLnondetceted; AST/ALT 18/16 quant neg; GC/chlamydia neg; LP2=0588/4 HIV VL nondetecetd; ALT/AST wnl; eGFR>60; RPR NR; eGFR>60; GC/chlamydia negawaiting final lab resultsno hx viral resistanceno current substance usetestosterone IM qwweight stable; hx fatty liverHSV 2019; oral HSV; no frequent flareupsno genital warts nor hPV hx.med list reviewedno HCV; no HBVsexually activeon DOxyPEP Idris Bales MD [address] [place] [address], [phone], NEETU BALES MD [facility] 05/12/2024 12:49:02 07/29/2024 text/html F/U HIVTivicay 5 0mg po qd and Descovy 1 tab po qdtolerates well;Interested in clinical trials.awaiting archive test: interested in injectables. [facility] willing to participate in clinical trials with PO or injectables.11/2022 HIV nondetected ; WV2=9655/4 HIV VLnondetceted; AST/ALT 18/16 quant neg; GC/chlamydia neg; MV2=9945/4 HIV VL nondetecetd; ALT/AST wnl; eGFR>60; RPR NR; eGFR>60; GC/chlamydia negawaiting final lab resultsno hx viral resistanceno current substance usetestosterone IM qwweight stable; hx fatty liverHSV 2019; oral HSV; no frequent flareupsno genital warts nor hPV hx.med list reviewedno HCV; no HBVsexually activeon DOxyPEP Idris Bales MD [address] [place] [address], [phone], NEETU BALES MD [facility] 08/01/2024 13:13:56
[2025-01-28 11:51] LABS: Basophils Percent Auto 0.5 % (0-2); Eosinophils Absolute Auto 0.1 X10*3/uL (0.0-0.4); Eosinophils Percent Auto 2.4 % (0-4); Hematocrit 41.7 % (42.0-52.0); Hemoglobin 14.3 g/dl (14.0-18.0); Lymphocytes Absolute Auto 1.8 X10*3/uL (1.2-4.9); Lymphocytes Percent Auto 46.4 % (20-40); Mean Corpuscular HGB Conc 34.3 g/dl (31.0-36.0); Mean Corpuscular Hemoglobin 32.8 pg (27.0-33.0); Mean Corpuscular Volume 95.6 fL (80.0-98.0); Mean Platelet Volume 11.1 fL (9.4-12.4); Monocytes Absolute Auto 0.3 X10*3/uL (0.1-1.2); Monocytes Percent Auto 6.9 % (2-11); Neutrophils Absolute Auto 1.7 x10*3/uL (2.0-8.3); Neutrophils Percent Auto 43.8 % (45-73); Platelet Count 151 X10*3/uL (160-400); Red Blood Count 4.36 X10*6/uL (4.60-5.80); Red Cell Distribution Width 12.8 % (11.0-16.0); White Blood Count 3.8 X10*3/uL (4.8-10.8)
[2025-01-28 12:26] LABS: Appearance Urine Cloudy; Color Urine Dark Yellow; Glucose Urine UA Negative (Negative); Leukocyte Esterase Urine Small (1+) (Negative); Nitrite Urine Negative (Negative); PH 5.5 (5.0-9.0); Specific Gravity - Urine 1.025 (1.005-1.025); UMIC TRIGGER UACC YES; Urine Blood Negative (Negative); Urine Ketones Negative (Negative); Urine Protein Negative (Neg-Trace)
[2025-01-28 12:57] LABS: Alanine Aminotransferase 28 U/L (0-40); Albumin Level 4.5 g/dL (3.5-5.0); Alkaline Phosphatase 56 U/L (39-117); Anion Gap 9 (12-20); Aspartate Amino Transferase 31 U/L (5-37); Bilirubin Total 0.8 mg/dL (0.0-1.0); Blood Urea Nitrogen 23 mg/dL (9-16); Calcium 9.6 mg/dL (8.4-10.2); Carbon Dioxide 28 mmol/L (22-29); Chloride 109 mmol/L (96-108); Cholesterol 150 mg/dL (<200); Estimated Glomerular Filt Rate > 60; Glucose Fasting 97 mg/dL (60-99); HDL Cholesterol 45 mg/dL (>40); LDL Cholesterol Calculated 92 mg/dL (<100); Potassium 4.1 mmol/L (3.3-5.1); Sodium 142 mmol/L (135-145); Total Protein 7.4 g/dL (6.5-8.0); Triglycerides 69 mg/dL (<150)
[2025-01-28 13:01] LABS: Alanine Aminotransferase 27 U/L (0-40); Aspartate Amino Transferase 30 U/L (5-37); Estimated Glomerular Filt Rate > 60
[2025-01-28 13:02] LABS: TSH reflex Free T4 1.16 uIU/mL (0.32-4.0)
[2025-01-28 13:19] LABS: Bacteria Urine 1+ (None Seen); Calcium Oxalate Crystals Urine Present; RBC Urine 0-2 /HPF (0-2); UACC Culture Trigger YES; WBC Urine 0-5 /HPF (0-5)
[2025-01-28 13:32] LABS: CT PCR NOT DETECTED (Not Detect.); NG PCR NOT DETECTED (Not Detect.)
[2025-01-30 16:09] LABS: RPR Rapid Plasma Reagin NON-REACTIVE (NON-REACTIVE)
[2025-02-01 17:58] LABS: Absolute CD3 Count 1087 cells/uL (840-3060); Absolute CD4 Count 685 cells/uL (490-1740); Absolute CD8 Count 427 cells/uL (180-1170); Absolute Lymphocytes 1761 cells/uL (850-3900); Percent CD3 Cells 62 % (57-85); Percent CD4 Cells 39 % (30-61); Percent CD8 Cells 24 % (12-42)
== END 2025-01-28 10:18 | disposition home or self-care (01) ==
LOC: HO.LAB 10:17
PROVIDERS: PCP Nurse Practitioner Family; Visit Provider Internal Medicine Infectious Disease
DX: B20 Human immunodeficiency virus [HIV] disease (principal); I10 Essential (primary) hypertension; R30.0 Dysuria
CPT/HCPCS: 36415; 80053; 80061; 81001; 81003; 82565; 83520; 84443; 84450; 84460; 85025; 86359; 86360; 86592; 87086; 87491; 87591

== ENCOUNTER 2025-03-04 08:50 | Outpatient (AMB) | payer OTHER, MEDICARE, SELFPAY ==
--- NOTE | 2025-03-04 08:52 | MHC.PC.OV ---
Vital Signs 03/04/25 08:53 Height 6 ft 4 in Weight 214 lb BMI 26.0 BP 136/80 Blood Pressure Location Lt brachial Position Sitting Pulse 62 Pulse Source Pulse Oximeter Temp 98.7 F Temp Source Oral Pulse Oximetry (%) 98 Intake Visit Reasons: follow up Intake Note: patient is here for possible request for referral to [facility] for HIV care, pt states he doesn't feel as if he is getting the care he needs or deserves at [facility]. Slot Floorperson Required: No Accompanied by: Self / Same As Patient Allergies codeine (CODEINE) Allergy (Severe, Verified 03/04/25 09:13) SEVERE PAIN/HYPOXIA W/HIGH DOSES meningococcal vaccine A,C,Y and W-1 (MENINGOCOCCAL VACCINE A,C,Y AND W-1) Allergy (Intermediate, Verified 03/04/25 09:13) HIVES salmon oil Allergy (Unknown, Verified 03/04/25 09:13) hives SALMON Allergy (Severe, Uncoded 03/04/25 09:13) LT HEMIPARESIS Medication List - Last Reconciled 03/04/25 by Abdirahman Howell, ENAMEL BUFFER- alfuzosin ER 10 mg PO BEDTIME 30 days ascorbic acid (vitamin C) (Vitamin C) 500 mg PO DAILY cholecalciferol (vitamin D3) (Vitamin D3) 25 mcg PO DAILY chromium 200 mcg PO DAILY cyanocobalamin (vitamin B-12) (Vitamin B-12) 100 mcg PO DAILY dolutegravir (Tivicay) 50 mg PO DAILY 30 days emtricitabine-tenofovir alafen 200-25 mg (Descovy) 1 tab PO DAILY 30 days needle (disp) 18 G (BD Regular Bevel Montgomery) To draw up medication needle (disp) 22 G To inject Testosterone rivaroxaban 20 mg PO DAILY sertraline 50 mg PO DAILY sildenafil 100 mg PO ONCE PRN 30 days syringe (disposable) (BD Luer-Ellen Syringe) Testosterone injection weekly syringe with needle As directed tadalafil 10 mg PO DAILY 90 days terazosin 5 mg PO BEDTIME testosterone 2 pumps topical DAILY 30 days trazodone 50 mg PO BEDTIME PRN 90 days zinc 100 mg PO DAILY Tobacco use date assessed: 03/04/25 Dental Screening Dental Screen Date: 03/04/25 Did you have a dental visit in the last 12 months?: Yes Did you have a dental problem in the last 6 months where you did not have access to dental care?: No Was dental information given to patient?: Patient has dentist HPI follow up HPI Details Chief Complaint The patient is frustrated with previous HIV care and seeks a referral to [facility] in [place]. History of Present Illness The patient is a 64-year-old male presenting with hypertension and HIV care management. His hypertension is currently stable, but he expresses frustration with the care received from his previous infectious disease specialist for HIV management. He was referred to another provider in [place], which he did not find satisfactory, and now requests a referral to [facility] in [place] for his HIV care. Social History Health Maintenance Review of Systems - Cardiovascular: Denies chest pain - Respiratory: Denies shortness of breath - Gastrointestinal: Denies abdominal pain, blood in stool, constipation, diarrhea - Neurological: Denies dizziness, blurred vision Physical Exam General: Cooperative, healthy appearing, comfortable, no acute distress and well developed Orientation: Patient oriented x3 Limitations: No limitations Head: Normal to inspection Ears: Hearing grossly normal bilaterally Nose: Normal external nose present Face and sinus: Normal facial exam Eyes: Appearance normal, both eyes and all related structures Neck: Normal visual inspection and Yes full ROM Respiratory: Normal respiratory effort and able to speak in complete sentences. Clear to auscultation bilaterally Cardiovascular: Regular rate and rhythm. Normal S1 and S2 systolic murmur noted GI: Normal to inspection. Soft to palpation and nontender Neuro: Patient oriented x3 Extremities: Normal to inspection Results Plan The patient's hypertension is stable, and no changes to the current management plan are necessary at this time. For HIV management, a referral to [facility] in [place] will be placed as per the patient's request to ensure he receives care at a facility of his choice. Discussion Notes I discussed with the patient the stability of his hypertension and confirmed that no changes are needed in his current treatment plan. We also talked about his dissatisfaction with previous HIV care and agreed to refer him to [facility] in [place], as he believes this will better meet his needs. Patient Instructions - Continue current hypertension medications as prescribed. - Follow up with [facility] in [place] for HIV care once the referral is processed. [facility] Medical History Factor 5 Leiden mutation, heterozygous Right knee pain On continuous oral anticoagulation Leg fracture, left Klinefelter syndrome Pulmonary embolus HTN (hypertension) HIV (human immunodeficiency virus infection) DVT (deep venous thrombosis) Surgical History Hx of colonoscopy History of angioplasty of vein Hx of left knee surgery History of umbilical hernia repair Hx of cholecystectomy S/P ORIF (open reduction internal fixation) fracture Family History Father No problems noted. Mother No problems noted. Social History Housing: House Are you a primary animal caretaker supervisor to a significant other at home: No Do you presently have visiting nurse or other home services: No Alcohol intake: former Patient Tobacco Use Status: Former Tobacco user Tobacco use type: Cigarette Cigarette Packs Per Day: 2 e-Cigarette/Vaping Use: Never Used Second Hand Smoke Exposure: Yes Substance Use Type: Marijuana service: Yes ([employer] ) Current occupational status: employed Current occupation: [employer] Current occupational exposures/hazards: No Cognitive needs: No Hearing needs: No Vision needs: No Questionnaire PHQ-9 Over the last 2 weeks, how often have you been bothered by any of the following problems? 71885 - PHQ-9 Billing: Patient declined-do not bill Source: Developed by Drs. Sedrick Wilde, Yovana Hicks, Ernesto Marks and colleagues, with an educational erendira from [employer]. Thrive Questionnaire Date Thrive assessed: 03/04/25 I am a: Patient What is your living situation today?: I choose not to answer this question Within the past 12 months, did the food you bought not last and you didn't have the money to get more?: I choose not to answer this question Within the past 12 months, did you worry whether your food would run out before you got money to buy more?: I choose not to answer this question Do you have trouble paying for medicines?: I choose not to answer this question Do you have trouble getting transportation to medical appointments?: I choose not to answer this question Do you have trouble paying your heating and electricity bill?: I choose not to answer this question Do you have trouble taking care of your child, family member or friend?: I choose not to answer this question Do you have trouble with day-to-day activities such as bathing, preparing meals, shopping, managing finances, etc.?: I choose not to answer this question Are you currently unemployed and looking for a job?: I choose not to answer this question Are you interested in more education?: I choose not to answer this question Please select the resources that you would like help with: None Currently or been in a relationship where the following occur: I choose not to answer THRIVE Score: 0 AUDIT C Alcohol Use Questionnaire (AUDIT-C) 1. How often do you have a drink containing alcohol?: Never 3. How often do you have six or more drinks on one occasion?: Never Total Score: 0 Score Reviewed/Action Taken: Yes ARINA-7 AMB Questionnaire ARINA-7 Date ARINA - 7 assessed: 03/04/25 (patient declined) Source: Developed by Drs. Sedrick Wilde, Yovana Hicks, Ernesto Marks and colleagues, with an educational erendira from [employer]. ARINA-7 Assessment Billing ARINA-7 Assessment Tool: ARINA-7 Assessment 81303 (patient declined) Physical exam (Primary Care) Vital Signs: Last Vital Signs Temp 98.7 F 03/04/25 08:53 Pulse 62 03/04/25 08:53 BP 136/80 03/04/25 08:53 Pulse Ox 98 03/04/25 08:53 BMI result Body Mass Index 26.0 Tobacco/Smoking Status: Tobacco use Status Tobacco use date assessed 03/04/25 03/04/25 08:55 Patient Tobacco Use Status Former Tobacco user 03/04/25 08:55 Tobacco use type Cigarette 03/04/25 08:55 e-Cigarette/Vaping Use Never Used 03/04/25 08:55 Thrive Assessment: Date of Thrive Assessment Date Thrive assessed 03/04/25 03/04/25 08:55 Currently or been in a relationship where the following occur: I choose not to answer Coding Level of Care Code Est Pt Level 3 (75537) Diagnoses HIV (human immunodeficiency virus infection) B20 HTN (hypertension) I10 Additional Codes ARINA-7 Assessment Billing - ARINA-7 Assessment Tool: ARINA-7 Assessment 11306 ([id number]) Assessment & Plan Assessment & Plan (1) HIV (human immunodeficiency virus infection): Code(s): B20 - Human immunodeficiency virus [HIV] disease Category: Medical Plan: . (2) HTN (hypertension): Code(s): I10 - Essential (primary) hypertension Category: Medical Plan . Orders: Referrals Infectious Disease Referral B20 - Human immunodeficiency virus [HIV] disease
[2025-03-04 08:53] VITALS: BP 136/80; PULSE 62; TEMP 37.1; O2SAT 98; BMI 26.0
== END 2025-03-04 10:32 | disposition home or self-care (01) ==
LOC: HO.HMCC 08:51
PROVIDERS: PCP Nurse Practitioner Family; Visit Provider Nurse Practitioner Family
DX: B20 Human immunodeficiency virus [HIV] disease (principal); I10 Essential (primary) hypertension

== ENCOUNTER → 2025-03-04 08:50 | Outpatient (BNVA) | payer OTHER, MEDICARE, SELFPAY | PROVIDERS: PCP Nurse Practitioner Family; Visit Provider Nurse Practitioner Family | DX: I10 Essential (primary) hypertension (principal); B20 Human immunodeficiency virus [HIV] disease | CPT/HCPCS: 96127 ==

== ENCOUNTER 2025-04-21 11:00 | Outpatient (REF) | payer MEDICARE, OTHER, MEDICAID, SELFPAY ==
[2025-04-21 12:24] LABS: Hematocrit 35.1 % (42.0-52.0); Hemoglobin 12.0 g/dl (14.0-18.0); Mean Corpuscular HGB Conc 34.2 g/dl (31.0-36.0); Mean Corpuscular Hemoglobin 33.4 pg (27.0-33.0); Mean Corpuscular Volume 97.8 fL (80.0-98.0); NRBC Abs Auto 0.000 X10*3/uL (0.0-0.012); NRBC Pct Auto 0.0 /100WBC (0.0-0.2); Platelet Count 149 X10*3/uL (160-400); Red Blood Count 3.59 X10*6/uL (4.60-5.80); White Blood Count 4.1 X10*3/uL (4.8-10.8)
--- OUTSIDE RECORDS SUMMARY | 2025-04-21 12:33 | XMS_ITS | Clinical Summary ---
Author Organization [facility] Address [address] [place] [address] Phone Care Team Providers Care Valve Tester Name Role Phone Abdirahman Howell NP Primary Care Provider + Allergies Active Allergy Reactions Criticality Noted Date Comments Codeine 10/19/2022 Fish Derived 10/19/2022 Medications No known medications Social History Tobacco Use Types Packs/Day Years Used Date Smoking Tobacco: Never Assessed Education Answer Date Recorded Are you interested in more education? Not on dulce e 12/29/2022 Are you concerned about learning? Not on file 12/29/2022 No 12/29/2022 No 12/29/2022 Digital Access Answer Date Recorded No 01/30/2023 No 01/30/2023 Reliable internet access at home? Not on file 01/30/2023 Device with a working camera? Not on file Sex and Gender Information Value Date Recorded Sex Assigned at Male 10/19/2022 5:48 PM EST Legal Sex Male 2:52 PM EDT Gender Identity Male 10/19/2022 5:48 PM EST Sexual Orientation Not on file Last Filed Vital Signs Vital Sign Reading Time Taken Comments Blood Pressure 158/67 10/19/2022 9:14 PM EST Pulse 71 10/19/2022 9:14 PM EST Temperature 37.8 C (100.1 F) 10/19/2022 5:47 PM EST Respiratory Rate 14 10/19/2022 9:14 PM EST Oxygen Saturation 97% 10/19/2022 9:14 PM EST Inhaled Oxygen Concentration - - Weight 106.6 kg (235 lb) 10/19/2022 5:47 PM EST Height 198.1 cm (6' 6 ) 10/19/2022 5:47 PM EST Body Mass Index 27.16 10/19/2022 5:47 PM EST Plan of Treatment Not on file Medical Devices Not on file [place] [facility] [place] & B Care Teams Valve Tester Relationship Specialty Start Date End Date Abdirahman Howell NP [address] [place] [address] PCP - General Family Medicine 05/13/19 Additional Source Comments The information contained in this document represents components of the legal health record. It is not the complete legal health record.[facility]
--- OUTSIDE RECORDS SUMMARY | 2025-04-21 12:33 | XMS_ITS | Clinical Summary ---
Author Organization [employer] Address [address] [place] [address] Care Team Providers Care Material Reclaimer Name Role Phone Unavailable Primary Care Provider [...] Panel 1961 SDOH Screening 1960 Sigmoidoscopy 1961 Disability Screening 1961 Alcohol/Substance Use Screening 1973 Tobacco Screening 1973 Hepatitis C Screening 1979 Zoster Vaccines (1 of 2) 2011 COVID-19 Vaccine ( season) 2024 01/26/2021, 12/29/2020 Influenza Vaccine (#1) 2025 9, 08/22/2019, 08/06/2018, Additional history exists DTaP/Tdap/Td [...] patient's age to complete this topic Meningococcal B Vaccine Aged Out No l onger eligible based on patient's age to complete this topic RSV under 20 months Aged Out No longe r eligible based on patient's age to complete this topic Rotavirus Vaccines Aged Out No longer eligible based on patient's age to complete this topic Insurance MEDICARE [address] [place] [phone]
[2025-04-21 13:24] LABS: Prostate Specific Antigen 4.67 ng/mL (<0.05-4.0)
== END 2025-04-21 11:01 | disposition home or self-care (01) ==
LOC: HO.LAB 11:00
PROVIDERS: PCP Nurse Practitioner Family; Visit Provider Urology
DX: E29.1 Testicular hypofunction (principal); Z12.5 Encounter for screening for malignant neoplasm of prostate
CPT/HCPCS: 36415; 84153; 84403; 85027

== ENCOUNTER 2025-05-06 13:02 | Outpatient (AMB) | payer OTHER, MEDICARE, SELFPAY ==
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
--- OUTSIDE RECORDS SUMMARY | 2016-05-13 20:00 | XMS_ITS | Continuity of Care Document ---
Author Organization [facility] Address [address] [place] [address] Phone Care Team Providers Care [facility] Food Service Worker Name Role Phone Leti Moe DO Unavailable Unavailable Procedures Procedure Date Extremity veins study, limited 16 Advance Directives Directive Yes / No Effective Date File Name No Information Encounters Encounter Description Practice Location Reason(s) For Visit Diagnoses Date Provider [facility], [address], [place], [place], [id number], [place] tel:[phone] [facility] No Information 2015 Abhi Landeros. [address], [address], [place], [address], [place]. tel:[phone] Family History Family Member Type Diagnosis Age At Onset No Information Payers Payer name Insurance type Covered green party ID Authoriza timilton(s) [facility] [place] [id number] Social History Type Description Quantity Date Captured Comments Sex Male Smoking Status No Information Chief Complaint And Reason For Visit No Information History Of Present Illness Encounter Date Complaint History Of Prese nt Illness No Information Instructions Date Instruction Additional Infor mation No Information Assessments Type Assessment Date No Information
--- NOTE | 2025-05-06 13:03 | MHC.OFFVIS ---
Intake Visit Reasons: 6m/labs Intake Note: Patient is present for 6m follow up Urology Medication:Alfuzosin, VIT-C, Sildenafil, Terazosin, Testosterone Antibiotic Allergy:none Blood Thinner:none Labs done 04/21/25 , PSA 4.67, Total testosterone 199 Job Order Clerk Required: No Allergies codeine (CODEINE) Allergy (Severe, Verified 03/04/25 09:13) SEVERE PAIN/HYPOXIA W/HIGH DOSES meningococcal vaccine A,C,Y and W-1 (MENINGOCOCCAL VACCINE A,C,Y AND W-1) Allergy (Intermediate, Verified 03/04/25 09:13) HIVES salmon oil Allergy (Unknown, Verified 03/04/25 09:13) hives SALMON Allergy (Severe, Uncoded 03/04/25 09:13) LT HEMIPARESIS HPI Comments Details: Doroteo GANDHI is a very pleasant male. He is a patient of Dr. Ahumada. 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 He presents today for?further evaluation and followup of his hypogonadism.? Initial symptoms include? erectile dysfunction ?Yes ? decreased libido ?Yes ? change in mood/depression ?Yes ? in muscle size/strength ?Yes ? increased fatigue/malaise ?Yes ? increased abdominal fat ?No ? tender breasts/gynecomastia ?No ? hair loss ?No ? osteopenia ?No Failed testosterone gel ? Laboratory results?04/21 PSA 2 ?06/21 T 83 - of T for 4 weeks ?12/21 T475, 01/22 P 3.7 T 1400, 07/25 T 471 P 4.1, 08/26 T 1392 ? Current therapy includes?injectable exogenous testosterone ?06/21 weekly injection ?12/21 0.4cc subcut ? Prior therapy includes?testosterone, injectable.? Diagnosis based on history and laboratory results?combined testicular insufficiency.? Lower Urinary Tract Symptoms:? Current visit is for?further evaluation of, lower urinary tract symptoms, predominate obstructive symptoms.? Current treatment includes?alpha natividad.? Prostate Symptom Score?10/22 , , Moderate (9-19), Bother 3.? Symptoms include?10/22 , incomplete emptying, weak stream, nocturia (>2), and are progressing.? Treatment plan?continue with current medications [facility] Medical History Factor 5 Leiden mutation, heterozygous Right knee pain On continuous oral anticoagulation Leg fracture, left Klinefelter syndrome Pulmonary embolus HTN (hypertension) HIV (human immunodeficiency virus infection) DVT (deep venous thrombosis) Surgical History Hx of colonoscopy History of angioplasty of vein Hx of left knee surgery History of umbilical hernia repair Hx of cholecystectomy S/P ORIF (open reduction internal fixation) fracture Family History Father No problems noted. Mother No problems noted. Social History Housing: House Are you a primary attending ambulatory care to a significant other at home: No Do you presently have visiting nurse or other home services: No Alcohol intake: former Patient Tobacco Use Status: Former Tobacco user Tobacco use type: Cigarette Cigarette Packs Per Day: 2 e-Cigarette/Vaping Use: Never Used Second Hand Smoke Exposure: Yes Substance Use Type: Marijuana service: Yes ([employer] ) Current occupational status: employed Current occupation: [employer] Current occupational exposures/hazards: No Cognitive needs: No Hearing needs: No Vision needs: No Review of Systems Const Denies chills and Denies fever(s) Card Reports no additional complaints and Denies syncope Resp Denies cough GI Denies abdominal pain and Denies heartburn Reports as per HPI and Denies change in libido Neuro Denies syncope Psych Denies change in libido Endo Denies change in libido Physical Exam Const General: cooperative, healthy appearing, comfortable and no acute distress Orientation/consciousness: patient oriented x3 HEENT Face and sinus: Yes normal facial exam Mouth: moist mucous membranes Neck Neck: Yes normal visual inspection, Yes full ROM and Yes trachea midline Chest Chest palpation & inspection: normal inspection of the chest Resp Effort & Inspection: normal respiratory effort, able to speak in complete sentences and no respiratory distress GI Inspection: Yes normal to inspection Back/Spine/Pelvis Cervical Spine: normal cervical lordosis Thoracic/Lumbar Spine: thoracic and lumbar spine normal to inspection Skin General skin exam: no rashes or lesions noted Neuro General: patient oriented x3, gait normal, tone normal and moves all extremities Extrem General: Yes normal to inspection and Yes capillary refill normal Assessment & Plan Assessment & Plan (1) Erectile dysfunction due to arterial insufficiency: Code(s): N52.01 - Erectile dysfunction due to arterial insufficiency Category: Medical (2) Klinefelter syndrome: Code(s): Q98.4 - Klinefelter syndrome, unspecified Category: Medical (3) Hypogonadism in male: Code(s): E29.1 - Testicular hypofunction Category: Medical Plan Recommend testosterone pellets Medications: Changed From testosterone apply 2 pumps over max area - alternate shoulders on alternate days 2 pumps topical DAILY 30 days 75 grams 5RF E29.1 - Testicular hypofunction, R79.89 - Other specified abnormal findings of blood chemistry To testosterone apply 3 pumps over max area - alternate shoulders on alternate days 3 pumps topical DAILY 150 grams 5RF 30 days E29.1 - Testicular hypofunction, R79.89 - Other specified abnormal findings of blood chemistry Patient Instructions: This note is constructed using voice recognition software. While every effort has been made to ensure accuracy leaf tinner errors may have been included. Imaging studies, laboratory and physical exam results were discussed and reviewed in detail. No major barriers to patient understanding were identified. An opportunity to ask questions regarding the treatment plan was provided. All questions were answered. The patient expressed understanding and agreement with the above treatment plan. The patient is aware they should contact our office by phone for worsening of their current condition or the appearance of new urologic symptoms. Compliance is encouraged with any medications and followup testing that is ordered. It is a privilege to participate in the urologic care of your patient. If you have any questions or concerns regarding treatment for the above conditions, or other urologic issues, please do not hesitate to contact me. The office telephone contact is [phone]. Sincerely, Dr Sunny Guerra MD, [facility] - Urology Compassionate Specialist Care for the Genitourinary System Coding Level of Care Code Est Pt Level 3 (15415) Complex EM visit Add On G2211 Diagnoses Erectile dysfunction due to arterial insufficiency N52.01 Klinefelter syndrome Q98.4 Hypogonadism in male E29.1
--- OUTSIDE RECORDS SUMMARY | 2025-05-06 15:22 | XMS_ITS | Clinical Summary ---
Author Organization [facility] Address [address] [facility] [address] [place] [address] Phone Care Team Providers Care Canal Equipment Maintenance Supervisor Name Role Phone Abdirahman Howell NP Primary [...] B [place] B [facility] & B [place] B Care Teams Canal Equipment Maintenance Supervisor Relationship Specialty Start Date End Date Abdirahman Howell NP [address] [place] [address] PCP - General Family Medicine 05/13/19 Additional Source Comments The information contained in this document represents components of the legal health record. It is not the complete legal health record.[facility]
--- OUTSIDE RECORDS SUMMARY | 2025-05-06 15:22 | XMS_ITS | Clinical Summary ---
Author Organization [employer] Address [address] [facility] 7[address] [place] [address] Care Team Providers Care Hairspring Assembler Name Role Phone Unavailable Primary Care Provider [...] age to complete this topic Insurance [place] [phone]
== END 2025-05-06 14:08 | disposition home or self-care (01) ==
LOC: HO.HUSH 13:03
PROVIDERS: PCP Nurse Practitioner Family; Visit Provider Urology
DX: E29.1 Testicular hypofunction (principal); N52.01 Erectile dysfunction due to arterial insufficiency
CPT/HCPCS: 99213; G2211

== ENCOUNTER 2025-06-25 09:54 | Outpatient (AMB) | payer OTHER, MEDICARE, SELFPAY ==
--- NOTE | 2025-06-25 10:24 | A.OFFVIS_ITS ---
Intake Visit Reasons: Testopel Pellets Intake Note: Patient is present for Testopel inj Urology Medication:Alfuzosin, VIT-C, Sildenafil, , Testosterone Antibiotic Allergy:none Blood Thinner:none Labs done 04/21/25 , PSA 4.67, Total testosterone 199 Canopy Inspector Required: No Accompanied by: Self / Same As Patient Allergies codeine (CODEINE) Allergy (Severe, Verified 06/25/25 10:25) SEVERE PAIN/HYPOXIA W/HIGH DOSES meningococcal vaccine A,C,Y and W-1 (MENINGOCOCCAL VACCINE A,C,Y AND W-1) Allergy (Intermediate, Verified 06/25/25 10:25) HIVES salmon oil Allergy (Unknown, Verified 06/25/25 10:25) hives SALMON Allergy (Severe, Uncoded 03/04/25 09:13) LT HEMIPARESIS HPI Comments Details: Doroteo GANDHI is a very pleasant male. He is a patient of Dr. Ahumada. He is seen for the following urologic conditions - lower urinary tract symptoms - hypogonadism - Klinefelter syndrome - long-term testosterone - erectile dysfunction Here for T pellets Did discuss holding anticoagulation for 3 days prior to next pellet placement Tolerated procedure Has been on medications bladder stability Prior cystoscopy shows trabeculation grade 2, mucosal irritation particularly anterior prostate surface Improvement from low-dose Bactrim On daily tadalafil with on demand sildenafil Failure to absorb topical gel. Needle phobic. Baseline T199 Hypogonadism:?Has had some fatigue secondary to COVID stress ?Can increase testosterone to 0.45 per week ?Also discussed ED ?Had difficulty with Cialis in past, Viagra 200 mg non effective ?Has use Tri Mix previously Injection Day : Sunday Lab Day: ? He presents today for?further evaluation and followup of his hypogonadism.? Initial symptoms include? erectile dysfunction ?Yes ? decreased libido ?Yes ? change in mood/depression ?Yes ? in muscle size/strength ?Yes ? increased fatigue/malaise ?Yes ? increased abdominal fat ?No ? tender breasts/gynecomastia ?No ? hair loss ?No ? osteopenia ?No Failed testosterone gel ? Laboratory results?04/21 PSA 2 ?06/21 T 83 - of T for 4 weeks ?12/21 T475, 01/22 P 3.7 T 1400, 07/25 T 471 P 4.1, 08/26 T 1392 ? Current therapy includes?injectable exogenous testosterone ?06/21 weekly injection ?12/21 0.4cc subcut ? Prior therapy includes?testosterone, injectable.? Diagnosis based on history and laboratory results?combined testicular insufficiency.? Lower Urinary Tract Symptoms:? Current visit is for?further evaluation of, lower urinary tract symptoms, predominate obstructive symptoms.? Current treatment includes?alpha natividad.? Prostate Symptom Score?10/22 , , Moderate (9-19), Bother 3.? Symptoms include?10/22 , incomplete emptying, weak stream, nocturia (>2), and are progressing.? Treatment plan?continue with current medications [facility] Medical History Factor 5 Leiden mutation, heterozygous Right knee pain On continuous oral anticoagulation Leg fracture, left Klinefelter syndrome Pulmonary embolus HTN (hypertension) HIV (human immunodeficiency virus infection) DVT (deep venous thrombosis) Surgical History Hx of colonoscopy History of angioplasty of vein Hx of left knee surgery History of umbilical hernia repair Hx of cholecystectomy S/P ORIF (open reduction internal fixation) fracture Family History Father No problems noted. Mother No problems noted. Social History Housing: House Are you a primary manager care management to a significant other at home: No Do you presently have visiting nurse or other home services: No Alcohol intake: former Patient Tobacco Use Status: Former Tobacco user Tobacco use type: Cigarette Cigarette Packs Per Day: 2 e-Cigarette/Vaping Use: Never Used Second Hand Smoke Exposure: Yes Substance Use Type: Marijuana service: Yes ([employer] ) Current occupational status: employed Current occupation: [employer] Current occupational exposures/hazards: No Cognitive needs: No Hearing needs: No Vision needs: No Office Procedures AMB Testopel Details: Testopel Placement Pre Op Diagnosis - Low testosterone Post Op Diagnosis - Low Testosterone Procedure: Testopel Insertion The patient was placed in right lateral position with right side down and left side up. The area over the [right] hip was cleaned with Betadine. A fenestrated drape was placed over the area. Lidocaine 2% was injected first as a skin wheal and then into the subcutaneous tissue directed in a fashion down towards the femur in the subcutaneous space to perform hydrodissection. The purpose of the injection is to numb the length of the trocar track. Testopel was prepared for insertion. Six Testopel pellets were removed from the individual glass containers and placed in a sterile container. This gave time for the lidocaine to work. A 11 Blade scapel was used to make a puncture incision into the subcutaneous space. The trocar with a sharp-ended stylet was inserted through the stab incision at a 45? angle and into the subcutaneous fat layer. The needle was flatten out and advanced leaving the pellet loading area exposed. 6 pellets were inserted using Adson forceps into the loading trocar in a V pattern. The blunt stylet was used to advance pellets into the tract while withdrawing the trocar - 4 pellets and 2 pellets placed in each arm of the V. Once completed the area was wiped with alchohol. Pressure was applied with a small gauze for 2-3 minutes. The trocar insertion site was closed with multiple steristrips and a 2x2 gauze placed with a tegaderm dressing placed. He tolerated the procedure well and was given instructions to remove the Tegaderm dressing in 48 hours. CPT 26062 J3490 Subcutaneous Hormone Pellet Insertion: 56234 Subq Hormone Pellet Insertion Office Meds Testopel 75 mg implant pellet Performing Provider: Sunny Guerra MD Performing Location: [facility] Administered by: Sunny Guerra MD on 06/25/25 10:55 Dose Route Admin Location Dispensed Lot Number Expiration Date NDC Metalizing Machine Operator Automatic 75 mg implant 6 ea Total Dispensed Waste 6 ea 0 % Assessment & Plan Assessment & Plan (1) Hypogonadism in male: Code(s): E29.1 - Testicular hypofunction Category: Medical (2) Klinefelter syndrome: Code(s): Q98.4 - Klinefelter syndrome, unspecified Category: Medical Plan Three-month follow-up repeat pellet Orders: Orders AMB Testosterone Pellet Implant Today E29.1 - Testicular hypofunction Testosterone, Total 2 Weeks E29.1 - Testicular hypofunction Testosterone, Total 10 Weeks E29.1 - Testicular hypofunction Patient Instructions: This note is constructed using voice recognition software. While every effort has been made to ensure accuracy sand car worker errors may have been included. Imaging studies, laboratory and physical exam results were discussed and reviewed in detail. No major barriers to patient understanding were identified. An opportunity to ask questions regarding the treatment plan was provided. All questions were answered. The patient expressed understanding and agreement with the above treatment plan. The patient is aware they should contact our office by phone for worsening of their current condition or the appearance of new urologic symptoms. Compliance is encouraged with any medications and followup testing that is ordered. It is a privilege to participate in the urologic care of your patient. If you have any questions or concerns regarding treatment for the above conditions, or other urologic issues, please do not hesitate to contact me. The office telephone contact is [phone]. Sincerely, Dr Sunny Guerra MD, [facility] - Urology Compassionate Specialist Care for the Genitourinary System Coding Level of Care Code Est Pt Level 3 (76999) Diagnoses Hypogonadism in male E29.1 Klinefelter syndrome Q98.4
--- OUTSIDE RECORDS SUMMARY | 2025-06-25 11:29 | XMS_ITS | Clinical Summary ---
Author Organization [facility] Address [address] [facility] [address] [place] [address] Phone Care Team Providers Care Mechanical Development Engineer Name Role Phone Abdirahman Howell NP Primary Care Provider + Allergies Active Allergy Reactions Criticality Noted Date Comments Codeine 10/19/2022 Fish Derived 10/19/2022 Medications No known medications Encounters Date Type Department Care Team Description 06/17/2025 Orders Only [facility] Infectious Diseases [address] [place] [address] Lesley Henriquez MA Human immunodeficiency virus (HIV) disease (Primary Dx) from Last 3 Months Social History Tobacco Use Types Packs/Day Years [...] 10/19/2022 5:47 PM EST Plan of Treatment Health Maintenance Due Date Last Done Comments LIPID PANEL 1961 DEPRESSION SCREENING 1973 SMOKING Hx and SMOKELESS TOBACCO SCREENING 1974 HEPATITIS C SCREENING 1979 HIV ONE-TIME SCREENING (18-65 YEARS) 1979 COLOGUARD 2006 COLONOSCOPY 2006 COLORECTAL CANCER SCREENING 2006 FIT TEST 2006 FOBT 2006 SIGMOIDOSCOPY 2006 VIRTUAL COLONOSCOPY 2006 ZOSTER VACCINES (1 of 2) 2011 INFLUENZA VACCINE (#1) 2025 9, 08/06/2018, 05/17/2017, Additional history exists COVID-19 VACCINE ( season) 2025 01/26/2021, 12/29/2020 Adult Td,Tdap Booster 09/04/2025 09/04/2015, 010 SCREENING FOR DIABETES 10/19/2025 10/19/2022 RSV VACCINE (1 - 1-dose 75+ series) 2036 HEPATITIS A VACCINES Aged Out 07/11/2013, 06/26/2012, 06/26/2012 No longer eligible based on patient's age to complete this topic MENINGOCOCCAL VACCINES (ACWY) Aged Out 02/19/2014, 02/19/2014 No longer eligibl e based on patient's age to complete this topic PNEUMOCOCCAL VACCINES (50+ years) Completed 06/21/2017, 07/11/2013, 06/16/2012 HIB VACCINES Aged Out No longer eligi ble based on patient's age to complete this topic MENINGOCOCCAL VACCINES (B) Aged Out N o longer eligible based on patient's age to complete this topic Medical [place] [address] [place] & [place] B [place] B Member Subscriber Plan / Payer (Ef fective 2022-) Name:Doroteo Nails Member ID:[id number] Relation to Subscriber:Self Name:NailsDoroteo Subscriber ID:[id number] Payer ID:[id number] Group ID:Not on file Type:Medicare Address: [employer] [address] [place] [address] [facility] B Member Subscriber Plan / Payer (Ef fective 2022-) Name:Doroteo Nails Member ID:[id number] Relation to Subscriber:Self Name:Doroteo Nails Subscriber ID:[id number] Payer ID:[id number] Group ID:Not on file Type:Medicare Address: [employer] [address] [place] [address] [place] & B Member Subscriber Plan / Payer (Ef fective 2022-) Name:Doroteo Nails Member ID:[id number] Relation to Subscriber:Self Name:NailsDoroteo menendez Subscriber ID:[id number] Payer ID:[id number] Group ID:Not on file Type:Medicare Address: [employer] [address] [place] [address] [place] A & B Member Subscriber Plan / Payer (Ef fective 2022-Present) Name:Doroteo Nails Member ID:[id number] Relation to Subscriber:Self Name:Doroteo Nails Subscriber ID:[id number] Payer ID:[id number] Group ID:Not on file Type:Medicare Address: [employer] [address] [place] [address] Care Teams Mechanical Development Engineer Relationship Specialty Start Date End Date Abdirahman Howell NP [address] [place] [address] PCP - General Family Medicine 05/13/19 Additional Source Comments The information contained in this document represents components of the legal health record. It is not the complete legal health record.[facility]
--- OUTSIDE RECORDS SUMMARY | 2025-06-25 11:29 | XMS_ITS | Clinical Summary ---
Author Organization [employer] Address [address] [facility] [address]t [place] [address] Care Team Providers Care Mucker Cofferdam Name Role Phone Unavailable Primary Care Provider [...] (1 of 2) 2011 COVID-19 Vaccine (3 season) 2025 01/26/2021, 12/29/2020 Influenza Vaccine (#1) 2025 9, [...] age to complete this topic Insurance [place]IC[place] [phone]
--- OUTSIDE RECORDS SUMMARY | 2025-06-25 11:29 | XMS_ITS | Encounter Summary ---
Author Organization [facility] Address [address] [facility] [address] [place] [phone] Phone Care Team Providers Care Trade Union Secretary Name Role Phone Abdirahman Howell DUMPER BAILER OPERATOR Primary Care Provider + Reason for Referral * Consultation (Elective) - New Request Specialty Diagnoses / Procedures Referred By Contmoose t Referred To Contact Infectious Diseases Diagnoses Human immunodeficiency virus (HIV) disease Abdirahman Howell NP [address] [place] [address] Phone: tel: fax: Hilaria Cummings FNP [address] [facility], 2nd [place] [address] Phone: tel: fax: [email or web address] Referral ID Status Reason Start Date Expiration Date V isits Requested Visits Authorized [id number] New Request 06/17/2025 06/17/2026 1 1 Encounter Details Date Type Department Care Team (Late st Contact Info) Description 06/17/2025 Orders Only [facility] Infectious Diseases [address] [place] [address] Lesley Henriquez MA [address] [place] [address] [email or web address] Human immunodeficiency virus (HIV) disease (Primary Dx) Social History Tobacco Use Types Packs/Day Years [...] PM EST Sexual Orientation Not on file documented as of this encounter Plan of Treatment Scheduled Referrals Name Type Priority Associated Diagnoses Orde r Schedule Ambulatory referral to [facility] Infectious Disease Outpatient Referral Routine Human immunodeficiency virus (HIV) disease Ordered: 06/17/2025 documented as of this encounter Visit Diagnoses Diagnosis Human immunodeficiency virus (HIV) disease- Primary Human immunodeficiency virus [HIV] disease documented in this encounter Care Teams Trade Union Secretary Relationship Specialty Start Date End Date Abdirahamn Howell NP [address] [place] [address] PCP - General Family Medicine 05/13/19 documented as of this encounter Additional Source Comments The information contained in this document represents components of the legal health record. It is not the complete legal health record.[facility]
== END 2025-06-25 11:12 | disposition home or self-care (01) ==
LOC: HO.HUSH 09:54
PROVIDERS: PCP Nurse Practitioner Family; Visit Provider Urology
DX: E29.1 Testicular hypofunction (principal); Q98.4 Klinefelter syndrome, unspecified
CPT/HCPCS: 11980; 99213

== ENCOUNTER → 2025-06-25 09:54 | Outpatient (BNVA) | payer OTHER, MEDICARE, SELFPAY | PROVIDERS: PCP Nurse Practitioner Family; Visit Provider Urology | DX: E29.1 Testicular hypofunction (principal) | CPT/HCPCS: 11980; J3490 ==

== ENCOUNTER 2025-07-13 13:08 | Outpatient (REF) | payer OTHER, MEDICARE, SELFPAY ==
--- OUTSIDE RECORDS SUMMARY | 2025-07-13 15:18 | XMS_ITS | Clinical Summary ---
Author Organization [employer] Address [address] [facility] [address] [place] [address] Care Team Providers Care Delivery Mgr Name Role Phone Unavailable Primary Care Provider [...] age to complete this topic Insurance MEDIC[place] [phone]
== END 2025-07-13 13:09 | disposition home or self-care (01) ==
LOC: HO.LAB 13:08
PROVIDERS: PCP Nurse Practitioner Family; Visit Provider Urology
DX: E29.1 Testicular hypofunction (principal)
CPT/HCPCS: 36415; 84403

== ENCOUNTER 2025-08-18 10:32 | Outpatient (REF) | payer OTHER, MEDICARE, SELFPAY ==
--- OUTSIDE RECORDS SUMMARY | 2025-08-18 13:22 | XMS_ITS | Clinical Summary ---
Author Organization [employer] Address [address] [facility] [address]t [place] [address] Care Team Providers Care Real Estate Officer Name Role Phone Unavailable Primary Care Provider [...] age to complete this topic Insurance MEDICARE [place] [phone]
== END 2025-08-18 10:33 | disposition home or self-care (01) ==
LOC: HO.LAB 10:32
PROVIDERS: PCP Nurse Practitioner Family; Visit Provider Urology
DX: E29.1 Testicular hypofunction (principal)
CPT/HCPCS: 36415; 84403